=== PATIENT | female | born 1945 | race Caucasian/White ===

== ENCOUNTER 2017-07-12 12:53 | Inpatient (IN) | payer MEDICARE, BC ==
[2017-07-12] VITALS (8 sets, daily range): BP systolic 133–160; BP diastolic 64–77; PULSE 65–80; RESP 16–18; TEMP 98–98.1; O2SAT 97–99
[~2017-07-12] VITALS: Ht 154.9 cm; Wt 67.8 kg
[~2017-07-12 12:53] MED LIST: ASPI81TA82 PO; CART120C2 PO; HYDR-3535 PO; LISI-360 PO; TRAM50TA PO; [UNRECOGNIZED DRUG - CODE] PO; [UNRECOGNIZED DRUG - CODE] PO; [UNRECOGNIZED DRUG - CODE] PO
[2017-07-12] MEDS ORDERED: SODIUM CHLOR 0.9% 1000 ML INJ 1,000 ML IV SCH (13:23)
--- NOTE | 2017-07-12 13:23 | PD ---
HPI Chief Complaint: Abdominal Pain Time Seen by Provider: 13:17 Travel History International Travel<30 days: No Contact w/Intl Traveler<30days: No Traveled to known affect area: No History of Present Illness HPI 72-year-old female presents emergency department with 2 month history of fairly constant left upper quadrant pain. Patient was seen by her primary care physician 1 month ago, and was thought to have pneumonia, but x-ray showed no pneumonia, and she was treated for bronchitis without improvement. Patient states she has had nausea and vomiting, associated with this pain. She denies significant changes in her bowels. She denies significant fever. She denies urinary symptoms or vaginal symptoms. Patient states symptoms seem to be worsening, and she has lost over 15 pounds in weight. She states the pain is mainly in the left upper quadrant radiating into her back. She denies cough, shortness of breath, or wheezing. She denies chest pain. She is a long-term smoker. She states she has a couple of drinks daily. She rates her pain as occasionally sharp but always dull. Worst pain estimated at 9 out of 10. She has no known drug allergies. PFSH Past Medical History Diminished Hearing: No GERD: Yes Herniated Disk: Yes Hypertension: Yes Thyroid Disease: Yes Dilation and Curettage (D&C): Yes Social History Alcohol Use: Yes (1 BEER OR 1 GLASS OF WINE EACH NIGHT, THEN OCCASIONAL SOCIAL DRINK) Tobacco Use: Yes (1 PK/DAILY X 40 YRS) Substance Use: No Allergies-Medications (Allergen,Severity, Reaction): Coded Allergies: No Known Allergies (Unverified Adverse Reaction, Unknown, 07/12/17) Reported Meds & Prescriptions Reported Meds & Active Scripts Active Reported Aspirin Low Dose (Aspirin) 81 Mg Chew 81 Mg CHEW DAILY Amlodipine (Amlodipine Besylate) 5 Mg Tab 5 Mg PO DAILY Lisinopril 20 Mg Tab 20 Mg PO BID Metoprolol Tartrate 50 Mg Tab 50 Mg PO BID Tramadol (Tramadol HCl) 50 Mg Tab 50 Mg PO Q8H PRN Phenergan (Promethazine HCl) 25 Mg Tablet 25 Mg PO Q8HR PRN Ranitidine (Ranitidine HCl) 150 Mg Tab 150 Mg PO BID Diltiazem CD 24 HR 120 Mg Caper 120 Mg PO BID Levothyroxine (Levothyroxine Sodium) 300 Mcg Tab 300 Mcg PO DAILY Review of Systems Except as stated in HPI: all other systems reviewed are Neg General / Constitutional: No: Fever, Chills Eyes: No: Visual changes HENT: No: Headaches Cardiovascular: No: Chest Pain or Discomfort Respiratory: No: Cough, Shortness of Breath, Wheezing Gastrointestinal: Positive: Nausea, Vomiting, Abdominal Pain (See history of present illness), No: Diarrhea, Changes in Bowel Habits, Indigestion, Dysphagia , Loss of Appetite Genitourinary: Positive: Flank Pain, No: Urgency, Frequency, Dysuria, Nocturia , Hematuria, Decreased Urinary Output, Pelvic Pain, Discharge, Vaginal Bleeding Musculoskeletal: No: Myalgias, Arthralgias, Limited ROM, Pain Skin: No Rash Neurologic: No: Weakness Psychiatric: No: Depression Endocrine: No: Polydipsia Hematologic/Lymphatic: No: Easy Bruising Physical Exam Narrative GENERAL: Patient appears in mild distress per SKIN: Warm and dry. Normal color. Normal turgor. No jaundice noted HEAD: Atraumatic. Normocephalic. EYES: Pupils equal and round. No scleral icterus. No injection or drainage. ENT: No nasal bleeding or discharge. Mucous membranes pink and moist. Pharynx is clear. Airways patent NECK: Trachea midline. Supple and nontender CARDIOVASCULAR: Regular rate and rhythm. RESPIRATORY: No accessory muscle use. Clear to auscultation. Breath sounds equal bilaterally. GASTROINTESTINAL: Abdomen soft, moderate nonspecific tenderness in the left upper quadrant, nondistended. Hepatic and splenic margins not palpable. MUSCULOSKELETAL: Extremities without clubbing, cyanosis, or edema. No obvious deformities. NEUROLOGICAL: Awake and alert. No obvious cranial nerve deficits. Motor grossly within normal limits. Five out of 5 muscle strength in the arms and legs. Normal speech. PSYCHIATRIC: Appropriate mood and affect; insight and judgment normal. Data Data Last Documented VS Vital Signs Date Time Temp Pulse Resp B/P (MAP) Pulse Ox O2 Delivery O2 Flow Rate FiO2 07/12/17 15:40 72 18 140/76 (97) 98 Room Air 07/12/17 13:00 98.0 Orders Orders Complete Blood Count With Diff (07/12/17 13:23) Comprehensive Metabolic Panel (07/12/17 13:23) Lipase (07/12/17 13:23) Prothrombin Time / Inr (Pt) (07/12/17 13:23) Act Partial Throm Time (Ptt) (07/12/17 13:23) Urinalysis - C+S If Indicated (07/12/17 13:23) Ct Abd/Pel W Iv Contrast(Rout) (07/12/17 13:23) Iv Access Insert/Monitor (07/12/17 13:23) Ecg Monitoring (07/12/17 13:23) Oximetry (07/12/17 13:23) Morphine Inj (Morphine Inj) (07/12/17 13:30) Ondansetron Inj (Zofran Inj) (07/12/17 13:30) Sodium Chlor 0.9% 1000 Ml Inj (Ns 1000 M (07/12/17 13:23) Sodium Chloride 0.9% Flush (Ns Flush) (07/12/17 13:30) Electrocardiogram (07/12/17 13:23) Famotidine Inj (Pepcid Inj) (07/12/17 13:30) Iohexol 350 Inj (Omnipaque 350 Inj) (07/12/17 15:13) Urine Culture (07/12/17 15:35) Labs Laboratory Tests Test 07/12/17 13:44 07/12/17 15:35 White Blood Count 14.1 TH/MM3 Red Blood Count 5.56 MIL/MM3 Hemoglobin 15.2 GM/DL Hematocrit 45.7 % Mean Corpuscular Volume 82.2 FL Mean Corpuscular Hemoglobin 27.3 PG Mean Corpuscular Hemoglobin Concent 33.2 % Red Cell Distribution Width 14.9 % Platelet Count 349 TH/MM3 Mean Platelet Volume 8.0 FL Neutrophils (%) (Auto) 76.6 % Lymphocytes (%) (Auto) 12.1 % Monocytes (%) (Auto) 7.6 % Eosinophils (%) (Auto) 2.8 % Basophils (%) (Auto) 0.9 % Neutrophils # (Auto) 10.8 TH/MM3 Lymphocytes # (Auto) 1.7 TH/MM3 Monocytes # (Auto) 1.1 TH/MM3 Eosinophils # (Auto) 0.4 TH/MM3 Basophils # (Auto) 0.1 TH/MM3 CBC Comment DIFF FINAL Differential Comment Prothrombin Time 10.4 SEC Prothromb Time International Ratio 1.0 RATIO Activated Partial Thromboplast Time 22.8 SEC Blood Urea Nitrogen 21 MG/DL Creatinine 1.05 MG/DL Random Glucose 103 MG/DL Total Protein 7.9 GM/DL Albumin 3.4 GM/DL Calcium Level 9.4 MG/DL Alkaline Phosphatase 142 U/L Aspartate Amino Transf (AST/SGOT) 21 U/L Alanine Aminotransferase (ALT/SGPT) 40 U/L Total Bilirubin 0.4 MG/DL Sodium Level 141 MEQ/L Potassium Level 5.1 MEQ/L Chloride Level 110 MEQ/L Carbon Dioxide Level 25.6 MEQ/L Anion Gap 5 MEQ/L Estimat Glomerular Filtration Rate 51 ML/MIN Lipase 130 U/L Urine Color LIGHT-YELLOW Urine Turbidity HAZY Urine pH 6.0 Urine Specific [place] 1.025 Urine Protein NEG mg/dL Urine Glucose (UA) NEG mg/dL Urine Ketones NEG mg/dL Urine Occult Blood NEG Urine Nitrite POS Urine Bilirubin NEG Urine Urobilinogen LESS THAN 2.0 MG/DL Urine Leukocyte Esterase MOD Urine WBC 5 /hpf Urine Squamous Epithelial Cells 10 /hpf Urine Bacteria OCC /hpf Urine Mucus FEW /lpf Microscopic Urinalysis Comment CULTURE INDICATED MDM Medical Decision Making Medical Screen Exam Complete: Yes Emergency Medical Condition: Yes Differential Diagnosis Left upper quadrant pain. Flank pain. Renal colic. Diverticulitis. Colitis. Pancreatitis. Metastatic disease. Narrative Course Patient appears medically stable at time of exam. Labs ordered including CBC, CMP, lipase, coagulation studies, and urinalysis. EKG shows normal sinus rhythm without ST changes. This is reviewed with Dr. Grimm. IV access is obtained the patient is given 4 mg Zofran IV, 20 mg Pepcid IV, 2 mg morphine IV, as well as 1000 mL of normal saline bolus. Abdominal pelvis CT is ordered with IV contrast. CBC shows leukocytosis of 14.1. Coagulation studies are unremarkable. Chemistries show chloride of 110, BUN 21, creatinine 1.05, GFR is 51. Alkaline phosphatase is elevated at 142 otherwise no significant findings. CT scan shows: 1. Ill-defined mass involving the tail of the pancreas measuring 5.3 x 2.7 x 2.2 cm raising the possibility primary adenocarcinoma of the pancreas. 2. Multiple low-density lesions scattered throughout the liver ranging in size from 3 to 16 mm with probable metastatic disease. 3. Multiple bilateral renal cysts. 4. Degenerative changes and scoliosis of the thoraco-lumbar spine. Results are discussed with Dr. Grimm who recommends admitting the patient for further evaluation and workup with IR and oncology. Calls placed to the hospitalist for admission. Diagnosis Primary Impression: Lesion of pancreas Admitting Information Admitting Physician Requests: Admit Condition: Stable Daniel Flores Jul 12, 2017 13:23
[2017-07-12] MEDS ORDERED: LEVO-171 PO (13:29)
[2017-07-12] MEDS ORDERED: PROM25TA10 PO (13:29)
[2017-07-12] MEDS ORDERED: RANI150T PO (13:29)
[2017-07-12] MEDS ORDERED: DILT120C50 PO (13:29)
[2017-07-12] MEDS ORDERED: ASPI81CH6 CHEW (13:29)
[2017-07-12] MEDS ORDERED: TRAM50TA PO (13:29)
[2017-07-12] MEDS ORDERED: LISI-515 PO (13:29)
[2017-07-12] MEDS ORDERED: AMLO5TAB2 PO (13:29)
[2017-07-12] MEDS ORDERED: METO50TA PO (13:29)
[2017-07-12] MEDS ORDERED: SODIUM CHLORIDE 0.9% FLUSH 10 ML FLUSH IV FLUSH PRN ×2 (13:30→17:30)
[2017-07-12] MEDS ORDERED: FAMOTIDINE 20 MG/2 ML VIAL IV PUSH ONE (13:30)
[2017-07-12] MEDS ORDERED: ONDANSETRON HCL 4 MG/2 ML VIAL IVP ONE (13:30)
[2017-07-12] MEDS ORDERED: MORPHINE SULFATE 4 MG/ML INJ IV PUSH ONE (13:30)
[2017-07-12 14:17] LABS: AUTOMATED NEUTROPHIL # 10.8 TH/MM3 (1.8-7.7); BASOPHIL # 0.1 TH/MM3 (0-0.2); BASOPHIL % 0.9 % (0.0-2.0); EOSINOPHIL # 0.4 TH/MM3 (0-0.4); EOSINOPHIL % 2.8 % (0.0-4.0); HEMATOCRIT 45.7 % (35.0-46.0); HEMOGLOBIN 15.2 GM/DL (11.6-15.3); LYMPH % 12.1 % (9.0-44.0); LYMPHOCYTE # 1.7 TH/MM3 (1.0-4.8); MEAN CELL VOLUME 82.2 FL (80.0-100.0); MEAN CORPUSCULAR HEMOGLOBIN 27.3 PG (27.0-34.0); MEAN CORPUSCULAR HGB CONC 33.2 % (32.0-36.0); MONO % 7.6 % (0.0-8.0); MONOCYTE # 1.1 TH/MM3 (0-0.9); NEUT % 76.6 % (16.0-70.0); PLATELET COUNT 349 TH/MM3 (150-450); RED BLOOD COUNT 5.56 MIL/MM3 (4.00-5.30); RED CELL DISTRIBUTION WIDTH 14.9 % (11.6-17.2); WHITE BLOOD COUNT 14.1 TH/MM3 (4.0-11.0)
[2017-07-12 14:25] LABS: PROTHROMBIN TIME - PATIENT 10.4 SEC (9.8-11.6)
[2017-07-12 14:35] LABS: ALBUMIN 3.4 GM/DL (3.4-5.0); ALT (GPT) 40 U/L (10-53); AST (GOT) 21 U/L (15-37); BICARBONATE 25.6 MEQ/L (21.0-32.0); BLOOD UREA NITROGEN 21 MG/DL (7-18); CALCIUM 9.4 MG/DL (8.5-10.1); CHLORIDE 110 MEQ/L (98-107); CREATININE 1.05 MG/DL (0.50-1.00); GLOMERULAR FILTRATION RATE 51 ML/MIN (>89); GLUCOSE,RANDOM 103 MG/DL (74-106); SODIUM (NA) 141 MEQ/L (136-145)
[2017-07-12 14:37] LABS: ALKALINE PHOSPHATASE 142 U/L (45-117); TOTAL BILIRUBIN ADULT 0.4 MG/DL (0.2-1.0); TOTAL PROTEIN 7.9 GM/DL (6.4-8.2)
[2017-07-12] MEDS ORDERED: IOHEXOL 350 MG/ML 10 ML VIAL (for RAD DIAG) IVCONTRAST ONE (15:13)
--- NOTE | 2017-07-12 15:28 | RADRPT ---
EXAM DATE/TIME: 07/12/2017 15:05 [facility] COMPARISON: No previous studies available for comparison. INDICATIONS : Left sided abdomen pain. IV CONTRAST: 94 cc Omnipaque 350 (iohexol) IV ORAL CONTRAST: No oral contrast ingested. RADIATION DOSE: 9.63 CTDIvol (mGy) MEDICAL HISTORY : Hypertension. Chronic obstructive pulmonary disease. Gastroesophageal reflux disease. SURGICAL HISTORY : None. ENCOUNTER: Initial ACUITY: 1 day PAIN SCALE: 9/10 LOCATION: Left flank TECHNIQUE: Volumetric scanning of the abdomen and pelvis was performed. Using automated exposure control and ad justment of the mA and/or kV according to patient size, radiation dose was kept as low as reasonably achievable to obtain optimal diagnostic quality images. DICOM format image data is available electro nically for review and comparison. FINDINGS: LOWER LUNGS: The visualized lower lungs are clear. LIVER: There are multiple low-density lesions scattered throughout the liver parenchyma which are suggestive of possible metastatic disease. These range in size from 3-16 mm. SPLEEN: Normal size without lesion. PANCREAS: There is a mass-like lesion involving the tail of the pancreas measuring 5.3 x 2.7 x 2.2 cm. This medellin ses the possibility of primary adenocarcinoma of the pancreas. KIDNEYS: Normal in size and shape. Multiple bilateral renal cysts are noted. The largest cyst is noted on the left and measures 3.6 cm. There is no solid mass, stone or hydronephrosis. ADRENAL GLANDS: Within normal limits. VASCULAR: There is no aortic aneurysm. BOWEL/MESENTERY: The stomach, small bowel, and colon demonstrate no acute abnormality. There is no free intraperitone al air or fluid. ABDOMINAL WALL: Within normal limits. RETROPERITONEUM: There is no lymphadenopathy. BLADDER: No wall thickening or mass. REPRODUCTIVE: Within normal limits. INGUINAL: There is no lymphadenopathy or hernia. MUSCULOSKELETAL: Degenerative changes and scoliosis of the thoracolumbar spine. CONCLUSION: 1. Ill-defined mass involving the tail of the pancreas measuring 5.3 x 2.7 x 2.2 cm raising the possi bility primary adenocarcinoma of the pancreas. 2. Multiple low-density lesions scattered throughout the liver ranging in size from 3 to 16 mm with p robable metastatic disease. 3. Multiple bilateral renal cysts. 4. Degenerative changes and scoliosis of the thoraco-lumbar spine. Jah Delcid MD on July 12, 2017 at 15:21 Board Certified Radiologist. This report was verified electronically.
[2017-07-12 16:14] LABS: BACTERIA, URINE OCC /hpf; BILIRUBIN, URINE NEG (NEG); BLOOD, URINE NEG (NEG); GLUCOSE,URINE NEG (NEG); KETONE, URINE NEG (NEG); MUCUS URINE FEW /lpf (OCC); NITRITE,URINE POS (NEG); SQUAMOUS EPITHELIAL CELL URINE 10 /hpf (0-5); URINE COLOR LIGHT-YELLOW (YELLW/STRAW); URINE LEUKOCYTE ESTERASE MOD (NEG)
[2017-07-12] MEDS ORDERED: SENNOSIDES 8.6 MG TAB PO PRN (17:30)
[2017-07-12] MEDS ORDERED: NICOTINE 14 MG/24 HR PATCH T-DERMAL ONE (17:30)
[2017-07-12] MEDS ORDERED: oxyCODONE/ACETAMINOPHEN 5 MG/325 MG TAB PO PRN (17:30)
[2017-07-12] MEDS ORDERED: MORPHINE SULFATE 2 MG/ML INJ IV PUSH PRN (17:30)
[2017-07-12] MEDS ORDERED: ACETAMINOPHEN 325 MG TAB PO PRN ×2 (17:30)
[2017-07-12] MEDS ORDERED: ONDANSETRON HCL 4 MG/2 ML VIAL IVP PRN (17:30)
[2017-07-12] MEDS ORDERED: MAGNESIUM HYDROXIDE SUSP 30 ML CUP PO PRN (17:30)
[2017-07-12] MEDS ORDERED: TEMAZEPAM 15 MG CAP PO PRN (17:30)
[2017-07-12] MEDS ORDERED: NALOXONE HCL 0.4 MG/ML AMP IV PUSH PRN (17:30)
[2017-07-12] MEDS ORDERED: LACTULOSE SYRUP 20 GM/30 ML CUP PO PRN (17:30)
[2017-07-12] MEDS ORDERED: BISACODYL 10 MG SUPP RECTAL PRN (17:30)
--- NOTE | 2017-07-12 17:39 | HHI.HP ---
[facility] Service [facility] Primary Care Physician Unknown Admission Diagnosis Pancreatic Lesion on CT Diagnoses: (1) Tobacco abuse Diagnosis: Secondary (2) Abdominal pain Diagnosis: Principal (3) Urinary tract infection Diagnosis: Secondary (4) GERD (gastroesophageal reflux disease) Diagnosis: Secondary (5) Hypertension Diagnosis: Secondary (6) Hypothyroidism Diagnosis: Secondary (7) Lesion of pancreas Diagnosis: Principal Chief Complaint: Abdominal pain Travel History International Travel<30 Days: No Contact w/Intl Traveler <30 Da: No Traveled to Known Affected Are: No History of Present Illness Patient is a 72-year-old female who presented to emergency department with a 2 month history of constant left upper quadrant pain. Patient was seen by her primary care physician about a month ago. They thought it was pneumonia. But x-ray showed no pneumonia. She was treated for bronchitis without much improvement. She has had some nausea and some vomiting with some abdominal pain. She denies any significant change in her bowel habits. She denies any fevers denies any urinary or vaginal symptoms. Patient states symptoms seem to be worsening and has had a 15 pound weight loss. Has pain in the left upper quadrant radiating into her back denies any shortness of breath or wheezing does have a cough on occasion denies any chest pain is a smoker still smoking about a pack a day drinks a couple drinks daily. Pain is sharp to dull worst pain was 9 out of 10 denies any drug allergies Had a CAT scan which shows a probable pancreatic mass and will consult interventional radiology for biopsy as well as oncology to determine the pathology Patient will be admitted Review of Systems Constitutional: COMPLAINS OF: Weight loss, Change in appetite, DENIES: Diaphoretic episodes, Fatigue, Fever, Weight gain, Chills, Dizziness, Night Sweats Endocrine: DENIES: Abnorml menstrual pattern, Heat/cold intolerance, Polydipsia , Polyuria, Polyphagia Eyes: DENIES: Blurred vision, Diplopia, Eye inflammation, Eye pain, Vision loss , Photosensitivity Ears, nose, mouth, throat: DENIES: Tinnitus, Hearing loss, Vertigo, Nasal discharge, Oral lesions, Throat pain, Hoarseness, Running Nose, Epistaxis, Sinus Pain, Toothache, Odynophagia Respiratory: COMPLAINS OF: Cough, DENIES: Apneas, Snoring, Wheezing, Hemoptysis , Sputum production, Shortness of breath Cardiovascular: DENIES: Chest pain, Palpitations, Syncope, Dyspnea on Exertion , PND, Lower Extremity Edema, Orthopnea, Claudication Gastrointestinal: COMPLAINS OF: Abdominal pain, Nausea, Vomiting, Anorexia, DENIES: Black stools, Bloody stools, Constipation, Diarrhea, Difficulty Swallowing Genitourinary: DENIES: Abnormal vaginal bleeding, Dysmenorrhea, Dyspareunia, Sexual dysfunction, Urinary frequency, Urinary incontinence, Urgency, Hematuria , Dysuria Musculoskeletal: DENIES: Joint pain, Muscle aches, Stiffness Integumentary: DENIES: Abnormal pigmentation, Pruritus, Rash, Nail changes, Breast masses, Breast skin changes Hematologic/lymphatic: DENIES: Bruising, Lymphadenopathy Immunologic/allergic: DENIES: Eczema, Urticaria Neurologic: DENIES: Abnormal gait, Headache, Localized weakness, Paresthesias, Seizures, Speech Problems, Tremor, Poor Balance Psychiatric: DENIES: Anxiety, Confusion, Mood changes, Depression, Hallucinations, Agitation, Suicidal Ideation, Homicidal Ideation, Delusions Except as stated in HPI: all other systems reviewed are Neg Past Family Social History Past Medical History GERD Herniated disc Hypertension Hypothyroidism history of D&C Bronchitis Tobacco Past Surgical History D&C Reported Medications Reported Meds & Active Scripts Active Reported Aspirin Low Dose (Aspirin) 81 Mg Chew 81 Mg CHEW DAILY Amlodipine (Amlodipine Besylate) 5 Mg Tab 5 Mg PO DAILY Lisinopril 20 Mg Tab 20 Mg PO BID Metoprolol Tartrate 50 Mg Tab 50 Mg PO BID Tramadol (Tramadol HCl) 50 Mg Tab 50 Mg PO Q8H PRN Phenergan (Promethazine HCl) 25 Mg Tablet 25 Mg PO Q8HR PRN Ranitidine (Ranitidine HCl) 150 Mg Tab 150 Mg PO BID Diltiazem CD 24 HR 120 Mg Caper 120 Mg PO BID Levothyroxine (Levothyroxine Sodium) 300 Mcg Tab 300 Mcg PO DAILY Allergies: Coded Allergies: No Known Allergies (Unverified Adverse Reaction, Unknown, 07/12/17) Active Ordered Medications Current Medications Morphine Sulfate (Morphine Inj) 2 mg ONCE ONCE IV PUSH Last administered on at 13:54; Start 07/12/17 at 13:30; Stop 07/12/17 at 13:31; Status DC Ondansetron HCl (Zofran Inj) 4 mg ONCE ONCE IVP Last administered on at 13:54; Start 07/12/17 at 13:30; Stop 07/12/17 at 13:31; Status DC Sodium Chloride 1,000 ml @ 1,000 mls/hr Q1H IV Last administered on 07/12/17at 13:52; Start 07/12/17 at 13:23; Stop 07/12/17 at 14:22; Status DC Sodium Chloride (NS Flush) 2 ml UNSCH PRN IV FLUSH FLUSH AFTER USING IV ACCESS ; Start 07/12/17 at 13:30 Famotidine (Pepcid Inj) 20 mg ONCE ONCE IV PUSH Last administered on at 13:53; Start 07/12/17 at 13:30; Stop 07/12/17 at 13:31; Status DC Iohexol (Omnipaque 350 Inj) 94 ml STK-MED ONCE IVCONTRAST Last administered on 07/12/17at 15:13; Start 07/12/17 at 15:13; Stop 07/12/17 at 15:14; Status DC Family History Cancer in her mother with esophageal cancer Other family members with cervical cancer and other types of cancer Social History Smokes a pack a day has been doing that for 40 years Drinks a couple beers or wine each night occasional social drink Denies any illicit Physical Exam Vital Signs Vital Signs Date Time Temp Pulse Resp B/P (MAP) Pulse Ox O2 Delivery O2 Flow Rate FiO2 07/12/17 15:40 72 18 140/76 (97) 98 Room Air 07/12/17 13:51 65 17 160/72 (101) 98 Room Air 07/12/17 13:51 65 17 160/72 (101) 98 Room Air 07/12/17 13:22 17 07/12/17 13:00 98.0 80 16 133/72 (92) 97 Physical Exam GENERAL: This is a well-nourished, well-developed patient, in no apparent distress. SKIN: No rashes, ecchymoses or lesions. Cool and dry. HEAD: Atraumatic. Normocephalic. No temporal or scalp tenderness. EYES: Pupils equal round and reactive. Extraocular motions intact. No scleral icterus. No injection or drainage. ENT: Nose without bleeding, purulent drainage or septal hematoma. Throat without erythema, tonsillar hypertrophy or exudate. Uvula midline. Airway patent. NECK: Trachea midline. No JVD or lymphadenopathy. Supple, nontender, no meningeal signs. CARDIOVASCULAR: Regular rate and rhythm without murmurs, gallops, or rubs. S1- S2 no S3 or S4 RESPIRATORY: Clear to auscultation. Breath sounds equal bilaterally. No wheezes , rales, or rhonchi. GASTROINTESTINAL: Abdomen soft, non-tender, nondistended. No hepato-splenomegaly , or palpable masses. No guarding. Mild abdominal tenderness MUSCULOSKELETAL: Extremities without clubbing, cyanosis, or edema. No joint tenderness, effusion, or edema noted. No calf tenderness. Negative Homans sign bilaterally. NEUROLOGICAL: Awake and alert. Cranial nerves II through XII intact. Motor and sensory grossly within normal limits. Five out of 5 muscle strength in all muscle groups. Normal speech. Insight and judgment is good Mood and behavior is appropriate Laboratory Laboratory Tests Test 07/12/17 13:44 07/12/17 15:35 White Blood Count 14.1 Red Blood Count 5.56 Hemoglobin 15.2 Hematocrit 45.7 Mean Corpuscular Volume 82.2 Mean Corpuscular Hemoglobin 27.3 Mean Corpuscular Hemoglobin Concent 33.2 Red Cell Distribution Width 14.9 Platelet Count 349 Mean Platelet Volume 8.0 Neutrophils (%) (Auto) 76.6 Lymphocytes (%) (Auto) 12.1 Monocytes (%) (Auto) 7.6 Eosinophils (%) (Auto) 2.8 Basophils (%) (Auto) 0.9 Neutrophils # (Auto) 10.8 Lymphocytes # (Auto) 1.7 Monocytes # (Auto) 1.1 Eosinophils # (Auto) 0.4 Basophils # (Auto) 0.1 CBC Comment DIFF FINAL Differential Comment Prothrombin Time 10.4 Prothromb Time International Ratio 1.0 Activated Partial Thromboplast Time 22.8 Blood Urea Nitrogen 21 Creatinine 1.05 Random Glucose 103 Total Protein 7.9 Albumin 3.4 Calcium Level 9.4 Alkaline Phosphatase 142 Aspartate Amino Transf (AST/SGOT) 21 Alanine Aminotransferase (ALT/SGPT) 40 Total Bilirubin 0.4 Sodium Level 141 Potassium Level 5.1 Chloride Level 110 Carbon Dioxide Level 25.6 Anion Gap 5 Estimat Glomerular Filtration Rate 51 Lipase 130 Urine Color LIGHT-YELLOW Urine Turbidity HAZY Urine pH 6.0 Urine Specific [place] 1.025 Urine Protein NEG Urine Glucose (UA) NEG Urine Ketones NEG Urine Occult Blood NEG Urine Nitrite POS Urine Bilirubin NEG Urine Urobilinogen LESS THAN 2.0 Urine Leukocyte Esterase MOD Urine WBC 5 Urine Squamous Epithelial Cells 10 Urine Bacteria OCC Urine Mucus FEW Microscopic Urinalysis Comment CULTURE INDICATED Date/Time Source Procedure Growth Status 07/12/17 15:35 Urine Clean Catch Urine Culture Pending Received Result Diagram: 07/12/17 1344 07/12/17 1344 Imaging Last Impressions Abdomen/Pelvis CT 07/12/17 1323 Signed Impressions: Service Date/Time: June 15:05 - CONCLUSION: 1. Ill- defined mass involving the tail of the pancreas measuring 5.3 x 2.7 x 2.2 cm raising the possibility primary adenocarcinoma of the pancreas. 2. Multiple low-density lesions scattered throughout the liver ranging in size from 3 to 16 mm with probable metastatic disease. 3. Multiple bilateral renal cysts. 4. Degenerative changes and scoliosis of the thoraco-lumbar spine. Jah Delcid MD Caprini VTE Risk Assessment Caprini VTE Risk Assessment: Mod/High Risk (score >= 2) Caprini Risk Assessment Model Point Value = 1 Point Value = 2 Point Value = 3 Point Value = 5 Age 41-60 Minor surgery BMI > 25 kg/m2 Swollen legs Varicose veins or History of unexplained or recurrent spontaneous Oral contraceptives or hormone replacement Sepsis (< 1 month) Serious lung disease, including pneumonia (< 1 month) Abnormal pulmonary function Acute myocardial infarction Congestive heart failure (< 1 month) History of inflammatory bowel disease Medical patient at bed rest Age 61-74 Arthroscopic surgery Major open surgery (> 45 min) Laparoscopic surgery (> 45 min) Malignancy Confined to bed (> 72 hours) Immobilizing plaster cast Central venous access Age >= 75 History of VTE Family history of VTE Factor V Leiden Prothrombin [id number] Lupus anticoagulant Anticardiolipin antibodies Elevated serum homocysteine Heparin-induced thrombocytopenia Other congenital or acquired thrombophilia Stroke (< 1 month) Elective arthroplasty Hip, pelvis, or leg fracture Acute spinal cord injury (< 1 month) Prophylaxis Regimen Total Risk Factor Score Risk Level Prophylaxis Regimen 0-1 Low Early ambulation 2 Moderate Order ONE of the following: *Sequential Compression Device (SCD) *Heparin 5000 units SQ BID 3-4 Higher Order ONE of the following medications: *Heparin 5000 units SQ TID *Enoxaparin/Lovenox 40 mg SQ daily (WT < 150 kg, CrCl > 30 mL/min) *Enoxaparin/Lovenox 30 mg SQ daily (WT < 150 kg, CrCl > 10-29 mL/min) *Enoxaparin/Lovenox 30 mg SQ BID (WT < 150 kg, CrCl > 30 mL/min) AND/OR *Sequential Compression Device (SCD) 5 or more Highest Order ONE of the following medications: *Heparin 5000 units SQ TID (Preferred with Epidurals) *Enoxaparin/Lovenox 40 mg SQ daily (WT < 150 kg, CrCl > 30 mL/min) *Enoxaparin/Lovenox 30 mg SQ daily (WT < 150 kg, CrCl > 10-29 mL/min) *Enoxaparin/Lovenox 30 mg SQ BID (WT < 150 kg, CrCl > 30 mL/min) AND *Sequential Compression Device (SCD) Assessment and Plan Problem List: (1) Hypertension ICD Code: I10 - Essential (primary) hypertension (2) Abdominal pain ICD Code: R10.9 - Unspecified abdominal pain (3) GERD (gastroesophageal reflux disease) ICD Code: K21.9 - Gastro-esophageal reflux disease without esophagitis (4) Tobacco abuse ICD Code: Z72.0 - Tobacco use (5) Hypothyroidism ICD Code: E03.9 - Hypothyroidism, unspecified (6) Urinary tract infection ICD Code: N39.0 - Urinary tract infection, site not specified (7) Lesion of pancreas ICD Code: K86.9 - Disease of pancreas, unspecified Status: Acute Assessment and Plan Pancreatic mass/lesion will consult interventional radiology for biopsy We will consult oncology for help with biopsy Pain control Antiemetics Urinary tract infection continue on Rocephin 1 g IV daily Hypertension resume home medications Hypothyroidism resume home medications GERD continue on home medications Pain control Tobacco abuse continue on NicoDerm Alcohol abuse and tobacco abuse recommend smoking cessation and alcohol cessation Code Status Full code Discussed Condition With RN and patient and emergency room physician administrative assistant data entry Physician Certification 2 Midnight Certification Type: Admission for Inpatient Services Order for Inpatient Services The services are ordered in accordance with Medicare regulations or non- Medicare payer requirements, as applicable. In the case of services not specified as inpatient-only, they are appropriately provided as inpatient services in accordance with the 2-midnight benchmark. Estimated LOS (days): 4 days is the estimated time the patient will need to remain in the hospital, assuming treatment plan goals are met and no additional complications. Post-Hospital Plan: Not yet determined Robinson Lux DO Jul 12, 2017 17:39
[2017-07-12] MEDS: SODIUM CHLOR 0.9% 1000 ML INJ 1,000 ML IV SCH (17:58)
[2017-07-12] MEDS: cefTRIAXone INJ 1,000 MG in SODIUM CHLORIDE 0.9% INJ 100 ML IV SCH (18:07)
[2017-07-12] MEDS: oxyCODONE/ACETAMINOPHEN 10 MG/325 MG TAB PO PRN (18:07)
[2017-07-12] MEDS ORDERED: MORPHINE SULFATE 4 MG/ML INJ IV PRN (18:15)
--- NOTE | 2017-07-12 18:35 | RADRPT ---
EXAM DATE/TIME: 07/12/2017 18:18 [facility] COMPARISON: No previous studies available for comparison. INDICATIONS : Pancreatic lesion, evaluate for mass in chest. RADIATION DOSE: 9.12 CTDIvol (mGy) MEDICAL HISTORY : Hypertension. Chronic obstructive pulmonary disease. Gastroesophageal reflux disease. SURGICAL HISTORY : None. ENCOUNTER: Initial ACUITY: 2 months PAIN SCALE: 5/10 LOCATION: Left chest TECHNIQUE: Volumetric scanning of the chest was performed. Using automated exposure control and adjustment of t he mA and/or kV according to patient size, radiation dose was kept as low as reasonably achievable to obtain optimal diagnostic quality images. DICOM format image data is available electronically for r eview and comparison. Follow-up recommendations for detected pulmonary nodules are based at a minimum on nodule size and pa tient risk factors according to Fleischner Society Guidelines. FINDINGS: No suspicious lung masses or nodules are seen to suggest metastatic disease. The scattered parenchyma l scarring in the lungs. No pleural or pericardial effusion. Moderate coronary calcifications. No hil ar, mediastinal axillary adenopathy. There are numerous hepatic metastases throughout the liver. There is a mass in the tail of the pancre as recently evaluated on abdomen CT. Bilateral renal lesions, probably small cysts. CONCLUSION: 1. No definite evidence for metastatic disease to the thorax. 2. Innumerable hepatic metastases with pancreatic mass present. Ethan Rouse MD on July 12, 2017 at 18:30 Board Certified Radiologist. This report was verified electronically.
[2017-07-12] MEDS ORDERED: NON-FORMULARY DRUG (Ranitidine 150 MG) PO SCH (21:00)
[2017-07-12] MEDS: METOPROLOL TARTRATE 50 MG TAB PO SCH (21:34)
[2017-07-12] MEDS: SODIUM CHLORIDE 0.9% FLUSH 10 ML FLUSH IV FLUSH SCH (21:34)
[2017-07-12] MEDS: DOCUSATE SODIUM 50 MG/SENNA 8.6 MG TAB PO SCH (21:34)
[2017-07-12] MEDS: DILTIAZEM-CD 120 MG CAP ER PO SCH (21:34)
[2017-07-12] MEDS: LISINOPRIL 20 MG TAB PO SCH (21:34)
[2017-07-13] VITALS (13 sets, daily range): BP systolic 110–140; BP diastolic 55–93; PULSE 57–95; RESP 16–20; TEMP 96.9–98.2; O2SAT 92–98
[2017-07-13] MEDS: oxyCODONE/ACETAMINOPHEN 10 MG/325 MG TAB PO PRN ×2 (00:38→23:27)
[2017-07-13] MEDS: SODIUM CHLOR 0.9% 1000 ML INJ 1,000 ML IV SCH ×2 (04:02→19:27)
[2017-07-13 04:59] LABS: BASOPHIL # 0.1 TH/MM3 (0-0.2); BASOPHIL % 0.8 % (0.0-2.0); EOSINOPHIL # 1.1 TH/MM3 (0-0.4); EOSINOPHIL % 7.1 % (0.0-4.0); HEMATOCRIT 41.6 % (35.0-46.0); HEMOGLOBIN 13.6 GM/DL (11.6-15.3); LYMPH % 15.1 % (9.0-44.0); LYMPHOCYTE # 2.2 TH/MM3 (1.0-4.8); MEAN CELL VOLUME 82.4 FL (80.0-100.0); MEAN CORPUSCULAR HEMOGLOBIN 26.9 PG (27.0-34.0); MEAN CORPUSCULAR HGB CONC 32.6 % (32.0-36.0); MEAN PLATELET VOLUME 7.9 FL (7.0-11.0); MONO % 8.8 % (0.0-8.0); MONOCYTE # 1.3 TH/MM3 (0-0.9); NEUT % 68.2 % (16.0-70.0); PLATELET COUNT 310 TH/MM3 (150-450); RED BLOOD COUNT 5.05 MIL/MM3 (4.00-5.30); RED CELL DISTRIBUTION WIDTH 14.8 % (11.6-17.2); WHITE BLOOD COUNT 14.7 TH/MM3 (4.0-11.0)
[2017-07-13] MEDS: METOCLOPRAMIDE HCL 10 MG/2 ML VIAL IV PUSH PRN ×2 (05:07→11:52)
[2017-07-13 05:30] LABS: ALKALINE PHOSPHATASE 127 U/L (45-117); ALT (GPT) 32 U/L (10-53); AST (GOT) 21 U/L (15-37); BICARBONATE 23.1 MEQ/L (21.0-32.0); BLOOD UREA NITROGEN 13 MG/DL (7-18); CALCIUM 8.6 MG/DL (8.5-10.1); CHLORIDE 110 MEQ/L (98-107); CREATININE 0.86 MG/DL (0.50-1.00); FREE T4 2.93 NG/DL (0.76-1.46); GLOMERULAR FILTRATION RATE 65 ML/MIN (>89); GLUCOSE,RANDOM 89 MG/DL (74-106); MAGNESIUM 1.6 MG/DL (1.5-2.5); PHOSPHORUS 3.3 MG/DL (2.5-4.9); SODIUM (NA) 142 MEQ/L (136-145); TOTAL BILIRUBIN ADULT 0.4 MG/DL (0.2-1.0)
[2017-07-13] MEDS ORDERED: LEVOTHYROXINE SODIUM 150 MCG TAB PO SCH (06:00)
[2017-07-13] MEDS: DILTIAZEM-CD 120 MG CAP ER PO SCH ×2 (09:00→19:24)
[2017-07-13] MEDS: REMOVE OLD PATCH T-DERMAL SCH (09:00)
[2017-07-13] MEDS: FAMOTIDINE 20 MG TAB PO SCH (11:31)
[2017-07-13] MEDS: NICOTINE 14 MG/24 HR PATCH T-DERMAL SCH (11:31)
[2017-07-13] MEDS: DOCUSATE SODIUM 50 MG/SENNA 8.6 MG TAB PO SCH ×2 (11:31→19:23)
[2017-07-13] MEDS: LISINOPRIL 20 MG TAB PO SCH ×2 (11:32→19:24)
[2017-07-13] MEDS: METOPROLOL TARTRATE 50 MG TAB PO SCH ×2 (11:32→19:24)
[2017-07-13] MEDS: amLODIPine BESYLATE 5 MG TAB PO SCH (11:32)
[2017-07-13] MEDS: MORPHINE SULFATE 4 MG/ML INJ IV PRN (11:52)
[2017-07-13] MEDS ORDERED: LIDOCAINE 1%/EPINEPHrine 1:100,000 SOLN 50 ML VIAL ONE (14:51)
[2017-07-13] MEDS ORDERED: MIDAZOLAM HCL 2 MG/2 ML VIAL ONE (15:02)
[2017-07-13] MEDS ORDERED: fentaNYL CITRATE 250 MCG/5 ML AMP ONE (15:02)
--- NOTE | 2017-07-13 16:33 | RADRPT ---
EXAM DATE/TIME: 07/13/2017 15:23 [facility] COMPARISON: No previous studies available for comparison. INDICATIONS : Pancreatic mass. SEDATION TIME: 30 minutes BIOPSY SITE: pancreas MEDICATION(S): 1.) 4 mg midazolam (Versed) IV 2.) 200 mcg fentanyl (Sublimaze) IV DEVICE(S): 1.) 17 gauge 15cm coaxial 2.) 18 gauge 20cm Bard MEDICAL HISTORY : Hypertension. SURGICAL HISTORY : None. ENCOUNTER: Initial ACUITY: 1 day PAIN SCORE: 0/10 LOCATION: upper quadrant A total of one core specimen(s) were obtained and sent to the laboratory for pathologic evaluation. PROCEDURE: 1. CT guided pancreas biopsy. 2. Conscious sedation with continuous EKG and oximetry monitoring. Prior to the procedure informed consent was obtained. Any appropriate prior imaging studies were rev iewed. Using automated exposure control and adjustment of the mA and/or kV according to patient size, radiat ion dose was kept as low as reasonably achievable to obtain optimal diagnostic quality images. DICOM format image data is available electronically for review and comparison. The site was prepped in a sterile fashion. Full sterile technique was used, including cap, mask, jimena rile gloves and gown and a large sterile sheet. Hand hygiene and 2% chlorhexidine and/or betadine/al cohol prep was utilized per protocol for cutaneous antisepsis. The skin and subcutaneous tissues wer e infiltrated with local anesthetic solution. With CT guidance the previously identified target was localized. Biopsy was performed using the presc ribed needle as above. Adequate hemostasis was obtained with compression at the puncture site. Follow-up CT scan reveals no hemorrhage. The patient tolerated the procedure well and there were no complications. The patient was returned to the Radiology Outpatient Unit in stable condition. CONCLUSION: Uncomplicated CT guided biopsy of the mass in the pancreatic tail. Andres Raman MD on July 13, 2017 at 16:28 Board Certified Radiologist. This report was verified electronically.
--- NOTE | 2017-07-13 16:45 | PD.RAD ---
Post CT Procedure Prog Note Pre Procedure Diagnosis: (1) Pancreatic mass Post Procedure Diagnosis: (1) Pancreatic mass Procedure Date: Jul 13, 2017 Supervising Radiologist: Andres Raman Proceduralist/Assist: stephanie murphy Estimated blood loss: none Anesthesia: Conscious Sedation Plan of Activity Patient to Unit: [facility] Patient Condition: Good See PACS Report for procedural detail/treatment Andres Raman MD Jul 13, 2017 16:45
--- NOTE | 2017-07-13 18:18 | HHI.PR ---
Subjective Remarks Deferred entry, the patient was seen earlier at 12:20 AM. The patient states that her abdominal pain is much improved. Denies nausea, vomiting. States she had some vomiting last night but these have subsided. Objective Vitals Vital Signs Date Time Temp Pulse Resp B/P (MAP) Pulse Ox O2 Delivery O2 Flow Rate FiO2 07/13/17 17:57 68 20 127/60 (82) 94 07/13/17 17:35 68 20 113/64 (80) 94 07/13/17 17:05 65 20 112/58 (76) 94 07/13/17 16:35 66 20 121/71 (88) 92 07/13/17 16:20 98.1 62 20 110/55 (73) 92 07/13/17 12:00 98.2 74 18 136/67 (90) 97 07/13/17 10:20 3.00 07/13/17 08:00 97.2 71 18 135/64 (87) 94 07/13/17 04:45 96.9 57 18 121/69 (86) 94 07/13/17 04:04 95 07/13/17 00:20 97.1 69 16 140/80 (100) 98 07/13/17 00:00 71 07/12/17 22:37 99 Nasal Cannula 3.00 07/12/17 21:14 69 07/12/17 20:07 98.1 66 17 138/77 (97) 99 07/12/17 18:57 144/64 (90) I/O 07/12/17 07/12/17 07/12/17 07/13/17 07/13/17 07/13/17 07:00 15:00 23:00 07:00 15:00 23:00 Intake Total 1000 ml 0 ml 0 ml Balance 1000 ml 0 ml 0 ml Intake Oral 0 ml 0 ml IV Total 1000 ml # Voids 4 3 # Bowel Movements 0 Result Diagram: 07/13/17 0436 07/13/17 0436 Imaging Last Impressions Pancreas Biopsy CT 07/13/17 0806 Signed Impressions: Service Date/Time: Thursday, July 13, 2017 15:23 - CONCLUSION: Uncomplicated CT guided biopsy of the mass in the pancreatic tail. Andres Raman MD Abdomen/Pelvis CT 07/12/17 1323 Signed Impressions: Service Date/Time: June 15:05 - CONCLUSION: 1. Ill- defined mass involving the tail of the pancreas measuring 5.3 x 2.7 x 2.2 cm raising the possibility primary adenocarcinoma of the pancreas. 2. Multiple low-density lesions scattered throughout the liver ranging in size from 3 to 16 mm with probable metastatic disease. 3. Multiple bilateral renal cysts. 4. Degenerative changes and scoliosis of the thoraco-lumbar spine. Jah Delcid MD Chest CT 07/12/17 0000 Signed Impressions: Service Date/Time: June 18:18 - CONCLUSION: 1. No definite evidence for metastatic disease to the thorax. 2. Innumerable hepatic metastases with pancreatic mass present. Ethan Rouse MD Objective Remarks AAO 3. NAD Clear lungs bilaterally S1-S2 present with regular rate and rhythm, no murmurs rubs or gallops. Abdomen is soft, tender to palpation of epigastric region, nondistended, no rebound tenderness or guarding elicited. There is no edema in lower extremities. Medications and IVs Current Medications Medications (Trade) Dose Ordered Sig/Yaan Route Start Time Stop Time Status Last Admin Sodium Chloride 1,000 ml @ 100 mls/hr Q10H IV 07/12/17 18:00 07/13/17 04:02 (NS Flush) 2 ml UNSCH PRN IV FLUSH 07/12/17 17:30 (NS Flush) 2 ml BID IV FLUSH 07/12/17 21:00 (Tylenol) 650 mg Q4H PRN PO 07/12/17 17:30 (Zofran Inj) 4 mg Q6H PRN IVP 07/12/17 17:30 07/13/17 04:02 (Reglan Inj) 5 mg Q6H PRN IV PUSH 07/12/17 17:30 07/13/17 11:52 (Restoril) 15 mg HS PRN PO 07/12/17 17:30 (Tylenol) 650 mg Q6H PRN PO 07/12/17 17:30 (Percocet 5-325 Mg) 1 tab Q6H PRN PO 07/12/17 17:30 (Percocet 10-325 Mg) 1 tab Q6H PRN PO 07/12/17 17:30 07/13/17 00:38 (Morphine Inj) 2 mg Q3H PRN IV PUSH 07/12/17 17:30 (Morphine Inj) 4 mg Q3H PRN IV 07/12/17 18:15 07/13/17 11:52 (Morphine Inj) 4 mg Q3H PRN IV 07/12/17 18:15 (Narcan Inj) 0.4 mg UNSCH PRN IV PUSH 07/12/17 17:30 (Wilda-Colace) 1 tab BID PO 07/12/17 21:00 07/13/17 11:31 (Milk Of Magnesia Liq) 30 ml Q12H PRN PO 07/12/17 17:30 (Senokot) 17.2 mg Q12H PRN PO 07/12/17 17:30 (Dulcolax Supp) 10 mg DAILY PRN RECTAL 07/12/17 17:30 (Lactulose Liq) 30 ml DAILY PRN PO 07/12/17 17:30 Ceftriaxone Sodium 1000 mg/ Sodium Chloride 100 ml @ 200 mls/hr Q24H IV 07/12/17 18:00 07/12/17 18:07 (Habitrol 14 Mg Patch.24 Hr) 1 patch DAILY T-DERMAL 07/13/17 09:00 07/13/17 11:31 Miscellaneous Information 1 DAILY T-DERMAL 07/13/17 09:00 07/13/17 09:00 (Norvasc) 5 mg DAILY PO 07/13/17 09:00 07/13/17 11:32 (Cardizem Cd) 120 mg BID PO 07/12/17 21:00 07/13/17 09:00 (Synthroid) 300 mcg DAILY@0600 PO 07/13/17 06:00 (Prinivil) 20 mg BID PO 07/12/17 21:00 07/13/17 11:32 (Lopressor) 50 mg BID PO 07/12/17 21:00 07/13/17 11:32 (Pepcid) 20 mg DAILY PO 07/13/17 09:00 07/13/17 11:31 Urinary Catheter: No Vascular Central Line Catheter: No A/P Problem List: (1) Hypertension ICD Code: I10 - Essential (primary) hypertension (2) Abdominal pain ICD Code: R10.9 - Unspecified abdominal pain (3) GERD (gastroesophageal reflux disease) ICD Code: K21.9 - Gastro-esophageal reflux disease without esophagitis (4) Tobacco abuse ICD Code: Z72.0 - Tobacco use (5) Hypothyroidism ICD Code: E03.9 - Hypothyroidism, unspecified (6) Urinary tract infection ICD Code: N39.0 - Urinary tract infection, site not specified (7) Lesion of pancreas ICD Code: K86.9 - Disease of pancreas, unspecified Status: Acute Assessment and Plan Oncology consulted. Recommendations pending. Continue pain control Antiemetics Rocephin for urinary tract infection. BP stable on home antihypertensive medications Continue levothyroxine for hypothyroidism -will decrease dose since free T4 is 293 and TSH is 0.005. Continue nicotine patch for tobacco abuse. Biopsy of pancreatic mass pending. Mart Diaz MD Jul 13, 2017 18:18
--- NOTE | 2017-07-13 19:18 | EKG ---
Date Performed: 07/12/2017 Time Performed: 13:39:40 PTAGE: 72 years EKG: Sinus rhythm NORMAL ECG NO PREVIOUS TRACING DOCTOR: Leonel Patel Interpretating Date/Time 07/13/2017 19:15:23
[2017-07-13] MEDS: cefTRIAXone INJ 1,000 MG in SODIUM CHLORIDE 0.9% INJ 100 ML IV SCH (19:24)
[2017-07-13] MEDS: SODIUM CHLORIDE 0.9% FLUSH 10 ML FLUSH IV FLUSH SCH (19:26)
[2017-07-13 19:45] LABS: HEMOGLOBIN A1C 5.9 % (4.3-6.0)
--- NOTE | 2017-07-13 22:29 | MB ---
cc: Hugo Olson MD, Zafar MD DATE: 07/13/2017 TIME OF CONSULTATION: 6:15 p.m. REASON FOR CONSULTATION: A patient with a mass involving the tail of the pancreas associated with numerous masses involving the liver. A constellation of findings concerning for pancreatic carcinoma with liver metastases. HISTORY OF PRESENT ILLNESS: Ms. Louie reports symptoms of persistent left upper quadrant pain associated with nausea and vomiting and a 15-pound weight loss over the past 1 month. HISTORY OF PRESENT ILLNESS: Ms. Louie is a very pleasant 72-year-old female who is originally from [facility]. She moved to [facility] about 16 years ago. 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 The patient reports being a 1 pack a day smoker since she was a teenager. She also reports drinking 2-4 beers daily. The patient reports in the past having had issues with epigastric abdominal pain and was assessed to have pancreatitis. She was counseled on alcohol cessation. Her symptoms did improve transiently, but recurred about 2-1/2 months ago and have since then persisted. Over the past 1 week, her pain progressively worsened and she was unable to function. The worsening pain triggered this hospitalization. Upon presentation to the emergency department, she underwent imaging studies of the chest, abdomen and pelvis. CT scan of the abdomen revealed a mass involving the pancreatic tail. This mass measured 5.3 x 2.7 x 2.2 cm and was associated with innumerable low density lesions ranging from 3 mm to 16 mm involving all segments of the liver essentially. CT scan of the thorax was also performed. This was without contrast. There was no evidence of metastatic disease in the thorax. Earlier today, the patient underwent image-guided biopsy of the pancreatic tail mass. PAST MEDICAL HISTORY: Hypertension, hypothyroidism, COPD, tobaccoism, daily alcohol consumption, previous history of pancreatitis. PAST SURGICAL HISTORY: She denies any surgeries. She reports the first procedure she ever had in her life was the CT-guided biopsy earlier today. GYNECOLOGIC HISTORY: 5, para 5. She is postmenopausal. FAMILY HISTORY: Mother of cancer of a primary site the patient does not know. Her maternal grandmother had cervical cancer and a maternal aunt had cancer of the esophagus. Father in World War II fighting. ALLERGIES: NO KNOWN DRUG ALLERGIES. HEALTH MAINTENANCE: Her most recent mammogram was more than 5 years ago. She has never had a colonoscopy. CURRENT INPATIENT MEDICATIONS: 1. Normal saline 100 mL per hour. 2. Tylenol 650 mg p.o. q. 6 hours as needed for pain. 3. Amlodipine 5 mg p.o. daily. 4. Diltiazem 120 mg p.o. b.i.d. 5. Famotidine 20 mg p.o. daily. 6. Levothyroxine 300 mcg p.o. daily. 7. Lisinopril 20 mg p.o. b.i.d. 8. Metoclopramide 5 mg IV q. 6 hours as needed for nausea and vomiting. 9. Metoprolol 50 mg p.o. b.i.d. 10. Morphine sulfate 4 mg IV q. 3 hours as needed for pain. 11. Nicotine patches. 12. Ondansetron 4 mg IV q. 6 hours. 13. Oxycodone/acetaminophen 5/325 mg p.o. q. 6 hours as needed for pain. 14. Temazepam 15 mg p.o. at bedtime as needed for insomnia. REVIEW OF SYSTEMS: A 13-point patient completed review of systems are obtained. The following are the pertinent positives and negatives: CONSTITUTIONAL: The patient reports decreased appetite. She reports fatigue, weakness. She denies fevers or chills. She does report a 15-pound weight loss over the past 1 month. HEENT: No complaints. RESPIRATORY: She denies complaints of dyspnea, cough, hemoptysis or pleuritic chest pain. CARDIOVASCULAR: Denies anginal-like chest pain, PND or orthopnea. GASTROINTESTINAL: Reports nausea, vomiting, epigastric abdominal pain with radiation to the left upper quadrant. She denies hematochezia or melena. UG: Denies dysuria, hematuria or urinary incontinence. 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 No other complaints reported. PHYSICAL EXAMINATION: VITAL SIGNS: Temperature 98.1 degrees Fahrenheit, heart rate ranging between 74 and 62 beats per minute, respiratory rate 20, blood pressure 127/60, O2 saturations 94% on room air. GENERAL APPEARANCE: Ms. Louie is an elderly lady: She is of medium height and moderate build. She appears to be in no acute distress and has a pleasant disposition. HEENT: Head atraumatic, normocephalic. Conjunctivae are not pale. Sclerae are nonicteric. EOMI, PERRLA. Oral exam - No pharyngeal erythema. NECK: No palpable cervical or supraclavicular lymphadenopathy. RESPIRATORY: Prolonged expiratory phase, scattered rhonchi and otherwise normal breath sounds. CARDIOVASCULAR: Regular rate and rhythm, S1, S2. No obvious murmurs, rubs or gallops. ABDOMEN: Protuberant belly, soft, tender over the left periumbilical area and left upper quadrant. No organ enlargement noted. Positive bowel sounds. EXTREMITIES: No pretibial edema. No calf tenderness. CENTRAL NERVOUS SYSTEM: No focal sensory or motor deficits. SKIN: Nonfocal. LABORATORY DATA: Blood work dated 07/13/2017: WBC count 14.7, hemoglobin 13.6 g/dL, hematocrit 41.6%, platelet count of 310, absolute neutrophil count is 10. Chemistries: Sodium 142, potassium 4, chloride 110, bicarbonate 23, BUN 13, creatinine 0.86, EGFR 65 mL per minute, random glucose is 89, calcium 8.6, phosphorus is 3.3. Total bilirubin 0.4, AST 21, ALT 32, alkaline phosphatase 127, albumin is 3. CA 19-9 is 17,444. TSH is undetectable at less than 0.005. T4 level is elevated 2.93. RADIOGRAPH STUDIES: CT scan of the abdomen and pelvis dated 07/12/2017 indicates: 1. Ill-defined mass involving the tail of the pancreas measuring 5.3 x 2.7 x 2.2 cm, raising the possibility of a primary adenocarcinoma of the pancreas. 2. Multiple low density lesions scattered throughout the liver ranging in size from 3 mm to 16 mm, likely representing metastatic disease. 3. Multiple bilateral kidney cysts. 4. Degenerative changes of the spine. ASSESSMENT AND PLAN: Ms. Louie is a 72-year-old female who presented to the hospital with a 2-1/2 month history of left upper quadrant abdominal pain, nausea, vomiting, weight loss and progressive fatigue. Imaging studies indicate a pancreatic tail mass associated with numerous hypodense lesions involving the liver. Her CA 19-9 level is greater than 17,000. Constellation of findings most consistent with pancreatic adenocarcinoma with extensive liver metastases. She has no definite evidence of metastatic disease involving the lung parenchyma. She did undergo a CT-guided biopsy of the pancreatic tail mass earlier today. Pathologic findings are pending. At today's visit, I talked to the patient about the radiographic imaging studies. We talked about the findings that are very concerning for pancreatic malignancy. I explained a formal diagnosis is contingent upon pathologic review of a sales donor recruitment representative sample of the tumor. We talked about staging studies as well, which include CT imaging. We talked about the possibility of her needing a staging biopsy of a metastatic deposit as well. I talked about treatment options as well in a hypothetical sense. I did explain to her that formal treatment options and prognostic discussions will be held upon confirmation of diagnosis. She understands and is willing to meet with me in my clinic to plan future treatment and appropriate approaches. RECOMMENDATIONS: 1. Follow up with me in my outpatient clinic in the upcoming week. 2. From an oncologic standpoint, when this patient has appropriate pain control and when she is able to eat and drink and sustain herself enterally, she may be discharged home. I would recommend discharging her on some form of pain medication such as short-acting morphine and also Zofran plus metoclopramide. MD MIKE Eastman//[email or web address] , 07:09 PM , 08:27 PM
[2017-07-14] VITALS (8 sets, daily range): BP systolic 126–147; BP diastolic 59–69; PULSE 59–71; RESP 16–18; TEMP 97.5–98.4; O2SAT 94–97
[2017-07-14] MEDS: SODIUM CHLOR 0.9% 1000 ML INJ 1,000 ML IV SCH ×3 (00:09→20:00)
[2017-07-14] MEDS: LEVOTHYROXINE SODIUM 88 MCG TAB PO SCH (05:20)
[2017-07-14] MEDS: oxyCODONE/ACETAMINOPHEN 10 MG/325 MG TAB PO PRN ×2 (05:20→16:29)
[2017-07-14] MEDS: DILTIAZEM-CD 120 MG CAP ER PO SCH ×2 (09:00→20:52)
[2017-07-14] MEDS: REMOVE OLD PATCH T-DERMAL SCH (09:00)
[2017-07-14] MEDS: METOCLOPRAMIDE HCL 10 MG/2 ML VIAL IV PUSH PRN (09:22)
[2017-07-14] MEDS: NICOTINE 14 MG/24 HR PATCH T-DERMAL SCH (09:25)
[2017-07-14] MEDS: amLODIPine BESYLATE 5 MG TAB PO SCH (09:26)
[2017-07-14] MEDS: METOPROLOL TARTRATE 50 MG TAB PO SCH ×2 (09:26→20:52)
[2017-07-14] MEDS: FAMOTIDINE 20 MG TAB PO SCH (09:26)
[2017-07-14] MEDS: DOCUSATE SODIUM 50 MG/SENNA 8.6 MG TAB PO SCH ×2 (09:26→20:52)
[2017-07-14] MEDS: LISINOPRIL 20 MG TAB PO SCH ×2 (09:26→20:52)
[2017-07-14] MEDS: SODIUM CHLORIDE 0.9% FLUSH 10 ML FLUSH IV FLUSH SCH ×2 (09:27→20:54)
[2017-07-14] MEDS: MORPHINE SULFATE 4 MG/ML INJ IV PRN (09:33)
--- NOTE | 2017-07-14 16:20 | HHI.PR ---
Subjective Remarks Ptient c/o epigastric abdominal pain and nausea. States was able to tolerate breakfast but has been belching. Afebrile Objective Vitals Vital Signs Date Time Temp Pulse Resp B/P (MAP) Pulse Ox O2 Delivery O2 Flow Rate FiO2 07/14/17 12:00 98.0 62 16 138/59 (85) 96 07/14/17 10:52 59 07/14/17 08:00 97.5 67 17 126/62 (83) 94 07/14/17 04:50 98.3 64 18 138/68 (91) 97 07/14/17 00:50 98.4 68 18 133/69 (90) 96 07/13/17 22:19 97 07/13/17 19:35 98.1 76 19 136/93 (107) 98 07/13/17 17:57 68 20 127/60 (82) 94 07/13/17 17:35 68 20 113/64 (80) 94 07/13/17 17:05 65 20 112/58 (76) 94 07/13/17 16:35 66 20 121/71 (88) 92 07/13/17 16:20 98.1 62 20 110/55 (73) 92 I/O 07/13/17 07/13/17 07/13/17 07/14/17 07/14/17 07/14/17 07:00 15:00 23:00 07:00 15:00 23:00 Intake Total 0 ml 0 ml 360 ml Balance 0 ml 0 ml 360 ml Intake Oral 0 ml 0 ml 360 ml # Voids 4 3 5 # Bowel Movements 0 0 Result Diagram: 07/13/17 0436 07/13/17 0436 Imaging Last Impressions Pancreas Biopsy CT 07/13/17 0806 Signed Impressions: Service Date/Time: Thursday, July 13, 2017 15:23 - CONCLUSION: Uncomplicated CT guided biopsy of the mass in the pancreatic tail. Andres Raman MD Abdomen/Pelvis CT 07/12/17 1323 Signed Impressions: Service Date/Time: June 15:05 - CONCLUSION: 1. Ill- defined mass involving the tail of the pancreas measuring 5.3 x 2.7 x 2.2 cm raising the possibility primary adenocarcinoma of the pancreas. 2. Multiple low-density lesions scattered throughout the liver ranging in size from 3 to 16 mm with probable metastatic disease. 3. Multiple bilateral renal cysts. 4. Degenerative changes and scoliosis of the thoraco-lumbar spine. Jah Delcid MD Chest CT 07/12/17 0000 Signed Impressions: Service Date/Time: June 18:18 - CONCLUSION: 1. No definite evidence for metastatic disease to the thorax. 2. Innumerable hepatic metastases with pancreatic mass present. Ethan Rouse MD Objective Remarks AAO 3. NAD Clear lungs bilaterally S1-S2 present with regular rate and rhythm, no murmurs rubs or gallops. Abdomen is soft, tender to palpation of epigastric region, nondistended, no rebound tenderness or guarding elicited. There is no edema in lower extremities. Procedures none Medications and IVs Current Medications Medications (Trade) Dose Ordered Sig/Yana Route Start Time Stop Time Status Last Admin Sodium Chloride 1,000 ml @ 100 mls/hr Q10H IV 07/12/17 18:00 07/13/17 04:02 (NS Flush) 2 ml UNSCH PRN IV FLUSH 07/12/17 17:30 (NS Flush) 2 ml BID IV FLUSH 07/12/17 21:00 07/14/17 09:27 (Tylenol) 650 mg Q4H PRN PO 07/12/17 17:30 (Zofran Inj) 4 mg Q6H PRN IVP 07/12/17 17:30 07/13/17 04:02 (Reglan Inj) 5 mg Q6H PRN IV PUSH 07/12/17 17:30 07/14/17 09:22 (Restoril) 15 mg HS PRN PO 07/12/17 17:30 (Tylenol) 650 mg Q6H PRN PO 07/12/17 17:30 (Percocet 5-325 Mg) 1 tab Q6H PRN PO 07/12/17 17:30 (Percocet 10-325 Mg) 1 tab Q6H PRN PO 07/12/17 17:30 07/14/17 05:20 (Morphine Inj) 2 mg Q3H PRN IV PUSH 07/12/17 17:30 (Morphine Inj) 4 mg Q3H PRN IV 07/12/17 18:15 07/14/17 09:33 (Morphine Inj) 4 mg Q3H PRN IV 07/12/17 18:15 (Narcan Inj) 0.4 mg UNSCH PRN IV PUSH 07/12/17 17:30 (Wilda-Colace) 1 tab BID PO 07/12/17 21:00 07/14/17 09:26 (Milk Of Magnesia Liq) 30 ml Q12H PRN PO 07/12/17 17:30 (Senokot) 17.2 mg Q12H PRN PO 07/12/17 17:30 (Dulcolax Supp) 10 mg DAILY PRN RECTAL 07/12/17 17:30 (Lactulose Liq) 30 ml DAILY PRN PO 07/12/17 17:30 Ceftriaxone Sodium 1000 mg/ Sodium Chloride 100 ml @ 200 mls/hr Q24H IV 07/12/17 18:00 07/12/17 18:07 (Habitrol 14 Mg Patch.24 Hr) 1 patch DAILY T-DERMAL 07/13/17 09:00 07/14/17 09:25 Miscellaneous Information 1 DAILY T-DERMAL 07/13/17 09:00 07/14/17 09:00 (Norvasc) 5 mg DAILY PO 07/13/17 09:00 07/14/17 09:26 (Cardizem Cd) 120 mg BID PO 07/12/17 21:00 07/14/17 09:00 (Prinivil) 20 mg BID PO 07/12/17 21:00 07/14/17 09:26 (Lopressor) 50 mg BID PO 07/12/17 21:00 07/14/17 09:26 (Pepcid) 20 mg DAILY PO 07/13/17 09:00 07/14/17 09:26 (Synthroid) 88 mcg DAILY@0600 PO 07/14/17 06:00 07/14/17 05:20 A/P Problem List: (1) Hypertension ICD Code: I10 - Essential (primary) hypertension (2) Abdominal pain ICD Code: R10.9 - Unspecified abdominal pain (3) GERD (gastroesophageal reflux disease) ICD Code: K21.9 - Gastro-esophageal reflux disease without esophagitis (4) Tobacco abuse ICD Code: Z72.0 - Tobacco use (5) Hypothyroidism ICD Code: E03.9 - Hypothyroidism, unspecified (6) Urinary tract infection ICD Code: N39.0 - Urinary tract infection, site not specified (7) Lesion of pancreas ICD Code: K86.9 - Disease of pancreas, unspecified Status: Acute Assessment and Plan Oncology consulted. Appreciate recommendations. Oncology recommends outpatient follow-up once the patient is able to eat and pain is controlled. Pain is uncontrolled 9 process over 10. Pain is currently on IV morphine. I will give 1 dose of Dilaudid 1 mg IV once. I will start the patient on Oramorph SR and oxycodone and Dilaudid for breakthrough pain. Patient feels very nauseous currently on Zofran and Reglan. Continue IV Zofran , DC Reglan and start the patient on Compazine. Patient with E. coli UTI, continue Rocephin. BP stable on home antihypertensive medications Continue levothyroxine for hypothyroidism -will decrease dose since free T4 is 293 and TSH is 0.005. Continue nicotine patch for tobacco abuse. Biopsy of pancreatic mass pending. Discharge Planning Continue to monitor the medical floor. Discharge pending improvement of nausea , pain control. Mart Diaz MD Jul 14, 2017 16:20
[2017-07-14] MEDS: cefTRIAXone INJ 1,000 MG in SODIUM CHLORIDE 0.9% INJ 100 ML IV SCH (16:30)
[2017-07-14] MEDS ORDERED: PROCHLORPERAZINE INJ 10 MG/2 ML VIAL IV PUSH ONE (16:30)
[2017-07-14] MEDS ORDERED: PROCHLORPERAZINE INJ 10 MG/2 ML VIAL IV PUSH PRN (16:30)
[2017-07-14] MEDS: MORPHINE SULFATE 15 MG CONTROLLED RELEASE TAB PO SCH (20:52)
[2017-07-15] VITALS (7 sets, daily range): BP systolic 130–150; BP diastolic 57–71; PULSE 60–83; RESP 16–18; TEMP 97.4–98.6; O2SAT 94–99
[2017-07-15] MEDS: SODIUM CHLOR 0.9% 1000 ML INJ 1,000 ML IV SCH ×2 (06:00→16:00)
[2017-07-15] MEDS: LEVOTHYROXINE SODIUM 88 MCG TAB PO SCH (06:09)
[2017-07-15] MEDS: DILTIAZEM-CD 120 MG CAP ER PO SCH ×2 (09:00→20:59)
[2017-07-15] MEDS: REMOVE OLD PATCH T-DERMAL SCH (09:00)
[2017-07-15] MEDS: FAMOTIDINE 20 MG TAB PO SCH (09:05)
[2017-07-15] MEDS: amLODIPine BESYLATE 5 MG TAB PO SCH (09:05)
[2017-07-15] MEDS: METOPROLOL TARTRATE 50 MG TAB PO SCH ×2 (09:05→20:59)
[2017-07-15] MEDS: NICOTINE 14 MG/24 HR PATCH T-DERMAL SCH (09:05)
[2017-07-15] MEDS: LISINOPRIL 20 MG TAB PO SCH ×2 (09:06→20:59)
[2017-07-15] MEDS: DOCUSATE SODIUM 50 MG/SENNA 8.6 MG TAB PO SCH ×2 (09:06→20:59)
[2017-07-15] MEDS: MORPHINE SULFATE 15 MG CONTROLLED RELEASE TAB PO SCH ×2 (09:07→20:59)
[2017-07-15] MEDS: SODIUM CHLORIDE 0.9% FLUSH 10 ML FLUSH IV FLUSH SCH ×2 (09:11→21:00)
[2017-07-15] MEDS: cefTRIAXone INJ 1,000 MG in SODIUM CHLORIDE 0.9% INJ 100 ML IV SCH (18:23)
[2017-07-16] VITALS (7 sets, daily range): BP systolic 110–162; BP diastolic 60–79; PULSE 55–78; RESP 18–20; TEMP 98.1–98.8; O2SAT 94–96
[2017-07-16] MEDS ORDERED: LEVOTHYROXINE SODIUM 75 MCG TAB PO ONE (00:30)
--- NOTE | 2017-07-16 00:32 | HHI.PR ---
Subjective Remarks Late entry - patient seen on 07/15 PAtient states still with some nausea but denies vomiting abdominal pain improving Afebrile Objective Vitals Vital Signs Date Time Temp Pulse Resp B/P (MAP) Pulse Ox O2 Delivery O2 Flow Rate FiO2 07/15/17 20:00 97.4 72 16 145/71 (95) 99 07/15/17 15:58 98.0 60 17 130/60 (83) 96 07/15/17 11:37 98.3 69 18 138/70 (92) 94 07/15/17 10:07 18 07/15/17 07:45 97.7 68 17 133/70 (91) 97 07/15/17 04:00 60 I/O 07/15/17 07/15/17 07/15/17 07/16/17 07/16/17 07/16/17 07:00 15:00 23:00 07:00 15:00 23:00 Intake Total 240 ml 800 ml Balance 240 ml 800 ml Intake Oral 240 ml 800 ml # Voids 3 2 # Bowel Movements 1 0 Result Diagram: 07/13/17 0436 07/13/17 0436 Imaging Last Impressions Pancreas Biopsy CT 07/13/17 0806 Signed Impressions: Service Date/Time: Thursday, July 13, 2017 15:23 - CONCLUSION: Uncomplicated CT guided biopsy of the mass in the pancreatic tail. Andres Raman MD Abdomen/Pelvis CT 07/12/17 1323 Signed Impressions: Service Date/Time: June 15:05 - CONCLUSION: 1. Ill- defined mass involving the tail of the pancreas measuring 5.3 x 2.7 x 2.2 cm raising the possibility primary adenocarcinoma of the pancreas. 2. Multiple low-density lesions scattered throughout the liver ranging in size from 3 to 16 mm with probable metastatic disease. 3. Multiple bilateral renal cysts. 4. Degenerative changes and scoliosis of the thoraco-lumbar spine. Jah Delcid MD Chest CT 07/12/17 0000 Signed Impressions: Service Date/Time: June 18:18 - CONCLUSION: 1. No definite evidence for metastatic disease to the thorax. 2. Innumerable hepatic metastases with pancreatic mass present. Ethan Rouse MD Objective Remarks AAO 3. NAD Clear lungs bilaterally S1-S2 present with regular rate and rhythm, no murmurs rubs or gallops. Abdomen is soft, tender to palpation of epigastric region, nondistended, no rebound tenderness or guarding elicited. There is no edema in lower extremities. Procedures none A/P Problem List: (1) Hypertension ICD Code: I10 - Essential (primary) hypertension (2) Abdominal pain ICD Code: R10.9 - Unspecified abdominal pain (3) GERD (gastroesophageal reflux disease) ICD Code: K21.9 - Gastro-esophageal reflux disease without esophagitis (4) Tobacco abuse ICD Code: Z72.0 - Tobacco use (5) Hypothyroidism ICD Code: E03.9 - Hypothyroidism, unspecified (6) Urinary tract infection ICD Code: N39.0 - Urinary tract infection, site not specified (7) Lesion of pancreas ICD Code: K86.9 - Disease of pancreas, unspecified Status: Acute Assessment and Plan Oncology consulted. Appreciate recommendations. Oncology recommends outpatient follow-up once the patient is able to eat and pain is controlled. Pain is improving however still present. Will increase oramorph dose to 30 mg SQ Q12hr. Continue Oxycodone as needed and Morphine IV for Breaktthrough pain. Nausea is improved but still present. Continue IV Zofran and Compazine. Patient with E. coli UTI, continue Rocephin. BP stable on home antihypertensive medications Continue levothyroxine for hypothyroidism -will decrease dose since free T4 is 293 and TSH is 0.005. Repeat TSH in 6 weeks. Continue nicotine patch for tobacco abuse. Biopsy of pancreatic mass pending. Discharge Planning Constantine Paul in am. Mart Diaz MD Jul 16, 2017 00:32
[2017-07-16] MEDS: DOCUSATE SODIUM 50 MG/SENNA 8.6 MG TAB PO SCH (08:09)
[2017-07-16] MEDS: FAMOTIDINE 20 MG TAB PO SCH (08:10)
[2017-07-16] MEDS: METOPROLOL TARTRATE 50 MG TAB PO SCH (08:10)
[2017-07-16] MEDS: amLODIPine BESYLATE 5 MG TAB PO SCH (08:10)
[2017-07-16] MEDS: LISINOPRIL 20 MG TAB PO SCH (08:10)
[2017-07-16] MEDS: DILTIAZEM-CD 120 MG CAP ER PO SCH (08:10)
[2017-07-16] MEDS: SODIUM CHLORIDE 0.9% FLUSH 10 ML FLUSH IV FLUSH SCH (08:14)
[2017-07-16] MEDS: NICOTINE 14 MG/24 HR PATCH T-DERMAL SCH (08:14)
[2017-07-16] MEDS: REMOVE OLD PATCH T-DERMAL SCH (08:14)
[2017-07-16] MEDS ORDERED: MORPHINE SULFATE 15 MG CONTROLLED RELEASE TAB PO SCH (09:00)
[2017-07-16] MEDS ORDERED: NICO14DI23 T-DERMAL (09:36)
[2017-07-16] MEDS ORDERED: OXYC1CAP PO (09:36)
[2017-07-16] MEDS ORDERED: MORP1TAB24 PO (09:36)
[2017-07-16] MEDS ORDERED: PROM25TA10 PO (09:36)
--- NOTE | 2017-07-16 09:36 | HHI.DCPOC ---
Discharge Care Plan Diagnosis: (1) Urinary tract infection (2) Hypothyroidism (3) Tobacco abuse (4) GERD (gastroesophageal reflux disease) (5) Abdominal pain (6) Hypertension (7) Pancreatic mass Goals to Promote Your Health * To prevent worsening of your condition and complications * To maintain your health at the optimal level Directions to Meet Your Goals Take your medications as prescribed Follow your dietary instruction Follow activity as directed Keep your appointments as scheduled Take your immunizations and boosters as scheduled If your symptoms worsen call your PCP, if no PCP go to Urgent Care Center or Emergency Room Smoking is Dangerous to Your Health. Avoid second hand smoke Call the 24-hour hour crisis hotline for domestic abuse at Mart Diaz MD Jul 16, 2017 09:36
--- NOTE | 2017-07-16 09:50 | HHI.DS ---
Discharge Summary Admission Date Jul 12, 2017 at 17:05 Discharge Date: Jul 16, 2017 Admitting Diagnosis Pancreatic Lesion on CT (1) Pancreatic mass ICD Code: K86.9 - Disease of pancreas, unspecified Diagnosis: Principal Status: Acute (2) Abdominal pain ICD Code: R10.9 - Unspecified abdominal pain Diagnosis: Principal Status: Acute (3) Hypertension ICD Code: I10 - Essential (primary) hypertension Diagnosis: Principal Status: Acute (4) Urinary tract infection ICD Code: N39.0 - Urinary tract infection, site not specified Diagnosis: Principal Status: Acute (5) Hypothyroidism ICD Code: E03.9 - Hypothyroidism, unspecified Diagnosis: Principal Status: Acute (6) GERD (gastroesophageal reflux disease) ICD Code: K21.9 - Gastro-esophageal reflux disease without esophagitis Diagnosis: Secondary Status: Chronic (7) Tobacco abuse ICD Code: Z72.0 - Tobacco use Diagnosis: Secondary Status: Chronic Procedures CT guided biopsy of pancreatic lesion. Brief History - From Admission Patient is a 72-year-old female who presented to emergency department with a 2 month history of constant left upper quadrant pain. Patient was seen by her primary care physician about a month ago. They thought it was pneumonia. But x-ray showed no pneumonia. She was treated for bronchitis without much improvement. She has had some nausea and some vomiting with some abdominal pain. She denies any significant change in her bowel habits. She denies any fevers denies any urinary or vaginal symptoms. Patient states symptoms seem to be worsening and has had a 15 pound weight loss. Has pain in the left upper quadrant radiating into her back denies any shortness of breath or wheezing does have a cough on occasion denies any chest pain is a smoker still smoking about a pack a day drinks a couple drinks daily. Pain is sharp to dull worst pain was 9 out of 10 denies any drug allergies Had a CAT scan which shows a probable pancreatic mass and will consult interventional radiology for biopsy as well as oncology to determine the pathology Patient will be admitted CBC/BMP: 07/13/17 0436 07/13/17 0436 Imaging Last Impressions Pancreas Biopsy CT 07/13/17 0806 Signed Impressions: Service Date/Time: Thursday, July 13, 2017 15:23 - CONCLUSION: Uncomplicated CT guided biopsy of the mass in the pancreatic tail. Andres Raman MD Abdomen/Pelvis CT 07/12/17 1323 Signed Impressions: Service Date/Time: June 15:05 - CONCLUSION: 1. Ill- defined mass involving the tail of the pancreas measuring 5.3 x 2.7 x 2.2 cm raising the possibility primary adenocarcinoma of the pancreas. 2. Multiple low-density lesions scattered throughout the liver ranging in size from 3 to 16 mm with probable metastatic disease. 3. Multiple bilateral renal cysts. 4. Degenerative changes and scoliosis of the thoraco-lumbar spine. Jah Delcid MD Chest CT 07/12/17 0000 Signed Impressions: Service Date/Time: June 18:18 - CONCLUSION: 1. No definite evidence for metastatic disease to the thorax. 2. Innumerable hepatic metastases with pancreatic mass present. Ethan Rouse MD PE at Discharge AAO 3. NAD Clear lungs bilaterally S1-S2 present with regular rate and rhythm, no murmurs rubs or gallops. Abdomen is soft, tender to palpation of epigastric region, nondistended, no rebound tenderness or guarding elicited. There is no edema in lower extremities. Pt update on day of discharge The patient states that she is tolerating diet. Nausea has improved greatly. Abdominal pain is much improved. Advance diet to regular. If patient tolerates it then will discharge home. Hospital Course The patient was admitted to the medical floor, placed on IV fluids, initially pain control with IV morphine which was later switched to Oramorph sustained release. Patient's was placed on oxycodone as needed. Patient was feeling very nauseous initially on IV Zofran, since IV Zofran was not working well, IV Compazine was added with good results. Patient also was found to have an uncomplicated E. coli UTI which was treated with Rocephin IV. Patient completed a total of 3 days while hospitalized. No need for further outpatient antibiotics. Dose of levothyroxine decreased due to elevated free T4 with low TSH at 0.05. TSH to be followed up in 6 weeks. Patient has history of tobacco abuse, she was placed on nicotine patch while hospitalized. Patient had a CT abdomen and pelvis as above which showed pancreatic mass very suspicious for malignancy. Oncology consulted, Dr. Olson recommended outpatient follow-up. The patient also underwent a CT-guided biopsy of the pancreatic mass, biopsies results still pending on discharge. Patient instructed to follow-up with oncology as an outpatient. Pt Condition on Discharge: Stable Discharge Time: <= 30 minutes Discharge Instructions Follow up Referrals: Oncology - 1 Week with Hugo Olson MD New Medications: Oxycodone (Oxycodone) 5 Mg Cap 5 MG PO Q4H PRN for PAIN, #30 CAP 0 Refills Morphine ER (Morphine ER) 15 Mg Tab 30 MG PO Q12HR for Pain Management, #60 TAB Nicotine (Eq Nicotine) 14 Mg/24 Hour Dis 1 PATCH T-DERMAL DAILY for smoking cessation, #14 PATCH Continued Medications: Amlodipine (Amlodipine) 5 Mg Tab 5 MG PO DAILY for Blood Pressure Management, #30 TAB 0 Refills Aspirin (Aspirin Low Dose) 81 Mg Chew 81 MG CHEW DAILY, TAB 0 Refills Diltiazem CD 24 HR (Diltiazem CD 24 HR) 120 Mg Caper 120 MG PO BID, #30 CAP 0 Refills Levothyroxine (Levothyroxine) 300 Mcg Tab 300 MCG PO DAILY for Thyroid, #30 TAB 0 Refills Lisinopril (Lisinopril) 20 Mg Tab 20 MG PO BID, #30 TAB 0 Refills Metoprolol Tartrate (Metoprolol Tartrate) 50 Mg Tab 50 MG PO BID, #60 TAB 0 Refills Promethazine (Phenergan) 25 Mg Tablet 25 MG PO Q8HR PRN for NAUSEA OR VOMITING, #60 TAB 0 Refills (This prescription has been renewed) Ranitidine (Ranitidine) 150 Mg Tab 150 MG PO BID for Heartburn Management, #60 TAB 0 Refills Tramadol (Tramadol) 50 Mg Tab 50 MG PO Q8H PRN for PAIN, TAB 0 Refills Mart Diaz MD Jul 16, 2017 09:50
[2017-07-16] MEDS ORDERED: LEVO.1 PO (16:01)
[2017-07-17] MEDS ORDERED: LEVOTHYROXINE SODIUM 100 MCG TAB PO SCH (06:00)
== END 2017-07-16 16:47 | disposition home or self-care (01) | DRG 436 ==
LOC: NEPD 12:53 → NEDA 17:05 → N06A 19:13
PROVIDERS: ADMIT Hospitalist; ATTEND Hospitalist
PROC: 0FBG3ZX Excision of Pancreas, Percutaneous Approach, Diagnostic (ICD-10-PCS; principal; 2017-07-13)
DX: C25.2 Malignant neoplasm of tail of pancreas (principal); C78.7 Secondary malignant neoplasm of liver and intrahepatic bile duct; N39.0 Urinary tract infection, site not specified; N28.1 Cyst of kidney, acquired; J44.9 Chronic obstructive pulmonary disease, unspecified; M41.9 Scoliosis, unspecified; K21.9 Gastro-esophageal reflux disease without esophagitis; I10 Essential (primary) hypertension; E03.9 Hypothyroidism, unspecified; M47.815 Spondylosis without myelopathy or radiculopathy, thoracolumbar region; B96.20 Unspecified Escherichia coli [E. coli] as the cause of diseases classified elsewhere; F10.10 Alcohol abuse, uncomplicated; F17.210 Nicotine dependence, cigarettes, uncomplicated; Z80.0 Family history of malignant neoplasm of digestive organs; Z80.49 Family history of malignant neoplasm of other genital organs
CPT/HCPCS: 48102; 71250; 74177; 77012; 80053; 81001; 83036; 83690; 83735; 84100; 84439; 84443; 85025; 85610; 85730; 86301; 87077; 87086; 87186; 88305; 93005; 96361; 96374; 96375; 99152; 99153; J0696; J0780; J2250; J2270; J2405; J2765; J3010; J7030; Q9967

== ENCOUNTER 2017-07-26 05:58 | Day surgery (SDC) | payer MEDICARE, BC ==
[~2017-07-26] VITALS: Ht 152.4 cm; Wt 65.6 kg
[~2017-07-26 05:58] MED LIST changes: +AMLO5TAB2 PO; +ASPI81CH6 CHEW; -ASPI81TA82 PO; -CART120C2 PO; +DILT120C50 PO; -HYDR-3535 PO; +LEVO.1 PO; -LISI-360 PO; +LISI-515 PO; +METO50TA PO; +MORP1TAB24 PO; +NICO14DI23 T-DERMAL; +OXYC1CAP PO; +PROM25TA10 PO; +RANI150T PO; -[UNRECOGNIZED DRUG - CODE] PO; -[UNRECOGNIZED DRUG - CODE] PO; -[UNRECOGNIZED DRUG - CODE] PO
[2017-07-26] MEDS ORDERED: ZOFR4TAB PO (06:56)
[2017-07-26] MEDS ORDERED: LEVO-171 PO (06:56)
[2017-07-26 07:01] VITALS: BP 123/73; PULSE 89; RESP 20; TEMP 98.4; O2SAT 98
[2017-07-26] MEDS ORDERED: POVIDONE IODINE 5% (ANTISEPSIS KIT) 4 APPLICATIONS EACH NARE SCH (07:15)
[2017-07-26] MEDS ORDERED: VANCOMYCIN 1000 MG/NS 250 ML - implanted port/tunneled catheter IV SCH ×2 (07:15)
[2017-07-26] MEDS ORDERED: CHLORHEXIDINE GLUCONATE 2 % 1 PACK (2 CLOTHS) TOPICAL SCH (07:15)
[2017-07-26] MEDS ORDERED: ceFAZolin 2 GM PREMIX 50 ML - implanted port/tunneled catheter insertion IV SCH (07:15)
[2017-07-26] MEDS ORDERED: fentaNYL CITRATE 250 MCG/5 ML AMP ONE (07:32)
[2017-07-26] MEDS ORDERED: MIDAZOLAM HCL 5 MG/5 ML VIAL ONE (07:32)
[2017-07-26] MEDS ORDERED: ONDANSETRON HCL 4 MG/2 ML VIAL ONE (07:33)
[2017-07-26] MEDS ORDERED: LIDOCAINE 1%/EPINEPHrine 1:100,000 SOLN 30 ML VIAL ONE (07:53)
[2017-07-26] MEDS ORDERED: SODIUM CHLORIDE 0.9% FLUSH 10 ML FLUSH IVF PRN (08:30)
--- NOTE | 2017-07-26 08:30 | PD.RAD ---
Post Procedure Progress Note Pre Procedure Diagnosis: (1) Pancreatic mass Post Procedure Diagnosis: (1) Pancreatic mass Procedure Date: Jul 26, 2017 Supervising Radiologist: Ino Medrano Proceduralist/Assist: RT Fiordaliza(R), RT Judy(R) Anesthesia: Conscious Sedation Plan of Activity Patient to Unit: [facility]OP[facility] Patient Condition: Good See PACS Report for procedural detail/treatment Central Venous Access Device Procedure 1 Right Internal Jugular Infusaport Placement single lumen Ino Medrano MD Jul 26, 2017 08:30
[2017-07-26 08:40] VITALS: BP 115/57; PULSE 64; RESP 16; TEMP 97.9; O2SAT 92
[2017-07-26 08:55] VITALS: BP 101/58; PULSE 64; RESP 16; O2SAT 95
[2017-07-26 09:25] VITALS: BP 111/58; PULSE 61; RESP 16; O2SAT 98
[2017-07-26 09:55] VITALS: BP 122/65; PULSE 61; RESP 16; O2SAT 92
--- NOTE | 2017-07-26 10:24 | RADRPT ---
EXAM DATE/TIME: 07/26/2017 07:54 [facility] COMPARISON: No previous studies available for comparison. INDICATIONS : Patient with adenocarcinoma of the pancreatic tail in need of [id number] placement. 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 Vancomycin within 2 hours of procedure, Ancef (or alternative) within 1 hour of procedure. DEVICE: 1. 8 Pashto single lumen Angiodynamics Bioflo port PROCEDURE : 1. Continuous pulse oximetry and EKG monitoring. 2. Intravenous conscious sedation. 3. Ultrasound guidance for venous access. 4. Fluoroscopic guided implantable central venous port placement. The patient was placed supine. The neck was prepped in sterile fashion. Full sterile technique was u sed, including cap, mask, sterile gloves and gown, and a large sterile sheet. Hand hygiene and 2% ch lorhexidine Betadine was utilized per protocol for cutaneous antisepsis with appropriate dry time for site. Sterile gel and sterile probe cover were utilized for ultrasound guidance. The skin and sub cutaneous tissues were infiltrated with local anesthetic solution. Under direct ultrasound guidance, central venous access was accomplished in the targeted vessel. The ultrasound images depicting access guidance were stored and saved to PACS for permanent record. A s ubcutaneous pocket was created using blunt dissection. The port was introduced to the pocket. The c atheter tubing was fed through a subcutaneous tunnel to the venotomy site. The catheter tubing was c ut to a suitable length and then was introduced through a valved Peel-Away sheath and positioned with catheter tubing tip at the cavo-atrial junction level. The pocket incision was closed with subcutic ular Vicryl suture. Steri-Strips were applied. The port was flushed and locked with heparin solutio n per protocol. Sterile dressing was applied to the site. The patient tolerated the procedure well. Conscious sedation was performed with the prescribed dosages and duration as above in the presence of an independent trained radiology nurse to assist in the monitoring of the patient. EKG and oximetry remained stable throughout the procedure. The patient tolerated the procedure well and there were no complications. The patient was sent to post anesthesia recovery in stable condition. CONCLUSION: Uncomplicated ultrasound and fluoroscopic guided implanted central venous port catheter placement as described in detail above. An 8 Pashto Power port was placed. Ino Medrano MD on July 26, 2017 at 10:22 Board Certified Radiologist. This report was verified electronically.
[2017-07-26 10:55] VITALS: BP 101/58; PULSE 63; RESP 16; O2SAT 94
== END 2017-07-26 11:07 | disposition home or self-care (01) ==
LOC: HRIP 05:58 → HROP 05:58
PROVIDERS: ATTEND Internal Medicine Hematology & Oncology
DX: Z45.2 Encounter for adjustment and management of vascular access device (principal); C25.2 Malignant neoplasm of tail of pancreas; K85.90 Acute pancreatitis without necrosis or infection, unspecified; I10 Essential (primary) hypertension; J44.9 Chronic obstructive pulmonary disease, unspecified; K21.9 Gastro-esophageal reflux disease without esophagitis; E07.9 Disorder of thyroid, unspecified; Z85.07 Personal history of malignant neoplasm of pancreas
CPT/HCPCS: 36561; 76937; 77001; 99152; 99153; C1788; J0690; J1642; J2250; J2405; J3010; J3370; J7050

== ENCOUNTER 2017-10-26 20:46 | Inpatient (IN) ==
[2017-10-26] MEDS ORDERED: Morphine Inj 4 MG, Morphine Inj 2 MG IV.PUSH ONE ×2 (23:23)
--- NOTE | 2017-10-26 23:27 | ED ---
HPI General Chief complaint: Abdominal Pain Stated complaint: feeling sick from cancer/Dr sent her in Time Seen by Provider: 10/26/17 23:09 History of Present Illness HPI narrative: 72yo F with PMH of metastatic pancreatic cancer, COPD, alcohol abuse, GERD presents to the ED with c/o upper abdominal pain for a few days. Pt said she has been coughing more and feeling a little sob. Feels burning in her esophagus but no chest pain. Denies any fever, nausea, vomiting, focal weakness or numbness. Pt last had chemotherapy last Sunday. Pt follows with Dr. Olson and he last saw her 10/05/17. Pt had restaging CT chest/abd/pelivs that showed disease progression and incidental finding of PE and is place on eliquis. She is on second line palliative systemic therapy with gemicitabine and abraxeve. Related Data Home Medications Medication Instructions Recorded Confirmed amlodipine 10/27/17 10/27/17 amlodipine 5 mg PO DAILY 10/27/17 10/27/17 apixaban [Eliquis] 5 mg PO BID 10/27/17 10/27/17 aspirin [Aspirin Low Dose] 81 mg PO DAILY 10/27/17 10/27/17 diltiazem HCl 120 mg PO BID 10/27/17 10/27/17 lactulose 10 g PO TID 10/27/17 10/27/17 levothyroxine 100 mcg PO DAILY 10/27/17 10/27/17 lisinopril 20 mg PO BID 10/27/17 10/27/17 metoprolol tartrate 50 mg PO BID 10/27/17 10/27/17 morphine 15 mg PO Q12H 10/27/17 10/27/17 nicotine 1 patch TRANSDERMAL Q24H 10/27/17 10/27/17 ondansetron 4 mg PO QID PRN 10/27/17 10/27/17 oxycodone 5 mg PO Q4H 10/27/17 10/27/17 promethazine 25 mg PO Q6H PRN 10/27/17 10/27/17 ranitidine HCl 150 mg PO BID 10/27/17 10/27/17 Allergies Allergy/AdvReac Type Severity Reaction Status Date / Time No Known Allergies Allergy Unverified 10/26/17 22:29 Review of Systems ROS Unobtainable All other systems reviewed negative except as stated in HPI [facility] Medical History Medical History Chemotherapy management, encounter for (Acute) Hypertension (Acute) Liver cancer (Acute) Pancreatic cancer (Acute) Pulmonary air embolism (Acute) Family History Family History Mother Esophageal adenocarcinoma Grandparent Cervical cancer Social History Social History Substance History: No History of Abuse Second Hand Smoke Exposure: Yes Smoking Status: Former smoker (quit 30 years) Tobacco Type: Cigarettes How Often Do You Have a Drink Containing Alcohol: 2 to 3 times a week (none since June) Recent Travel in [facility] within the Last 8 Weeks: No Recent Out of Country Travel within the Last 8 Weeks: No Exam Narrative Exam Narrative: GENERAL: 72yo F in mild distress. SKIN: Focused skin assessment warm/dry. HEAD: Atraumatic. Normocephalic. EYES: Pupils equal and round. No scleral icterus. No injection or drainage. ENT: No nasal bleeding or discharge. Mucous membranes pink and moist. NECK: Trachea midline. No JVD. CARDIOVASCULAR: Regular rate and rhythm. No murmur appreciated. RESPIRATORY: No accessory muscle use. Clear to auscultation. Breath sounds equal bilaterally. GASTROINTESTINAL: Abdomen soft, epigastric abdomen ttp. No rebound tenderness or guarding. MUSCULOSKELETAL: No obvious deformities. No clubbing. No cyanosis. No edema. NEUROLOGICAL: Awake and alert. No obvious cranial nerve deficits. Motor grossly within normal limits. Normal speech. PSYCHIATRIC: Appropriate mood and affect; insight and judgment normal. Course Initial Documented Vital Signs Temperature 98.8 F 10/26/17 22:29 Pulse Rate 112 H 10/26/17 22:29 Respiratory Rate 18 10/26/17 22:29 Blood Pressure 120/64 10/26/17 22:29 Pulse Oximetry 97 10/26/17 22:29 Last Documented Vital Signs Temperature 97.8 F 10/28/17 04:00 Pulse Rate 84 10/28/17 04:00 Respiratory Rate 16 10/28/17 04:00 Blood Pressure 108/59 L 10/28/17 04:00 Pulse Oximetry 99 10/28/17 04:00 Medical Decision Making [facility] Narrative Medical decision making narrative: 72yo F with upper abdominal pain and symptoms of GERD. Labs reviewed, no leukocytosis. 1+ toxic granulation. 31% bandemia. Blood culture and lactic acid added. Pt covered empirically with vancomycin and zosyn. Troponin negative. CXR showed focal right midlung opacity with possible cavitation seen just lateral to the port. Discussed with Dr. Vang and accepted to her service. Differential Diagnosis Differential Diagnosis: Metastatic cancer pain vs. colitis vs. obstruction Lab Data Result diagrams: 10/27/17 00:40 10/27/17 00:40 Lab Results 10/27/17 10/27/17 10/27/17 Range/Units 00:40 00:40 00:40 WBC 5.8 (4.0-11.0) th/mm3 RBC 3.39 L (4.00-5.30) mil/mm3 Hgb 8.9 L (11.6-15.3) gm/dL Hct 28.4 L (35.0-46.0) % MCV 83.8 (80.0-100.0) fL MCH 26.1 L (27.0-34.0) pg MCHC 31.1 L (32.0-36.0) % RDW 19.0 H (11.6-17.2) % Plt Count 167 (150-450) th/mm3 MPV 8.8 (7.0-11.0) fL Prelim Diff (Auto) Manual diff required WBC Differential Manual diff final Seg Neuts % (Manual) 13 L (16-70) % Band Neuts % (Manual) 31 H (0-6) % Lymphocytes % (Manual) 22 (9-44) % Monocytes % (Manual) 14 H (0-8) % Eosinophils % (Manual) 1 (0-4) % Metamyelocytes % (Man) 9 H (0-1) % Myelocytes % (Man) 7 H (0-0) % Promyelocytes % (Man) 3 H (0-0) % Abs Neuts (Manual) 3.7 (1.8-7.7) th/mm3 Nucleated RBCs/100 WBC 42 H (0-0) /100 WBC Differential Comment . Toxic Granulation 1+ H (None) Platelet Estimate Normal (Normal) Platelet Morphology Normal (Normal) Polychromasia 2.5 H (0.0-1.9) % PT 11.5 (9.8-11.6) sec INR 1.1 Ratio APTT 26.5 (24.3-30.1) sec Sodium 141 (136-145) meq/L Potassium 4.5 (3.5-5.1) meq/L Chloride 108 H (98-107) meq/L Carbon Dioxide 23.8 (21.0-32.0) meq/L Anion Gap 9 (5-15) meq/L BUN 32 H (7-18) mg/dL Creatinine 1.08 H (0.50-1.00) mg/dL Estimated GFR 50 L (>89) mL/min Random Glucose 106 (74-106) mg/dL Lactic Acid (0.4-2.0) mmol/L Calcium 7.5 L (8.5-10.1) mg/dL Total Bilirubin 0.5 (0.2-1.0) mg/dL AST 43 H (15-37) U/L ALT 61 H (10-53) U/L Alkaline Phosphatase 269 H (45-117) U/L Troponin I Less than 0.02 L (0.02-0.05) ng/mL Total Protein 5.1 L (6.4-8.2) g/dL Albumin 2.0 L (3.4-5.0) g/dL Amylase (25-115) U/L Lipase (73-393) U/L 10/27/17 10/27/17 Range/Units 00:40 06:00 WBC (4.0-11.0) th/mm3 RBC (4.00-5.30) mil/mm3 Hgb (11.6-15.3) gm/dL Hct (35.0-46.0) % MCV (80.0-100.0) fL MCH (27.0-34.0) pg MCHC (32.0-36.0) % RDW (11.6-17.2) % Plt Count (150-450) th/mm3 MPV (7.0-11.0) fL Prelim Diff (Auto) WBC Differential Seg Neuts % (Manual) (16-70) % Band Neuts % (Manual) (0-6) % Lymphocytes % (Manual) (9-44) % Monocytes % (Manual) (0-8) % Eosinophils % (Manual) (0-4) % Metamyelocytes % (Man) (0-1) % Myelocytes % (Man) (0-0) % Promyelocytes % (Man) (0-0) % Abs Neuts (Manual) (1.8-7.7) th/mm3 Nucleated RBCs/100 WBC (0-0) /100 WBC Differential Comment Toxic Granulation (None) Platelet Estimate (Normal) Platelet Morphology (Normal) Polychromasia (0.0-1.9) % PT (9.8-11.6) sec INR Ratio APTT (24.3-30.1) sec Sodium (136-145) meq/L Potassium (3.5-5.1) meq/L Chloride (98-107) meq/L Carbon Dioxide (21.0-32.0) meq/L Anion Gap (5-15) meq/L BUN (7-18) mg/dL Creatinine (0.50-1.00) mg/dL Estimated GFR (>89) mL/min Random Glucose (74-106) mg/dL Lactic Acid 1.2 (0.4-2.0) mmol/L Calcium (8.5-10.1) mg/dL Total Bilirubin (0.2-1.0) mg/dL AST (15-37) U/L ALT (10-53) U/L Alkaline Phosphatase (45-117) U/L Troponin I (0.02-0.05) ng/mL Total Protein (6.4-8.2) g/dL Albumin (3.4-5.0) g/dL Amylase 31 (25-115) U/L Lipase 30 L (73-393) U/L Imaging Data Radiologist's impression: ITS Impressions Chest X-Ray 10/26/17 23:21 CONCLUSION: Focal right midlung opacity with possible cavitation seen just lateral to the port. Chest CT 10/27/17 00:00 CONCLUSION: 1. Minimal patchy densities right upper lobe and left lower lobe, slightly less prominent compared to previous study. 2. Numerous metastatic lesions throughout the liver and minimal ascites. 3. Pancreatic tail mass. Abdomen/Pelvis CT 10/27/17 03:50 CONCLUSION: Small amount of free fluid is now seen in the upper abdomen adjacent to the liver and spleen. No other significant interval change. Extensive metastatic disease of the liver again noted. Pancreatic tail mass also again noted. ECG Data EKG Prior to Arrival: No Attestation: I personally reviewed and interpreted this ECG as follows: Interpretation: NSR 93bpm. Normal axis. No ST segment elevation or depression. Discharge Plan Discharge Disposition Patient Disposition: 30 Still Patient Physicians Team ED Provider: Katja Terrazas Primary Care Provider: Chin Randle Attending Provider: Dick Montelongo Other Providers: Arslan Oreilly ED Status: Left Department Discharge Information Discharge Date/Time: 10/27/17 14:41
[2017-10-27] MEDS ORDERED: Morphine Sulfate Inj 8 MG/ML Vial ONE (00:08)
--- NOTE | 2017-10-27 00:51 | XR ---
EXAM DATE: 10/26/2017 11:54 PM EDT AGE/SEX: 72 years / Female INDICATIONS: Cough. CLINICAL DATA: This is the patient's initial encounter. Patient reports that signs and symptoms have been present for 1 day and indicates a pain score of 3/10. MEDICAL/SURGICAL HISTORY: . COPD, GERD, Pancreatitis, HTN, Metastatic pancreas carcinoma, Thyro id disease, Secondary metastatic disease to liver . Pancreatic mass biopsy, Infusaport COMPARISON: [facility], XR CHEST PA AND LAT, 06/08/2017. . FINDINGS: Single AP view of the chest. Right-sided [id number]-Bqrk noted. Patchy focal right mid lung pulmonary o pacity with possible cavitation is seen just lateral to the port. Lungs otherwise clear. Cardiomedias tinal silhouette within normal limits. No evidence of pleural effusion or pneumothorax. CONCLUSION: Focal right midlung opacity with possible cavitation seen just lateral to the port. Electronically signed by: Hao Hopkins MD 10/27/2017 12:50 AM EDT
[2017-10-27 01:32] LABS: Activated Partial Thrombo Time 26.5 sec (24.3-30.1); INR 1.1 Ratio; Prothrombin Time 11.5 sec (9.8-11.6)
[2017-10-27 01:35] LABS: Hematocrit 28.4 % (35.0-46.0); Hemoglobin 8.9 gm/dL (11.6-15.3); Mean Corpuscular HGB Conc 31.1 % (32.0-36.0); Mean Corpuscular Hemoglobin 26.1 pg (27.0-34.0); Mean Corpuscular Volume 83.8 fL (80.0-100.0); Mean Platelet Volume 8.8 fL (7.0-11.0); Platelet Count 167 th/mm3 (150-450); Red Blood Count 3.39 mil/mm3 (4.00-5.30); White Blood Count 5.8 th/mm3 (4.0-11.0)
[2017-10-27 01:36] LABS: Alanine Aminotransferase 61 U/L (10-53); Anion Gap 9 meq/L (5-15); Aspartate Aminotransferase 43 U/L (15-37); Blood Urea Nitrogen 32 mg/dL (7-18); Calcium 7.5 mg/dL (8.5-10.1); Carbon Dioxide 23.8 meq/L (21.0-32.0); Chloride 108 meq/L (98-107); Glomerular Filtration Rate 50 mL/min (>89); Glucose,Random 106 mg/dL (74-106); Potassium 4.5 meq/L (3.5-5.1); Sodium 141 meq/L (136-145)
[2017-10-27 01:39] LABS: Alkaline Phosphatase 269 U/L (45-117); Total Protein 5.1 g/dL (6.4-8.2)
[2017-10-27 02:04] LABS: Eosinophils 1 % (0-4); Lymphocytes 22 % (9-44); Metamyelocytes 9 % (0-1); Monocytes 14 % (0-8); Myelocytes 7 % (0-0); Promyelocyte 3 % (0-0); Tallied Nucleated RBC 42 (0-0)
[2017-10-27 02:07] LABS: Platelet Estimate Normal (Normal); Platelet Morphology Normal (Normal); Polychromasia 2.5 % (0.0-1.9)
[2017-10-27 02:08] LABS: Toxic Granulation 1+
[2017-10-27] MEDS ORDERED: Sod Chloride 0.9% Inj 1,000 ML IV.SIG ONE (03:46)
[2017-10-27] MEDS ORDERED: Piperacil/Tazo 2.25 GM Premix 50 ML IV.SIG ONE (03:46)
[2017-10-27] MEDS ORDERED: Vancomycin Inj 1 GM/200 ML PIGGYBACK IV.SIG ONE (03:46)
[2017-10-27] MEDS ORDERED: HYDROmorphone PF Inj 1 MG/ML Ampul IV.PUSH PRN (04:05)
[2017-10-27] MEDS ORDERED: Temazepam 15 MG Capsule PO PRN (04:07)
[2017-10-27] MEDS ORDERED: Vancomycin Consult Pharmacy 1 EACH OTHER SCH (04:07)
[2017-10-27] MEDS ORDERED: Bisacodyl 10 MG Supp RECTAL PRN (04:07)
[2017-10-27] MEDS ORDERED: Acetaminophen 325 MG Tablet PO PRN (04:07)
[2017-10-27] MEDS ORDERED: HYDROmorphone PF Inj 2 MG/ML Vial ONE (04:14)
--- NOTE | 2017-10-27 05:25 | CT ---
EXAM DATE: 10/27/2017 5:14 AM EDT AGE/SEX: 72 years / Female INDICATIONS: Abdomen pain. CLINICAL DATA: This is the patient's initial encounter. Patient reports that signs and symptoms have been present for 1 day and indicates a pain score of 5/10. MEDICAL/SURGICAL HISTORY: Carcinoma, pancreas. Carcinoma; liver. None. RADIATION DOSE: 9.96 CTDI (mGy) COMPARISON: POI, CT ABDOMEN AND PELVIS W/ CONTRAST, 10/01/2017. . TECHNIQUE: Multiple contiguous axial images were obtained through the abdomen. Images were obtained using multiple row detector helical technique. Using automated exposure control and adjustment of the mA and/or kV according to patient size, radiation dose was kept as low as reasonably achievable to o btain optimal diagnostic quality images. DICOM format image data is available electronically for rev iew and comparison. FINDINGS: Lower Lungs: Patchy atelectasis at the left lung base. Liver: Humerus rounded hypodensities again seen in the liver. Index lesion in the anterior right lobe on image #24 measures 2.5 cm unchanged from the prior study of 10/01/2017. Spleen: Small amount of perisplenic fluid now seen. Spleen otherwise unremarkable. Pancreas: 3.7 cm pancreatic tail mass unchanged. Kidneys: Bilateral renal cysts unchanged. No evidence of hydronephrosis. Adrenal Glands: Unremarkable. Aorta: Diffuse aortic calcification. Diameter within normal limits. Bowel/Mesentery: No evidence of bowel dilatation. Small amount of free fluid in the upper abdomen no w seen. No evidence of free air. Appendix not identified. Abdominal Wall: Intact. Retroperitoneum: No evidence of adenopathy in the retrocrural, para-aortic, or deep pelvic regions. Bladder: Contours are smooth. Reproductive Organs: No abnormal masses or calcifications seen. Inguinal: The inguinal region is unremarkable without evidence of adenopathy. Bony Structures: Unremarkable. CONCLUSION: Small amount of free fluid is now seen in the upper abdomen adjacent to the liver and spleen. No othe r significant interval change. Extensive metastatic disease of the liver again noted. Pancreatic tail mass also again noted. Electronically signed by: Hao Hopkins MD 10/27/2017 5:24 AM EDT
[2017-10-27] MEDS: Sod Chloride 0.9% Inj 1,000 ML IV.CONT SCH ×2 (05:37→20:23)
[2017-10-27] MEDS ORDERED: Piperacil/Tazo 4.5 GM Premix 4.5 GM/100 ML BAG IV.SIG SCH (10:15)
[2017-10-27] MEDS: Senna/Docusate Sodium 8.6/50 MG Tablet PO SCH ×2 (10:18→20:21)
--- NOTE | 2017-10-27 10:19 | ECG ---
Date Performed: 10/27/2017 Time Performed: 04:18:19 PTAGE: 72 years EKG: Sinus rhythm NORMAL ECG PREVIOUS TRACING : 07/12/2017 13.39 No significant change from previous tracing noted. DOCTOR: Victor Manuel Dee Interpretating Date/Time 10/27/2017 10:18:02
[2017-10-27] MEDS: HYDROmorphone PF Inj 2 MG/ML Vial IV.PUSH PRN ×3 (10:48→20:22)
--- NOTE | 2017-10-27 10:49 | MB ---
cc: Arslan Oreilly MD DATE: 10/27/2017 REQUESTING PHYSICIAN: Dr. Lloyd. REASON FOR ONCOLOGY CONSULTATION: Render an opinion regarding patient with metastatic pancreatic cancer, admitted with abdominal pain. HISTORY OF PRESENT ILLNESS: The patient is a very pleasant 72-year-old female with a history of metastatic pancreatic cancer, currently under the care of Dr. Olson, who presented to the hospital complaining of increased upper abdominal pain. The patient was found to have progression of her liver metastasis in early September. She was switched to gemcitabine and Abraxane which she just completed her first cycle on 10/19/2017. She stated over the last 4-5 days, she has been having increased upper abdominal pain that she thought it was a heartburn and has been taking Kaleigh-Wise with mild relief. Her pain worsened last night and she came to the emergency room. She stated the pain is constant. She has mild associated back pain. She also described a burning sensation in the esophagus. She denies any fever or chills. She stated her weight is stable. She denies any chest pain or palpitation. She has had cough, bringing up white sputum occasionally. She had dry heaves and vomited once. She denies any dysuria or hematuria. Denies any rash or pruritus. PAST MEDICAL HISTORY: 1. Pancreatic cancer with a mass in tail of pancreas and metastasis in the liver. 2. Chronic obstructive pulmonary disease. 3. Alcohol abuse. 4. Gastroesophageal reflux disease. 5. Pulmonary embolism. 6. Pancreatitis. 7. Hypertension. 8. Hypothyroidism. PAST SURGICAL HISTORY: 1. Port placement. 2. Biopsy of pancreatic tail mass. 3. Teeth extraction. FAMILY HISTORY: Mother had esophageal cancer. SOCIAL HISTORY: History of alcohol abuse, quit in June. She smoked for about 30 years and still smoked on and off, but decided to quit a few days ago. ALLERGIES: NO KNOWN DRUG ALLERGIES. CURRENT MEDICATIONS: 1. Zosyn. 2. Wilda-Colace. 3. Vancomycin. REVIEW OF SYSTEMS: CONSTITUTIONAL: As above. EYES: Negative. ENT: Negative. CARDIOVASCULAR: No chest pressure or palpitation. RESPIRATORY: As above. GASTROINTESTINAL: As above. GENITOURINARY: Denies any dysuria or hematuria. MUSCULOSKELETAL: Negative. ENDOCRINE: Negative. HEMATOLOGIC: Negative. PSYCHIATRIC: Negative. NEUROLOGIC: Negative. DERMATOLOGIC: Negative. PHYSICAL EXAMINATION: VITAL SIGNS: Temperature afebrile. Blood pressure 92/53. GENERAL: She is alert and oriented x 3, in no acute distress. HEENT: Atraumatic, normocephalic. Pupils are equal, round, reactive to light. Oropharynx has dry mucosa. NECK: No thyromegaly. No palpable mass. LYMPHATIC: No palpable cervical, clavicular, axillary or inguinal lymph nodes. CARDIOVASCULAR: Regular S1, S2. No murmur. LUNGS: Clear to auscultation without any wheezing or rhonchi. ABDOMEN: Soft, tender in upper abdomen. I could not palpate any mass. No rebound. No rigidity. Positive bowel sounds. EXTREMITIES: No cyanosis. No clubbing. No significant edema. No calf tenderness. BACK: No paravertebral tenderness. SKIN: No rash or petechiae. NEUROLOGIC: Nonfocal. LABORATORY DATA: WBC 5.8, hemoglobin 8.9, platelet count 167. Creatinine 1.08, AST 43, ALT 61, alkaline phosphatase 269. ASSESSMENT AND PLAN: 1. Abdominal pain, which has progressively worsened over the last 4-5 days. I think this may be due to underlying metastatic pancreatic cancer. She could also have esophagitis and gastritis. CT of the abdomen and pelvis showed stable liver metastasis and pancreatic tail mass compared to 10/01/2017 CT. She has small fluid adjacent to the liver and spleen. CT otherwise did not show any acute changes. We will check her pancreatic enzyme. I recommend starting her on a proton pump inhibitor. Continue opiate for pain control. 2. Metastatic pancreatic cancer. She has diffuse liver metastasis. She had 3 cycles of FOLFIRINOX chemotherapy. CT scan 10/01/2017 showed progression of liver metastasis and pancreatic tail mass. She was then switched to gemcitabine and Abraxane. She just completed her first cycle 10/19/2017. It is too early to assess response. CT, however, showed stable liver metastasis and pancreatic tail mass when compared to 10/01/2017. 3. Chronic obstructive pulmonary disease. She has no new symptoms. 4. Pulmonary embolism noted incidentally on recent CT scan. She has been on Eliquis. Recommend restarting her Eliquis. 5. History of alcohol abuse, which she had quit. 6. Hypertension. 7. Hypothyroidism. RECOMMENDATIONS: 1. Discussion with the patient and review her CT scan. 2. Get a CT of the chest to further evaluate the possible cavitation noted on chest x-ray. 3. Check pancreatic enzymes. 4. Start proton pump inhibitor. 5. Continue Eliquis. 6. Continue pain medication. Thank you, Dr. Lloyd, for asking me to see the patient. MD ANNIA Ryan/ROSALIE , 09:57 AM , 10:49 AM JASON
--- NOTE | 2017-10-27 12:07 | CT ---
EXAM DATE: 10/27/2017 12:02 PM EDT AGE/SEX: 72 years / Female INDICATIONS: Liver and pancreatic cancer; evaluate for metastases. CLINICAL DATA: This is the patient's initial encounter. Patient reports that signs and symptoms have been present for 1 day and indicates a pain score of 0/10. MEDICAL/SURGICAL HISTORY: Carcinoma, pancreas. Liver cancer. . Chemotherapy. RADIATION DOSE: 7.99 CTDI (mGy) COMPARISON: POI, CT CHEST W/ CONTRAST, 10/01/2017. . TECHNIQUE: Multiple contiguous axial images were obtained through the chest without contrast. Image s were obtained in suspended respiration using multiple row detector helical technique. Using automa nataly exposure control and adjustment of the mA and/or kV according to patient size, radiation dose was kept as low as reasonably achievable to obtain optimal diagnostic quality images. DICOM format imag e data is available electronically for review and comparison. FINDINGS: Lungs: Minimal patchy densities within the posterior lateral right upper lobe and left lower lobe an teriorly. Mild emphysema. No mass. Mediastinum: There is good visualization of the great vessels of the middle mediastinum. No evidenc e of mediastinal or hilar adenopathy/mass. Coronary artery calcifications. Pleurae: No evidence of focal thickening or pleural effusion. Axillae: Unremarkable. Bony Structures: Unremarkable. Miscellaneous: The examination was extended to include the upper abdomen, and multiple metastatic le sions throughout the liver. Minimal ascites. Mass in pancreatic tail. CONCLUSION: 1. Minimal patchy densities right upper lobe and left lower lobe, slightly less prominent compared t o previous study. 2. Numerous metastatic lesions throughout the liver and minimal ascites. 3. Pancreatic tail mass. Electronically signed by: Andres Raman MD 10/27/2017 12:06 PM EDT
[2017-10-27 12:31] LABS: Amylase 31 U/L (25-115); Lipase 30 U/L (73-393)
[2017-10-27] MEDS: Piperacil/Tazo 4.5 GM Premix 4.5 GM/100 ML BAG IV.SIG SCH ×2 (15:12→21:04)
--- NOTE | 2017-10-27 17:57 | P.HP ---
History of Present Illness Service: [facility] service Primary Care Physician: Chin Randle MD Chief Complaint: abdominal pain History of Present Illness: Patient is a 72-year-old female recently diagnosed last June with pancreatic cancer stage IV with liver metastases ongoing chemotherapy followed by Dr. Olson as outpatient who came here from home because of 3-5 days of abdominal pain mainly, describing such severe acid reflux symptoms, associated with dry heaves and one episode of vomiting. Last night with increasing pain with no relief with home pain meds of morphine sulfate twice a day and oxycodone as needed. Which prompted patient to come to the emergency room and admitted for further evaluation. Recently with incidental diagnosis of pulmonary embolism. Patient denies any chest pain shortness of breath patient placed on Eliquis 5 mg twice a day. Patient this morning tolerated p.o. well. Main complaint is severe acid reflux. Complains of poor p.o. appetite. Positive weight loss Also with constipation in spite of being on lactulos 3 times a day. Patient states last bowel movement was about 4 days ago. Inpatient Certification: I certify that the inpatient services were ordered in accordance with Medicare regulations governing the order. This includes certification that hospital inpatient services are reasonable and necessary and in the case of services not specified as inpatient-only under 42 CFR 419.22(n), that they are appropriately provided as inpatient services in accordance to with the 2-midnight benchmark under 43 CFR 412.3(e) Estimated Total Length of Stay (Days): 3 Plans for Post Hospital Care: Not yet determined Review of Systems Constitutional: Reports anorexia Gastrointestinal: Reports heartburn PMFSH - History History Provided By: Patient - Medical / Surgical Hx Neg / Unobtainable Medical Problems Denied: Yes - Medical History Medical History: Medical History (Last Updated 10/27/17 @ 17:54 by Dick Montelongo MD) Chemotherapy management, encounter for Hypertension Liver cancer Pancreatic cancer Pulmonary air embolism - Family History Family History: Family History (Last Updated 10/27/17 @ 17:56 by Dick Montelongo MD) Mother Esophageal adenocarcinoma Grandparent Cervical cancer - Tobacco History Second Hand Smoke Exposure: Yes Tobacco Use In Past 30 Days: Yes Smoking Status: Former smoker (quit 30 years) Tobacco Type: Cigarettes - Alcohol History How Often Do You Have a Drink Containing Alcohol: 2 to 3 times a week (none since June) - Substance Use History Substance History: No History of Abuse - Travel History Recent Travel in the [place] Within the Last 8 Weeks: No Recent Travel Out of the Country Within the Last 8 Weeks: No - Immunization History Tetanus Immunization: Unsure Hx Influenza Vaccine This Season: Yes Medications and Allergies Active Medications: Active Medications Acetaminophen (Tylenol) 650 mg PO Q4H PRN PRN Reason: Temp > 100.4 Al Hydroxide/Mg Hydroxide (Milk Of Magnesia Liq) 30 ml PO Q12H PRN PRN Reason: Mild Constipation Apixaban (Eliquis) 5 mg PO BID [facility] Bisacodyl (Dulcolax Supp) 10 mg RECTAL DAILY PRN PRN Reason: SEVERE CONSITIPATION Hydromorphone HCl (Dilaudid Pf Inj) 1 mg IV.PUSH Q4H PRN PRN Reason: pain 6-10 Last Admin: 10/27/17 15:12 Dose: 1 mg Sodium Chloride (Ns Inj) 1,000 mls @ 70 mls/hr IV.CONT .[id number] [facility] Last Admin: 10/27/17 05:37 Dose: 70 mls/hr Pharmacy Profile Note (Vancomycin Consult Pharmacy) 0 mls @ 0 mls/hr OTHER UNSCH [facility] Vancomycin HCl 1,000 mg/ (Sodium Chloride) 250 mls @ 250 mls/hr IV.SIG Q18H [facility] Piperacillin/Tazobactam/Dextrose (Zosyn 4.5 Gm Premix) 4.5 gm in 100 mls @ 200 mls/hr IV.SIG Q6H [facility] Last Admin: 10/27/17 15:12 Dose: 200 mls/hr Lactulose (Lactulose Liq) 30 ml PO DAILY PRN PRN Reason: SEVERE CONSITIPATION Miscellaneous Information ([facility] Ordered Lab Info) 0 each OTHER ONCE ONE Stop: 10/29/17 11:46 Ondansetron HCl (Zofran Odt) 4 mg PO Q6H PRN PRN Reason: NAUSEA OR VOMITING Last Admin: 10/27/17 07:32 Dose: 4 mg Pantoprazole Sodium (Protonix) 40 mg PO DAILY [facility] Senna/Docusate Sodium (Wilda-Colace) 1 tab PO BID [facility] Last Admin: 10/27/17 10:18 Dose: 1 tab Sennosides (Senokot) 17.2 mg PO Q12H PRN PRN Reason: Moderate Constipation Temazepam (Restoril) 15 mg PO HS PRN PRN Reason: INSOMNIA Allergies Allergy/AdvReac Type Severity Reaction Status Date / Time No Known Allergies Allergy Unverified 10/26/17 22:29 Home Medications Medication Instructions Recorded Confirmed Type amlodipine 10/27/17 10/27/17 History amlodipine 5 mg PO DAILY 10/27/17 10/27/17 History apixaban [Eliquis] 5 mg PO BID 10/27/17 10/27/17 History aspirin [Aspirin Low Dose] 81 mg PO DAILY 10/27/17 10/27/17 History diltiazem HCl 120 mg PO BID 10/27/17 10/27/17 History lactulose 10 g PO TID 10/27/17 10/27/17 History levothyroxine 100 mcg PO DAILY 10/27/17 10/27/17 History lisinopril 20 mg PO BID 10/27/17 10/27/17 History metoprolol tartrate 50 mg PO BID 10/27/17 10/27/17 History morphine 15 mg PO Q12H 10/27/17 10/27/17 History nicotine 1 patch TRANSDERMAL Q24H 10/27/17 10/27/17 History ondansetron 4 mg PO QID PRN 10/27/17 10/27/17 History oxycodone 5 mg PO Q4H 10/27/17 10/27/17 History promethazine 25 mg PO Q6H PRN 10/27/17 10/27/17 History ranitidine HCl 150 mg PO BID 10/27/17 10/27/17 History Exam Vital signs: Vital Signs 10/26/17 22:29 10/27/17 02:00 10/27/17 05:00 Temperature 98.8 F Pulse Rate 112 H 92 H 88 Respiratory Rate 18 16 15 Blood Pressure 120/64 108/63 114/70 Pulse Oximetry 97 96 96 10/27/17 06:00 10/27/17 06:30 10/27/17 07:18 Temperature Pulse Rate 86 80 80 Respiratory Rate 18 17 19 Blood Pressure 100/56 L 122/59 L 92/53 L Pulse Oximetry 96 95 97 10/27/17 07:19 10/27/17 10:52 Temperature 97.5 F L Pulse Rate 83 Respiratory Rate 19 19 Blood Pressure 108/73 Pulse Oximetry 98 Intake & Output 10/26/17 10/27/17 10/27/17 18:59 06:59 18:59 Intake Total 1350 / 1350 Balance 1350 / 1350 Weight 63.049 kg Intake: IV 1350 / 1350 Zosyn 2.25 GM Premix 50 ML @ 50 / 50 100 mls/hr IV.SIG ONCE ONE Rx#: [id number] Zosyn 4.5 GM Premix 4.5 gm In 100 / 100 100 ml @ 200 mls/hr IV.SIG Q6H NEVIN Rx#:[id number] NS Inj 1,000 ML @ Wide Open IV. 1000 / 1000 SIG BOLUS ONE Rx#:[id number] Vancomycin Inj 1 gm In 200 ml @ 200 / 200 200 mls/hr IV.SIG ONCE ONE Rx# :[id number] - Constitutional no acute distress - Routine HEENT Exam Head: Present: normocephalic, atraumatic Eye: Present: PERRL ENT: Present: mucous membranes moist - Routine Neck Exam Present: supple - Routine Respiratory Exam Present: CTA bilaterally - Routine Cardiovascular Exam Present: RRR - Routine Abdominal Exam Present: soft, normoactive bowel sounds, tenderness (mild tenderness on deep palpation of right upper quadrant) - Routine Extremities Exam Comments: no edema, no cyanosis - Routine Skin Exam Present: intact - Routine Neurological Exam Present: alert, oriented X3 Results - Labs CBC & Chem 7: 10/28/17 06:46 10/28/17 06:46 Labs: Laboratory Results - last 24 hr 10/27/17 10/27/17 10/27/17 00:40 00:40 00:40 WBC 5.8 RBC 3.39 L Hgb 8.9 L Hct 28.4 L MCV 83.8 MCH 26.1 L MCHC 31.1 L RDW 19.0 H Plt Count 167 MPV 8.8 Prelim Diff (Auto) Manual diff required WBC Differential Manual diff final Seg Neuts % (Manual) 13 L Band Neuts % (Manual) 31 H Lymphocytes % (Manual) 22 Monocytes % (Manual) 14 H Eosinophils % (Manual) 1 Metamyelocytes % (Man) 9 H Myelocytes % (Man) 7 H Promyelocytes % (Man) 3 H Abs Neuts (Manual) 3.7 Nucleated RBCs/100 WBC 42 H Differential Comment . Toxic Granulation 1+ H Platelet Estimate Normal Platelet Morphology Normal Polychromasia 2.5 H PT 11.5 INR 1.1 APTT 26.5 Sodium 141 Potassium 4.5 Chloride 108 H Carbon Dioxide 23.8 Anion Gap 9 BUN 32 H Creatinine 1.08 H Estimated GFR 50 L Random Glucose 106 Lactic Acid Calcium 7.5 L Total Bilirubin 0.5 AST 43 H ALT 61 H Alkaline Phosphatase 269 H Troponin I Less than 0.02 L Total Protein 5.1 L Albumin 2.0 L Amylase Lipase 10/27/17 10/27/17 00:40 06:00 WBC RBC Hgb Hct MCV MCH MCHC RDW Plt Count MPV Prelim Diff (Auto) WBC Differential Seg Neuts % (Manual) Band Neuts % (Manual) Lymphocytes % (Manual) Monocytes % (Manual) Eosinophils % (Manual) Metamyelocytes % (Man) Myelocytes % (Man) Promyelocytes % (Man) Abs Neuts (Manual) Nucleated RBCs/100 WBC Differential Comment Toxic Granulation Platelet Estimate Platelet Morphology Polychromasia PT INR APTT Sodium Potassium Chloride Carbon Dioxide Anion Gap BUN Creatinine Estimated GFR Random Glucose Lactic Acid 1.2 Calcium Total Bilirubin AST ALT Alkaline Phosphatase Troponin I Total Protein Albumin Amylase 31 Lipase 30 L - Imaging Impressions Chest X-Ray 10/26/17 23:21 CONCLUSION: Focal right midlung opacity with possible cavitation seen just lateral to the port. Chest CT 10/27/17 00:00 CONCLUSION: 1. Minimal patchy densities right upper lobe and left lower lobe, slightly less prominent compared to previous study. 2. Numerous metastatic lesions throughout the liver and minimal ascites. 3. Pancreatic tail mass. Abdomen/Pelvis CT 10/27/17 03:50 CONCLUSION: Small amount of free fluid is now seen in the upper abdomen adjacent to the liver and spleen. No other significant interval change. Extensive metastatic disease of the liver again noted. Pancreatic tail mass also again noted. Caprini VTE Risk Assessment Caprini VTE Risk Assessment: Moderate/High Risk (score >= 2) Caprini Risk Assessment Model: Point Value = 1 Point Value = 2 Point Value = 3 Point Value = 5 Age 41-60 Minor surgery BMI > 25 kg/m2 Swollen legs Varicose veins or History of unexplained or recurrent spontaneous Oral contraceptives or hormone replacement Sepsis (< 1 month) Serious lung disease, including pneumonia (< 1 month) Abnormal pulmonary function Acute myocardial infarction Congestive heart failure (< 1 month) History of inflammatory bowel disease Medical patient at bed rest Age 61-74 Arthroscopic surgery Major open surgery (> 45 min) Laparoscopic surgery (> 45 min) Malignancy Confined to bed (> 72 hours) Immobilizing plaster cast Central venous access Age >= 75 History of VTE Family history of VTE Factor V Leiden Prothrombin [id number] Lupus anticoagulant Anticardiolipin antibodies Elevated serum homocysteine Heparin-induced thrombocytopenia Other congenital or acquired thrombophilia Stroke (< 1 month) Elective arthroplasty Hip, pelvis, or leg fracture Acute spinal cord injury (< 1 month) Prophylaxis Regimen: Total Risk Factor Score Risk Level Prophylaxis Regimen 0-1 Low Early ambulation 2 Moderate Order ONE of the following: *Sequential Compression Device (SCD) *Heparin 5000 units SQ BID 3-4 Higher Order ONE of the following medications: *Heparin 5000 units SQ TID *Enoxaparin/Lovenox 40 mg SQ daily (WT < 150 kg, CrCl > 30 mL/min) *Enoxaparin/Lovenox 30 mg SQ daily (WT < 150 kg, CrCl > 10-29 mL/min) *Enoxaparin/Lovenox 30 mg SQ BID (WT < 150 kg, CrCl > 30 mL/min) AND/OR *Sequential Compression Device (SCD) 5 or more Highest Order ONE of the following medications: *Heparin 5000 units SQ TID (Preferred with Epidurals) *Enoxaparin/Lovenox 40 mg SQ daily (WT < 150 kg, CrCl > 30 mL/min) *Enoxaparin/Lovenox 30 mg SQ daily (WT < 150 kg, CrCl > 10-29 mL/min) *Enoxaparin/Lovenox 30 mg SQ BID (WT < 150 kg, CrCl > 30 mL/min) AND *Sequential Compression Device (SCD) Assessment and Plan - Plan 72 years old female with known history of stage IV pancreatic adenocarcinoma with liver metastases presenting with Abdominal pain most likely related to underlying malignancy- -CT of the abdomen shows no acute findings. Discussed with patient that we will treat pain with IV Dilaudid -No relief with p.o. pain meds. -We will hold off on patient's morphine 15 mg twice daily and oxycodone 5 mg every 4 for now while on IV dilaudid - patient wants to pursue active treatment for this - Oncology consulted GERD patient describes severe acid reflux -We will DC Zantac. -Change to Protonix 40 mg Advise on reflux measures- patient states she is awares of these and ff them -continue on zofran -Consider GI consult if no relief. Infiltrates/Densities on CXR - started on IV antibotics - ff cultures Constipation. Will start patient on MiraLAX 17 g daily. Continue on lactulose 10 cc 3 times daily. Give one-time Dulcolax 10 mg suppository. Anorexia due to malignancy We will consult dietitian for recommendation and supplements Pulmonary embolism. Not in any form of distress Continue on Eliquis 5 mg twice a day History of hypertension- BP borderline - Hold off on Amlodipine 5 , Lisinopril 20 mg po bid and Lopressor 50 mg po bid for now Acute kidney injury - pre renal likely due to poor po - start NS at 84 cc/hr - BMP in am Discussed plan with patient and spouse at bedside Discussed Condition With: Patient and spouse
[2017-10-27] MEDS ORDERED: Sod Chloride 0.9% Inj 1,000 ML IV.CONT SCH (18:45)
[2017-10-27] MEDS: Metoclopramide 10 MG Tablet PO SCH (20:20)
[2017-10-28] MEDS: Piperacil/Tazo 4.5 GM Premix 4.5 GM/100 ML BAG IV.SIG SCH ×4 (03:00→21:45)
[2017-10-28] MEDS: Vancomycin Inj 1,000 MG in Sodium Chlor 0.9% Inj 250 ML IV.SIG SCH ×2 (03:00→19:35)
[2017-10-28] MEDS: HYDROmorphone PF Inj 2 MG/ML Vial IV.PUSH PRN ×3 (03:49→19:36)
[2017-10-28 07:05] LABS: Hematocrit 25.2 % (35.0-46.0); Mean Corpuscular HGB Conc 31.8 % (32.0-36.0); Mean Corpuscular Hemoglobin 27.3 pg (27.0-34.0); Mean Platelet Volume 8.6 fL (7.0-11.0); Platelet Count 189 th/mm3 (150-450); Red Blood Count 2.93 mil/mm3 (4.00-5.30); Red Cell Distribution Width 19.9 % (11.6-17.2); White Blood Count 7.3 th/mm3 (4.0-11.0)
[2017-10-28 07:36] LABS: Albumin 1.6 g/dL (3.4-5.0); Calcium 7.3 mg/dL (8.5-10.1); Carbon Dioxide 19.7 meq/L (21.0-32.0); Potassium 4.6 meq/L (3.5-5.1); Total Protein 4.2 g/dL (6.4-8.2)
[2017-10-28] MEDS: Senna/Docusate Sodium 8.6/50 MG Tablet PO SCH ×2 (09:01→21:41)
[2017-10-28] MEDS: Metoclopramide 10 MG Tablet PO SCH ×4 (09:02→21:40)
--- NOTE | 2017-10-28 09:34 | P.PN ---
Subjective Interval history: feeling much stronger, belinda ate 100% of her breakfast feels constipated pain better Physical Exam Vital signs: Vital Signs 10/27/17 10:52 10/27/17 12:00 10/27/17 16:00 Temperature 97.5 F L 97.8 F 97.3 F L Pulse Rate 83 84 84 Respiratory Rate 19 16 16 Blood Pressure 108/73 119/57 L 96/53 L Pulse Oximetry 98 99 98 10/27/17 16:15 10/27/17 20:00 10/28/17 00:00 Temperature 98.0 F 97.4 F L Pulse Rate 84 81 75 Respiratory Rate 20 17 Blood Pressure 113/64 93/54 L Pulse Oximetry 98 96 10/28/17 04:00 10/28/17 09:03 Temperature 97.8 F Pulse Rate 83 80 Respiratory Rate 16 Blood Pressure 108/59 L Pulse Oximetry 99 Intake & Output 10/27/17 10/28/17 10/28/17 18:59 06:59 18:59 Intake Total 1450 / 1450 1740 / 1740 Output Total 350 / 350 Balance 1450 / 1450 1390 / 1390 Weight 70.5 kg Intake: IV 1450 / 1450 1200 / 1200 NS Inj 1,000 ML @ 70 mls/hr IV. 1000 / 1000 CONT .[id number] [facility] Rx#:[id number] Zosyn 2.25 GM Premix 50 ML @ 50 / 50 100 mls/hr IV.SIG ONCE ONE Rx#: [id number] Zosyn 4.5 GM Premix 4.5 gm In 200 / 200 200 / 200 100 ml @ 200 mls/hr IV.SIG Q6H [facility] Rx#:[id number] NS Inj 1,000 ML @ Wide Open IV. 1000 / 1000 SIG BOLUS ONE Rx#:[id number] Vancomycin Inj 1 gm In 200 ml @ 200 / 200 200 mls/hr IV.SIG ONCE ONE Rx# :[id number] Oral 540 / 540 Output: Urine 350 / 350 Other: Date of Last Bowel Movement 10/27/17 Narrative: patient already up sitting at side of the bed no acute distress anicteric throat no exudates lungs + few rhonchis on exam abdomens soft, nontender extremities no edema Results - Labs CBC & Chem 7: 10/28/17 06:46 10/28/17 06:46 Laboratory Results - last 24 hr 10/27/17 10/28/17 10/28/17 00:40 06:46 06:46 WBC 7.3 RBC 2.93 L Hgb 8.0 L Hct 25.2 L MCV 86.0 MCH 27.3 MCHC 31.8 L RDW 19.9 H Plt Count 189 MPV 8.6 Prelim Diff (Auto) Manual diff required Differential Comment . Sodium 141 Potassium 4.6 Chloride 112 H Carbon Dioxide 19.7 L Anion Gap 9 BUN 21 H Creatinine 0.94 Estimated GFR 58 L Random Glucose 99 Calcium 7.3 L* Prot Corrected Calcium 9.0 Total Bilirubin 0.5 AST 27 ALT 40 Alkaline Phosphatase 217 H Total Protein 4.2 L D Albumin 1.6 L Amylase 31 Lipase 30 L - Imaging Impressions Chest CT 10/27/17 00:00 CONCLUSION: 1. Minimal patchy densities right upper lobe and left lower lobe, slightly less prominent compared to previous study. 2. Numerous metastatic lesions throughout the liver and minimal ascites. 3. Pancreatic tail mass. Assessment and Plan - Plan 72 years old female with known history of stage IV pancreatic adenocarcinoma with liver metastases presenting with Abdominal pain most likely related to underlying malignancy- improved with current regimen - lipase normal -CT of the abdomen shows no acute findings. Discussed with patient that we will treat pain with IV Dilaudid -We will hold off on patient's morphine 15 mg twice daily and oxycodone 5 mg every 4 for now while on IV dilaudid - patient wants to pursue active treatment - Oncology- Dr. Oreilly ff GERD patient describes severe acid reflux- improved -We will DC Zantac. -Change to Protonix 40 mg Advise on reflux measures- patient states she is awares of these and ff them -continue on zofran -Consider GI consult if no relief. Infiltrates/Densities on CXR - started on IV antibotics - ff cultures Constipation. - patient feels like she is going to have on today Will start patient on MiraLAX 17 g daily. Continue on lactulose 10 cc 3 times daily. Give one-time Dulcolax 10 mg suppository. Anorexia due to malignancy - 100% po breakfast this am - consult dietitian for recommendation and supplements Pulmonary embolism. Not in any form of distress Continue on Eliquis 5 mg twice a day History of hypertension- BP borderline - Hold off on Amlodipine 5 , Lisinopril 20 mg po bid and Lopressor 50 mg po bid for now Acute kidney injury - pre renal likely due to poor po- creatinine improved, po improved - start NS at 84 cc/hr- decrease IVF rate - BMP in am Discussed plan with patient encourage patient to up and ambulate
--- NOTE | 2017-10-28 09:37 | P.PNONC ---
Subjective Interval history: Afebrile Patient reports her abdominal pain is somewhat improved since hospitalization. Her pain is overall controlled with current regimen Reports she has not had a bowel movement in 4 days Denies nausea Objective Vital Signs/Intake & Output: Vital Signs 10/27/17 10:52 10/27/17 12:00 10/27/17 16:00 Temperature 97.5 F L 97.8 F 97.3 F L Pulse Rate 83 84 84 Respiratory Rate 19 16 16 Blood Pressure 108/73 119/57 L 96/53 L Pulse Oximetry 98 99 98 10/27/17 16:15 10/27/17 20:00 10/28/17 00:00 Temperature 98.0 F 97.4 F L Pulse Rate 84 81 75 Respiratory Rate 20 17 Blood Pressure 113/64 93/54 L Pulse Oximetry 98 96 10/28/17 04:00 10/28/17 09:03 Temperature 97.8 F Pulse Rate 83 80 Respiratory Rate 16 Blood Pressure 108/59 L Pulse Oximetry 99 Intake & Output 10/27/17 10/28/17 10/28/17 18:59 06:59 18:59 Intake Total 1450 / 1450 1740 / 1740 Output Total 350 / 350 Balance 1450 / 1450 1390 / 1390 Weight 155 lb 6.814 oz Intake: IV 1450 / 1450 1200 / 1200 NS Inj 1,000 ML @ 70 mls/hr IV. 1000 / 1000 CONT .[id number] [facility] Rx#:[id number] Zosyn 2.25 GM Premix 50 ML @ 50 / 50 100 mls/hr IV.SIG ONCE ONE Rx#: [id number] Zosyn 4.5 GM Premix 4.5 gm In 200 / 200 200 / 200 100 ml @ 200 mls/hr IV.SIG Q6H [facility] Rx#:[id number] NS Inj 1,000 ML @ Wide Open IV. 1000 / 1000 SIG BOLUS ONE Rx#:[id number] Vancomycin Inj 1 gm In 200 ml @ 200 / 200 200 mls/hr IV.SIG ONCE ONE Rx# :[id number] Oral 540 / 540 Output: Urine 350 / 350 Other: Date of Last Bowel Movement 10/27/17 Result Diagrams: 10/28/17 06:46 10/28/17 06:46 Laboratory Results: Laboratory Results - last 24 hr 10/27/17 10/28/17 10/28/17 00:40 06:46 06:46 WBC 7.3 RBC 2.93 L Hgb 8.0 L Hct 25.2 L MCV 86.0 MCH 27.3 MCHC 31.8 L RDW 19.9 H Plt Count 189 MPV 8.6 Prelim Diff (Auto) Manual diff required Differential Comment . Sodium 141 Potassium 4.6 Chloride 112 H Carbon Dioxide 19.7 L Anion Gap 9 BUN 21 H Creatinine 0.94 Estimated GFR 58 L Random Glucose 99 Calcium 7.3 L* Prot Corrected Calcium 9.0 Total Bilirubin 0.5 AST 27 ALT 40 Alkaline Phosphatase 217 H Total Protein 4.2 L D Albumin 1.6 L Amylase 31 Lipase 30 L Imaging Studies: Impressions Chest CT 10/27/17 00:00 CONCLUSION: 1. Minimal patchy densities right upper lobe and left lower lobe, slightly less prominent compared to previous study. 2. Numerous metastatic lesions throughout the liver and minimal ascites. 3. Pancreatic tail mass. Medications: Active Medications Generic Name Dose Route Start Last Admin Trade Name Freq PRN Reason Stop Dose Admin Apixaban 5 mg 10/27/17 21:00 10/28/17 09:02 Eliquis PO 5 mg BID [facility] Administration Hydromorphone HCl 1 mg 10/27/17 10:45 10/28/17 09:03 Dilaudid Pf Inj IV.PUSH 1 mg Q4H PRN Administration pain 6-10 Sodium Chloride 1,000 mls @ 70 mls/hr 10/27/17 04:15 10/27/17 20:23 Ns Inj IV.CONT 70 mls/hr .[id number] [facility] Administration Vancomycin HCl 1,000 mg/ 250 mls @ 250 mls/hr 10/28/17 00:00 10/28/17 03:00 Sodium Chloride IV.SIG 250 mls/hr Q18H [facility] Administration Piperacillin/Tazobactam/Dextrose 4.5 gm in 100 mls @ 200 mls/hr 10/27/17 16: 00 10/28/17 09:02 Zosyn 4.5 Gm Premix IV.SIG 200 mls/hr Q6H [facility] Administration Metoclopramide HCl 5 mg 10/27/17 21:00 10/28/17 09:02 Reglan PO 5 mg ACHS [facility] Administration Pantoprazole Sodium 40 mg 10/27/17 14:15 10/28/17 09:01 Protonix PO 40 mg DAILY [facility] Administration Senna/Docusate Sodium 1 tab 10/27/17 09:00 10/28/17 09:01 Wilda-Colace PO 1 tab BID [facility] Administration Objective Remarks: GENERAL: Older female resting in bed in no obvious distress. SKIN: Warm and dry. HEAD: Normocephalic. EYES: No injection or drainage. NECK: Supple, trachea midline. No JVD or lymphadenopathy. CARDIOVASCULAR: Regular rate and rhythm without murmurs. RESPIRATORY: Breath sounds equal bilaterally. No accessory muscle use. GASTROINTESTINAL: Abdomen protuberant. Tender to palpation. EXTREMITIES: No cyanosis, or edema. MUSCULOSKELETAL: Adequate muscle tone. NEUROLOGICAL: No obvious focal deficit. Awake, alert, and oriented x3. Assessment/Plan - Plan 72-year-old female with history of metastatic pancreatic cancer. She was recently found to have progression in her liver in early September and was switched to gemcitabine and Abraxane. She just completed the first cycle on 10/19/17 and began to have increased abdominal pain and was brought into the emergency room. CT abdomen pelvis shows stable lesions in the liver. CT chest shows opacities patchy densities in the right upper lobe and left lower lobe that are slightly less prominent compared to previous study. 1. Offer patient lactulose for constipation. 2. Continue current pain regimen 3. No evidence of pancreatitis 4. Continue apixaban for history of pulmonary embolism 5. Continue supportive care - Attending Statement The exam, history, and the medical decision-making described in the above note were completed with the assistance of the mid-level provider. I reviewed and agree with the findings presented. I attest that I had a [id number] encounter with the patient on the same day, and personally performed and documented my assessment and findings in the medical record. Patient stated that her abdominal pain has improved. Lipase and amylase are not elevated. She may have gastritis or esophagitis. Continue proton pump inhibitor. Can be discharged if she continued to improve. Dr. Olson will follow patient tomorrow.
[2017-10-28 09:54] LABS: Blast Cells 1 % (0-0); Eosinophils 2 % (0-4); Lymphocytes 19 % (9-44); Metamyelocytes 1 % (0-1); Monocytes 18 % (0-8); Myelocytes 7 % (0-0); Tallied Nucleated RBC 11 (0-0)
[2017-10-28 09:55] LABS: Platelet Estimate Normal (Normal); Platelet Morphology Normal (Normal)
[2017-10-28 09:56] LABS: Polychromasia 3.4 % (0.0-1.9)
[2017-10-28] MEDS: Sod Chloride 0.9% Inj 1,000 ML IV.CONT SCH (13:00)
--- NOTE | 2017-10-28 15:31 | P.DIET ---
Nutritional Evaluation Type of nutrition evaluation: initial Screening comments: MDC Malnutrition, poor po, malignancy Subjective Oral Diet Tolerance Assessment Indicates: Poor intake due to pain Subjective Comments: Pt reports acid reflux, poor appetite, wt loss. Pt also c/o constipation, no BM since admission Objective - Diagnosis Abdominal Pain - Objective % IBW: 121 Body Weight Used for Calculations: Actual Energy Needs - Lower Range (kCal/kg): 30 Energy Needs - Upper Range (kCal/kg): 35 Lower Limit kCal/kg (kCals): 1,890 Upper Limit kCal/kg (kCals): 2,205 Lower Limit Protein Factor (Grams per Kg): 1.2 Upper Limit Protein Factor (Grams per Kg): 1.5 Lower Protein Needs (Protein): 76 Upper Protein Needs (Protein): 95 Fluid Factor (ml/kg): 30 Estimated Fluid Needs (ml): 1,890 Dietitian Reviewed in Medical Record: Current diet, Curent medications, Intake & Output, Labs, Medical history Objective Comments: Nutritional needs used wt of 63kg PMH: HTN, Liver CA, Pancreatic CA, Pulmonary Embolism Meds include: Miralax, Lactulose, Reglan Labs include: Hgb 8.0, Hct 25.2, Ca 7.3, Alk Phos 217, Lipase 30 Assessment Assessment: Pt at nutritional risk r/t current clinical status. Pt with stage IV pancreatic adenocarcinoma with liver metastases, admitted for abdominal pain. Per MD, today pt felt much better, ate 100% of her breakfast. Pt wants to be aggressive with treatment. Nutritional needs as assessed above. Adequate po intake has not yet been established. Will provide pt with Ensure tid, each bottle contains 250 kcals and 9 gms protein. Will monitor po intake, clinical course. Recommendations: Pt on regular diet Will provide Ensure tid Dietitian following Dietitian to Monitor: Lab values, Supplement acceptance, Diet tolerance, Weight change, PO Intake, Medical course
[2017-10-29] MEDS: HYDROmorphone PF Inj 2 MG/ML Vial IV.PUSH PRN ×4 (00:34→13:24)
[2017-10-29] MEDS: Sod Chloride 0.9% Inj 1,000 ML IV.CONT SCH (00:38)
[2017-10-29] MEDS: Piperacil/Tazo 4.5 GM Premix 4.5 GM/100 ML BAG IV.SIG SCH (04:53)
--- NOTE | 2017-10-29 08:41 | P.PNONC ---
Subjective Interval history: Patient seen and examined, vital signs, labs, medications, imaging studies, microbiology as well as progress notes reviewed. Subjectively; patient reports her abdominal pain is much improved, she tells me her abdomen especially the left upper abdomen and epigastric area remained tender. Last night she tells me she fell while trying to get off the bedside commode, she did not herself, she does not recall blacking out, she tells me the medical assistants and nurses were at her bedside to assist her almost immediately after she fell. She tells me she does not have any aches or pains and specifically does not recall hitting her head. Overall, the patient reports feeling much improved when compared to her arrival to the hospital. She specifically tells me her pain is better. Objective Vital Signs/Intake & Output: Vital Signs 10/28/17 09:03 10/28/17 12:00 10/28/17 15:41 Temperature 98.0 F Pulse Rate 80 85 84 Respiratory Rate 16 Blood Pressure 108/57 L Pulse Oximetry 97 10/28/17 16:00 10/28/17 18:10 10/28/17 20:00 Temperature 98.3 F 98.0 F 99.2 F Pulse Rate 95 H 105 H 98 H Respiratory Rate 16 16 18 Blood Pressure 123/69 110/58 L 111/65 Pulse Oximetry 99 98 99 10/28/17 21:39 10/29/17 00:00 10/29/17 04:00 Temperature 99.2 F 97.8 F Pulse Rate 98 H 86 Respiratory Rate 14 18 18 Blood Pressure 109/55 L 110/56 L Pulse Oximetry 99 97 Intake & Output 10/28/17 10/29/17 10/29/17 18:59 06:59 18:59 Intake Total 1480 / 1480 360 / 360 Output Total 600 / 600 Balance 880 / 880 360 / 360 Weight 72 kg Intake: IV 1200 / 1200 360 / 360 NS Inj 1,000 ML @ 50 mls/hr IV. 1000 / 1000 CONT .Q20H [facility] Rx#:[id number] Zosyn 4.5 GM Premix 4.5 gm In 200 / 200 100 / 100 100 ml @ 200 mls/hr IV.SIG Q6H [facility] Rx#:[id number] Vancomycin Inj 1,000 MG In NS 260 / 260 Inj 250 ML @ 250 mls/hr IV.SIG Q18H [facility] Rx#:[id number] Oral 280 / 280 Output: Urine 600 / 600 Other: # Voids 1 # Urine Diapers 1 Date of Last Bowel Movement 10/27/17 10/28/17 # Bowel Movements 1 Result Diagrams: 10/28/17 06:46 10/28/17 06:46 Laboratory Results: Laboratory Results - last 24 hr 10/28/17 06:46 WBC Differential Manual diff final Seg Neuts % (Manual) 34 Band Neuts % (Manual) 18 H Lymphocytes % (Manual) 19 Monocytes % (Manual) 18 H Eosinophils % (Manual) 2 Metamyelocytes % (Man) 1 Myelocytes % (Man) 7 H Blast Cells % (Manual) 1 H Abs Neuts (Manual) 4.4 Nucleated RBCs/100 WBC 11 H Platelet Estimate Normal Platelet Morphology Normal Polychromasia 3.4 H Culture Results: Microbiology 10/27/17 06:05 Aerobic Blood Culture - Preliminary Blood - Peripheral No growth in 1 day Anaerobic Blood Culture - Preliminary No growth in 1 day 10/27/17 05:55 Aerobic Blood Culture - Preliminary Blood - Peripheral No growth in 1 day Anaerobic Blood Culture - Preliminary No growth in 1 day Medications: Active Medications Generic Name Dose Route Start Last Admin Trade Name Freq PRN Reason Stop Dose Admin Apixaban 5 mg 10/27/17 21:00 10/28/17 21:41 Eliquis PO 5 mg BID [facility] Administration Hydromorphone HCl 1 mg 10/27/17 10:45 10/29/17 04:55 Dilaudid Pf Inj IV.PUSH 1 mg Q4H PRN Administration pain 6-10 Sodium Chloride 1,000 mls @ 50 mls/hr 10/27/17 04:15 10/29/17 00:38 Ns Inj IV.CONT Not Given .Q20H [facility] Vancomycin HCl 1,000 mg/ 250 mls @ 250 mls/hr 10/28/17 00:00 10/29/17 00:38 Sodium Chloride IV.SIG Infused Q18H [facility] Infusion Piperacillin/Tazobactam/Dextrose 4.5 gm in 100 mls @ 200 mls/hr 10/27/17 16: 00 10/29/17 04:53 Zosyn 4.5 Gm Premix IV.SIG 200 mls/hr Q6H [facility] Administration Lactulose 30 ml 10/27/17 04:07 10/28/17 10:53 Lactulose Liq PO 30 ml DAILY PRN Administration SEVERE CONSITIPATION Metoclopramide HCl 5 mg 10/27/17 21:00 10/28/17 21:40 Reglan PO 5 mg ACHS [facility] Administration Pantoprazole Sodium 40 mg 10/27/17 14:15 10/28/17 09:01 Protonix PO 40 mg DAILY [facility] Administration Senna/Docusate Sodium 1 tab 10/27/17 09:00 10/28/17 21:41 Wilda-Colace PO 1 tab BID [facility] Administration Objective Remarks: GENERAL: Middle-aged/elderly lady, laying in bed no acute distress.. SKIN: Warm and dry. HEAD: Normocephalic. EYES: No scleral icterus. No injection or drainage. NECK: Supple, trachea midline. No JVD or lymphadenopathy. LYMPHATIC: No adenopathy. CARDIOVASCULAR: Regular rate and rhythm without murmurs. RESPIRATORY: Breath sounds equal bilaterally. No accessory muscle use. GASTROINTESTINAL: Thin abdomen, soft, tender over the epigastric area and left upper quadrant. No obvious organ enlargement noted. Positive bowel sounds. EXTREMITIES: Adequate muscle mass and tone, no edema. MUSCULOSKELETAL: Adequate muscle tone. NEUROLOGICAL: No obvious focal deficit. Awake, alert, and oriented x3. PSYCHIATRIC: Appropriate mood and affect; insight and judgment normal. Assessment/Plan (1) Epigastric pain Code(s): R10.13 - Epigastric pain Status: Acute (2) Pancreatic adenocarcinoma Code(s): C25.9 - Malignant neoplasm of pancreas, unspecified Status: Chronic (3) Metastasis from pancreatic cancer Code(s): C79.9 - Secondary malignant neoplasm of unspecified site; C25.9 - Malignant neoplasm of pancreas, unspecified Status: Chronic - Plan 72-year-old female with a diagnosis of metastatic pancreatic adenocarcinoma, the primary tumor involves the tail the pancreas. She has extensive/ innumerable liver metastases. The patient had disease progression on first- line palliative systemic therapy with FOLFIRINOX and was initiated on second line palliative therapy with gemcitabine and Abraxane in mid September 2017. Last week she completed her first cycle of treatment which consists of 3 weekly doses of gemcitabine and 1 dose of Abraxane every 3 weeks. Patient reports tolerating chemotherapy without significant difficulties other than having had some nausea and vomiting on one occasion. The patient reports going to a graduation democrat for her friend's granddaughter last week, after she went to the graduation democrat she reports having developed significant fatigue as well as worsening epigastric pain. She tells me she ate barbecue and thinks that she had some "indigestion" provoked by the barbecue. The patient was hospitalized on 10/27/2017 for epigastric pain which was uncontrolled. She also feels she had "an anxiety attack/panic attack ". She thinks her symptoms are overall much improved. 1. Pain control: She tells me the hydromorphone injections once every 4 hours are sufficient in controlling her pain. At the time of discharge I would recommend resumption of oral opioid analgesics, she is presently on long and short acting agents. 2. Epigastric pain: Perhaps related to gastritis; continue proton pump inhibitors. 3. Pulmonary embolism: Continue therapeutic oral anticoagulation with Eliquis 5 mg p.o. twice daily. Disposition: Clear for discharge home from oncology standpoint when the patient is able to tolerate p.o. intake without exacerbating pain. I would like her to have a physical therapy evaluation given her fall last night.
--- NOTE | 2017-10-29 09:15 | P.PN ---
Subjective Interval history: feels great had 2 good BM lst evening tolerating po no abodminal pain complains last evening- per patient while trying to wipe her butt bent down/half squattling and leaning on bedside commode apparently fell- no injuries, no cuts Physical Exam Vital signs: Vital Signs 10/28/17 12:00 10/28/17 15:41 10/28/17 16:00 Temperature 98.0 F 98.3 F Pulse Rate 85 84 95 H Respiratory Rate 16 16 Blood Pressure 108/57 L 123/69 Pulse Oximetry 97 99 10/28/17 18:10 10/28/17 20:00 10/28/17 21:39 Temperature 98.0 F 99.2 F Pulse Rate 105 H 87 Respiratory Rate 16 18 14 Blood Pressure 110/58 L 111/65 Pulse Oximetry 98 99 10/29/17 00:00 10/29/17 04:00 10/29/17 08:00 Temperature 99.2 F 97.8 F 97.7 F Pulse Rate 86 81 84 Respiratory Rate 18 18 18 Blood Pressure 109/55 L 110/56 L 130/69 Pulse Oximetry 99 97 97 Intake & Output 10/28/17 10/29/17 10/29/17 18:59 06:59 18:59 Intake Total 1480 / 1480 360 / 360 Output Total 600 / 600 Balance 880 / 880 360 / 360 Weight 72 kg Intake: IV 1200 / 1200 360 / 360 NS Inj 1,000 ML @ 50 mls/hr IV. 1000 / 1000 CONT .Q20H [facility] Rx#:[id number] Zosyn 4.5 GM Premix 4.5 gm In 200 / 200 100 / 100 100 ml @ 200 mls/hr IV.SIG Q6H [facility] Rx#:[id number] Vancomycin Inj 1,000 MG In NS 260 / 260 Inj 250 ML @ 250 mls/hr IV.SIG Q18H [facility] Rx#:[id number] Oral 280 / 280 Output: Urine 600 / 600 Other: # Voids 1 # Urine Diapers 1 Date of Last Bowel Movement 10/27/17 10/28/17 # Bowel Movements 1 Narrative: awake and alert, interactive anicteric lungs- no rales, no wheezes regular rhythm abdomen soft, nontender extremities no edema, no calf swelling gait steady Results - Labs CBC & Chem 7: 10/28/17 06:46 10/28/17 06:46 Laboratory Results - last 24 hr 10/28/17 06:46 WBC Differential Manual diff final Seg Neuts % (Manual) 34 Band Neuts % (Manual) 18 H Lymphocytes % (Manual) 19 Monocytes % (Manual) 18 H Eosinophils % (Manual) 2 Metamyelocytes % (Man) 1 Myelocytes % (Man) 7 H Blast Cells % (Manual) 1 H Abs Neuts (Manual) 4.4 Nucleated RBCs/100 WBC 11 H Platelet Estimate Normal Platelet Morphology Normal Polychromasia 3.4 H Microbiology 10/27/17 06:05 Blood - Peripheral Aerobic Blood Culture - Preliminary No growth in 1 day 10/27/17 06:05 Blood - Peripheral Anaerobic Blood Culture - Preliminary No growth in 1 day 10/27/17 05:55 Blood - Peripheral Aerobic Blood Culture - Preliminary No growth in 1 day 10/27/17 05:55 Blood - Peripheral Anaerobic Blood Culture - Preliminary No growth in 1 day Assessment and Plan - Plan 72 years old female with known history of stage IV pancreatic adenocarcinoma with liver metastases presenting with Abdominal pain most likely related to underlying malignancy- improved with current regimen - lipase normal -CT of the abdomen shows no acute findings. Discussed with patient that we will treat pain with IV Dilaudid -We will hold off on patient's morphine 15 mg twice daily and oxycodone 5 mg every 4 for now while on IV dilaudid - patient wants to pursue active treatment - Oncology ff- cleared by Dr. antonio for DC- OP ff up GERD patient describes severe acid reflux- improved - DC Zantac. -Changed to Protonix 40 mg Advise on reflux measures- - patient states she is aware -continue on zofran Infiltrates/Densities on CXR- densities likely more related to malignancies - started on IV antibotics - ff cultures- negative - no leukocytosis - DC antibiotics Constipation. -resolved started on MiraLAX 17 g daily. Continue on lactulose 10 cc 3 times daily.- had them at home Anorexia due to malignancy - 100% po breakfast this am - seen by dietitian for recommendation and supplements- appreciated- on Ensure tid - per aptient she has Boost at home- Pulmonary embolism. Not in any form of distress Continue on Eliquis 5 mg twice a day History of hypertension- BP borderline and good with no meds here - Hold off on Amlodipine 5 , Lisinopril 20 mg po bid and Lopressor 50 mg po bid for now - d/w her to check BP and ff up with PCP - as poor po and malignancy- may require less regimen Acute kidney injury - pre renal likely due to poor po- creatinine improved, po improved - improved- advise adequate hydration and po History of hypothyroidism - continue on synthroid 100 mcg po daily- Discussed plan with patient encourage patient to up and ambulate DC home today regular diet activity as tolerated will ask CM to assist with any needs- home health care arrangements FF up with PCP- she will call and make appt FF up with Oncology as OP
[2017-10-29] MEDS: Metoclopramide 10 MG Tablet PO SCH ×2 (09:22→11:58)
[2017-10-29] MEDS: Senna/Docusate Sodium 8.6/50 MG Tablet PO SCH (09:23)
--- NOTE | 2017-10-29 09:33 | P.DCO ---
- Home Health Nursing Order: Signs/symptoms of disease process, Nursing assessment with vital signs - Certification I have seen patient aLura Louie on 10/29/17. My clinical findings support the need for the requested home health care services because: Need for psychosocial assistance, High risk of falls I certify that my clinical findings support that this patient is homebound because: Unsteady gait/balance, Need for psychosocial assistance
[2017-10-29] MEDS ORDERED: Pharmacy Ordered Lab Info OTHER ONE (11:45)
[2017-10-29] MEDS ORDERED: Heparin Central Flush 100 UNIT/ML 5 ML Vial IV.FLUSH ONE (15:00)
== END 2017-10-29 15:23 | disposition home health service (06) ==
LOC: NEPC 20:46 → NEDA 10-27 04:53 → N04 10-27 14:19
PROVIDERS: ADMIT Internal Medicine; ATTEND Internal Medicine

== ENCOUNTER 2017-11-11 15:58 | Inpatient (IN) ==
[2017-11-11] MEDS ORDERED: Piperacil/Tazo 4.5 GM Premix 4.5 GM/100 ML BAG IV.SIG STA (16:26)
[2017-11-11] MEDS ORDERED: Acetaminophen 325 MG Tablet PO ONE (16:26)
[2017-11-11] MEDS ORDERED: Sod Chloride 0.9% Inj 1,000 ML IV.SIG ONE (16:26)
[2017-11-11] MEDS ORDERED: Vancomycin Inj 1,000 MG in Sodium Chlor 0.9% Inj 250 ML IV.SIG STA (16:26)
--- NOTE | 2017-11-11 16:53 | XR ---
EXAM DATE: 11/11/2017 4:49 PM EDT AGE/SEX: 72 years / Female INDICATIONS: Fever. CLINICAL DATA: This is the patient's initial encounter. Patient reports that signs and symptoms have been present for 1 day and indicates a pain score of 0/10. MEDICAL/SURGICAL HISTORY: . COPD, GERD, Pancreatitis, HTN, Metastatic pancreas carcinoma, Thyro id disease, Secondary metastatic disease to liver . Pancreatic mass biopsy. [id number]. COMPARISON: [facility] – [place], CHEST 1V SINGLE AP, 10/26/2017. . FINDINGS: A single AP view of the chest demonstrates the lungs to be symmetrically aerated without evidence of mass, infiltrate or effusion. Stable presumed scarring in the right midlung and left base. Infuse-a-P ort in superior vena cava. The cardiomediastinal contours are unremarkable. Osseous structures are i ntact. CONCLUSION: No acute findings. Stable presumed scarring right midlung and left base compared with October 26. Infuse- a-Port in superior vena cava. Electronically signed by: Ethan Rouse MD 11/11/2017 4:52 PM EDT
--- NOTE | 2017-11-11 16:57 | ED ---
HPI General Chief Complaint: Fever Stated Complaint: fever/cancer pt Time Seen by Provider: 11/11/17 16:26 Source: patient and family History of Present Illness HPI Narrative: 72-year-old female with fever today. Last chemotherapy Sunday. Dr. Olson is her oncologist. complaint: fever Onset (ago): hour(s) Maximum Temperature: 101 F Context: on chemotherapy Associated symptoms: cough Relieving factors: nothing Exacerbating factors: exertion Treatments prior to arrival fever: none Related Data Home Medications Medication Instructions Recorded Confirmed apixaban [Eliquis] 5 mg PO BID 10/27/17 10/27/17 lactulose 10 g PO TID 10/27/17 10/27/17 levothyroxine 100 mcg PO DAILY 10/27/17 10/27/17 morphine 15 mg PO Q12H 10/27/17 10/27/17 nicotine 1 patch TRANSDERMAL Q24H 10/27/17 10/27/17 ondansetron 4 mg PO QID PRN 10/27/17 10/27/17 oxycodone 5 mg PO Q4H 10/27/17 10/27/17 Previous Rx's Medication Instructions Recorded pantoprazole 40 mg PO DAILY #90 tab 10/29/17 Allergies Allergy/AdvReac Type Severity Reaction Status Date / Time No Known Allergies Allergy Unverified 10/26/17 22:29 Review of Systems Except as stated in HPI: all other systems reviewed are negative (except leg edema) [facility] Medical History Medical History Chemotherapy management, encounter for (Acute) Hypertension (Acute) Liver cancer (Acute) Pancreatic cancer (Acute) Pulmonary air embolism (Acute) Family History Family History Mother Esophageal adenocarcinoma Grandparent Cervical cancer Social History Social History Substance History: No History of Abuse Second Hand Smoke Exposure: No Smoking Status: Former smoker Tobacco Type: Cigarettes How Often Do You Have a Drink Containing Alcohol: Never Recent Travel in [place] within the Last 8 Weeks: No Recent Out of Country Travel within the Last 8 Weeks: No Exam Narrative Exam Narrative: GENERAL: 72 y/o female in no apparent distress SKIN: Focused skin assessment warm/dry. HEAD: Atraumatic. Normocephalic. EYES: Pupils equal and round. No scleral icterus. No injection or drainage. ENT: No nasal bleeding or discharge. Mucous membranes pink and moist. NECK: Trachea midline. CARDIOVASCULAR: Regular rate and rhythm. RESPIRATORY: No accessory muscle use. Clear to auscultation. Breath sounds equal bilaterally. GASTROINTESTINAL: Abdomen soft, non-tender, nondistended. MUSCULOSKELETAL: No obvious deformities. No clubbing. No cyanosis. Edema noted to bilateral lower legs, left greater than right NEUROLOGICAL: Awake and alert. No obvious cranial nerve deficits. Motor grossly within normal limits. Normal speech. Course Consultations Consultation #1: dr melgar agrees to admit Initial Documented Vital Signs Temperature 101 F H 11/11/17 16:16 Pulse Rate 135 H 11/11/17 16:16 Respiratory Rate 20 11/11/17 16:16 Blood Pressure 119/58 L 11/11/17 16:16 Pulse Oximetry 99 11/11/17 16:16 Last Documented Vital Signs Temperature 101 F H 11/11/17 16:32 Pulse Rate 135 H 11/11/17 16:32 Respiratory Rate 20 11/11/17 16:32 Blood Pressure 119/73 11/11/17 16:25 Pulse Oximetry 99 11/11/17 17:03 Medical Decision Making MDM Narrative Medical decision making narrative: Will check sepsis workup and dose with broad- spectrum antibiotics while giving Tylenol and IV fluids. Also check ultrasound of legs to rule out DVT Differential Diagnosis Differential Diagnosis: DVT, UTI, pneumonia, sepsis Lab Data Result diagrams: 11/11/17 17:30 11/11/17 17:30 Lab Results 11/11/17 11/11/17 11/11/17 Range/Units 17:30 17:30 17:30 WBC 10.8 (4.0-11.0) th/mm3 RBC 2.91 L (4.00-5.30) mil/mm3 Hgb 8.4 L (11.6-15.3) gm/dL Hct 25.7 L (35.0-46.0) % MCV 88.5 (80.0-100.0) fL MCH 29.1 (27.0-34.0) pg MCHC 32.8 (32.0-36.0) % RDW 24.8 H (11.6-17.2) % Plt Count 226 D (150-450) th/mm3 MPV 7.9 (7.0-11.0) fL Neut % (Auto) 95.8 H (16.0-70.0) % Lymph % (Auto) 2.2 L (9.0-44.0) % [place] % (Auto) 1.4 (0.0-8.0) % Eos % (Auto) 0.1 (0.0-4.0) % Baso % (Auto) 0.5 (0.0-2.0) % Neut # (Auto) 10.4 H (1.8-7.7) th/mm3 Lymph # (Auto) 0.2 L (1.0-4.8) th/mm3 [place] # (Auto) 0.2 (0.0-0.9) th/mm3 Eos # (Auto) 0.0 (0.0-0.4) th/mm3 Baso # (Auto) 0.1 (0.0-0.2) th/mm3 WBC Differential . Differential Comment Auto diff final PT 11.0 (9.8-11.6) sec INR 1.1 Ratio APTT 28.6 (24.3-30.1) sec Sodium 138 (136-145) meq/L Potassium 4.9 (3.5-5.1) meq/L Chloride 104 (98-107) meq/L Carbon Dioxide 27.7 (21.0-32.0) meq/L Anion Gap 6 (5-15) meq/L BUN 22 H (7-18) mg/dL Creatinine 1.00 (0.50-1.00) mg/dL Estimated GFR 54 L (>89) mL/min Random Glucose 94 (74-106) mg/dL Lactic Acid (0.4-2.0) mmol/L Calcium 7.6 L (8.5-10.1) mg/dL Magnesium 2.3 (1.5-2.5) mg/dL Total Bilirubin 0.7 (0.2-1.0) mg/dL AST 63 H (15-37) U/L ALT 51 (10-53) U/L Alkaline Phosphatase 209 H (45-117) U/L Total Creatine Kinase 33 (26-192) U/L Total Protein 6.1 L (6.4-8.2) g/dL Albumin 2.3 L (3.4-5.0) g/dL 11/11/17 Range/Units 17:30 WBC (4.0-11.0) th/mm3 RBC (4.00-5.30) mil/mm3 Hgb (11.6-15.3) gm/dL Hct (35.0-46.0) % MCV (80.0-100.0) fL MCH (27.0-34.0) pg MCHC (32.0-36.0) % RDW (11.6-17.2) % Plt Count (150-450) th/mm3 MPV (7.0-11.0) fL Neut % (Auto) (16.0-70.0) % Lymph % (Auto) (9.0-44.0) % [place] % (Auto) (0.0-8.0) % Eos % (Auto) (0.0-4.0) % Baso % (Auto) (0.0-2.0) % Neut # (Auto) (1.8-7.7) th/mm3 Lymph # (Auto) (1.0-4.8) th/mm3 [place] # (Auto) (0.0-0.9) th/mm3 Eos # (Auto) (0.0-0.4) th/mm3 Baso # (Auto) (0.0-0.2) th/mm3 WBC Differential Differential Comment PT (9.8-11.6) sec INR Ratio APTT (24.3-30.1) sec Sodium (136-145) meq/L Potassium (3.5-5.1) meq/L Chloride (98-107) meq/L Carbon Dioxide (21.0-32.0) meq/L Anion Gap (5-15) meq/L BUN (7-18) mg/dL Creatinine (0.50-1.00) mg/dL Estimated GFR (>89) mL/min Random Glucose (74-106) mg/dL Lactic Acid 1.1 (0.4-2.0) mmol/L Calcium (8.5-10.1) mg/dL Magnesium (1.5-2.5) mg/dL Total Bilirubin (0.2-1.0) mg/dL AST (15-37) U/L ALT (10-53) U/L Alkaline Phosphatase (45-117) U/L Total Creatine Kinase (26-192) U/L Total Protein (6.4-8.2) g/dL Albumin (3.4-5.0) g/dL Imaging Data Radiologist's impression: Chest X-Ray 11/11/17 16:26 CONCLUSION: No acute findings. Stable presumed scarring right midlung and left base compared with October 26. [id number] in superior vena cava. Venous Doppler Study 11/11/17 16:50 CONCLUSION: 1. The study is negative for bilateral lower extremity deep venous thrombosis. Discharge Plan Discharge Disposition Patient Disposition: 30 Still Patient Discharge Details Diagnosis: Fever, Metastasis from pancreatic cancer, Pancreatic adenocarcinoma Physicians Team ED Provider: Magalie Ramirez Primary Care Provider: UNKNOWN, Attending Provider: Patricia Melgar Discharge Interventions Interventions: Vital Signs Last Done: 11/11/17 16:32 Status ED Status: Admitted Patient
[2017-11-11 17:42] LABS: Baso # (Auto) 0.1 th/mm3 (0.0-0.2); Baso % (Auto) 0.5 % (0.0-2.0); Eos % (Auto) 0.1 % (0.0-4.0); Hematocrit 25.7 % (35.0-46.0); Hemoglobin 8.4 gm/dL (11.6-15.3); Lymph # (Auto) 0.2 th/mm3 (1.0-4.8); Lymph % (Auto) 2.2 % (9.0-44.0); Mean Corpuscular HGB Conc 32.8 % (32.0-36.0); Mean Corpuscular Hemoglobin 29.1 pg (27.0-34.0); Mean Corpuscular Volume 88.5 fL (80.0-100.0); Mean Platelet Volume 7.9 fL (7.0-11.0); Mono # (Auto) 0.2 th/mm3 (0.0-0.9); Mono % (Auto) 1.4 % (0.0-8.0); Neut # (Auto) 10.4 th/mm3 (1.8-7.7); Neut % (Auto) 95.8 % (16.0-70.0); Platelet Count 226 th/mm3 (150-450); Red Blood Count 2.91 mil/mm3 (4.00-5.30); Red Cell Distribution Width 24.8 % (11.6-17.2); White Blood Count 10.8 th/mm3 (4.0-11.0)
--- NOTE | 2017-11-11 17:46 | US ---
EXAM DATE: 11/11/2017 5:43 PM EDT AGE/SEX: 72 years / Female INDICATIONS: Bilateral leg swelling. CLINICAL DATA: This is the patient's initial encounter. Patient reports that signs and symptoms have been present for 1 week and indicates a pain score of 3/10. MEDICAL/SURGICAL HISTORY: Hypertension. Liver cancer. Pancreatic cancer. Pulmonary embolism. . Chemotherapy. COMPARISON: No prior exams available for comparison. TECHNIQUE: Venous ultrasound of both lower extremities was performed from the inguinal ligament to t he proximal calf. Real-time, color Doppler and spectral tracing, compression and augmentation techni ques were used. FINDINGS: Right Leg: Normal compression of the deep venous system from the inguinal region to the proximal susan f. No echogenic clot is seen. Normal response of the venous system to augmentation and respiration. Left Leg: Normal compression of the deep venous system from the inguinal region to the proximal calf . No echogenic clot is seen. Normal response of the venous system to augmentation and respiration. Other: None. CONCLUSION: 1. The study is negative for bilateral lower extremity deep venous thrombosis. Electronically signed by: Ga Monroy MD 11/11/2017 5:45 PM EDT
[2017-11-11 17:49] LABS: Activated Partial Thrombo Time 28.6 sec (24.3-30.1); INR 1.1 Ratio
[2017-11-11 17:59] LABS: Alanine Aminotransferase 51 U/L (10-53); Albumin 2.3 g/dL (3.4-5.0); Anion Gap 6 meq/L (5-15); Aspartate Aminotransferase 63 U/L (15-37); Blood Urea Nitrogen 22 mg/dL (7-18); Calcium 7.6 mg/dL (8.5-10.1); Carbon Dioxide 27.7 meq/L (21.0-32.0); Chloride 104 meq/L (98-107); Glomerular Filtration Rate 54 mL/min (>89); Glucose,Random 94 mg/dL (74-106); Magnesium 2.3 mg/dL (1.5-2.5); Potassium 4.9 meq/L (3.5-5.1); Sodium 138 meq/L (136-145)
[2017-11-11 18:01] LABS: Alkaline Phosphatase 209 U/L (45-117); Total Protein 6.1 g/dL (6.4-8.2)
[2017-11-11 18:11] LABS: Creatine Kinase 33 U/L (26-192)
[2017-11-11] MEDS ORDERED: Temazepam 15 MG Capsule PO PRN (18:14)
[2017-11-11] MEDS ORDERED: Acetaminophen 325 MG Tablet PO PRN (20:19)
[2017-11-11] MEDS ORDERED: Vancomycin Consult Pharmacy 1 EACH OTHER SCH (21:00)
[2017-11-11] MEDS ORDERED: Morphine Sulfate 15 MG IR Tablet PO SCH (21:00)
[2017-11-11 21:18] LABS: Bilirubin,Urine Negative (Negative); Clarity,Urine Clear (Clear); Color,Urine Yellow (Yellw/Straw); Glucose,Urine (UA) Negative (Negative); Leukocyte Esterase,Urine Negative (Negative); Mucus,Urine Few /lpf (Occasional); Nitrite,Urine Negative (Negative); Squamous Epithelial Cell,Urine 1 /hpf (0-5)
--- NOTE | 2017-11-11 21:40 | P.HP ---
History of Present Illness Service: [facility] Primary Care Physician: UNKNOWN Chief Complaint: Fever History of Present Illness: 72-year-old female with a past medical history significant for stage IV pancreatic cancer presents to the emergency department for the evaluation of a fever and bilateral lower extremity edema. The patient reports for the past 1-1 /2 weeks she has had bilateral lower extremity edema with redness and heat. Her feet have changed to a red/purple color and have been painful. She reports slight improvement in them today. The patient states that she had a fever of 101.1 today while at home. Her oncologist is Dr. Olson and her last chemotherapy was Sunday. Dr. Olson advised the patient that if she had a fever to come to the hospital. Additionally, the patient was in the hospital 2 weeks ago for pneumonia where she was treated and released to home. She denies any chest pain or shortness of breath. No abdominal pain. No nausea/vomiting/ diarrhea. No dysuria. No lateralizing signs/symptoms. Inpatient Certification: I certify that the inpatient services were ordered in accordance with Medicare regulations governing the order. This includes certification that hospital inpatient services are reasonable and necessary and in the case of services not specified as inpatient-only under 42 CFR 419.22(n), that they are appropriately provided as inpatient services in accordance to with the 2-midnight benchmark under 43 CFR 412.3(e) Estimated Total Length of Stay (Days): 3 Plans for Post Hospital Care: Not yet determined Review of Systems All other systems reviewed negative except as stated in HPI PMFSH - History History Provided By: Patient, System Architect / EMT - Medical History Medical History: Medical History (Last Reviewed 11/11/17 @ 16:56 by Magalie Ramirez MD) Chemotherapy management, encounter for Hypertension Liver cancer Pancreatic cancer Pulmonary air embolism - Surgical History Surgical History: Surgical History (Last Updated 11/11/17 @ 21:35 by Lucinda Vang MD) No history of previous surgery - Family History Family History: Family History (Last Updated 10/27/17 @ 17:56 by Dick Montelongo MD) Mother Esophageal adenocarcinoma Grandparent Cervical cancer - Tobacco History Second Hand Smoke Exposure: No Tobacco Use In Past 30 Days: No Smoking Status: Former smoker Tobacco Type: Cigarettes - Alcohol History How Often Do You Have a Drink Containing Alcohol: Never - Substance Use History Substance History: No History of Abuse - Travel History Recent Travel in the [place] Within the Last 8 Weeks: No Recent Travel Out of the Country Within the Last 8 Weeks: No - Immunization History Tetanus Immunization: Unsure Medications and Allergies Active Medications: Active Medications Acetaminophen (Tylenol) 650 mg PO Q4H PRN PRN Reason: fever Apixaban (Eliquis) 5 mg PO BID NEVIN Vancomycin HCl 1,000 mg/ (Sodium Chloride) 250 mls @ 250 mls/hr IV.SIG Q24H NEVIN Cefepime HCl 2,000 mg/ Sodium (Chloride) 100 mls @ 200 mls/hr IV.SIG Q12H NEVIN Lactulose (Lactulose Liq) 15 ml PO TID NEVIN Levothyroxine Sodium (Synthroid) 100 mcg PO DAILY@0600 [facility] Miscellaneous Information ([facility] Ordered Lab Info) 1 each OTHER ONCE ONE Stop: 11/14/17 08:46 Morphine Sulfate (Msir) 15 mg PO Q12HR NEVIN Ondansetron HCl (Zofran Inj) 4 mg IV.PUSH Q6H PRN PRN Reason: Nausea And Vomiting Oxycodone HCl (Roxicodone) 5 mg PO Q4HR NEVIN Pantoprazole Sodium (Protonix) 40 mg PO DAILY NEVIN Temazepam (Restoril) 15 mg PO HS PRN PRN Reason: INSOMNIA Allergies Allergy/AdvReac Type Severity Reaction Status Date / Time No Known Allergies Allergy Unverified 10/26/17 22:29 Home Medications Medication Instructions Recorded Confirmed Type apixaban [Eliquis] 5 mg PO BID 10/27/17 10/27/17 History lactulose 10 g PO TID 10/27/17 10/27/17 History levothyroxine 100 mcg PO DAILY 10/27/17 10/27/17 History morphine 15 mg PO Q12H 10/27/17 10/27/17 History nicotine 1 patch TRANSDERMAL Q24H 10/27/17 10/27/17 History ondansetron 4 mg PO QID PRN 10/27/17 10/27/17 History oxycodone 5 mg PO Q4H 10/27/17 10/27/17 History Exam Vital signs: Vital Signs 11/11/17 16:16 11/11/17 16:25 11/11/17 16:32 Temperature 101 F H 101 F H 101 F H Pulse Rate 135 H 135 H 135 H Respiratory Rate 20 18 20 Blood Pressure 119/58 L 119/73 Pulse Oximetry 99 97 99 11/11/17 17:03 11/11/17 19:14 11/11/17 19:32 Temperature Pulse Rate 104 H Respiratory Rate 20 Blood Pressure 95/52 L Pulse Oximetry 99 99 98 11/11/17 20:00 Temperature Pulse Rate 100 H Respiratory Rate Blood Pressure 95/60 L Pulse Oximetry 99 Intake & Output 11/11/17 11/11/17 11/12/17 06:59 18:59 06:59 Intake Total 1100 / 1100 Balance 1100 / 1100 Weight 64.41 kg Intake: IV 1100 / 1100 Zosyn 4.5 GM Premix 4.5 gm In 100 / 100 100 ml @ 200 mls/hr IV.SIG STAT STA Rx#:[id number] NS Inj 1,000 ML @ Wide Open IV. 1000 / 1000 SIG BOLUS ONE Rx#:[id number] Narrative: Gen.: No acute distress Head: Normocephalic. Atraumatic. EENT: Pupils equal round and reactive to light. Nose without drainage. Airway intact. Throat without injection. Cardiovascular: Regular rate and rhythm. No murmurs, rubs or gallops. Respiratory: Lungs clear to auscultation bilaterally. No wheezes or rhonchi. Abdomen: Soft, nontender, nondistended. No peritoneal signs. Musculoskeletal: No gross deformities. Bilateral lower extremity pedal and leg edema Skin: Bilateral feet erythematous and edematous. Warm to the touch. Neuro: Sensory and motor grossly intact. Cranial nerves II through XII grossly intact. Psych: Appropriate mood and affect Results - Labs CBC & Chem 7: 11/11/17 17:30 11/11/17 17:30 Labs: Laboratory Results - last 24 hr 11/11/17 11/11/17 11/11/17 17:30 17:30 17:30 WBC 10.8 RBC 2.91 L Hgb 8.4 L Hct 25.7 L MCV 88.5 MCH 29.1 MCHC 32.8 RDW 24.8 H Plt Count 226 D MPV 7.9 Neut % (Auto) 95.8 H Lymph % (Auto) 2.2 L [place] % (Auto) 1.4 Eos % (Auto) 0.1 Baso % (Auto) 0.5 Neut # (Auto) 10.4 H Lymph # (Auto) 0.2 L [place] # (Auto) 0.2 Eos # (Auto) 0.0 Baso # (Auto) 0.1 WBC Differential . Differential Comment Auto diff final PT 11.0 INR 1.1 APTT 28.6 Sodium 138 Potassium 4.9 Chloride 104 Carbon Dioxide 27.7 Anion Gap 6 BUN 22 H Creatinine 1.00 Estimated GFR 54 L Random Glucose 94 Lactic Acid Calcium 7.6 L Magnesium 2.3 Total Bilirubin 0.7 AST 63 H ALT 51 Alkaline Phosphatase 209 H Total Creatine Kinase 33 Total Protein 6.1 L Albumin 2.3 L Urine Color Urine Clarity Urine pH Ur Specific [place] Urine Protein Urine Glucose (UA) Urine Ketones Urine Occult Blood Urine Nitrate Urine Bilirubin Urine Urobilinogen Ur Leukocyte Esterase Urine WBC Ur Squamous Epith Cells Urine Mucus Micro UA Comment Urine Culture Comments 11/11/17 11/11/17 17:30 20:50 WBC RBC Hgb Hct MCV MCH MCHC RDW Plt Count MPV Neut % (Auto) Lymph % (Auto) [place] % (Auto) Eos % (Auto) Baso % (Auto) Neut # (Auto) Lymph # (Auto) [place] # (Auto) Eos # (Auto) Baso # (Auto) WBC Differential Differential Comment PT INR APTT Sodium Potassium Chloride Carbon Dioxide Anion Gap BUN Creatinine Estimated GFR Random Glucose Lactic Acid 1.1 Calcium Magnesium Total Bilirubin AST ALT Alkaline Phosphatase Total Creatine Kinase Total Protein Albumin Urine Color Yellow Urine Clarity Clear Urine pH 6.0 Ur Specific [place] 1.010 Urine Protein Negative Urine Glucose (UA) Negative Urine Ketones Negative Urine Occult Blood Negative Urine Nitrate Negative Urine Bilirubin Negative Urine Urobilinogen Less than 2 Ur Leukocyte Esterase Negative Urine WBC 1 Ur Squamous Epith Cells 1 Urine Mucus Few H Micro UA Comment Cath-culture not ind Urine Culture Comments Cath-cult not ind - Imaging Impressions Chest X-Ray 11/11/17 16:26 CONCLUSION: No acute findings. Stable presumed scarring right midlung and left base compared with October 26. [id number] in superior vena cava. Venous Doppler Study 11/11/17 16:50 CONCLUSION: 1. The study is negative for bilateral lower extremity deep venous thrombosis. Caprini VTE Risk Assessment Caprini VTE Risk Assessment: Moderate/High Risk (score >= 2) Caprini Risk Assessment Model: Point Value = 1 Point Value = 2 Point Value = 3 Point Value = 5 Age 41-60 Minor surgery BMI > 25 kg/m2 Swollen legs Varicose veins or History of unexplained or recurrent spontaneous Oral contraceptives or hormone replacement Sepsis (< 1 month) Serious lung disease, including pneumonia (< 1 month) Abnormal pulmonary function Acute myocardial infarction Congestive heart failure (< 1 month) History of inflammatory bowel disease Medical patient at bed rest Age 61-74 Arthroscopic surgery Major open surgery (> 45 min) Laparoscopic surgery (> 45 min) Malignancy Confined to bed (> 72 hours) Immobilizing plaster cast Central venous access Age >= 75 History of VTE Family history of VTE Factor V Leiden Prothrombin [id number] Lupus anticoagulant Anticardiolipin antibodies Elevated serum homocysteine Heparin-induced thrombocytopenia Other congenital or acquired thrombophilia Stroke (< 1 month) Elective arthroplasty Hip, pelvis, or leg fracture Acute spinal cord injury (< 1 month) Prophylaxis Regimen: Total Risk Factor Score Risk Level Prophylaxis Regimen 0-1 Low Early ambulation 2 Moderate Order ONE of the following: *Sequential Compression Device (SCD) *Heparin 5000 units SQ BID 3-4 Higher Order ONE of the following medications: *Heparin 5000 units SQ TID *Enoxaparin/Lovenox 40 mg SQ daily (WT < 150 kg, CrCl > 30 mL/min) *Enoxaparin/Lovenox 30 mg SQ daily (WT < 150 kg, CrCl > 10-29 mL/min) *Enoxaparin/Lovenox 30 mg SQ BID (WT < 150 kg, CrCl > 30 mL/min) AND/OR *Sequential Compression Device (SCD) 5 or more Highest Order ONE of the following medications: *Heparin 5000 units SQ TID (Preferred with Epidurals) *Enoxaparin/Lovenox 40 mg SQ daily (WT < 150 kg, CrCl > 30 mL/min) *Enoxaparin/Lovenox 30 mg SQ daily (WT < 150 kg, CrCl > 10-29 mL/min) *Enoxaparin/Lovenox 30 mg SQ BID (WT < 150 kg, CrCl > 30 mL/min) AND *Sequential Compression Device (SCD) Assessment and Plan - Plan Assessment/plan: 1. Fever while undergoing chemotherapy/pancreatic cancer Patient febrile at home Cefepime and vancomycin Medical oncology consulted, Dr. Olson, appreciate recommendations Chest x-ray, UA negative Blood cultures pending Continue home pain medication regimen 2. History of hypertension Patient normotensive at this time Previously taken off all of her blood pressure medications Monitor 3. Hypothyroidism Continue Synthroid FEN Regular diet Electrolytes: Monitor and replete as needed Ani
[2017-11-12] MEDS ORDERED: Heparin Central Flush 100 UNIT/ML 5 ML Vial IV.FLUSH PRN (01:48)
[2017-11-12] MEDS: Levothyroxine 100 MCG Tablet PO SCH (05:21)
[2017-11-12 05:34] LABS: Baso # (Auto) 0.1 th/mm3 (0.0-0.2); Baso % (Auto) 0.5 % (0.0-2.0); Eos % (Auto) 0.2 % (0.0-4.0); Hematocrit 21.4 % (35.0-46.0); Lymph # (Auto) 0.2 th/mm3 (1.0-4.8); Lymph % (Auto) 1.7 % (9.0-44.0); Mean Corpuscular HGB Conc 32.1 % (32.0-36.0); Mean Corpuscular Hemoglobin 28.3 pg (27.0-34.0); Mean Corpuscular Volume 88.4 fL (80.0-100.0); Mean Platelet Volume 8.2 fL (7.0-11.0); Mono # (Auto) 0.1 th/mm3 (0.0-0.9); Mono % (Auto) 0.9 % (0.0-8.0); Neut # (Auto) 10.2 th/mm3 (1.8-7.7); Neut % (Auto) 96.7 % (16.0-70.0); Platelet Count 158 th/mm3 (150-450); Red Blood Count 2.42 mil/mm3 (4.00-5.30); Red Cell Distribution Width 24.9 % (11.6-17.2); White Blood Count 10.6 th/mm3 (4.0-11.0)
[2017-11-12 05:40] LABS: Hemoglobin 6.9 gm/dL (11.6-15.3)
[2017-11-12 05:57] LABS: Calcium 7.6 mg/dL (8.5-10.1); Carbon Dioxide 26.2 meq/L (21.0-32.0); Potassium 4.5 meq/L (3.5-5.1)
[2017-11-12] MEDS ORDERED: Sodium Chlor 0.9% Inj 250 ML IV.SIG SCH ×2 (06:00→07:00)
[2017-11-12] MEDS: Heparin Central Flush 100 UNIT/ML 5 ML Vial IV.FLUSH PRN (06:21)
--- NOTE | 2017-11-12 08:34 | P.CON ---
History of Present Illness Service: Hematology/oncology Consult date: 11/12/17 Primary Care Provider: UNKNOWN Chief Complaint: Pain and swelling of the legs. Fever. History of Present Illness: Ms. 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 She was initiated on palliative systemic therapy with first-line FOLFIRINOX, she progressed on this following 3 cycles of treatment and was transitioned to second line palliative systemic therapy with gemcitabine and Abraxane in September 2017. The patient received cycle 2-day 8 dose of gemcitabine/Abraxane on 11/09/2017 at [facility]. The patient reports developing increasing swelling of her bilateral lower extremities with warmth, tenderness and pain of the left leg distal to the knee. She tells me the left leg became red and "hot ". On 11/11/2017 she notes feeling of fever, her temperature increased to 101.2 F at home and she decided to come into the emergency department. In the ER she has had several temperatures of 101 F, she was assessed to have cellulitis and was initiated on combination antibiotics with vancomycin and cefepime. Blood cultures were drawn, urine analysis was also obtained which was negative. Ultrasound Doppler of the lower extremities was also obtained which was negative for deep venous thromboses. Review of Systems Constitutional: Reports anorexia, Reports fatigue, Reports fever(s), Reports lack of energy, Reports weakness, Reports weight loss, Denies body ache(s), Denies chills, Denies daytime sleepiness, Denies excessive sweating, Denies headache(s) Eyes: Denies blind spots, Denies blurry vision Ears, Nose, Mouth, and Throat: Denies abnormal hearing, Denies bleeding gums, Denies change in voice, Denies facial pain, Denies headache(s), Denies sinus pressure, Denies sore throat Cardiovascular: Denies chest pain, Denies chest pain at rest, Denies shortness of breath, Denies shortness of breath with activity, Denies shortness of breath when lying down Respiratory: Reports chest congestion, Reports cough, Denies change in phlegm color, Denies coughing up blood, Denies excessive phlegm production, Denies pain on inspiration Gastrointestinal: Reports abdominal pain (Chronic involving the epigastric area/ left upper quadrant.), Reports constipation, Denies black, tarry stools, Denies bloating, Denies bright, red blood in stools, Denies loose stools, Denies nausea , Denies pain with swallowing, Denies vomiting blood Comments: Postmenopausal. Musculoskeletal: Reports joint pain, Denies abnormal walking, Denies back pain, Denies decreased muscle mass, Denies muscle weakness Skin/Breast: Reports redness (Left leg redness and "warmth". Patient also reports pain in the left leg.), Denies sores Neurologic: Reports weakness, Denies abnormal hearing, Denies abnormal speech, Denies confusion, Denies fainting, Denies frequent falls, Denies headache(s), Denies lack of coordination, Denies localized weakness, Denies tingling, Denies tremor(s), Denies unsteadiness Psychiatric: Denies abnormal sleep pattern, Denies anxiety, Denies behavioral changes Endocrine: Denies cold intolerance, Denies excessive sweating Hematologic/Lymphatic: Denies easy bleeding, Denies easy bruising Allergic/Immunologic: Denies GI upset with certain foods PMFSH - History History Provided By: Patient - Medical History Medical History: Medical History (Last Updated 11/12/17 @ 08:28 by Hugo Olson MD) Current tobacco use Hypothyroidism Malignant neoplasm determined by biopsy of pancreas Port-A-Cath in place Pulmonary embolism Secondary malignant neoplasm of liver Hypertension Pancreatic cancer - Surgical History Surgical History: Surgical History (Last Updated 11/11/17 @ 21:35 by Lucinda Vang MD) No history of previous surgery - Family History Family History: Family History (Last Updated 10/27/17 @ 17:56 by Dick Montelongo MD) Mother Esophageal adenocarcinoma Grandparent Cervical cancer - Tobacco History Second Hand Smoke Exposure: Yes Tobacco Use In Past 30 Days: Yes Smoking Status: Former smoker Tobacco Type: Cigarettes - Alcohol History How Often Do You Have a Drink Containing Alcohol: Never - Substance Use History Substance History: No History of Abuse - Travel History Recent Travel in the [place] Within the Last 8 Weeks: No Recent Travel Out of the Country Within the Last 8 Weeks: No - Immunization History Tetanus Immunization: >5 Years Hx Influenza Vaccine This Season: Yes Medications and Allergies Active Medications: Active Medications Acetaminophen (Tylenol) 650 mg PO Q4H PRN PRN Reason: fever Last Admin: 07/23/18 04:21 Dose: 650 mg Apixaban (Eliquis) 5 mg PO BID [facility] Last Admin: 11/11/17 21:50 Dose: 5 mg Diphenhydramine HCl (Benadryl) 25 mg PO Q4H PRN PRN Reason: SEE LABEL COMMENTS Heparin Sodium (Porcine) (Heparin Central Flush) 250 unit IV.FLUSH PRN PRN PRN Reason: Flush Infusapot Last Admin: 11/12/17 06:21 Dose: 250 unit Heparin Sodium (Porcine) (Heparin Central Flush) 500 unit IV.FLUSH PRN PRN PRN Reason: Flush infusaport Vancomycin HCl 1,000 mg/ (Sodium Chloride) 250 mls @ 250 mls/hr IV.SIG Q24H NEVIN Cefepime HCl 2,000 mg/ Sodium (Chloride) 100 mls @ 200 mls/hr IV.SIG Q12H [facility] Last Infusion: 11/12/17 01:34 Dose: Infused Sodium Chloride (Ns Inj) 250 mls @ 15 mls/hr IV.SIG ONCE NEVIN Stop: 11/12/17 22:39 Sodium Chloride (Ns Inj) 250 mls @ 15 mls/hr IV.SIG ONCE NEVIN Stop: 11/12/17 23:39 Lactulose (Lactulose Liq) 15 ml PO TID [facility] Levothyroxine Sodium (Synthroid) 100 mcg PO DAILY@0600 [facility] Last Admin: 11/12/17 05:21 Dose: 100 mcg Miscellaneous Information ([facility] Ordered Lab Info) 1 each OTHER ONCE ONE Stop: 11/14/17 08:46 Morphine Sulfate (Oramorph Sr) 100 mg PO Q12HR [facility] Ondansetron HCl (Zofran Inj) 4 mg IV.PUSH Q6H PRN PRN Reason: Nausea And Vomiting Oxycodone HCl (Roxicodone) 5 mg PO Q4HR [facility] Last Admin: 11/12/17 04:16 Dose: 5 mg Pantoprazole Sodium (Protonix) 40 mg PO DAILY [facility] Sodium Chloride (Ns Flush) 5 ml IV.FLUSH PRN PRN PRN Reason: Flush Infusaport Last Admin: 11/12/17 06:21 Dose: 5 ml Temazepam (Restoril) 15 mg PO HS PRN PRN Reason: INSOMNIA Allergies Allergy/AdvReac Type Severity Reaction Status Date / Time No Known Allergies Allergy Unverified 10/26/17 22:29 Home Medications Medication Instructions Recorded Confirmed Type apixaban [Eliquis] 5 mg PO BID 10/27/17 10/27/17 History lactulose 10 g PO TID 10/27/17 10/27/17 History levothyroxine 100 mcg PO DAILY 10/27/17 10/27/17 History morphine 15 mg PO Q12H 10/27/17 10/27/17 History nicotine 1 patch TRANSDERMAL Q24H 10/27/17 10/27/17 History ondansetron 4 mg PO QID PRN 10/27/17 10/27/17 History oxycodone 5 mg PO Q4H 10/27/17 10/27/17 History Physical Exam Vital signs: Vital Signs 11/11/17 16:16 11/11/17 16:25 11/11/17 16:32 Temperature 101 F H 101 F H 101 F H Pulse Rate 135 H 135 H 135 H Respiratory Rate 20 18 20 Blood Pressure 119/58 L 119/73 Pulse Oximetry 99 97 99 11/11/17 17:03 11/11/17 19:14 11/11/17 19:32 Temperature Pulse Rate 104 H Respiratory Rate 20 Blood Pressure 95/52 L Pulse Oximetry 99 99 98 11/11/17 20:00 11/11/17 21:21 11/11/17 23:18 Temperature 98.6 F Pulse Rate 100 H 98 H 102 H Respiratory Rate Blood Pressure 95/60 L 112/52 L Pulse Oximetry 99 98 11/11/17 23:39 11/12/17 04:00 11/12/17 06:23 Temperature 101 F H 99.3 F Pulse Rate 104 H 120 H Respiratory Rate 16 Blood Pressure 102/68 Pulse Oximetry 99 11/12/17 08:00 11/12/17 08:15 Temperature 99.0 F 99.0 F Pulse Rate 98 H 98 H Respiratory Rate 20 Blood Pressure 99/57 L 99/57 L Pulse Oximetry 98 98 Intake & Output 11/11/17 11/12/17 11/12/17 18:59 06:59 18:59 Intake Total 1715 / 1715 Output Total 450 / 450 Balance 1265 / 1265 Weight 64.41 kg 64.3 kg Intake: IV 1475 / 1475 Maxipime Inj 2,000 MG In NS Inj 110 / 110 100 ML @ 200 mls/hr IV.SIG Q12H NEVIN Rx#:[id number] Zosyn 4.5 GM Premix 4.5 gm In 100 / 100 100 ml @ 200 mls/hr IV.SIG STAT STA Rx#:[id number] NS Inj 1,000 ML @ Wide Open IV. 1000 / 1000 SIG BOLUS ONE Rx#:[id number] Vancomycin Inj 1,000 MG In NS 265 / 265 Inj 250 ML @ 250 mls/hr IV.SIG STAT STA Rx#:[id number] Oral 240 / 240 Output: Urine 450 / 450 Other: Weight On Admission 64.58 kg - Constitutional no acute distress - Routine HEENT Exam Head: Present: normocephalic, atraumatic, CSF rhinorrhea. Absent: cushingoid faces Eye: Present: EOMI, PERRL - Routine Neck Exam Present: supple, full ROM. Absent: JVD, lymphadenopathy - Routine Respiratory Exam Present: CTA bilaterally. Absent: accessory muscle use, respiratory distress, wheezes, crackles, distant breath sounds - Routine Cardiovascular Exam Present: RRR, S1, S2. Absent: murmur, gallop, rubs, S3, S4 - Routine Abdominal Exam Present: soft, tenderness (Over the left upper quadrant.). Absent: distended, rebound, guarding, firm, rigid, organomegaly, mass - Routine Extremities Exam Comments: Left lower extremity with erythema, warmth and tenderness - Routine Skin Exam Comments: Erythema and edema of the left lower extremity. - Routine Neurological Exam Present: alert, oriented X3, CN II-XII intact. Absent: sensory deficit, motor deficit - Detailed Neurological Exam: Coma Scale Eye Opening: Spontaneous Verbal Response: Oriented - Routine Psychiatric Exam Present: normal affect Assessment and Plan - Assessment (1) Cellulitis and abscess of leg Code(s): L03.119 - Cellulitis of unspecified part of limb; L02.419 - Cutaneous abscess of limb, unspecified Status: Acute Plan: Patient currently has clinical signs and symptoms consistent with cellulitis without evidence of an abscess. Blood cultures have been drawn and are pending. She is empirically on appropriate dosing of vancomycin and cefepime. I would recommend continuing antibiotic therapy with the current regimen and monitoring her progress closely. As her fever subsided and the erythema and swelling and tenderness of the left lower extremity subside she would be a good candidate to transition to oral antibiotic therapy. (2) Pulmonary emboli Code(s): I26.99 - Other pulmonary embolism without acute cor pulmonale Status : Acute Plan: Pulmonary emboli were diagnosed in September 2017, likely related to her underlying diagnosis of metastatic pancreas cancer. Continue therapeutic anticoagulation with Eliquis 5 mg twice daily. (3) Pancreatic adenocarcinoma Code(s): C25.9 - Malignant neoplasm of pancreas, unspecified Status: Chronic Plan: Diagnosis of metastatic pancreas carcinoma: She had been on palliative second line treatment with gemcitabine and Abraxane after having progressed on first- line palliative systemic therapy consisting of FOLFIRINOX. Treatment will remain on hold until she has recovered from her acute issue; cellulitis. - Plan 1. Cellulitis: Continue combination antibiotic therapy. 2. History of pulmonary emboli: Continue therapeutic anticoagulation. 3. Pancreatic carcinoma: Had been on palliative chemotherapy to help prolong survival. Treatment will be on hold until she recovers fully from her cellulitis.
[2017-11-12] MEDS: Vancomycin Inj 1,000 MG in Sodium Chlor 0.9% Inj 250 ML IV.SIG SCH (08:59)
[2017-11-12] MEDS: Morphine Sulfate 100 MG SR Tablet PO SCH ×2 (11:37→21:42)
--- NOTE | 2017-11-12 14:29 | P.PN ---
Physical Exam Vital signs: Vital Signs 11/11/17 16:16 11/11/17 16:25 11/11/17 16:32 Temperature 101 F H 101 F H 101 F H Pulse Rate 135 H 135 H 135 H Respiratory Rate 20 18 20 Blood Pressure 119/58 L 119/73 Pulse Oximetry 99 97 99 11/11/17 17:03 11/11/17 19:14 11/11/17 19:32 Temperature Pulse Rate 104 H Respiratory Rate 20 Blood Pressure 95/52 L Pulse Oximetry 99 99 98 11/11/17 20:00 11/11/17 21:21 11/11/17 23:18 Temperature 98.6 F Pulse Rate 100 H 98 H 102 H Respiratory Rate Blood Pressure 95/60 L 112/52 L Pulse Oximetry 99 98 11/11/17 23:39 11/12/17 04:00 11/12/17 06:23 Temperature 101 F H 99.3 F Pulse Rate 104 H 120 H Respiratory Rate 16 Blood Pressure 102/68 Pulse Oximetry 99 11/12/17 08:00 11/12/17 08:15 11/12/17 12:08 Temperature 99.0 F 99.0 F 98.5 F Pulse Rate 98 H 98 H 104 H Respiratory Rate 20 20 Blood Pressure 99/57 L 99/57 L 116/78 Pulse Oximetry 98 98 98 11/12/17 12:39 11/12/17 13:21 Temperature 99.1 F 97.9 F Pulse Rate 107 H Respiratory Rate 20 Blood Pressure 118/69 Pulse Oximetry Intake & Output 11/11/17 11/12/17 11/12/17 18:59 06:59 18:59 Intake Total 1715 / 1715 0 / 0 Output Total 450 / 450 Balance 1265 / 1265 0 / 0 Weight 64.41 kg 64.3 kg Intake: IV 1475 / 1475 Maxipime Inj 2,000 MG In NS Inj 110 / 110 100 ML @ 200 mls/hr IV.SIG Q12H NEVIN Rx#:[id number] Zosyn 4.5 GM Premix 4.5 gm In 100 / 100 100 ml @ 200 mls/hr IV.SIG STAT STA Rx#:[id number] NS Inj 1,000 ML @ Wide Open IV. 1000 / 1000 SIG BOLUS ONE Rx#:[id number] Vancomycin Inj 1,000 MG In NS 265 / 265 Inj 250 ML @ 250 mls/hr IV.SIG STAT STA Rx#:[id number] Oral 240 / 240 Intake (Blood Product) Amt 0 / 0 Rbc As-3 Leukoreduced Irrad 0 / 0 Unit [id number] Output: Urine 450 / 450 Other: Weight On Admission 64.58 kg Narrative: Gen.: Pleasant elderly female, well-nourished well-developed, in no acute distress Skin: Bilateral feet erythematous and edematous. Warm to the touch. Cardiovascular: Regular rate and rhythm. No murmurs, rubs or gallops. Respiratory: Lungs clear to auscultation bilaterally. No wheezes or rhonchi. Abdomen: Soft, nontender, nondistended. Musculoskeletal: No gross deformities. Bilateral lower extremity pedal and leg edema Neuro: Sensory and motor grossly intact. Cranial nerves II through XII grossly intact. Psych: Appropriate mood and affect Assessment and Plan 1. Bilateral lower extremity cellulitis. Fever while undergoing chemotherapy/ pancreatic cancer Patient febrile at home Cefepime and vancomycin Medical oncology consulted, Dr. Olson, appreciate recommendations Chest x-ray, UA negative Blood cultures pending Obtain cultures if possible Continue home pain medication regimen Hematology oncology consulted seen by Dr. Olson. On hold chemo until cellulitis is treated. 2. History of hypertension Patient normotensive at this time Previously taken off all of her blood pressure medications Monitor 3. Hypothyroidism Continue Synthroid FEN Regular diet Electrolytes: Monitor and replete as needed Eliquis Discussed with the patient, nurse Results - Labs CBC & Chem 7: 11/12/17 05:20 11/12/17 05:20 Laboratory Results - last 24 hr 11/11/17 11/11/17 11/11/17 17:30 17:30 17:30 WBC 10.8 RBC 2.91 L Hgb 8.4 L Hct 25.7 L MCV 88.5 MCH 29.1 MCHC 32.8 RDW 24.8 H Plt Count 226 D MPV 7.9 Prelim Diff (Auto) Neut % (Auto) 95.8 H Lymph % (Auto) 2.2 L Surry % (Auto) 1.4 Eos % (Auto) 0.1 Baso % (Auto) 0.5 Neut # (Auto) 10.4 H Lymph # (Auto) 0.2 L [place] # (Auto) 0.2 Eos # (Auto) 0.0 Baso # (Auto) 0.1 WBC Differential . Diff Scan Differential Comment Auto diff final PT 11.0 INR 1.1 APTT 28.6 Sodium 138 Potassium 4.9 Chloride 104 Carbon Dioxide 27.7 Anion Gap 6 BUN 22 H Creatinine 1.00 Estimated GFR 54 L Random Glucose 94 Lactic Acid Calcium 7.6 L Magnesium 2.3 Total Bilirubin 0.7 AST 63 H ALT 51 Alkaline Phosphatase 209 H Total Creatine Kinase 33 Total Protein 6.1 L Albumin 2.3 L Urine Color Urine Clarity Urine pH Ur Specific [place] Urine Protein Urine Glucose (UA) Urine Ketones Urine Occult Blood Urine Nitrate Urine Bilirubin Urine Urobilinogen Ur Leukocyte Esterase Urine WBC Ur Squamous Epith Cells Urine Mucus Micro UA Comment Urine Culture Comments Blood Type Antibody Screen MTS Gel Crossmatch 11/11/17 11/11/17 11/12/17 17:30 20:50 05:20 WBC RBC Hgb Hct MCV MCH MCHC RDW Plt Count MPV Prelim Diff (Auto) Neut % (Auto) Lymph % (Auto) Surry % (Auto) Eos % (Auto) Baso % (Auto) Neut # (Auto) Lymph # (Auto) Surry # (Auto) Eos # (Auto) Baso # (Auto) WBC Differential Diff Scan Differential Comment PT INR APTT Sodium 139 Potassium 4.5 Chloride 107 Carbon Dioxide 26.2 Anion Gap 6 BUN 22 H Creatinine 1.02 H Estimated GFR 53 L Random Glucose 108 H Lactic Acid 1.1 Calcium 7.6 L Magnesium Total Bilirubin AST ALT Alkaline Phosphatase Total Creatine Kinase Total Protein Albumin Urine Color Yellow Urine Clarity Clear Urine pH 6.0 Ur Specific [place] 1.010 Urine Protein Negative Urine Glucose (UA) Negative Urine Ketones Negative Urine Occult Blood Negative Urine Nitrate Negative Urine Bilirubin Negative Urine Urobilinogen Less than 2 Ur Leukocyte Esterase Negative Urine WBC 1 Ur Squamous Epith Cells 1 Urine Mucus Few H Micro UA Comment Cath-culture not ind Urine Culture Comments Cath-cult not ind Blood Type Antibody Screen MTS Gel Crossmatch 11/12/17 11/12/17 05:20 06:18 WBC 10.6 RBC 2.42 L Hgb 6.9 L* Hct 21.4 L MCV 88.4 MCH 28.3 MCHC 32.1 RDW 24.9 H Plt Count 158 D MPV 8.2 Prelim Diff (Auto) Slide review pending Neut % (Auto) 96.7 H Lymph % (Auto) 1.7 L Surry % (Auto) 0.9 Eos % (Auto) 0.2 Baso % (Auto) 0.5 Neut # (Auto) 10.2 H Lymph # (Auto) 0.2 L [place] # (Auto) 0.1 Eos # (Auto) 0.0 Baso # (Auto) 0.1 WBC Differential . Diff Scan Auto diff confirmed Differential Comment . PT INR APTT Sodium Potassium Chloride Carbon Dioxide Anion Gap BUN Creatinine Estimated GFR Random Glucose Lactic Acid Calcium Magnesium Total Bilirubin AST ALT Alkaline Phosphatase Total Creatine Kinase Total Protein Albumin Urine Color Urine Clarity Urine pH Ur Specific [place] Urine Protein Urine Glucose (UA) Urine Ketones Urine Occult Blood Urine Nitrate Urine Bilirubin Urine Urobilinogen Ur Leukocyte Esterase Urine WBC Ur Squamous Epith Cells Urine Mucus Micro UA Comment Urine Culture Comments Blood Type B Positive Antibody Screen Negative MTS Gel Crossmatch See Detail Microbiology 11/11/17 17:30 Blood - Peripheral Aerobic Blood Culture - Preliminary No growth in 1 day 11/11/17 17:30 Blood - Peripheral Anaerobic Blood Culture - Preliminary No growth in 1 day 11/11/17 17:30 Blood - Peripheral Aerobic Blood Culture - Preliminary No growth in 1 day 11/11/17 17:30 Blood - Peripheral Anaerobic Blood Culture - Preliminary No growth in 1 day - Imaging Impressions Chest X-Ray 11/11/17 16:26 CONCLUSION: No acute findings. Stable presumed scarring right midlung and left base compared with October 26. [id number] in superior vena cava. Venous Doppler Study 11/11/17 16:50 CONCLUSION: 1. The study is negative for bilateral lower extremity deep venous thrombosis.
[2017-11-13] MEDS: Heparin Central Flush 100 UNIT/ML 5 ML Vial IV.FLUSH PRN ×2 (04:49→05:47)
[2017-11-13 05:26] LABS: Baso % (Auto) 0.4 % (0.0-2.0); Eos # (Auto) 0.1 th/mm3 (0.0-0.4); Eos % (Auto) 1.1 % (0.0-4.0); Hematocrit 25.5 % (35.0-46.0); Hemoglobin 8.4 gm/dL (11.6-15.3); Lymph # (Auto) 0.3 th/mm3 (1.0-4.8); Mean Corpuscular Hemoglobin 29.3 pg (27.0-34.0); Mean Corpuscular Volume 88.8 fL (80.0-100.0); Mean Platelet Volume 8.1 fL (7.0-11.0); Mono # (Auto) 0.1 th/mm3 (0.0-0.9); Mono % (Auto) 1.2 % (0.0-8.0); Neut % (Auto) 93.3 % (16.0-70.0); Platelet Count 162 th/mm3 (150-450); Red Blood Count 2.87 mil/mm3 (4.00-5.30); Red Cell Distribution Width 22.6 % (11.6-17.2); White Blood Count 8.6 th/mm3 (4.0-11.0)
[2017-11-13] MEDS: Levothyroxine 100 MCG Tablet PO SCH (05:48)
[2017-11-13 05:49] LABS: Calcium 8.1 mg/dL (8.5-10.1); Carbon Dioxide 25.6 meq/L (21.0-32.0); Potassium 4.2 meq/L (3.5-5.1)
--- NOTE | 2017-11-13 07:50 | P.PNONC ---
Subjective Interval history: Patient seen and examined, vital signs, labs, medications and microbiology results reviewed. Blood cultures remain negative to date. Patient remains on broad-spectrum antibiotic coverage with vancomycin and cefepime. Subjectively; the patient feels her legs are less tender and painful, she tells me she has not stood up since yesterday morning and is not sure how steady she would be on her feet. This morning she had a temperature maximum of 100F. Objective Vital Signs/Intake & Output: Vital Signs 11/12/17 08:00 11/12/17 08:15 11/12/17 09:00 Temperature 99.0 F 99.0 F Pulse Rate 98 H 98 H 67 Respiratory Rate 20 Blood Pressure 99/57 L 99/57 L Pulse Oximetry 98 98 11/12/17 12:08 11/12/17 12:39 11/12/17 13:21 Temperature 98.5 F 99.1 F 97.9 F Pulse Rate 104 H 107 H Respiratory Rate 20 20 Blood Pressure 116/78 118/69 Pulse Oximetry 98 11/12/17 15:58 11/12/17 17:09 11/12/17 19:35 Temperature 99.6 F 98.8 F 100.5 F H Pulse Rate 109 H 114 H 111 H Respiratory Rate 18 20 16 Blood Pressure 130/70 113/69 117/67 Pulse Oximetry 97 99 11/12/17 20:07 11/12/17 22:30 11/12/17 23:12 Temperature Pulse Rate 109 H 105 H Respiratory Rate 16 Blood Pressure Pulse Oximetry 11/13/17 00:50 11/13/17 04:04 11/13/17 04:33 Temperature 99.1 F 100 F H Pulse Rate 104 H 104 H 107 H Respiratory Rate 16 16 Blood Pressure 136/78 136/83 Pulse Oximetry 95 96 11/13/17 07:20 11/13/17 07:30 Temperature Pulse Rate 104 H Respiratory Rate 18 Blood Pressure Pulse Oximetry Intake & Output 11/12/17 11/13/17 11/13/17 18:59 06:59 18:59 Intake Total 1452 / 1452 110 / 110 Output Total 1400 / 1400 150 / 150 Balance 52 / 52 -40 / -40 Weight 64.5 kg Intake: IV 350 / 350 110 / 110 Maxipime Inj 2,000 MG In NS Inj 100 / 100 110 / 110 100 ML @ 200 mls/hr IV.SIG Q12H [facility] Rx#:[id number] Vancomycin Inj 1,000 MG In NS 250 / 250 Inj 250 ML @ 250 mls/hr IV.SIG Q24H [facility] Rx#:[id number] Oral 700 / 700 Other 2 / 2 Rbc As-3 Leukoreduced Irrad 2 / 2 Unit [id number] Intake (Blood Product) Amt 400 / 400 Rbc As-3 Leukoreduced Irrad 400 / 400 Unit [id number] Output: Urine 1400 / 1400 150 / 150 Other: Other Intake Source Rbc As-3 Leukoreduced Irrad Saline Solution Unit [id number] Date of Last Bowel Movement 11/11/17 # Bowel Movements 2 Result Diagrams: 11/13/17 05:00 11/13/17 05:00 Laboratory Results: Laboratory Results - last 24 hr 11/12/17 11/13/17 11/13/17 06:18 05:00 05:00 WBC 8.6 RBC 2.87 L Hgb 8.4 L Hct 25.5 L MCV 88.8 MCH 29.3 MCHC 33.0 RDW 22.6 H Plt Count 162 MPV 8.1 Neut % (Auto) 93.3 H Lymph % (Auto) 4.0 L [place] % (Auto) 1.2 Eos % (Auto) 1.1 Baso % (Auto) 0.4 Neut # (Auto) 8.0 H Lymph # (Auto) 0.3 L [place] # (Auto) 0.1 Eos # (Auto) 0.1 Baso # (Auto) 0.0 WBC Differential . Differential Comment Auto diff final Sodium 139 Potassium 4.2 Chloride 105 Carbon Dioxide 25.6 Anion Gap 8 BUN 22 H Creatinine 1.19 H Estimated GFR 44 L Random Glucose 116 H Calcium 8.1 L Blood Type B Positive Antibody Screen Negative MTS Gel Crossmatch See Detail Culture Results: Microbiology 11/11/17 17:30 Aerobic Blood Culture - Preliminary Blood - Peripheral No growth in 1 day Anaerobic Blood Culture - Preliminary No growth in 1 day 11/11/17 17:30 Aerobic Blood Culture - Preliminary Blood - Peripheral No growth in 1 day Anaerobic Blood Culture - Preliminary No growth in 1 day Medications: Active Medications Generic Name Dose Route Start Last Admin Trade Name Freq PRN Reason Stop Dose Admin Acetaminophen 650 mg 11/11/17 20:19 11/12/17 04:21 Tylenol PO 650 mg Q4H PRN Administration fever Apixaban 5 mg 11/11/17 21:00 11/12/17 21:44 Eliquis PO 5 mg BID NEVIN Administration Heparin Sodium (Porcine) 250 unit 11/12/17 01:48 11/13/17 05:47 Heparin Central Flush IV.FLUSH 250 unit PRN PRN Administration Flush Infusapot Cefepime HCl 2,000 mg/ Sodium 100 mls @ 200 mls/hr 11/12/17 16:00 11/13/17 05 :48 Chloride IV.SIG Infused Q12H [facility] Infusion Vancomycin HCl 1,000 mg/ 250 mls @ 250 mls/hr 11/12/17 09:00 11/12/17 15:36 Sodium Chloride IV.SIG Infused Q24H [facility] Infusion Lactulose 15 ml 11/12/17 09:00 11/12/17 18:30 Lactulose Liq PO Not Given TID NEVIN Levothyroxine Sodium 100 mcg 11/12/17 06:00 11/13/17 05:48 Synthroid PO 100 mcg DAILY@0600 NEVIN Administration Morphine Sulfate 100 mg 11/12/17 09:00 11/12/17 21:42 Oramorph Sr PO 100 mg Q12HR NEVIN Administration Oxycodone HCl 5 mg 11/11/17 20:30 11/13/17 04:54 Roxicodone PO 5 mg Q4HR NEVIN Administration Pantoprazole Sodium 40 mg 11/12/17 09:00 11/12/17 08:58 Protonix PO 40 mg DAILY NEVIN Administration Sodium Chloride 5 ml 11/12/17 01:48 11/13/17 05:47 Ns Flush IV.FLUSH 5 ml PRN PRN Administration Flush Infusaport Objective Remarks: GENERAL: Elderly lady, laying in bed, not acutely distressed. Pleasant disposition, watching television. SKIN: Skin overlying the left leg, decreased erythema, decreased tenderness to touch and decreased warmth. Persistent edema bilateral lower extremities (left greater than right). HEAD: Normocephalic. EYES: No scleral icterus. No injection or drainage. NECK: Supple, trachea midline. No JVD or lymphadenopathy. LYMPHATIC: No adenopathy. CARDIOVASCULAR: Regular rate and rhythm without murmurs. RESPIRATORY: Good air movement bilaterally over the upper and middle lung zones , decreased bibasilar breath sounds. GASTROINTESTINAL: Protuberant abdomen, tender over the epigastric area, left upper quadrant, no definite organ enlargement, she reports pain in the suprapubic area on palpation, she tells me this is because of a "full bladder " . EXTREMITIES: Bilateral lower extremity edema, left greater than right. MUSCULOSKELETAL: Adequate muscle tone. NEUROLOGICAL: No obvious focal deficit. Awake, alert, and oriented x3. PSYCHIATRIC: Appropriate mood and affect; insight and judgment normal. 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 She had progressive disease on first-line palliative systemic therapy consisting of FOLFIRINOX, after 3 cycles she had definite evidence of progression and was transitioned to second line palliative systemic therapy with gemcitabine and Abraxane. In mid September she was also diagnosed with pulmonary emboli and has been on therapeutic anticoagulation with Eliquis. Over the weekend, approximately 2 days after receiving cycle 2 day 8 gemcitabine/Abraxane she developed fevers associated with swelling of her legs and tenderness of the left leg. She presented to the hospital and was assessed to have cellulitis of the left leg. She has been initiated on empiric antibiotic therapy consisting of cefepime and vancomycin with good clinical effect thus far with decreased erythema, tenderness and redness of the left leg. Recommendations: 1. Cellulitis of the left lower extremity: Continue current combination of antibiotics. As her clinical condition improves and the erythema, tenderness and redness of the left leg improves I would recommend transitioning her to oral antibiotic therapy with appropriate coverage. At that point she should be ready for discharge home. 2. Metastatic pancreas adenocarcinoma: Systemic therapy will remain on hold until she has fully recovered from her current infectious issue i.e. cellulitis. 3. Pulmonary emboli: Continue therapeutic anticoagulation with Eliquis. 4. I have advised the patient to try to get up out of bed so she does not develop progressive debility. I do not think she needs physical therapy, I have therefore asked her to just request assistance from the nursing staff to help her get out of bed to chair. Continue ongoing care.
[2017-11-13] MEDS: Morphine Sulfate 100 MG SR Tablet PO SCH (08:13)
[2017-11-13] MEDS: Vancomycin Inj 1,000 MG in Sodium Chlor 0.9% Inj 250 ML IV.SIG SCH (08:15)
[2017-11-13] MEDS ORDERED: Lidocaine PF 1% Inj 30 ML Vial ONE (11:26)
[2017-11-13] MEDS: Sod Chloride 0.9% Inj 1,000 ML IV.CONT SCH (12:26)
--- NOTE | 2017-11-13 13:00 | P.CONPAL ---
Consult Service: Palliative Care Requesting Physician: Lay Dominguez Reason for Consult: a. To assist with evaluation and management of symptoms including: pain, decreased appetite, weakness. b. To assist medical decision maker(s) with: better understanding of current medical conditions; weighing benefits/burdens of medical treatment options; making medical treatment decisions. Primary Care Provider: UNKNOWN History of Present Illness History of Present Illness: Ms. 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 She was seen by Dr. Natalie Olson and started on palliative systemic therapy with first-line FOLFIRINOX, despite this treatment disease progressed following 3 cycles of treatment. She was transitioned to second line palliative systemic therapy with gemcitabine and Abraxane in September 2017. Her last dose of gemcitabine/Abraxane ( Cycle 2 -day 8) was on 11/09/2017. Patient presented to [facility] emergency department after she developed increased bilateral lower extremity edema with warmth, tenderness and pain of the left leg distal to the knee. On 11/11/2017, patient developed fever with temp of 101.2 F. Upon arrival to the emergency room she was found to have temperature of 101 F. She was admitted with cellulitis and started on vancomycin and cefepime. Blood cultures were drawn, negative to date. Urinalysis was negative. Ultrasound Doppler of the lower extremities was also obtained which was negative for deep venous thromboses. Since admission her extremities are less painful, decreased edema and redness. She reports significant improvement. Her appetite remains poor. Palliative care was consulted to assist with symptom management further clarification of medical treatment goals. Met with patient and her sister at bedside. Patient has a good understanding of her current cancer, prognosis and treatment options. Patient elects NO CODE , would like to complete [place] DNR order prior to discharge. She completed written advance directives including the living will and designation of healthcare surrogate during my visit today. Copies provided to the patient and her sister, sent to [facility] to be scanned into the medical record. She remains hopeful she will be able to be discharged home and to pursue additional outpatient chemotherapy. Discussed with Dr. Olson and nursing staff. Function/Cognitive Trajectory: Patient has had some trajectory of decline over the past few months secondary to disease progression and treatment. She has remained functional and able to care for herself. Review of Systems Constitutional: Reports anorexia, Reports daytime sleepiness, Reports fatigue, Reports lack of energy, Reports weight gain (due to fluid retention) Ears, Nose, Mouth, and Throat: Reports pain with swallowing (no really pain she describes a hesitation with swallowing) Cardiovascular: Reports generalized swelling, Reports leg sores, Reports leg swelling Respiratory: Denies change in phlegm color, Denies chest congestion, Denies cough, Denies coughing up blood, Denies excessive phlegm production, Denies pain on inspiration, Denies pain with cough, Denies shortness of breath, Denies shortness of breath with activity, Denies snoring, Denies stridor, Denies wheezing, Denies other Gastrointestinal: Reports abdominal pain, Reports belching, Reports difficulty swallowing, Reports feeling full early Musculoskeletal: Reports decreased muscle mass, Reports muscle weakness, Reports tingling Skin/Breast: Reports non-healing lesions, Reports redness (bilateral LEs) Neurologic: Reports numbness, Reports tingling (fingers and toes) Psychiatric: Denies abnormal sleep pattern, Denies anxiety, Denies behavioral changes, Denies change in appetite, Denies change in sex drive, Denies confusion , Denies depression, Denies difficulty concentrating, Denies hearing things others do not hear, Denies hopelessness, Denies irritability, Denies lack of enjoyment, Denies memory loss, Denies mood swings, Denies panic attacks, Denies paranoia, Denies seeing things others do not see, Denies sensing things others do not sense, Denies tactile hallucinations, Denies thoughts of hurting/killing others, Denies thoughts of hurting/killing yourself, Denies other Endocrine: Denies cold intolerance, Denies excessive sweating, Denies flushing, Denies heat intolerance, Denies increased hunger, Denies increased thirst, Denies increased urination, Denies rapid, pounding, or irregular heartbeat, Denies other PMFSH - History History Provided By: Patient - Medical History Medical History: Medical History (Last Updated 11/12/17 @ 08:28 by Hugo Olson MD) Current tobacco use Hypothyroidism Malignant neoplasm determined by biopsy of pancreas Port-A-Cath in place Pulmonary embolism Secondary malignant neoplasm of liver Hypertension Pancreatic cancer - Surgical History Surgical History: Surgical History (Last Updated 11/13/17 @ 15:58 by Marizol Machuca) Port-A-Cath in place - Family History Family History: Family History (Last Updated 10/27/17 @ 17:56 by Dick Montelongo MD) Mother Esophageal adenocarcinoma Grandparent Cervical cancer - Tobacco History Second Hand Smoke Exposure: Yes Tobacco Use In Past 30 Days: Yes Smoking Status: Former smoker Tobacco Type: Cigarettes - Alcohol History How Often Do You Have a Drink Containing Alcohol: Never - Substance Use History Substance History: No History of Abuse - Travel History Recent Travel in the [place] Within the Last 8 Weeks: No Recent Travel Out of the Country Within the Last 8 Weeks: No - Immunization History Tetanus Immunization: >5 Years Hx Influenza Vaccine This Season: Yes Medications and Allergies Active Medications: Active Medications Acetaminophen (Tylenol) 650 mg PO Q4H PRN PRN Reason: fever Last Admin: 11/12/17 04:21 Dose: 650 mg Apixaban (Eliquis) 5 mg PO BID [facility] Last Admin: 11/13/17 08:14 Dose: 5 mg Diphenhydramine HCl (Benadryl) 25 mg PO Q4H PRN PRN Reason: SEE LABEL COMMENTS Heparin Sodium (Porcine) (Heparin Central Flush) 250 unit IV.FLUSH PRN PRN PRN Reason: Flush Infusapot Last Admin: 11/13/17 05:47 Dose: 250 unit Heparin Sodium (Porcine) (Heparin Central Flush) 500 unit IV.FLUSH PRN PRN PRN Reason: Flush infusaport Cefepime HCl 2,000 mg/ Sodium (Chloride) 100 mls @ 200 mls/hr IV.SIG Q12H NEVIN Last Infusion: 11/13/17 05:48 Dose: Infused Sodium Chloride (Ns Inj) 1,000 mls @ 84 mls/hr IV.CONT .[id number] [facility] Last Admin: 11/13/17 12:26 Dose: 84 mls/hr Vancomycin HCl 1,000 mg/ (Sodium Chloride) 250 mls @ 250 mls/hr IV.SIG Q24H [facility] Last Admin: 11/13/17 08:15 Dose: 250 mls/hr Lactulose (Lactulose Liq) 15 ml PO TID [facility] Last Admin: 11/13/17 12:30 Dose: Not Given Levothyroxine Sodium (Synthroid) 100 mcg PO DAILY@0600 [facility] Last Admin: 11/13/17 05:48 Dose: 100 mcg Miscellaneous Information ([facility] Ordered Lab Info) 1 each OTHER ONCE ONE Stop: 11/14/17 08:46 Morphine Sulfate (Oramorph Sr) 100 mg PO Q12HR [facility] Last Admin: 11/13/17 08:13 Dose: 100 mg Ondansetron HCl (Zofran Inj) 4 mg IV.PUSH Q6H PRN PRN Reason: Nausea And Vomiting Oxycodone HCl (Roxicodone) 5 mg PO Q4HR [facility] Last Admin: 11/13/17 12:26 Dose: 5 mg Pantoprazole Sodium (Protonix) 40 mg PO DAILY [facility] Last Admin: 11/13/17 08:14 Dose: 40 mg Sodium Chloride (Ns Flush) 5 ml IV.FLUSH PRN PRN PRN Reason: Flush Infusaport Last Admin: 11/13/17 05:47 Dose: 5 ml Temazepam (Restoril) 15 mg PO HS PRN PRN Reason: INSOMNIA Allergies Allergy/AdvReac Type Severity Reaction Status Date / Time No Known Allergies Allergy Unverified 10/26/17 22:29 Home Medications Medication Instructions Recorded Confirmed Type apixaban [Eliquis] 5 mg PO BID 10/27/17 10/27/17 History lactulose 10 g PO TID 10/27/17 10/27/17 History levothyroxine 100 mcg PO DAILY 10/27/17 10/27/17 History morphine 15 mg PO Q12H 10/27/17 10/27/17 History nicotine 1 patch TRANSDERMAL Q24H 10/27/17 10/27/17 History ondansetron 4 mg PO QID PRN 10/27/17 10/27/17 History oxycodone 5 mg PO Q4H 10/27/17 10/27/17 History Advance Directives Advance Directives Date on File: 11/13/17 (Completed living well and designation of healthcare surrogate) Living Will: Yes Healthcare Surrogate: Yes Health Care Surrogate Name and Number: Diana Jacy AND Cleve Seymourburn. Power of Apparel Sales Associate: No Documented care wishes: Patient completed standard Living Will. She elects DNR. She completed designation of HCS paperwork. Today's verbally stated goals: She desires continued aggressive care including IV antibiotics, chemotherapy upon DC when OK with Dr. Olson, etc. She elects NO CODE. She appreciates palliative care assistance with symptom management. Family/friends goals: Sister at bedside during our visit, she supports patient wishes. Ethical and Legal Issues: Patient is currently capacitated to make health care decisions. She completed Living Will and Designation of health care surrogate today naming Diana Louie (dtr) AND Cleve Hernández ([place]) as co-health care surrogates should she lose capacity. Physical Exam Vital Signs: Vital Signs - 24 hr 11/12/17 13:21 11/12/17 15:58 11/12/17 17:09 Temperature 97.9 F 99.6 F 98.8 F Pulse Rate 109 H 114 H Respiratory Rate 18 20 Blood Pressure 130/70 113/69 Pulse Oximetry 97 11/12/17 19:35 11/12/17 20:07 11/12/17 22:30 Temperature 100.5 F H Pulse Rate 111 H 109 H Respiratory Rate 16 16 Blood Pressure 117/67 Pulse Oximetry 99 11/12/17 23:12 11/13/17 00:50 11/13/17 04:04 Temperature 99.1 F Pulse Rate 105 H 104 H 104 H Respiratory Rate 16 Blood Pressure 136/78 Pulse Oximetry 95 11/13/17 04:33 11/13/17 07:20 11/13/17 07:30 Temperature 100 F H Pulse Rate 107 H 104 H Respiratory Rate 16 18 Blood Pressure 136/83 Pulse Oximetry 96 11/13/17 08:21 11/13/17 12:00 11/13/17 12:02 Temperature 98.5 F 99.3 F Pulse Rate 101 H 100 H 73 Respiratory Rate 18 18 Blood Pressure 129/87 117/73 Pulse Oximetry 98 96 I&O: Intake & Output 11/11/17 11/12/17 11/13/17 11/14/17 06:59 06:59 06:59 06:59 Intake Total 1715 / 1715 1562 / 1562 Output Total 450 / 450 1550 / 1550 Balance 1265 / 1265 Weight 64.3 kg 64.5 kg Physical Exam: CONSTITUTIONAL/GENERAL: This is a chronically ill appearing patient, in no apparent distress. TUBES/LINES/DRAINS: Right port, purewick catheter. SKIN: Bilateral LE redness, edema and warm to touch, left > right. Left lateral LE cellulitis skin changes noted. Skin temperature appropriate. Not diaphoretic. HEAD: Atraumatic. Normocephalic. EYES: Pupils equal and round and reactive. ENT: Hearing grossly normal. Nose without bleeding or purulent drainage. Throat without visible erythema, exudates, masses, or lesions. NECK: Trachea midline. CARDIOVASCULAR: Regular rate and rhythm without murmurs, gallops, or rubs. No JVD. Peripheral pulses symmetric. RESPIRATORY/CHEST: Clear to auscultation. Breath sounds equal bilaterally. GASTROINTESTINAL: Abdomen soft, non-tender, nondistended. No guarding. Bowel sounds present. GENITOURINARY: Without palpable bladder distension. MUSCULOSKELETAL: Extremities with edema. No mottling or clubbing. LYMPHATICS: No palpable cervical or supraclavicular adenopathy. NEUROLOGICAL: Awake and alert. Motor and sensory grossly within normal limits. Follows commands. Cognitively sharp. Moves all extremities. PSYCHIATRIC: No obvious anxiety/depression. no apparent hallucinations or other psychotic thought process. Diagnostic Tests Laboratory: Laboratory Results - last 72 hr 11/11/17 11/11/17 11/11/17 17:30 17:30 17:30 WBC 10.8 RBC 2.91 L Hgb 8.4 L Hct 25.7 L MCV 88.5 MCH 29.1 MCHC 32.8 RDW 24.8 H Plt Count 226 D MPV 7.9 Prelim Diff (Auto) Neut % (Auto) 95.8 H Lymph % (Auto) 2.2 L [place] % (Auto) 1.4 Eos % (Auto) 0.1 Baso % (Auto) 0.5 Neut # (Auto) 10.4 H Lymph # (Auto) 0.2 L [place] # (Auto) 0.2 Eos # (Auto) 0.0 Baso # (Auto) 0.1 WBC Differential . Diff Scan Differential Comment Auto diff final PT 11.0 INR 1.1 APTT 28.6 Sodium 138 Potassium 4.9 Chloride 104 Carbon Dioxide 27.7 Anion Gap 6 BUN 22 H Creatinine 1.00 Estimated GFR 54 L Random Glucose 94 Lactic Acid Calcium 7.6 L Magnesium 2.3 Total Bilirubin 0.7 AST 63 H ALT 51 Alkaline Phosphatase 209 H Total Creatine Kinase 33 Total Protein 6.1 L Albumin 2.3 L Urine Color Urine Clarity Urine pH Ur Specific [place] Urine Protein Urine Glucose (UA) Urine Ketones Urine Occult Blood Urine Nitrate Urine Bilirubin Urine Urobilinogen Ur Leukocyte Esterase Urine WBC Ur Squamous Epith Cells Urine Mucus Micro UA Comment Urine Culture Comments Blood Type Antibody Screen MTS Gel Crossmatch 11/11/17 11/11/17 11/12/17 17:30 20:50 05:20 WBC RBC Hgb Hct MCV MCH MCHC RDW Plt Count MPV Prelim Diff (Auto) Neut % (Auto) Lymph % (Auto) [place] % (Auto) Eos % (Auto) Baso % (Auto) Neut # (Auto) Lymph # (Auto) [place] # (Auto) Eos # (Auto) Baso # (Auto) WBC Differential Diff Scan Differential Comment PT INR APTT Sodium 139 Potassium 4.5 Chloride 107 Carbon Dioxide 26.2 Anion Gap 6 BUN 22 H Creatinine 1.02 H Estimated GFR 53 L Random Glucose 108 H Lactic Acid 1.1 Calcium 7.6 L Magnesium Total Bilirubin AST ALT Alkaline Phosphatase Total Creatine Kinase Total Protein Albumin Urine Color Yellow Urine Clarity Clear Urine pH 6.0 Ur Specific [place] 1.010 Urine Protein Negative Urine Glucose (UA) Negative Urine Ketones Negative Urine Occult Blood Negative Urine Nitrate Negative Urine Bilirubin Negative Urine Urobilinogen Less than 2 Ur Leukocyte Esterase Negative Urine WBC 1 Ur Squamous Epith Cells 1 Urine Mucus Few H Micro UA Comment Cath-culture not ind Urine Culture Comments Cath-cult not ind Blood Type Antibody Screen MTS Gel Crossmatch 11/12/17 11/12/17 11/13/17 05:20 06:18 05:00 WBC 10.6 RBC 2.42 L Hgb 6.9 L* Hct 21.4 L MCV 88.4 MCH 28.3 MCHC 32.1 RDW 24.9 H Plt Count 158 D MPV 8.2 Prelim Diff (Auto) Slide review pending Neut % (Auto) 96.7 H Lymph % (Auto) 1.7 L [place] % (Auto) 0.9 Eos % (Auto) 0.2 Baso % (Auto) 0.5 Neut # (Auto) 10.2 H Lymph # (Auto) 0.2 L [place] # (Auto) 0.1 Eos # (Auto) 0.0 Baso # (Auto) 0.1 WBC Differential . Diff Scan Auto diff confirmed Differential Comment . PT INR APTT Sodium 139 Potassium 4.2 Chloride 105 Carbon Dioxide 25.6 Anion Gap 8 BUN 22 H Creatinine 1.19 H Estimated GFR 44 L Random Glucose 116 H Lactic Acid Calcium 8.1 L Magnesium Total Bilirubin AST ALT Alkaline Phosphatase Total Creatine Kinase Total Protein Albumin Urine Color Urine Clarity Urine pH Ur Specific [place] Urine Protein Urine Glucose (UA) Urine Ketones Urine Occult Blood Urine Nitrate Urine Bilirubin Urine Urobilinogen Ur Leukocyte Esterase Urine WBC Ur Squamous Epith Cells Urine Mucus Micro UA Comment Urine Culture Comments Blood Type B Positive Antibody Screen Negative MTS Gel Crossmatch See Detail 11/13/17 05:00 WBC 8.6 RBC 2.87 L Hgb 8.4 L Hct 25.5 L MCV 88.8 MCH 29.3 MCHC 33.0 RDW 22.6 H Plt Count 162 MPV 8.1 Prelim Diff (Auto) Neut % (Auto) 93.3 H Lymph % (Auto) 4.0 L [place] % (Auto) 1.2 Eos % (Auto) 1.1 Baso % (Auto) 0.4 Neut # (Auto) 8.0 H Lymph # (Auto) 0.3 L [place] # (Auto) 0.1 Eos # (Auto) 0.1 Baso # (Auto) 0.0 WBC Differential . Diff Scan Differential Comment Auto diff final PT INR APTT Sodium Potassium Chloride Carbon Dioxide Anion Gap BUN Creatinine Estimated GFR Random Glucose Lactic Acid Calcium Magnesium Total Bilirubin AST ALT Alkaline Phosphatase Total Creatine Kinase Total Protein Albumin Urine Color Urine Clarity Urine pH Ur Specific [place] Urine Protein Urine Glucose (UA) Urine Ketones Urine Occult Blood Urine Nitrate Urine Bilirubin Urine Urobilinogen Ur Leukocyte Esterase Urine WBC Ur Squamous Epith Cells Urine Mucus Micro UA Comment Urine Culture Comments Blood Type Antibody Screen MTS Gel Crossmatch Result Diagrams: 11/13/17 05:00 11/13/17 05:00 Microbiology: Microbiology 11/11/17 17:30 Aerobic Blood Culture - Preliminary Blood - Peripheral No growth in 2 days Anaerobic Blood Culture - Preliminary No growth in 2 days 11/11/17 17:30 Aerobic Blood Culture - Preliminary Blood - Peripheral No growth in 2 days Anaerobic Blood Culture - Preliminary No growth in 2 days Imaging: Chest X-Ray 11/11/17 16:26 CONCLUSION: No acute findings. Stable presumed scarring right midlung and left base compared with October 26. [id number] in superior vena cava. Venous Doppler Study 11/11/17 16:50 CONCLUSION: 1. The study is negative for bilateral lower extremity deep venous thrombosis. Patient/Family Conference Present at Family Conference: Patient and her sister. Family Conference Time: 60 Family Conference Location: Bedside Issues Discussed: * Palliative care role, purpose, approach * Additional medical, psychosocial, and spiritual history * Patients general health, functional status, and cognitive changes in the months leading up to the current hospitalization * Patient/family understanding of the current medical problems * Patient/family understanding of prognosis * Patients goals of care as best understood from advance directives and/or conversations and/or values * Current medical treatment options and benefits/burdens of those options * Likely scenarios comparing ongoing aggressive care with a transition to comfort measures only * Questions answered to the best of my ability * Palliative care contact information provided Assessment and Plan - Disease Oriented Problem List (1) Pancreatic adenocarcinoma (2) Epigastric pain (3) Fever (4) Cellulitis and abscess of leg (5) Pulmonary emboli - Symptom Scale (1) Pain 0-10 Scale: 6 Comment: reports bilateral LE pain, numbness and tingling of fingers and toes and left upper abdominal pain. Pertinent Non-Medical Issues: Psychosocial: . Has 3 sons and 1 daughter. She lives with her significant other Cleve. She is also supported by her sister. Spiritual: None. Legal:Patient is currently capacitated to make health care decisions. She completed Living Will and Designation of health care surrogate today naming Diana Reesesteban (dtr) AND Cleve Hernández ([place]) as co-health care surrogates should she lose capacity. Ethical issues impacting care: No known concerns at this time. . Important Contacts: * Diana Louie, daughter/ co-HCS: [phone] * Cleve Seymourburn, signifcant other/ co-HCS: [phone] or [phone] Prognosis: While Ms. Louie has mets pancreatic cancer she has been getting palliative chemotherapy under the direction on Dr. Olson, she appears to be tolerating treatment. She remains high risk for further setbacks or decline, repeat infections. If she elected not to pursue additional chemotherapy she would be hospice appropriate. Code Status: No Code DNR Plan: * Patient is currently capacitated to make health care decisions. She completed Living Will and Designation of health care surrogate today naming Diana Reesesteban (dtr) AND Cleve Seymourburn ([place]) as co-health care surrogates should she lose capacity. * NO CODE - Will complete [place] DNR prior to DC home. * She desires continued aggressive care including IV antibiotics, chemotherapy upon DC when OK with Dr. Olson, etc. She elects NO CODE. She appreciates palliative care assistance with symptom management. * Discussed with Dr. Olson, her medical oncologist. He confirms she was on Oramorph 15mg PO every 12 hours at home. It appears her Oramorph dose has been increased to 100mg PO every 12 hours on 11/12. She has been using Roxicodone 5mg PO every 4 hours PRN breakthrough pain prior to admission and during this admission. She has had 6 doses of Roxicodone in the past 24 hours which is equivalent to 45mg oral Morphine. I have therefore discontinued Oramorph 100mg every 12 hours and change to a decreased dose of Oramorph 30mg PO every 12 hours ATC, Dr. Olson agrees. We will need to monitor her renal function, as Morphine would not be the drug of choice if renal functions worsens. She then may be a better candidate for Methadone, especially given her peripheral neuropathic pain. We will monitor renal function, creatinine 1.19 today. Discussed with nurse, eBrnie. 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 Decrease Oramorph as above. Weakness: due to mets pancreatic cancer, cellulitis, chemotherapy, etc. Getting out of bed with assistance. Decreased: Appetite: due to mets pancreatic cancer, cellulitis, chemotherapy, etc. She reports she has "chemo mouth" which she relates to taste changes after chemo. No sores noted. * Palliative care number provided. * Palliative care will continue to follow to assist with symptom management and clarification of medical treatment goals. Appreciation Thank you for the opportunity to participate in the care of Laura Louie. Attestation Attestation: To help prompt me to consider important information that might be impacting today's encounter and assessment, information from prior notes written by myself or my colleagues may have been "brought forward" into today's note. My signature on this note, however, is an attestation that I personally performed the exam, history, and/or decision-making noted today, and, unless otherwise indicated, the interactions with patient, family, and staff as well as the review of records all occurred today. I also attest that the listed assessment and stated plan reflect my best clinical judgment today based on the combination of historical information, prior notes, and today's exam/ interactions. When time spent is documented, it refers only to time spent today by the signer, or if indicated, combined time spent today by collaborating physician/nurse practitioner.
--- NOTE | 2017-11-13 13:46 | P.PN ---
Physical Exam Vital signs: Vital Signs 11/12/17 15:58 11/12/17 17:09 11/12/17 19:35 Temperature 99.6 F 98.8 F 100.5 F H Pulse Rate 109 H 114 H 111 H Respiratory Rate 18 20 16 Blood Pressure 130/70 113/69 117/67 Pulse Oximetry 97 99 11/12/17 20:07 11/12/17 22:30 11/12/17 23:12 Temperature Pulse Rate 109 H 105 H Respiratory Rate 16 Blood Pressure Pulse Oximetry 11/13/17 00:50 11/13/17 04:04 11/13/17 04:33 Temperature 99.1 F 100 F H Pulse Rate 104 H 104 H 107 H Respiratory Rate 16 16 Blood Pressure 136/78 136/83 Pulse Oximetry 95 96 11/13/17 07:20 11/13/17 07:30 11/13/17 08:21 Temperature 98.5 F Pulse Rate 104 H 101 H Respiratory Rate 18 18 Blood Pressure 129/87 Pulse Oximetry 98 11/13/17 12:00 11/13/17 12:02 Temperature 99.3 F Pulse Rate 100 H 73 Respiratory Rate 18 Blood Pressure 117/73 Pulse Oximetry 96 Intake & Output 11/12/17 11/13/17 11/13/17 18:59 06:59 18:59 Intake Total 1452 / 1452 110 / 110 Output Total 1400 / 1400 150 / 150 Balance 52 / 52 -40 / -40 Weight 64.5 kg Intake: IV 350 / 350 110 / 110 Maxipime Inj 2,000 MG In NS Inj 100 / 100 110 / 110 100 ML @ 200 mls/hr IV.SIG Q12H NEVIN Rx#:[id number] Vancomycin Inj 1,000 MG In NS 250 / 250 Inj 250 ML @ 250 mls/hr IV.SIG Q24H NEVIN Rx#:[id number] Oral 700 / 700 Other 2 / 2 Rbc As-3 Leukoreduced Irrad 2 / 2 Unit [id number] Intake (Blood Product) Amt 400 / 400 Rbc As-3 Leukoreduced Irrad 400 / 400 Unit [id number] Output: Urine 1400 / 1400 150 / 150 Other: Other Intake Source Rbc As-3 Leukoreduced Irrad Saline Solution Unit [id number] Date of Last Bowel Movement 11/11/17 # Bowel Movements 2 Narrative: Subjective Was up in the chair . Edema and erythema in legs improving No fever or chills overnight Physical exam: Gen.: Pleasant elderly female, well-nourished well-developed, in no acute distress Skin: Bilateral feet erythema and edema is improving. Warm to the touch. Cardiovascular: Regular rate and rhythm. No murmurs, rubs or gallops. Respiratory: Lungs clear to auscultation bilaterally. No wheezes or rhonchi. Abdomen: Soft, nontender, nondistended. Musculoskeletal: No gross deformities. Bilateral lower extremity pedal and leg edema Neuro: Sensory and motor grossly intact. Cranial nerves II through XII grossly intact. Psych: Appropriate mood and affect Assessment and Plan 1. Bilateral lower extremity cellulitis. Fever while undergoing chemotherapy/ pancreatic cancer Patient febrile at home Cefepime and vancomycin Medical oncology consulted, Dr. Olson, appreciate recommendations Chest x-ray, UA negative Blood cultures pending Obtain cultures if possible Continue home pain medication regimen Hematology oncology consulted seen by Dr. Olson. On hold chemo until cellulitis is treated. 2. History of hypertension Patient normotensive at this time Previously taken off all of her blood pressure medications Monitor 3. Hypothyroidism Continue Synthroid FEN Regular diet Electrolytes: Monitor and replete as needed Eliquis Discussed with the patient, nurse Results - Labs CBC & Chem 7: 11/13/17 05:00 11/13/17 05:00 Laboratory Results - last 24 hr 11/12/17 11/13/17 11/13/17 06:18 05:00 05:00 WBC 8.6 RBC 2.87 L Hgb 8.4 L Hct 25.5 L MCV 88.8 MCH 29.3 MCHC 33.0 RDW 22.6 H Plt Count 162 MPV 8.1 Neut % (Auto) 93.3 H Lymph % (Auto) 4.0 L [place] % (Auto) 1.2 Eos % (Auto) 1.1 Baso % (Auto) 0.4 Neut # (Auto) 8.0 H Lymph # (Auto) 0.3 L [place] # (Auto) 0.1 Eos # (Auto) 0.1 Baso # (Auto) 0.0 WBC Differential . Differential Comment Auto diff final Sodium 139 Potassium 4.2 Chloride 105 Carbon Dioxide 25.6 Anion Gap 8 BUN 22 H Creatinine 1.19 H Estimated GFR 44 L Random Glucose 116 H Calcium 8.1 L MTS Gel Crossmatch See Detail Microbiology 11/11/17 17:30 Blood - Peripheral Aerobic Blood Culture - Preliminary No growth in 2 days 11/11/17 17:30 Blood - Peripheral Anaerobic Blood Culture - Preliminary No growth in 2 days 11/11/17 17:30 Blood - Peripheral Aerobic Blood Culture - Preliminary No growth in 2 days 11/11/17 17:30 Blood - Peripheral Anaerobic Blood Culture - Preliminary No growth in 2 days
[2017-11-13] MEDS ORDERED: Morphine Sulfate 30 MG SR Tablet PO SCH (15:00)
[2017-11-13] MEDS: Morphine Sulfate 30 MG SR Tablet PO SCH (20:07)
[2017-11-14] MEDS: Sod Chloride 0.9% Inj 1,000 ML IV.CONT SCH ×3 (00:28→22:26)
[2017-11-14 05:29] LABS: Baso # (Auto) 0.1 th/mm3 (0.0-0.2); Baso % (Auto) 1.1 % (0.0-2.0); Eos # (Auto) 0.1 th/mm3 (0.0-0.4); Eos % (Auto) 2.5 % (0.0-4.0); Hematocrit 22.5 % (35.0-46.0); Hemoglobin 7.2 gm/dL (11.6-15.3); Lymph # (Auto) 0.4 th/mm3 (1.0-4.8); Lymph % (Auto) 9.7 % (9.0-44.0); Mean Corpuscular HGB Conc 32.1 % (32.0-36.0); Mean Corpuscular Hemoglobin 29.3 pg (27.0-34.0); Mean Corpuscular Volume 91.1 fL (80.0-100.0); Mean Platelet Volume 8.3 fL (7.0-11.0); Mono # (Auto) 0.1 th/mm3 (0.0-0.9); Mono % (Auto) 1.4 % (0.0-8.0); Neut # (Auto) 3.8 th/mm3 (1.8-7.7); Neut % (Auto) 85.3 % (16.0-70.0); Platelet Count 111 th/mm3 (150-450); Red Blood Count 2.47 mil/mm3 (4.00-5.30); Red Cell Distribution Width 22.5 % (11.6-17.2); White Blood Count 4.5 th/mm3 (4.0-11.0)
[2017-11-14 05:38] LABS: Calcium 7.7 mg/dL (8.5-10.1); Carbon Dioxide 24.6 meq/L (21.0-32.0); Potassium 4.5 meq/L (3.5-5.1)
[2017-11-14] MEDS: Levothyroxine 100 MCG Tablet PO SCH (05:42)
--- NOTE | 2017-11-14 07:25 | P.PNONC ---
Subjective Interval history: Patient seen and examined this morning, vital signs reviewed. T maximum was 100 F at 4:30 AM on 11/13, this was slightly more than 24 hours ago. She tells me her left leg feels quite a bit improved, she was able to stand and walk to the bedside commode to urinate over the course of yesterday. She reports having some nausea overnight but feels that this is minor. Objective Vital Signs/Intake & Output: Vital Signs 11/13/17 07:30 11/13/17 08:21 11/13/17 12:00 Temperature 98.5 F Pulse Rate 101 H 100 H Respiratory Rate 18 18 Blood Pressure 129/87 Pulse Oximetry 98 11/13/17 12:02 11/13/17 16:00 11/13/17 16:06 Temperature 99.3 F 98.5 F Pulse Rate 73 97 H 96 H Respiratory Rate 18 18 Blood Pressure 117/73 102/65 Pulse Oximetry 96 11/13/17 19:47 11/13/17 20:10 11/14/17 00:15 Temperature 98.6 F Pulse Rate 95 H 92 H 96 H Respiratory Rate 18 Blood Pressure 105/70 Pulse Oximetry 97 11/14/17 00:24 11/14/17 04:00 11/14/17 04:01 Temperature 98.5 F 98.2 F Pulse Rate 95 H 96 H 94 H Respiratory Rate 18 16 Blood Pressure 92/66 L 90/51 L Pulse Oximetry 96 93 L Intake & Output 11/13/17 11/14/17 11/14/17 18:59 06:59 18:59 Intake Total 1640 / 1640 1460 / 1460 Output Total 700 / 700 425 / 425 Balance 940 / 940 1035 / 1035 Weight 65 kg Intake: IV 250 / 250 1220 / 1220 NS Inj 1,000 ML @ 84 mls/hr IV. 1000 / 1000 CONT .[id number] NEVIN Rx#:[id number] Maxipime Inj 2,000 MG In NS Inj 220 / 220 100 ML @ 200 mls/hr IV.SIG Q12H NEVIN Rx#:[id number] Vancomycin Inj 1,000 MG In NS 250 / 250 Inj 250 ML @ 250 mls/hr IV.SIG Q24H NEVIN Rx#:[id number] Oral 1390 / 1390 240 / 240 Output: Urine 700 / 700 425 / 425 Other: Date of Last Bowel Movement 11/11/17 # Bowel Movements 1 # Emeses 2 Result Diagrams: 11/14/17 04:30 11/14/17 04:30 Laboratory Results: Laboratory Results - last 24 hr 11/14/17 11/14/17 04:30 04:30 WBC 4.5 RBC 2.47 L Hgb 7.2 L Hct 22.5 L MCV 91.1 MCH 29.3 MCHC 32.1 RDW 22.5 H Plt Count 111 L D MPV 8.3 Neut % (Auto) 85.3 H Lymph % (Auto) 9.7 [place] % (Auto) 1.4 Eos % (Auto) 2.5 Baso % (Auto) 1.1 Neut # (Auto) 3.8 Lymph # (Auto) 0.4 L [place] # (Auto) 0.1 Eos # (Auto) 0.1 Baso # (Auto) 0.1 WBC Differential . Differential Comment Auto diff final Sodium 143 Potassium 4.5 Chloride 111 H Carbon Dioxide 24.6 Anion Gap 7 BUN 24 H Creatinine 1.23 H Estimated GFR 43 L Random Glucose 141 H Calcium 7.7 L Culture Results: Microbiology 11/11/17 17:30 Aerobic Blood Culture - Preliminary Blood - Peripheral No growth in 2 days Anaerobic Blood Culture - Preliminary No growth in 2 days 11/11/17 17:30 Aerobic Blood Culture - Preliminary Blood - Peripheral No growth in 2 days Anaerobic Blood Culture - Preliminary No growth in 2 days Medications: Active Medications Generic Name Dose Route Start Last Admin Trade Name Freq PRN Reason Stop Dose Admin Acetaminophen 650 mg 11/11/17 20:19 11/12/17 04:21 Tylenol PO 650 mg Q4H PRN Administration fever Apixaban 5 mg 11/11/17 21:00 11/13/17 20:07 Eliquis PO 5 mg BID NEVIN Administration Heparin Sodium (Porcine) 250 unit 11/12/17 01:48 11/13/17 05:47 Heparin Central Flush IV.FLUSH 250 unit PRN PRN Administration Flush Infusapot Cefepime HCl 2,000 mg/ Sodium 100 mls @ 200 mls/hr 11/12/17 16:00 11/14/17 05 :00 Chloride IV.SIG Infused Q12H NEVIN Infusion Sodium Chloride 1,000 mls @ 84 mls/hr 11/13/17 10:44 11/14/17 00:28 Ns Inj IV.CONT 84 mls/hr .[id number] NEVIN Administration Vancomycin HCl 1,000 mg/ 250 mls @ 250 mls/hr 11/12/17 09:00 11/13/17 09:15 Sodium Chloride IV.SIG Infused Q24H NEVIN Infusion Lactulose 15 ml 11/12/17 09:00 11/13/17 19:40 Lactulose Liq PO Not Given TID NEVIN Levothyroxine Sodium 100 mcg 11/12/17 06:00 11/14/17 05:42 Synthroid PO 100 mcg DAILY@0600 NEVIN Administration Metoclopramide HCl 5 mg 11/13/17 16:34 11/13/17 17:26 Reglan Inj IV.PUSH 5 mg Q8H PRN Administration nausea/vomiting Protocol Morphine Sulfate 30 mg 11/13/17 21:00 11/13/17 20:07 Oramorph Sr PO Not Given Q12H NEVIN Oxycodone HCl 5 mg 11/11/17 20:30 11/14/17 04:23 Roxicodone PO 5 mg Q4HR NEVIN Administration Pantoprazole Sodium 40 mg 11/12/17 09:00 11/13/17 08:14 Protonix PO 40 mg DAILY NEVIN Administration Sodium Chloride 5 ml 11/12/17 01:48 11/13/17 05:47 Ns Flush IV.FLUSH 5 ml PRN PRN Administration Flush Infusaport Objective Remarks: GENERAL: Elderly lady, laying in bed, not acutely distressed. SKIN: Warm and dry, some erythema persists of the left lower extremity, tenderness and warmth is significantly decreased. HEAD: Normocephalic. EYES: No scleral icterus. No injection or drainage. NECK: Supple, trachea midline. No JVD or lymphadenopathy. LYMPHATIC: No adenopathy. CARDIOVASCULAR: Regular rate and rhythm without murmurs. RESPIRATORY: Breath sounds equal bilaterally. No accessory muscle use. GASTROINTESTINAL: Soft abdomen, tender over the left upper quadrant and epigastric area, no definite organ enlargement. EXTREMITIES: Bilateral lower chin edema, some erythema remains at the left lower extremity. MUSCULOSKELETAL: Adequate muscle tone. NEUROLOGICAL: No obvious focal deficit. Awake, alert, and oriented x3. PSYCHIATRIC: Appropriate mood and affect; insight and judgment normal. 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 She had progressive disease on first-line palliative systemic therapy consisting of FOLFIRINOX, after 3 cycles she had definite evidence of progression and was transitioned to second line palliative systemic therapy with gemcitabine and Abraxane. In mid September she was also diagnosed with pulmonary emboli and has been on therapeutic anticoagulation with Eliquis. Over the weekend, approximately 2 days after receiving cycle 2 day 8 gemcitabine/Abraxane she developed fevers associated with swelling of her legs and tenderness of the left leg. She presented to the hospital and was assessed to have cellulitis of the left leg. She has been initiated on empiric antibiotic therapy consisting of cefepime and vancomycin with good clinical effect thus far with decreased erythema, tenderness and redness of the left leg. Recommendations: 1. Cellulitis of the left lower extremity: Continues to improve clinically, continue current antibiotic regimen, transition to oral antibiotics in the upcoming 24-48 hours at the time of discharge. 2. Metastatic pancreas adenocarcinoma: Systemic therapy will remain on hold until she has fully recovered from her current infectious issue i.e. cellulitis. 3. Pulmonary emboli: Continue therapeutic anticoagulation with Eliquis. 4. I have advised the patient to try to get up out of bed so she does not develop progressive debility. I do not think she needs physical therapy, I have therefore asked her to just request assistance from the nursing staff to help her get out of bed to chair. Continue ongoing care.
[2017-11-14] MEDS ORDERED: Pharmacy Ordered Lab Info OTHER ONE (08:45)
[2017-11-14] MEDS: Morphine Sulfate 30 MG SR Tablet PO SCH ×2 (08:48→22:10)
[2017-11-14] MEDS: Vancomycin Inj 1,000 MG in Sodium Chlor 0.9% Inj 250 ML IV.SIG SCH (09:15)
--- NOTE | 2017-11-14 14:24 | P.PN ---
Physical Exam Vital signs: Vital Signs 11/13/17 16:00 11/13/17 16:06 11/13/17 19:47 Temperature 98.5 F 98.6 F Pulse Rate 97 H 96 H 95 H Respiratory Rate 18 18 Blood Pressure 102/65 105/70 Pulse Oximetry 97 11/13/17 20:10 11/14/17 00:15 11/14/17 00:24 Temperature 98.5 F Pulse Rate 92 H 96 H 95 H Respiratory Rate 18 Blood Pressure 92/66 L Pulse Oximetry 96 11/14/17 04:00 11/14/17 04:01 11/14/17 08:00 Temperature 98.2 F Pulse Rate 96 H 94 H 90 Respiratory Rate 16 Blood Pressure 90/51 L Pulse Oximetry 93 L 11/14/17 08:01 11/14/17 11:39 11/14/17 12:00 Temperature 98.8 F 98.8 F Pulse Rate 88 93 H 104 H Respiratory Rate 18 18 Blood Pressure 108/68 108/68 Pulse Oximetry 95 100 Intake & Output 11/13/17 11/14/17 11/14/17 18:59 06:59 18:59 Intake Total 1640 / 1640 1460 / 1460 1979 / 1979 Output Total 700 / 700 425 / 425 600 / 600 Balance 940 / 940 1035 / 1035 1380 / 1380 Weight 65 kg Intake: IV 250 / 250 1220 / 1220 1500 / 1500 NS Inj 1,000 ML @ 84 mls/hr IV. 1000 / 1000 1000 / 1000 CONT .[id number] NEVIN Rx#:[id number] Maxipime Inj 2,000 MG In NS Inj 220 / 220 100 ML @ 200 mls/hr IV.SIG Q12H NEVIN Rx#:[id number] Vancomycin Inj 1,000 MG In NS 250 / 250 250 / 250 Inj 250 ML @ 250 mls/hr IV.SIG Q24H NEVIN Rx#:[id number] Oral 1390 / 1390 240 / 240 480 / 480 Output: Urine 700 / 700 425 / 425 200 / 200 Emesis 400 / 400 Other: Date of Last Bowel Movement 11/11/17 11/13/17 # Bowel Movements 1 1 # Emeses 2 1 Narrative: Subjective Fells improving. Edema and erythema in legs improving. More pain in her left leg. No fever or chills. No more nausea, vomiting. Physical exam: Gen.: Pleasant elderly female, well-nourished well-developed, in no acute distress Skin: Bilateral feet erythema and edema is improving. Warm to the touch. Cardiovascular: Regular rate and rhythm. No murmurs, rubs or gallops. Respiratory: Lungs clear to auscultation bilaterally. No wheezes or rhonchi. Abdomen: Soft, nontender, nondistended. Musculoskeletal: Bilateral lower extremity pedal and leg edema improving. Also pain in both legs L> R Neuro: Sensory and motor grossly intact. Cranial nerves II through XII grossly intact. Psych: Appropriate mood and affect Assessment and Plan 1. Bilateral lower extremity cellulitis. Fever while undergoing chemotherapy/ pancreatic cancer Patient febrile at home Cefepime and vancomycin Medical oncology consulted, Dr. Olson, appreciate recommendations Chest x-ray, UA negative Blood cultures so far NTD Obtain wound cultures if possible Continue home pain medication regimen Hematology oncology consulted seen by Dr. Olson. On hold chemo until cellulitis is treated. 2. History of hypertension Patient normotensive at this time Previously taken off all of her blood pressure medications Monitor 3. Hypothyroidism Continue Synthroid 4. Acute on chronic anemia with significant drop in HGB poss GI loss and also patient symptomatic anemia. Patient received 2U PRBCs. H/H so far stable. Monitor FEN Regular diet Electrolytes: Monitor and replete as needed Eliquis Discussed with the patient, nurse Results - Labs CBC & Chem 7: 11/14/17 04:30 11/14/17 04:30 Laboratory Results - last 24 hr 11/14/17 11/14/17 11/14/17 04:30 04:30 09:05 WBC 4.5 RBC 2.47 L Hgb 7.2 L Hct 22.5 L MCV 91.1 MCH 29.3 MCHC 32.1 RDW 22.5 H Plt Count 111 L D MPV 8.3 Neut % (Auto) 85.3 H Lymph % (Auto) 9.7 [place] % (Auto) 1.4 Eos % (Auto) 2.5 Baso % (Auto) 1.1 Neut # (Auto) 3.8 Lymph # (Auto) 0.4 L [place] # (Auto) 0.1 Eos # (Auto) 0.1 Baso # (Auto) 0.1 WBC Differential . Differential Comment Auto diff final Sodium 143 Potassium 4.5 Chloride 111 H Carbon Dioxide 24.6 Anion Gap 7 BUN 24 H Creatinine 1.23 H Estimated GFR 43 L Random Glucose 141 H Calcium 7.7 L Vancomycin Trough 14.1 H Microbiology 11/11/17 17:30 Blood - Peripheral Aerobic Blood Culture - Preliminary No growth in 3 days 11/11/17 17:30 Blood - Peripheral Anaerobic Blood Culture - Preliminary No growth in 3 days 11/11/17 17:30 Blood - Peripheral Aerobic Blood Culture - Preliminary No growth in 3 days 11/11/17 17:30 Blood - Peripheral Anaerobic Blood Culture - Preliminary No growth in 3 days
--- NOTE | 2017-11-14 16:27 | P.PNPAL ---
Reason for Visit Reason for visit: a. To assist with evaluation and management of symptoms including: pain, decreased appetite, weakness. b. To assist medical decision maker(s) with: better understanding of current medical conditions; weighing benefits/burdens of medical treatment options; making medical treatment decisions. Subjective Subjective/Interval History: Met with patient and her sister at bedside. Also present Beth Bucio LCSW. Patient reports nausea has decreased today. She reports pain 6 in left upper quadrant. She reports pain decreases to 4/10 after Roxicodone. We reviewed medications and recent adjustments. I explained reason for decrease from 100mg Oramorph every 12 hours to 30 mg every 12 hours. She is an agreement. I reviewed my concern that Morphine will need to be changed if her renal function worsens. She is open to consideration of Methadone if needed. She is hoping she will be discharged in the next day or so. Patient completed [place] DNR during this visit for her to take home with her upon DC. Vital signs stable. Hemoglobin decreased to 7.2, platelets 111, BUN 24 and creatinine 1.23. Will need to monitor renal function. Family/Friend Interactions: See interval note. Advance Directives Advance Directives Date on File: 11/13/17 (Completed living well and designation of healthcare surrogate) Health Care Surrogate Name and Number: Diana Jacy AND Cleve Hernández. Documented care wishes:: Patient completed standard Living Will. She elects DNR, completed [place] DNR. She completed designation of HCS paperwork. Significant change in goals:: NO CODE. She desires continued antibiotic treatment for cellulitis, she hopes to retrun home in the coming days and to return to oncology for continued palliative chemotherapy. Objective Vital Signs: Vital Signs 11/13/17 16:06 11/13/17 19:47 11/13/17 20:10 Temperature 98.5 F 98.6 F Pulse Rate 96 H 95 H 92 H Respiratory Rate 18 18 Blood Pressure 102/65 105/70 Pulse Oximetry 97 11/14/17 00:15 11/14/17 00:24 11/14/17 04:00 Temperature 98.5 F 98.2 F Pulse Rate 96 H 95 H 96 H Respiratory Rate 18 16 Blood Pressure 92/66 L 90/51 L Pulse Oximetry 96 93 L 11/14/17 04:01 11/14/17 08:00 11/14/17 08:01 Temperature 98.8 F Pulse Rate 94 H 90 88 Respiratory Rate 18 Blood Pressure 108/68 Pulse Oximetry 95 11/14/17 11:39 11/14/17 12:00 Temperature 98.8 F Pulse Rate 93 H 104 H Respiratory Rate 18 Blood Pressure 108/68 Pulse Oximetry 100 Intake & Output 11/13/17 11/14/17 11/14/17 18:59 06:59 18:59 Intake Total 1640 / 1640 1460 / 1460 2080 / 2080 Output Total 700 / 700 425 / 425 600 / 600 Balance 940 / 940 1035 / 1035 1480 / 1480 Weight 65 kg Intake: IV 250 / 250 1220 / 1220 1600 / 1600 NS Inj 1,000 ML @ 84 mls/hr IV. 1000 / 1000 1000 / 1000 CONT .[id number] NEVIN Rx#:[id number] Maxipime Inj 2,000 MG In NS Inj 220 / 220 100 / 100 100 ML @ 200 mls/hr IV.SIG Q12H NEVIN Rx#:[id number] Vancomycin Inj 1,000 MG In NS 250 / 250 250 / 250 Inj 250 ML @ 250 mls/hr IV.SIG Q24H NEVIN Rx#:[id number] Oral 1390 / 1390 240 / 240 480 / 480 Output: Urine 700 / 700 425 / 425 200 / 200 Emesis 400 / 400 Other: Date of Last Bowel Movement 11/11/17 11/13/17 # Bowel Movements 1 1 # Emeses 2 1 Physical Exam: CONSTITUTIONAL/GENERAL: This is a chronically ill appearing patient, in no apparent distress. TUBES/LINES/DRAINS: Right port, purewick catheter. SKIN: Bilateral LE redness, edema and warm to touch, left > right. Left lateral LE cellulitis skin changes noted. Skin temperature appropriate. Not diaphoretic. ENT: Hearing grossly normal. Nose without bleeding or purulent drainage. Throat without visible erythema, exudates, masses, or lesions. CARDIOVASCULAR: Regular rate and rhythm without murmurs. RESPIRATORY/CHEST: Clear to auscultation. Breath sounds equal bilaterally. GASTROINTESTINAL: Abdomen soft, non-tender, nondistended. No guarding. Bowel sounds present. GENITOURINARY: Without palpable bladder distension. MUSCULOSKELETAL: Extremities with edema. No mottling or clubbing. NEUROLOGICAL: Awake and alert. Motor and sensory grossly within normal limits. Follows commands. Cognitively sharp. Moves all extremities. PSYCHIATRIC: No obvious anxiety/depression. no apparent hallucinations or other psychotic thought process. Diagnostic Tests Laboratory: Laboratory Results - last 72 hr 11/11/17 11/11/17 11/11/17 17:30 17:30 17:30 WBC 10.8 RBC 2.91 L Hgb 8.4 L Hct 25.7 L MCV 88.5 MCH 29.1 MCHC 32.8 RDW 24.8 H Plt Count 226 D MPV 7.9 Prelim Diff (Auto) Neut % (Auto) 95.8 H Lymph % (Auto) 2.2 L Bent % (Auto) 1.4 Eos % (Auto) 0.1 Baso % (Auto) 0.5 Neut # (Auto) 10.4 H Lymph # (Auto) 0.2 L Bent # (Auto) 0.2 Eos # (Auto) 0.0 Baso # (Auto) 0.1 WBC Differential . Diff Scan Differential Comment Auto diff final PT 11.0 INR 1.1 APTT 28.6 Sodium 138 Potassium 4.9 Chloride 104 Carbon Dioxide 27.7 Anion Gap 6 BUN 22 H Creatinine 1.00 Estimated GFR 54 L Random Glucose 94 Lactic Acid Calcium 7.6 L Magnesium 2.3 Total Bilirubin 0.7 AST 63 H ALT 51 Alkaline Phosphatase 209 H Total Creatine Kinase 33 Total Protein 6.1 L Albumin 2.3 L Urine Color Urine Clarity Urine pH Ur Specific [place] Urine Protein Urine Glucose (UA) Urine Ketones Urine Occult Blood Urine Nitrate Urine Bilirubin Urine Urobilinogen Ur Leukocyte Esterase Urine WBC Ur Squamous Epith Cells Urine Mucus Micro UA Comment Urine Culture Comments Vancomycin Trough Blood Type Antibody Screen MTS Gel Crossmatch 11/11/17 11/11/17 11/12/17 17:30 20:50 05:20 WBC RBC Hgb Hct MCV MCH MCHC RDW Plt Count MPV Prelim Diff (Auto) Neut % (Auto) Lymph % (Auto) Bent % (Auto) Eos % (Auto) Baso % (Auto) Neut # (Auto) Lymph # (Auto) Bent # (Auto) Eos # (Auto) Baso # (Auto) WBC Differential Diff Scan Differential Comment PT INR APTT Sodium 139 Potassium 4.5 Chloride 107 Carbon Dioxide 26.2 Anion Gap 6 BUN 22 H Creatinine 1.02 H Estimated GFR 53 L Random Glucose 108 H Lactic Acid 1.1 Calcium 7.6 L Magnesium Total Bilirubin AST ALT Alkaline Phosphatase Total Creatine Kinase Total Protein Albumin Urine Color Yellow Urine Clarity Clear Urine pH 6.0 Ur Specific [place] 1.010 Urine Protein Negative Urine Glucose (UA) Negative Urine Ketones Negative Urine Occult Blood Negative Urine Nitrate Negative Urine Bilirubin Negative Urine Urobilinogen Less than 2 Ur Leukocyte Esterase Negative Urine WBC 1 Ur Squamous Epith Cells 1 Urine Mucus Few H Micro UA Comment Cath-culture not ind Urine Culture Comments Cath-cult not ind Vancomycin Trough Blood Type Antibody Screen MTS Gel Crossmatch 11/12/17 11/12/17 11/13/17 05:20 06:18 05:00 WBC 10.6 RBC 2.42 L Hgb 6.9 L* Hct 21.4 L MCV 88.4 MCH 28.3 MCHC 32.1 RDW 24.9 H Plt Count 158 D MPV 8.2 Prelim Diff (Auto) Slide review pending Neut % (Auto) 96.7 H Lymph % (Auto) 1.7 L Bent % (Auto) 0.9 Eos % (Auto) 0.2 Baso % (Auto) 0.5 Neut # (Auto) 10.2 H Lymph # (Auto) 0.2 L Bent # (Auto) 0.1 Eos # (Auto) 0.0 Baso # (Auto) 0.1 WBC Differential . Diff Scan Auto diff confirmed Differential Comment . PT INR APTT Sodium 139 Potassium 4.2 Chloride 105 Carbon Dioxide 25.6 Anion Gap 8 BUN 22 H Creatinine 1.19 H Estimated GFR 44 L Random Glucose 116 H Lactic Acid Calcium 8.1 L Magnesium Total Bilirubin AST ALT Alkaline Phosphatase Total Creatine Kinase Total Protein Albumin Urine Color Urine Clarity Urine pH Ur Specific [place] Urine Protein Urine Glucose (UA) Urine Ketones Urine Occult Blood Urine Nitrate Urine Bilirubin Urine Urobilinogen Ur Leukocyte Esterase Urine WBC Ur Squamous Epith Cells Urine Mucus Micro UA Comment Urine Culture Comments Vancomycin Trough Blood Type B Positive Antibody Screen Negative MTS Gel Crossmatch See Detail 11/13/17 11/14/17 11/14/17 05:00 04:30 04:30 WBC 8.6 4.5 RBC 2.87 L 2.47 L Hgb 8.4 L 7.2 L Hct 25.5 L 22.5 L MCV 88.8 91.1 MCH 29.3 29.3 MCHC 33.0 32.1 RDW 22.6 H 22.5 H Plt Count 162 111 L D MPV 8.1 8.3 Prelim Diff (Auto) Neut % (Auto) 93.3 H 85.3 H Lymph % (Auto) 4.0 L 9.7 Bent % (Auto) 1.2 1.4 Eos % (Auto) 1.1 2.5 Baso % (Auto) 0.4 1.1 Neut # (Auto) 8.0 H 3.8 Lymph # (Auto) 0.3 L 0.4 L Bent # (Auto) 0.1 0.1 Eos # (Auto) 0.1 0.1 Baso # (Auto) 0.0 0.1 WBC Differential . . Diff Scan Differential Comment Auto diff final Auto diff final PT INR APTT Sodium 143 Potassium 4.5 Chloride 111 H Carbon Dioxide 24.6 Anion Gap 7 BUN 24 H Creatinine 1.23 H Estimated GFR 43 L Random Glucose 141 H Lactic Acid Calcium 7.7 L Magnesium Total Bilirubin AST ALT Alkaline Phosphatase Total Creatine Kinase Total Protein Albumin Urine Color Urine Clarity Urine pH Ur Specific [place] Urine Protein Urine Glucose (UA) Urine Ketones Urine Occult Blood Urine Nitrate Urine Bilirubin Urine Urobilinogen Ur Leukocyte Esterase Urine WBC Ur Squamous Epith Cells Urine Mucus Micro UA Comment Urine Culture Comments Vancomycin Trough Blood Type Antibody Screen MTS Gel Crossmatch 11/14/17 09:05 WBC RBC Hgb Hct MCV MCH MCHC RDW Plt Count MPV Prelim Diff (Auto) Neut % (Auto) Lymph % (Auto) Bent % (Auto) Eos % (Auto) Baso % (Auto) Neut # (Auto) Lymph # (Auto) Bent # (Auto) Eos # (Auto) Baso # (Auto) WBC Differential Diff Scan Differential Comment PT INR APTT Sodium Potassium Chloride Carbon Dioxide Anion Gap BUN Creatinine Estimated GFR Random Glucose Lactic Acid Calcium Magnesium Total Bilirubin AST ALT Alkaline Phosphatase Total Creatine Kinase Total Protein Albumin Urine Color Urine Clarity Urine pH Ur Specific [place] Urine Protein Urine Glucose (UA) Urine Ketones Urine Occult Blood Urine Nitrate Urine Bilirubin Urine Urobilinogen Ur Leukocyte Esterase Urine WBC Ur Squamous Epith Cells Urine Mucus Micro UA Comment Urine Culture Comments Vancomycin Trough 14.1 H Blood Type Antibody Screen MTS Gel Crossmatch Result Diagrams: 11/14/17 04:30 11/14/17 04:30 Microbiology: Microbiology 11/11/17 17:30 Aerobic Blood Culture - Preliminary Blood - Peripheral No growth in 3 days Anaerobic Blood Culture - Preliminary No growth in 3 days 11/11/17 17:30 Aerobic Blood Culture - Preliminary Blood - Peripheral No growth in 3 days Anaerobic Blood Culture - Preliminary No growth in 3 days Imaging: Chest X-Ray 11/11/17 16:26 CONCLUSION: No acute findings. Stable presumed scarring right midlung and left base compared with October 26. [id number] in superior vena cava. Venous Doppler Study 11/11/17 16:50 CONCLUSION: 1. The study is negative for bilateral lower extremity deep venous thrombosis. Assessment and Plan - Disease Oriented Problem List (1) Pancreatic adenocarcinoma (2) Epigastric pain (3) Fever (4) Cellulitis and abscess of leg (5) Pulmonary emboli - Symptom Scale (1) Pain 0-10 Scale: 6 Comment: reports bilateral LE pain, numbness and tingling of fingers and toes and left upper abdominal pain. (2) Weakness 0-10 Scale: Unable to quantify (3) Decreased appetite 0-10 Scale: Unable to quantify Pertinent Non-Medical Issues: Psychosocial: . Has 3 sons and 1 daughter. She lives with her significant other Cleve. She is also supported by her sister. Spiritual: None. Legal:Patient is currently capacitated to make health care decisions. She completed Living Will and Designation of health care surrogate today naming Diana Alvaresabdiaziz (dtr) AND Cleve Se[place]ourburn ([place]) as co-health care surrogates should she lose capacity. Ethical issues impacting care: No known concerns at this time. . Important Contacts: * Diana Louie, daughter/ co-HCS: [phone] * Celve Hernández signifcant other/ co-HCS: [phone] or [phone] Prognosis: While Ms. Louie has mets pancreatic cancer she has been getting palliative chemotherapy under the direction on Dr. Olson, she appears to be tolerating treatment. She remains high risk for further setbacks or decline, repeat infections. If she elected not to pursue additional chemotherapy she would be hospice appropriate. Code Status: No Code DNR Plan: * Patient is currently capacitated to make health care decisions. She completed Living Will and Designation of health care surrogate today naming Diana Reesesteban (dtr) AND Cleve Hernández ([place]) as co-health care surrogates should she lose capacity. * NO CODE - completed [place] DNR on 11/14/17 * She desires continued aggressive care including IV antibiotics, chemotherapy upon DC when OK with Dr. Olson, etc. She elects NO CODE. She appreciates palliative care assistance with symptom management. 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 Continue Oramorph 30 mg every 12 hours ATC and PRN Roxicodone. Will monitor need. May need to consider changing long acting medication if renal function continues to worsen. Would change to Methadone if need to change meds. Weakness: due to mets pancreatic cancer, cellulitis, chemotherapy, etc. Getting out of bed with assistance. Decreased: Appetite: due to mets pancreatic cancer, cellulitis, chemotherapy, etc. She reports she has "chemo mouth" which she relates to taste changes after chemo. No sores noted. * Palliative care will continue to follow to assist with symptom management and clarification of medical treatment goals. Attestation Attestation: To help prompt me to consider important information that might be impacting today's encounter and assessment, information from prior notes written by myself or my colleagues may have been "brought forward" into today's note. My signature on this note, however, is an attestation that I personally performed the exam, history, and/or decision-making noted today, and, unless otherwise indicated, the interactions with patient, family, and staff as well as the review of records all occurred today. I also attest that the listed assessment and stated plan reflect my best clinical judgment today based on the combination of historical information, prior notes, and today's exam/ interactions. When time spent is documented, it refers only to time spent today by the signer, or if indicated, combined time spent today by collaborating physician/nurse practitioner.
[2017-11-15 05:28] LABS: Baso # (Auto) 0.1 th/mm3 (0.0-0.2); Baso % (Auto) 2.4 % (0.0-2.0); Eos # (Auto) 0.1 th/mm3 (0.0-0.4); Eos % (Auto) 2.6 % (0.0-4.0); Hematocrit 23.6 % (35.0-46.0); Hemoglobin 7.7 gm/dL (11.6-15.3); Lymph # (Auto) 0.6 th/mm3 (1.0-4.8); Lymph % (Auto) 20.2 % (9.0-44.0); Mean Corpuscular HGB Conc 32.5 % (32.0-36.0); Mean Corpuscular Hemoglobin 29.2 pg (27.0-34.0); Mean Platelet Volume 8.1 fL (7.0-11.0); Mono # (Auto) 0.2 th/mm3 (0.0-0.9); Mono % (Auto) 6.4 % (0.0-8.0); Neut # (Auto) 2.1 th/mm3 (1.8-7.7); Neut % (Auto) 68.4 % (16.0-70.0); Platelet Count 89 th/mm3 (150-450); Red Blood Count 2.62 mil/mm3 (4.00-5.30); Red Cell Distribution Width 22.2 % (11.6-17.2); White Blood Count 3.1 th/mm3 (4.0-11.0)
[2017-11-15 05:50] LABS: Calcium 8.1 mg/dL (8.5-10.1); Carbon Dioxide 22.6 meq/L (21.0-32.0); Potassium 4.2 meq/L (3.5-5.1)
[2017-11-15] MEDS: Levothyroxine 100 MCG Tablet PO SCH (06:47)
[2017-11-15 07:16] LABS: Eosinophils 1 % (0-4); Lymphocytes 23 % (9-44); Monocytes 4 % (0-8); Ovalocytes 1+; Platelet Morphology Normal (Normal); Tallied Nucleated RBC 1 (0-0)
[2017-11-15] MEDS: Vancomycin Inj 1,000 MG in Sodium Chlor 0.9% Inj 250 ML IV.SIG SCH (08:00)
[2017-11-15] MEDS: Morphine Sulfate 30 MG SR Tablet PO SCH ×2 (08:00→20:33)
[2017-11-15] MEDS: Sod Chloride 0.9% Inj 1,000 ML IV.CONT SCH (12:51)
--- NOTE | 2017-11-15 14:39 | P.PN ---
Physical Exam Vital signs: Vital Signs 11/14/17 16:25 11/14/17 16:51 11/14/17 20:00 Temperature 99.1 F 99.1 F Pulse Rate 99 H 100 H 101 H Respiratory Rate 20 18 Blood Pressure 132/75 132/75 Pulse Oximetry 99 99 11/14/17 21:28 11/14/17 23:40 11/14/17 23:41 Temperature 99.4 F Pulse Rate 97 H Respiratory Rate 17 16 16 Blood Pressure 139/87 Pulse Oximetry 98 11/15/17 00:00 11/15/17 04:00 11/15/17 07:22 Temperature 99.0 F 99.0 F Pulse Rate 105 H 100 H 94 H Respiratory Rate 17 17 Blood Pressure 141/87 H 146/89 H Pulse Oximetry 98 99 11/15/17 07:36 11/15/17 11:46 Temperature 98.5 F Pulse Rate 100 H 92 H Respiratory Rate 20 Blood Pressure 150/92 H Pulse Oximetry 100 Intake & Output 11/14/17 11/15/17 11/15/17 18:59 06:59 18:59 Intake Total 2320 / 2320 1100 / 1100 1000 / 1000 Output Total 1140 / 1140 802 / 802 Balance 1180 / 1180 298 / 298 1000 / 1000 Weight 71.1 kg Intake: IV 1600 / 1600 1100 / 1100 1000 / 1000 NS Inj 1,000 ML @ 84 mls/hr IV. 1000 / 1000 1000 / 1000 1000 / 1000 CONT .[id number] NEVIN Rx#:[id number] Maxipime Inj 2,000 MG In NS Inj 100 / 100 100 / 100 100 ML @ 200 mls/hr IV.SIG Q12H NEVIN Rx#:[id number] Vancomycin Inj 1,000 MG In NS 250 / 250 Inj 250 ML @ 250 mls/hr IV.SIG Q24H NEVIN Rx#:[id number] Oral 720 / 720 Output: Urine 740 / 740 800 / 800 Stool 2 / 2 Emesis 400 / 400 Other: # Voids 1 Date of Last Bowel Movement 11/13/17 11/15/17 11/14/17 # Bowel Movements 1 1 # Emeses 1 Narrative: Subjective Follow-up bilateral lower extremity cellulitis, hypertension, acute on chronic anemia, metastatic pancreatic adenocarcinoma, pulmonary emboli. Patient complains of nausea vomiting not able to eat much. Erythema and edema in the legs improving some however still with significant pain. Left leg is worse than the right leg. She has more pain especially when she walks however she was able to walk with physical therapy in the hallways with a walker. Says she has a walker at home. No fever or chills overnight. No diarrhea. Physical exam: Gen.: Pleasant elderly female, well-nourished well-developed, in no acute distress Skin: Bilateral feet erythema and edema is improving. Warm to the touch. Cardiovascular: Regular rate and rhythm. No murmurs, rubs or gallops. Respiratory: Lungs clear to auscultation bilaterally. No wheezes or rhonchi. Abdomen: Soft, nontender, nondistended. Musculoskeletal: Bilateral lower extremity pedal and leg edema improving. Also pain in both legs L> R Neuro: Sensory and motor grossly intact. Cranial nerves II through XII grossly intact. Psych: Appropriate mood and affect Assessment and Plan 1. Bilateral lower extremity cellulitis. Fever while undergoing chemotherapy/ pancreatic cancer Patient febrile at home Cefepime and vancomycin Medical oncology consulted, Dr. Olson, appreciate recommendations Chest x-ray, UA negative Blood cultures so far NTD Obtain wound cultures if possible Continue home pain medication regimen Hematology oncology consulted seen by Dr. Olson. On hold chemo until cellulitis is treated. 2. History of hypertension Patient normotensive at this time Previously taken off all of her blood pressure medications Monitor 3. Hypothyroidism Continue Synthroid 4. Acute on chronic anemia with significant drop in HGB poss GI loss and also patient symptomatic anemia. Patient received 2U PRBCs. H/H so far stable. Monitor 5. Metastatic pancreas adenocarcinoma: Most recently on palliative systemic therapy with a combination of Abraxane and gemcitabine., Unfortunately she now has symptoms of persistent nausea and vomiting, I am concerned she may have gastric outflow obstruction related to her significant tumor burden in the pancreas. Should her symptoms of nausea and vomiting not resolve with optimal antiemetic therapy I would recommend obtaining restaging CT scan of the abdomen pelvis to rule out interval disease progression 6. Pulmonary emboli: Continue therapeutic anticoagulation with Eliquis. Stable at this time 7. Nausea and vomiting: Shortage of IV Zofran and switched to by mouth if patient tries to take by mouth, I did metoclopramide 5 mg IV every 8 hours. FEN Regular diet Electrolytes: Monitor and replete as needed Eliquis Discussed with the patient, nurse Results - Labs CBC & Chem 7: 11/15/17 04:33 11/15/17 04:33 Laboratory Results - last 24 hr 11/15/17 11/15/17 04:33 04:33 WBC 3.1 L RBC 2.62 L Hgb 7.7 L Hct 23.6 L MCV 90.0 MCH 29.2 MCHC 32.5 RDW 22.2 H Plt Count 89 L MPV 8.1 Prelim Diff (Auto) Slide review pending Neut % (Auto) 68.4 Lymph % (Auto) 20.2 Villalba % (Auto) 6.4 Eos % (Auto) 2.6 Baso % (Auto) 2.4 H Neut # (Auto) 2.1 Lymph # (Auto) 0.6 L [place] # (Auto) 0.2 Eos # (Auto) 0.1 Baso # (Auto) 0.1 WBC Differential Manual diff final Seg Neuts % (Manual) 70 Band Neuts % (Manual) 2 Lymphocytes % (Manual) 23 Monocytes % (Manual) 4 Eosinophils % (Manual) 1 Abs Neuts (Manual) 2.2 Nucleated RBCs/100 WBC 1 H Differential Comment . Platelet Estimate Low L Platelet Morphology Normal Ovalocytes 1+ H Sodium 143 Potassium 4.2 Chloride 112 H Carbon Dioxide 22.6 Anion Gap 8 BUN 16 Creatinine 0.79 Estimated GFR 71 L Random Glucose 104 Calcium 8.1 L Microbiology 11/11/17 17:30 Blood - Peripheral Aerobic Blood Culture - Preliminary No growth in 4 days 11/11/17 17:30 Blood - Peripheral Anaerobic Blood Culture - Preliminary No growth in 4 days 11/11/17 17:30 Blood - Peripheral Aerobic Blood Culture - Preliminary No growth in 4 days 11/11/17 17:30 Blood - Peripheral Anaerobic Blood Culture - Preliminary No growth in 4 days
--- NOTE | 2017-11-15 16:57 | P.PNONC ---
Subjective Interval history: Patient seen and examined, vital signs, labs, medications reviewed. Subjectively; she reports nausea and vomiting, she feels her abdomen is distended. She tells me she "just got done throwing up ". She denies additional fevers or chills, she was up out of bed and ambulated in the hallway without difficulty with assistance from physical therapy. Objective Vital Signs/Intake & Output: Vital Signs 11/14/17 20:00 11/14/17 21:28 11/14/17 23:40 Temperature 99.4 F Pulse Rate 101 H 97 H Respiratory Rate 17 16 Blood Pressure 139/87 Pulse Oximetry 98 11/14/17 23:41 11/15/17 00:00 11/15/17 04:00 Temperature 99.0 F 99.0 F Pulse Rate 105 H 100 H Respiratory Rate 16 17 17 Blood Pressure 141/87 H 146/89 H Pulse Oximetry 98 99 11/15/17 07:22 11/15/17 07:36 11/15/17 11:46 Temperature 98.5 F Pulse Rate 94 H 100 H 92 H Respiratory Rate 20 Blood Pressure 150/92 H Pulse Oximetry 100 11/15/17 12:00 11/15/17 15:45 11/15/17 16:00 Temperature 98.0 F 98.1 F Pulse Rate 105 H 119 H 105 H Respiratory Rate 20 20 Blood Pressure 146/87 H 138/81 Pulse Oximetry 95 95 Intake & Output 11/14/17 11/15/17 11/15/17 18:59 06:59 18:59 Intake Total 2320 / 2320 1100 / 1100 1800 / 1800 Output Total 1140 / 1140 802 / 802 Balance 1180 / 1180 298 / 298 1800 / 1800 Weight 71.1 kg Intake: IV 1600 / 1600 1100 / 1100 1000 / 1000 NS Inj 1,000 ML @ 84 mls/hr IV. 1000 / 1000 1000 / 1000 1000 / 1000 CONT .[id number] NEVIN Rx#:[id number] Maxipime Inj 2,000 MG In NS Inj 100 / 100 100 / 100 100 ML @ 200 mls/hr IV.SIG Q12H NEVIN Rx#:[id number] Vancomycin Inj 1,000 MG In NS 250 / 250 Inj 250 ML @ 250 mls/hr IV.SIG Q24H NEVIN Rx#:[id number] Oral 720 / 720 800 / 800 Output: Urine 740 / 740 800 / 800 Stool 2 / 2 Emesis 400 / 400 Other: # Voids 1 4 Date of Last Bowel Movement 11/13/17 11/15/17 11/14/17 # Bowel Movements 1 1 3 # Emeses 1 Result Diagrams: 11/15/17 04:33 11/15/17 04:33 Laboratory Results: Laboratory Results - last 24 hr 11/15/17 11/15/17 04:33 04:33 WBC 3.1 L RBC 2.62 L Hgb 7.7 L Hct 23.6 L MCV 90.0 MCH 29.2 MCHC 32.5 RDW 22.2 H Plt Count 89 L MPV 8.1 Prelim Diff (Auto) Slide review pending Neut % (Auto) 68.4 Lymph % (Auto) 20.2 [place] % (Auto) 6.4 Eos % (Auto) 2.6 Baso % (Auto) 2.4 H Neut # (Auto) 2.1 Lymph # (Auto) 0.6 L [place] # (Auto) 0.2 Eos # (Auto) 0.1 Baso # (Auto) 0.1 WBC Differential Manual diff final Seg Neuts % (Manual) 70 Band Neuts % (Manual) 2 Lymphocytes % (Manual) 23 Monocytes % (Manual) 4 Eosinophils % (Manual) 1 Abs Neuts (Manual) 2.2 Nucleated RBCs/100 WBC 1 H Differential Comment . Platelet Estimate Low L Platelet Morphology Normal Ovalocytes 1+ H Sodium 143 Potassium 4.2 Chloride 112 H Carbon Dioxide 22.6 Anion Gap 8 BUN 16 Creatinine 0.79 Estimated GFR 71 L Random Glucose 104 Calcium 8.1 L Culture Results: Microbiology 11/11/17 17:30 Aerobic Blood Culture - Preliminary Blood - Peripheral No growth in 4 days Anaerobic Blood Culture - Preliminary No growth in 4 days 11/11/17 17:30 Aerobic Blood Culture - Preliminary Blood - Peripheral No growth in 4 days Anaerobic Blood Culture - Preliminary No growth in 4 days Medications: Active Medications Generic Name Dose Route Start Last Admin Trade Name Freq PRN Reason Stop Dose Admin Acetaminophen 650 mg 11/11/17 20:19 11/12/17 04:21 Tylenol PO 650 mg Q4H PRN Administration fever Apixaban 5 mg 11/11/17 21:00 11/15/17 08:00 Eliquis PO 5 mg BID NEVIN Administration Heparin Sodium (Porcine) 250 unit 11/12/17 01:48 11/13/17 05:47 Heparin Central Flush IV.FLUSH 250 unit PRN PRN Administration Flush Infusapot Cefepime HCl 2,000 mg/ Sodium 100 mls @ 200 mls/hr 11/12/17 16:00 11/15/17 16 :12 Chloride IV.SIG 200 mls/hr Q12H NEVIN Administration Sodium Chloride 1,000 mls @ 84 mls/hr 11/13/17 10:44 11/15/17 12:51 Ns Inj IV.CONT 84 mls/hr .[id number] NEVIN Administration Vancomycin HCl 1,000 mg/ 250 mls @ 250 mls/hr 11/12/17 09:00 11/15/17 08:00 Sodium Chloride IV.SIG 250 mls/hr Q24H NEVIN Administration Lactulose 15 ml 11/12/17 09:00 11/15/17 12:39 Lactulose Liq PO Not Given TID NEVIN Levothyroxine Sodium 100 mcg 11/12/17 06:00 11/15/17 06:47 Synthroid PO 100 mcg DAILY@0600 NEVIN Administration Metoclopramide HCl 5 mg 11/13/17 16:34 11/15/17 16:12 Reglan Inj IV.PUSH 5 mg Q8H PRN Administration nausea/vomiting Protocol Morphine Sulfate 30 mg 11/13/17 21:00 11/15/17 08:00 Oramorph Sr PO 30 mg Q12H NEVIN Administration Oxycodone HCl 5 mg 11/11/17 20:30 11/15/17 16:12 Roxicodone PO 5 mg Q4HR NEVIN Administration Pantoprazole Sodium 40 mg 11/12/17 09:00 11/15/17 08:00 Protonix PO 40 mg DAILY NEVIN Administration Sodium Chloride 5 ml 11/12/17 01:48 11/13/17 05:47 Ns Flush IV.FLUSH 5 ml PRN PRN Administration Flush Infusaport Objective Remarks: GENERAL: Elderly lady, laying in bed, emesis basin in her lap, drops of vomitus on her gown she appears uncomfortable. SKIN: Warm and dry. HEAD: Normocephalic. EYES: No scleral icterus. No injection or drainage. NECK: Supple, trachea midline. No JVD or lymphadenopathy. LYMPHATIC: No adenopathy. CARDIOVASCULAR: Regular rate and rhythm without murmurs. RESPIRATORY: Breath sounds equal bilaterally. No accessory muscle use. GASTROINTESTINAL: Protuberant abdomen, tender in the epigastric, right upper and left upper quadrants, tympanic to percussion, hyperactive bowel sounds. EXTREMITIES: Erythema and warmth involving the left lower extremity has now resolved. Bilateral lower extremities remain edematous. MUSCULOSKELETAL: Adequate muscle tone. NEUROLOGICAL: No obvious focal deficit. Awake, alert, and oriented x3. PSYCHIATRIC: Appropriate mood and affect; insight and judgment normal. 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 She had progressive disease on first-line palliative systemic therapy consisting of FOLFIRINOX, after 3 cycles she had definite evidence of progression and was transitioned to second line palliative systemic therapy with gemcitabine and Abraxane. In mid September she was also diagnosed with pulmonary emboli and has been on therapeutic anticoagulation with Eliquis. Over the weekend, approximately 2 days after receiving cycle 2 day 8 gemcitabine/Abraxane she developed fevers associated with swelling of her legs and tenderness of the left leg. She presented to the hospital and was assessed to have cellulitis of the left leg. She has been initiated on empiric antibiotic therapy consisting of cefepime and vancomycin with good clinical effect thus far with decreased erythema, tenderness and redness of the left leg. Recommendations: 1. Cellulitis of the left lower extremity: Continues to improve clinically, continue current antibiotic regimen, transition to oral antibiotics in the upcoming 24-48 hours at the time of discharge. Seems to have responded very well, I would recommend transition to oral antibiotics. Reasonable choice would be either Bactrim or doxycycline. Doxycycline may be prescribed in combination with Keflex. 2. Metastatic pancreas adenocarcinoma: Most recently on palliative systemic therapy with a combination of Abraxane and gemcitabine., Unfortunately she now has symptoms of persistent nausea and vomiting, I am concerned she may have gastric outflow obstruction related to her significant tumor burden in the pancreas. Should her symptoms of nausea and vomiting not resolve with optimal antiemetic therapy I would recommend obtaining restaging CT scan of the abdomen pelvis to rule out interval disease progression 3. Pulmonary emboli: Continue therapeutic anticoagulation with Eliquis. 4. Nausea and vomiting: Continue metoclopramide 5 mg IV every 8 hours, I have added onto this oral ondansetron at a dose of 4 mg every 6 hours. The patient had previously been prescribed ondansetron IV however because of shortages this is not been available. Continue ongoing care.
[2017-11-16] MEDS: Sod Chloride 0.9% Inj 1,000 ML IV.CONT SCH ×2 (00:04→12:21)
[2017-11-16 05:14] LABS: Baso # (Auto) 0.1 th/mm3 (0.0-0.2); Eos # (Auto) 0.2 th/mm3 (0.0-0.4); Eos % (Auto) 3.2 % (0.0-4.0); Hematocrit 23.1 % (35.0-46.0); Hemoglobin 7.5 gm/dL (11.6-15.3); Lymph # (Auto) 0.7 th/mm3 (1.0-4.8); Lymph % (Auto) 13.4 % (9.0-44.0); Mean Corpuscular HGB Conc 32.3 % (32.0-36.0); Mean Corpuscular Hemoglobin 29.1 pg (27.0-34.0); Mean Corpuscular Volume 90.1 fL (80.0-100.0); Mean Platelet Volume 7.7 fL (7.0-11.0); Mono # (Auto) 0.6 th/mm3 (0.0-0.9); Neut # (Auto) 3.8 th/mm3 (1.8-7.7); Neut % (Auto) 70.4 % (16.0-70.0); Platelet Count 86 th/mm3 (150-450); Red Blood Count 2.57 mil/mm3 (4.00-5.30); Red Cell Distribution Width 22.5 % (11.6-17.2); White Blood Count 5.4 th/mm3 (4.0-11.0)
[2017-11-16 05:38] LABS: Calcium 7.7 mg/dL (8.5-10.1); Carbon Dioxide 23.2 meq/L (21.0-32.0); Potassium 4.4 meq/L (3.5-5.1)
[2017-11-16] MEDS: Levothyroxine 100 MCG Tablet PO SCH (06:46)
[2017-11-16 06:56] LABS: Platelet Morphology Normal (Normal); Tear Drop Cells 1+
[2017-11-16] MEDS: Morphine Sulfate 30 MG SR Tablet PO SCH ×2 (09:02→23:06)
--- NOTE | 2017-11-16 09:03 | P.DS ---
Date of admission: 11/11/17 18:26 Primary care physician: UNKNOWN Brief History from admission: 72-year-old female with a past medical history significant for stage IV pancreatic cancer presents to the emergency department for the evaluation of a fever and bilateral lower extremity edema. The patient reports for the past 1-1 /2 weeks she has had bilateral lower extremity edema with redness and heat. Her feet have changed to a red/purple color and have been painful. She reports slight improvement in them today. The patient states that she had a fever of 101.1 today while at home. Her oncologist is Dr. Olson and her last chemotherapy was Sunday. Dr. Olson advised the patient that if she had a fever to come to the hospital. Additionally, the patient was in the hospital 2 weeks ago for pneumonia where she was treated and released to home. She denies any chest pain or shortness of breath. No abdominal pain. No nausea/vomiting/ diarrhea. No dysuria. No lateralizing signs/symptoms. DS: Medications - Discharge Medications Prescriptions: cephalexin 500 mg PO BID 4 Days #8 cap doxycycline hyclate 100 mg PO Q12HR 4 Days cap DS: Summary Hospital Course: Gen.: Pleasant elderly female, well-nourished well-developed, in no acute distress Skin: Bilateral feet erythema and edema is improving. Warm to the touch. Cardiovascular: Regular rate and rhythm. No murmurs, rubs or gallops. Respiratory: Lungs clear to auscultation bilaterally. No wheezes or rhonchi. Abdomen: Soft, nontender, nondistended. Musculoskeletal: Bilateral lower extremity pedal and leg edema improving. Also pain in both legs L> R Neuro: Sensory and motor grossly intact. Cranial nerves II through XII grossly intact. Psych: Appropriate mood and affect Assessment and Plan 1. Bilateral lower extremity cellulitis. Fever while undergoing chemotherapy/ pancreatic cancer Patient febrile at home Cefepime and vancomycin Medical oncology consulted, Dr. Olson, appreciate recommendations Chest x-ray, UA negative Blood cultures so far NTD Obtain wound cultures if possible Continue home pain medication regimen Hematology oncology consulted seen by Dr. Olson. On hold chemo until cellulitis is treated. 2. History of hypertension Patient normotensive at this time Previously taken off all of her blood pressure medications Monitor 3. Hypothyroidism Continue Synthroid 4. Acute on chronic anemia with significant drop in HGB poss GI loss and also patient symptomatic anemia. Patient received 2U PRBCs. H/H so far stable. Monitor 5. Metastatic pancreas adenocarcinoma: Most recently on palliative systemic therapy with a combination of Abraxane and gemcitabine., Unfortunately she now has symptoms of persistent nausea and vomiting, I am concerned she may have gastric outflow obstruction related to her significant tumor burden in the pancreas. Should her symptoms of nausea and vomiting not resolve with optimal antiemetic therapy CT scan of the abdomen pelvis reviewed , shows improvement 6. Pulmonary emboli: Continue therapeutic anticoagulation with Eliquis. Stable at this time 7. Nausea and vomiting: Shortage of IV Zofran and switched to by mouth if patient tries to take by mouth, I did metoclopramide 5 mg IV every 8 hours. I discussed with Dr. Wright hematology oncology plan for CT abdomen if patient still with nausea vomiting. Patient went for CT abdomen and pelvis today. FEN Regular diet Electrolytes: Monitor and replete as needed Eliquis - Time Spent with Patient Total time spent providing and/or coordinating discharge services: - Quality: VTE Deep Vein Thrombosis/Pulmonary Embolism Present on Admission: No Exam Vital signs: Vital Signs 11/15/17 11:46 11/15/17 12:00 11/15/17 15:45 Temperature 98.0 F Pulse Rate 92 H 105 H 119 H Respiratory Rate 20 Blood Pressure 146/87 H Pulse Oximetry 95 11/15/17 16:00 11/15/17 20:00 11/15/17 20:10 Temperature 98.1 F 99.3 F Pulse Rate 105 H 72 108 H Respiratory Rate 20 Blood Pressure 138/81 150/87 H Pulse Oximetry 95 99 11/16/17 00:00 11/16/17 00:14 11/16/17 04:00 Temperature 98.5 F 98.7 F Pulse Rate 113 H 111 H 100 H Respiratory Rate Blood Pressure 130/82 132/83 Pulse Oximetry 97 99 11/16/17 07:00 11/16/17 08:55 Temperature Pulse Rate 98 H 95 H Respiratory Rate 18 Blood Pressure 127/86 Pulse Oximetry 98 Intake & Output 11/15/17 11/16/17 11/16/17 18:59 06:59 18:59 Intake Total 2150 / 2150 1100 / 1100 Output Total 600 / 600 Balance 2150 / 2150 500 / 500 Weight 73.2 kg Intake: IV 1350 / 1350 1100 / 1100 NS Inj 1,000 ML @ 84 mls/hr IV. 1000 / 1000 1000 / 1000 CONT .[id number] NEVIN Rx#:[id number] Maxipime Inj 2,000 MG In NS Inj 100 / 100 100 / 100 100 ML @ 200 mls/hr IV.SIG Q12H NEVIN Rx#:[id number] Vancomycin Inj 1,000 MG In NS 250 / 250 Inj 250 ML @ 250 mls/hr IV.SIG Q24H NEVIN Rx#:[id number] Oral 800 / 800 Output: Urine 600 / 600 Other: # Voids 4 Date of Last Bowel Movement 11/14/17 11/14/17 # Bowel Movements 3 2 Results Procedures completed during hospitalization: No procedures Labs on day of discharge: Labs from last 24 hours 11/16/17 11/16/17 04:40 04:40 WBC 5.4 RBC 2.57 L Hgb 7.5 L Hct 23.1 L MCV 90.1 MCH 29.1 MCHC 32.3 RDW 22.5 H Plt Count 86 L MPV 7.7 Prelim Diff (Auto) Slide review pending Neut % (Auto) 70.4 H Lymph % (Auto) 13.4 [place] % (Auto) 12.0 H Eos % (Auto) 3.2 Baso % (Auto) 1.0 Neut # (Auto) 3.8 Lymph # (Auto) 0.7 L [place] # (Auto) 0.6 Eos # (Auto) 0.2 Baso # (Auto) 0.1 WBC Differential . Diff Scan Auto diff confirmed Differential Comment . Platelet Estimate Low L Platelet Morphology Normal Tear Drop Cells 1+ H Sodium 143 Potassium 4.4 Chloride 112 H Carbon Dioxide 23.2 Anion Gap 8 BUN 12 Creatinine 0.65 Estimated GFR 89 Random Glucose 91 Calcium 7.7 L Preliminary micro results at discharge 11/11/17 17:30 Aerobic Blood Culture - Preliminary Blood - Peripheral No growth in 4 days Anaerobic Blood Culture - Preliminary No growth in 4 days 11/11/17 17:30 Aerobic Blood Culture - Preliminary Blood - Peripheral No growth in 4 days Anaerobic Blood Culture - Preliminary No growth in 4 days - Impressions ITS Impressions Chest X-Ray 11/11/17 16:26 CONCLUSION: No acute findings. Stable presumed scarring right midlung and left base compared with October 26. [id number] in superior vena cava. Venous Doppler Study 11/11/17 16:50 CONCLUSION: 1. The study is negative for bilateral lower extremity deep venous thrombosis. Discharge Plan - Discharge Disposition Patient Disposition: /Home Health Service - Discharge Condition Condition: Fair - Discharge Order Discharge Orders: Discharge Order (Routine); Ordered 11/16/17 Ordered By: Lay Dominguez Oncology Clear for Discharge (Routine); Ordered 11/16/17 Ordered By: Mireya Chua - Discharge Details Anticipated Discharge Date: 11/16/17 - Physicians Team Primary Care Provider: UNKNOWN, Attending Provider: Lay Dominguez Other Providers: Hugo Olson MD ; Aj Phan MD
--- NOTE | 2017-11-16 09:05 | P.DCO ---
- Diagnosis (4) Fever - Physical Therapy Order: Evaluate and treat - Certification I have seen patient Laura Louie on 11/16/17. My clinical findings support the need for the requested home health care services because: Limited mobility due to disease progression, Patient has SOB I certify that my clinical findings support that this patient is homebound because: Post-op weakness, Unsteady gait/balance (4) Fever Qualifiers: Fever type: unspecified Qualified Code(s): R50.9 - Fever, unspecified
[2017-11-16] MEDS: Vancomycin Inj 1,000 MG in Sodium Chlor 0.9% Inj 250 ML IV.SIG SCH (09:21)
--- NOTE | 2017-11-16 13:23 | P.PNONC ---
Subjective Interval history: Afebrile Patient reports her nausea is much improved Has not vomited since yesterday morning Walked over 100 feet with physical therapy Objective Vital Signs/Intake & Output: Vital Signs 11/15/17 15:45 11/15/17 16:00 11/15/17 20:00 Temperature 98.1 F 99.3 F Pulse Rate 119 H 105 H 72 Respiratory Rate 20 Blood Pressure 138/81 150/87 H Pulse Oximetry 95 99 11/15/17 20:10 11/16/17 00:00 11/16/17 00:14 Temperature 98.5 F Pulse Rate 108 H 113 H 111 H Respiratory Rate Blood Pressure 130/82 Pulse Oximetry 97 11/16/17 04:00 11/16/17 07:00 11/16/17 08:55 Temperature 98.7 F Pulse Rate 100 H 98 H 95 H Respiratory Rate 18 Blood Pressure 132/83 127/86 Pulse Oximetry 99 98 11/16/17 10:12 11/16/17 10:13 11/16/17 11:20 Temperature 98.8 F Pulse Rate 89 Respiratory Rate 18 18 18 Blood Pressure 141/89 H Pulse Oximetry 97 11/16/17 11:45 Temperature Pulse Rate 96 H Respiratory Rate Blood Pressure Pulse Oximetry Intake & Output 11/15/17 11/16/17 11/16/17 18:59 06:59 18:59 Intake Total 2150 / 2150 1100 / 1100 1000 / 1000 Output Total 600 / 600 Balance 2150 / 2150 500 / 500 1000 / 1000 Weight 161 lb 6.054 oz Intake: IV 1350 / 1350 1100 / 1100 1000 / 1000 NS Inj 1,000 ML @ 84 mls/hr IV. 1000 / 1000 1000 / 1000 1000 / 1000 CONT .[id number] NEVIN Rx#:[id number] Maxipime Inj 2,000 MG In NS Inj 100 / 100 100 / 100 100 ML @ 200 mls/hr IV.SIG Q12H NEVIN Rx#:[id number] Vancomycin Inj 1,000 MG In NS 250 / 250 Inj 250 ML @ 250 mls/hr IV.SIG Q24H NEVIN Rx#:[id number] Oral 800 / 800 Output: Urine 600 / 600 Other: # Voids 4 Date of Last Bowel Movement 11/14/17 11/14/17 11/16/17 # Bowel Movements 3 2 Result Diagrams: 11/16/17 04:40 07/27/18 04:40 Laboratory Results: Laboratory Results - last 24 hr 11/16/17 11/16/17 04:40 04:40 WBC 5.4 RBC 2.57 L Hgb 7.5 L Hct 23.1 L MCV 90.1 MCH 29.1 MCHC 32.3 RDW 22.5 H Plt Count 86 L MPV 7.7 Prelim Diff (Auto) Slide review pending Neut % (Auto) 70.4 H Lymph % (Auto) 13.4 [place] % (Auto) 12.0 H Eos % (Auto) 3.2 Baso % (Auto) 1.0 Neut # (Auto) 3.8 Lymph # (Auto) 0.7 L [place] # (Auto) 0.6 Eos # (Auto) 0.2 Baso # (Auto) 0.1 WBC Differential . Diff Scan Auto diff confirmed Differential Comment . Platelet Estimate Low L Platelet Morphology Normal Tear Drop Cells 1+ H Sodium 143 Potassium 4.4 Chloride 112 H Carbon Dioxide 23.2 Anion Gap 8 BUN 12 Creatinine 0.65 Estimated GFR 89 Random Glucose 91 Calcium 7.7 L Culture Results: Microbiology 11/11/17 17:30 Aerobic Blood Culture - Final Blood - Peripheral No growth in 5 days Anaerobic Blood Culture - Final No growth in 5 days 11/11/17 17:30 Aerobic Blood Culture - Final Blood - Peripheral No growth in 5 days Anaerobic Blood Culture - Final No growth in 5 days Medications: Active Medications Generic Name Dose Route Start Last Admin Trade Name Freq PRN Reason Stop Dose Admin Acetaminophen 650 mg 11/11/17 20:19 11/12/17 04:21 Tylenol PO 650 mg Q4H PRN Administration fever Apixaban 5 mg 11/11/17 21:00 11/16/17 09:01 Eliquis PO 5 mg BID NEVIN Administration Cephalexin Monohydrate 500 mg 11/16/17 09:00 11/16/17 10:12 Keflex PO 11/20/17 08:59 500 mg BID NEVIN Administration Doxycycline Hyclate 100 mg 11/16/17 09:00 11/16/17 10:12 Vibramycin PO 11/20/17 08:59 100 mg Q12HR NEVIN Administration Heparin Sodium (Porcine) 250 unit 11/12/17 01:48 11/13/17 05:47 Heparin Central Flush IV.FLUSH 250 unit PRN PRN Administration Flush Infusapot Cefepime HCl 2,000 mg/ Sodium 100 mls @ 200 mls/hr 11/12/17 16:00 11/16/17 06 :46 Chloride IV.SIG Infused Q12H NEVIN Infusion Sodium Chloride 1,000 mls @ 84 mls/hr 11/13/17 10:44 11/16/17 12:21 Ns Inj IV.CONT Infused .[id number] NEVIN Infusion Vancomycin HCl 1,000 mg/ 250 mls @ 250 mls/hr 11/12/17 09:00 11/16/17 09:21 Sodium Chloride IV.SIG Not Given Q24H NEVIN Lactulose 15 ml 11/12/17 09:00 11/16/17 12:38 Lactulose Liq PO Not Given TID NEVIN Levothyroxine Sodium 100 mcg 11/12/17 06:00 11/16/17 06:46 Synthroid PO 100 mcg DAILY@0600 NEVIN Administration Metoclopramide HCl 5 mg 11/13/17 16:34 11/15/17 16:12 Reglan Inj IV.PUSH 5 mg Q8H PRN Administration nausea/vomiting Protocol Morphine Sulfate 30 mg 11/13/17 21:00 11/16/17 09:02 Oramorph Sr PO 30 mg Q12H NEVIN Administration Ondansetron HCl 4 mg 11/15/17 16:50 11/15/17 20:36 Zofran Odt PO 4 mg Q6H PRN Administration NAUSEA OR VOMITING Oxycodone HCl 5 mg 11/11/17 20:30 11/16/17 12:21 Roxicodone PO 5 mg Q4HR NEVIN Administration Pantoprazole Sodium 40 mg 11/12/17 09:00 11/16/17 09:02 Protonix PO 40 mg DAILY NEVIN Administration Sodium Chloride 5 ml 11/12/17 01:48 11/13/17 05:47 Ns Flush IV.FLUSH 5 ml PRN PRN Administration Flush Infusaport Objective Remarks: GENERAL: Elderly female resting in bed watching TV in no obvious distress SKIN: Warm and dry. HEAD: Normocephalic. EYES: No scleral icterus. No injection or drainage. NECK: Supple, trachea midline. No JVD or lymphadenopathy. CARDIOVASCULAR: Regular rate and rhythm without murmurs. RESPIRATORY: Clear anteriorly. Breathing unlabored at rest. GASTROINTESTINAL: Abdomen soft. Mildly tender to palpation. EXTREMITIES: Erythema to left lower extremity. Generalized edema bilaterally, left greater than right. MUSCULOSKELETAL: Adequate muscle tone. NEUROLOGICAL: No obvious focal deficit. Awake, alert, and oriented x3. 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 She had progressive disease on first-line palliative systemic therapy consisting of FOLFIRINOX, after 3 cycles she had definite evidence of progression and was transitioned to second line palliative systemic therapy with gemcitabine and Abraxane. In mid September she was also diagnosed with pulmonary emboli and has been on therapeutic anticoagulation with Eliquis. Over the weekend, approximately 2 days after receiving cycle 2 day 8 gemcitabine/Abraxane she developed fevers associated with swelling of her legs and tenderness of the left leg. She presented to the hospital and was assessed to have cellulitis of the left leg. She has been initiated on empiric antibiotic therapy consisting of cefepime and vancomycin with good clinical effect thus far with decreased erythema, tenderness and redness of the left leg. Recommendations: 1. Cellulitis of the left lower extremity: Continue antibiotics on discharge. 2. Metastatic pancreas adenocarcinoma: Most recently on palliative systemic therapy with a combination of Abraxane and gemcitabine., Her previous nausea and vomiting is improved. Hold off on repeat imaging. Discussed with patient to follow-up with Dr. Olson as scheduled. 3. Pulmonary emboli: Continue therapeutic anticoagulation with Eliquis. 4. Clear for discharge from oncology standpoint. Patient will follow-up in the outpatient setting. Addendum: Pt was getting up for discharge and had some dry-heaving. Will obtain CT Abdomen/Pelvis.
[2017-11-16] MEDS ORDERED: Diatrizoate Meglum/Diatrizoate Sod Liq 9 ML UDC PO ONE (14:45)
--- NOTE | 2017-11-16 19:10 | CT ---
EXAM DATE: 11/16/2017 6:54 PM EDT AGE/SEX: 72 years / Female INDICATIONS: Abdominal distention and nausea. CLINICAL DATA: This is the patient's initial encounter. Patient reports that signs and symptoms have been present for 1 day and indicates a pain score of 3/10. MEDICAL/SURGICAL HISTORY: Carcinoma, pancreas. Metastatic disease to liver, Pulmonary embolus . ORAL CONTRAST: No oral contrast ingested. RADIATION DOSE: 15.54 CTDI (mGy) COMPARISON: [facility] [place], CT ABDOMEN & PELVIS W/O CONTRAST, 10/27/2017. . TECHNIQUE: Multiple contiguous axial images were obtained through the abdomen and pelvis following b olus infusion of 68 ml Omnipaque 350 (iohexol) nonionic water-soluble contrast as a single exam dos e. No oral contrast ingested. Using automated exposure control and adjustment of the mA and/or kV ac cording to patient size, radiation dose was kept as low as reasonably achievable to obtain optimal di agnostic quality images. DICOM format image data is available electronically for review and comparis on. FINDINGS: Lower Lungs: The visualized lower lungs are clear. Liver: There continue to be multiple low-density masses seen throughout the liver. These appear somew hat smaller on the current exam which can suggest good response to treatment. The largest mass measur es up to 3 cm. Spleen: Homogeneous density without enlargement. Pancreas: There is a 3.9 cm mass at the pancreatic tail. This is a central area of low density likel y related to necrosis. This appears similar to the prior noncontrast CT examination Kidneys: There is dilatation the collecting systems and ureters bilaterally. There is cystic change seen in the kidneys bilaterally. The largest cyst is seen at the posterior lateral left mid kidney me asuring 5.2 cm. Adrenal Glands: Unremarkable. Aorta: The aorta and proximal iliac vessels are grossly unremarkable without aneurysmal dilation. A therosclerotic calcifications are present. Bowel/Mesentery: The bowel loops are grossly unremarkable. The cecum and sigmoid colon have a normal configuration. There is mild ascites seen around the liver and spleen and in the paracolic gutter re gions. Abdominal Wall: Intact. Retroperitoneum: No evidence of adenopathy in the retrocrural, para-aortic, or deep pelvic regions. Bladder: The urinary bladder is distended extending beyond the iliac crest level. Reproductive Organs: No abnormal masses or calcifications seen. Inguinal: The inguinal region is unremarkable without evidence of adenopathy. Bony Structures: There is a 2.1 cm focal bone lesion involving the left pedicle and transverse proce ss at the L3 level. There is also a focal bone lesion seen at the anterior upper right sacrum. CONCLUSION: 1. Numerous hepatic masses consistent with metastatic disease. These appear slightly smaller on the current exam. 2. Persistent 3.9 cm pancreatic mass which appears unchanged. The patient has a history of pancreati c cancer. 3. At least 2 focal bone lesions are seen. These are consistent with metastatic lesions. 4. Mild ascites seen around the liver, spleen and in the paracolic gutter regions. This is too small and amount to drain. 5. Distention of the urinary bladder. This certainly can lead to a sensation of fullness in the pelv is. There is dilatation of the renal collecting systems and ureters bilaterally likely secondary to t he distended urinary bladder. The cause of the distention is not seen. Electronically signed by: Chin Beckham MD 11/16/2017 7:09 PM EDT
--- NOTE | 2017-11-16 23:52 | P.PN ---
Physical Exam Vital signs: Vital Signs 11/16/17 00:00 11/16/17 00:14 11/16/17 04:00 Temperature 98.5 F 98.7 F Pulse Rate 113 H 111 H 100 H Respiratory Rate Blood Pressure 130/82 132/83 Pulse Oximetry 97 99 11/16/17 07:00 11/16/17 08:55 11/16/17 10:12 Temperature Pulse Rate 98 H 95 H Respiratory Rate 18 18 Blood Pressure 127/86 Pulse Oximetry 98 11/16/17 10:13 11/16/17 11:20 11/16/17 11:45 Temperature 98.8 F Pulse Rate 89 96 H Respiratory Rate 18 18 Blood Pressure 141/89 H Pulse Oximetry 97 11/16/17 14:53 11/16/17 16:10 11/16/17 17:00 Temperature 98.3 F Pulse Rate 83 Respiratory Rate 18 18 18 Blood Pressure 139/79 Pulse Oximetry 100 Intake & Output 11/16/17 11/16/17 11/17/17 06:59 18:59 06:59 Intake Total 1100 / 1100 2500 / 2500 Output Total 600 / 600 1600 / 1600 Balance 500 / 500 900 / 900 Weight 73.2 kg Intake: IV 1100 / 1100 1000 / 1000 NS Inj 1,000 ML @ 84 mls/hr IV. 1000 / 1000 1000 / 1000 CONT .[id number] NEVIN Rx#:[id number] Maxipime Inj 2,000 MG In NS Inj 100 / 100 100 ML @ 200 mls/hr IV.SIG Q12H NEVIN Rx#:[id number] Oral 1500 / 1500 Output: Urine 600 / 600 1600 / 1600 Other: Date of Last Bowel Movement 11/14/17 11/16/17 # Bowel Movements 2 2 Narrative: Subjective Follow-up bilateral lower extremity cellulitis, hypertension, acute on chronic anemia, metastatic pancreatic adenocarcinoma, pulmonary emboli. 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 No no diarrhea or constipation. Patient denies any fever or chills. Says. Redness in the edema in her legs improving. Has some pain in her legs with ambulation. Patient was however noted was nausea later in the day. I discussed with Dr. Wright for his oncology DrLoreto plan for CT abdomen if nausea recurs. Patient went for CT later in the afternoon. Hold discharge Physical exam: Gen.: Pleasant elderly female, well-nourished well-developed, in no acute distress Skin: Bilateral feet erythema and edema is improving. Warm to the touch. Cardiovascular: Regular rate and rhythm. No murmurs, rubs or gallops. Respiratory: Lungs clear to auscultation bilaterally. No wheezes or rhonchi. Abdomen: Soft, nontender, nondistended. Musculoskeletal: Bilateral lower extremity pedal and leg edema improving. Also pain in both legs L> R Neuro: Sensory and motor grossly intact. Cranial nerves II through XII grossly intact. Psych: Appropriate mood and affect Assessment and Plan 1. Bilateral lower extremity cellulitis. Fever while undergoing chemotherapy/ pancreatic cancer Patient febrile at home Cefepime and vancomycin Medical oncology consulted, Dr. Olson, appreciate recommendations Chest x-ray, UA negative Blood cultures so far NTD Obtain wound cultures if possible Continue home pain medication regimen Hematology oncology consulted seen by Dr. Olson. On hold chemo until cellulitis is treated. 2. History of hypertension Patient normotensive at this time Previously taken off all of her blood pressure medications Monitor 3. Hypothyroidism Continue Synthroid 4. Acute on chronic anemia with significant drop in HGB poss GI loss and also patient symptomatic anemia. Patient received 2U PRBCs. H/H so far stable. Monitor 5. Metastatic pancreas adenocarcinoma: Most recently on palliative systemic therapy with a combination of Abraxane and gemcitabine., Unfortunately she now has symptoms of persistent nausea and vomiting, I am concerned she may have gastric outflow obstruction related to her significant tumor burden in the pancreas. Should her symptoms of nausea and vomiting not resolve with optimal antiemetic therapy I would recommend obtaining restaging CT scan of the abdomen pelvis to rule out interval disease progression 6. Pulmonary emboli: Continue therapeutic anticoagulation with Eliquis. Stable at this time 7. Nausea and vomiting: Shortage of IV Zofran and switched to by mouth if patient tries to take by mouth, I did metoclopramide 5 mg IV every 8 hours. I discussed with Dr. Wright hematology oncology plan for CT abdomen if patient still with nausea vomiting. Patient went for CT abdomen and pelvis today. FEN Regular diet Electrolytes: Monitor and replete as needed Eliquis Discussed with the patient, nurse, Dr. Olson hematology oncology Discharge plan: Plan to discharge home possible tomorrow Results - Labs CBC & Chem 7: 11/16/17 04:40 11/16/17 04:40 Laboratory Results - last 24 hr 11/16/17 11/16/17 04:40 04:40 WBC 5.4 RBC 2.57 L Hgb 7.5 L Hct 23.1 L MCV 90.1 MCH 29.1 MCHC 32.3 RDW 22.5 H Plt Count 86 L MPV 7.7 Prelim Diff (Auto) Slide review pending Neut % (Auto) 70.4 H Lymph % (Auto) 13.4 [place] % (Auto) 12.0 H Eos % (Auto) 3.2 Baso % (Auto) 1.0 Neut # (Auto) 3.8 Lymph # (Auto) 0.7 L [place] # (Auto) 0.6 Eos # (Auto) 0.2 Baso # (Auto) 0.1 WBC Differential . Diff Scan Auto diff confirmed Differential Comment . Platelet Estimate Low L Platelet Morphology Normal Tear Drop Cells 1+ H Sodium 143 Potassium 4.4 Chloride 112 H Carbon Dioxide 23.2 Anion Gap 8 BUN 12 Creatinine 0.65 Estimated GFR 89 Random Glucose 91 Calcium 7.7 L Microbiology 11/11/17 17:30 Blood - Peripheral Aerobic Blood Culture - Final No growth in 5 days 11/11/17 17:30 Blood - Peripheral Anaerobic Blood Culture - Final No growth in 5 days 11/11/17 17:30 Blood - Peripheral Aerobic Blood Culture - Final No growth in 5 days 11/11/17 17:30 Blood - Peripheral Anaerobic Blood Culture - Final No growth in 5 days - Imaging Impressions Abdomen/Pelvis CT 11/16/17 00:00 CONCLUSION: 1. Numerous hepatic masses consistent with metastatic disease. These appear slightly smaller on the current exam. 2. Persistent 3.9 cm pancreatic mass which appears unchanged. The patient has a history of pancreatic cancer. 3. At least 2 focal bone lesions are seen. These are consistent with metastatic lesions. 4. Mild ascites seen around the liver, spleen and in the paracolic gutter regions. This is too small and amount to drain. 5. Distention of the urinary bladder. This certainly can lead to a sensation of fullness in the pelvis. There is dilatation of the renal collecting systems and ureters bilaterally likely secondary to the distended urinary bladder. The cause of the distention is not seen. Assessment and Plan - Assessment (1) Metastasis from pancreatic cancer Code(s): C79.9 - Secondary malignant neoplasm of unspecified site; C25.9 - Malignant neoplasm of pancreas, unspecified Status: Chronic (2) Pancreatic adenocarcinoma Code(s): C25.9 - Malignant neoplasm of pancreas, unspecified Status: Chronic (3) Epigastric pain Code(s): R10.13 - Epigastric pain Status: Acute (4) Fever Code(s): R50.9 - Fever, unspecified Status: Acute (5) Port-A-Cath in place Code(s): Z95.828 - Presence of other vascular implants and grafts Status: Acute (6) Cellulitis and abscess of leg Code(s): L03.119 - Cellulitis of unspecified part of limb; L02.419 - Cutaneous abscess of limb, unspecified Status: Acute (7) Pulmonary emboli Code(s): I26.99 - Other pulmonary embolism without acute cor pulmonale Status : Acute (8) Pain Code(s): R52 - Pain, unspecified Status: Acute (4) Fever Qualifiers: Fever type: unspecified Qualified Code(s): R50.9 - Fever, unspecified
[2017-11-17] MEDS: Levothyroxine 100 MCG Tablet PO SCH (05:20)
[2017-11-17 05:49] LABS: Baso % (Auto) 0.6 % (0.0-2.0); Eos # (Auto) 0.2 th/mm3 (0.0-0.4); Eos % (Auto) 3.1 % (0.0-4.0); Hemoglobin 8.3 gm/dL (11.6-15.3); Lymph % (Auto) 13.6 % (9.0-44.0); Mean Corpuscular HGB Conc 33.3 % (32.0-36.0); Mean Corpuscular Hemoglobin 29.8 pg (27.0-34.0); Mean Corpuscular Volume 89.4 fL (80.0-100.0); Mean Platelet Volume 7.9 fL (7.0-11.0); Mono % (Auto) 13.8 % (0.0-8.0); Neut # (Auto) 5.2 th/mm3 (1.8-7.7); Neut % (Auto) 68.9 % (16.0-70.0); Platelet Count 160 th/mm3 (150-450); Red Cell Distribution Width 22.2 % (11.6-17.2); White Blood Count 7.6 th/mm3 (4.0-11.0)
[2017-11-17 06:23] LABS: Calcium 8.2 mg/dL (8.5-10.1); Carbon Dioxide 23.8 meq/L (21.0-32.0); Potassium 4.6 meq/L (3.5-5.1)
[2017-11-17 08:34] LABS: Eosinophils 4 % (0-4); Lymphocytes 8 % (9-44); Metamyelocytes 1 % (0-1); Monocytes 8 % (0-8); Myelocytes 1 % (0-0)
[2017-11-17 08:35] LABS: Ovalocytes 1+; Platelet Estimate Normal (Normal); Platelet Morphology Normal (Normal)
--- NOTE | 2017-11-17 09:27 | P.PN ---
Physical Exam Vital signs: Vital Signs 11/16/17 10:12 11/16/17 10:13 11/16/17 11:20 Temperature 98.8 F Pulse Rate 89 Respiratory Rate 18 18 18 Blood Pressure 141/89 H Pulse Oximetry 97 11/16/17 11:45 11/16/17 14:53 11/16/17 16:10 Temperature 98.3 F Pulse Rate 96 H 83 Respiratory Rate 18 18 Blood Pressure 139/79 Pulse Oximetry 100 11/16/17 17:00 11/16/17 20:00 11/17/17 00:00 Temperature 98.8 F 97.9 F Pulse Rate 96 H 94 H Respiratory Rate 18 20 18 Blood Pressure 151/91 H 129/84 Pulse Oximetry 100 100 11/17/17 00:05 11/17/17 04:00 11/17/17 04:44 Temperature 98.1 F Pulse Rate 91 H Respiratory Rate 18 18 18 Blood Pressure 123/73 Pulse Oximetry 98 11/17/17 05:00 11/17/17 08:39 Temperature 98.4 F Pulse Rate 90 Respiratory Rate 18 18 Blood Pressure 142/88 H Pulse Oximetry 100 Intake & Output 11/16/17 11/17/17 11/17/17 18:59 06:59 18:59 Intake Total 2500 / 2500 100 / 100 Output Total 1600 / 1600 1000 / 1000 Balance 900 / 900 -1000 / -1000 100 / 100 Weight 74.8 kg Intake: IV 1000 / 1000 100 / 100 NS Inj 1,000 ML @ 84 mls/hr IV. 1000 / 1000 CONT .[id number] NEVIN Rx#:[id number] Maxipime Inj 2,000 MG In NS Inj 100 / 100 100 ML @ 200 mls/hr IV.SIG Q12H NEVIN Rx#:[id number] Oral 1500 / 1500 Output: Urine 1600 / 1600 1000 / 1000 Other: Date of Last Bowel Movement 11/16/17 11/16/17 # Bowel Movements 2 Narrative: Subjective Follow-up bilateral lower extremity cellulitis, hypertension, acute on chronic anemia, metastatic pancreatic adenocarcinoma, pulmonary emboli. The patient has no more nausea today however she feels very tired and she does not feel comfortable to go home. He Monhaylie Olson recommend possible discharge tomorrow. Patient with no fever or chills. Not eating much. Some pain in her legs however improved currently. Edema and erythema improving also Physical exam: Gen.: Pleasant elderly female, well-nourished well-developed, in no acute distress Skin: Bilateral feet erythema and edema is improving. Warm to the touch. Cardiovascular: Regular rate and rhythm. No murmurs, rubs or gallops. Respiratory: Lungs clear to auscultation bilaterally. No wheezes or rhonchi. Abdomen: Soft, nontender, nondistended. Musculoskeletal: Bilateral lower extremity pedal and leg edema improving. Also pain in both legs L> R Neuro: Sensory and motor grossly intact. Cranial nerves II through XII grossly intact. Psych: Appropriate mood and affect Assessment and Plan 1. Bilateral lower extremity cellulitis. Fever while undergoing chemotherapy/ pancreatic cancer Patient febrile at home Cefepime and vancomycin Medical oncology consulted, Dr. Olson, appreciate recommendations Chest x-ray, UA negative Blood cultures so far NTD Obtain wound cultures if possible Continue home pain medication regimen Hematology oncology consulted seen by Dr. Olson. On hold chemo until cellulitis is treated. 2. History of hypertension Patient normotensive at this time Previously taken off all of her blood pressure medications Monitor 3. Hypothyroidism Continue Synthroid 4. Acute on chronic anemia with significant drop in HGB poss GI loss and also patient symptomatic anemia. Patient received 2U PRBCs. H/H so far stable. Monitor 5. Metastatic pancreas adenocarcinoma: Most recently on palliative systemic therapy with a combination of Abraxane and gemcitabine., Unfortunately she now has symptoms of persistent nausea and vomiting, I am concerned she may have gastric outflow obstruction related to her significant tumor burden in the pancreas. Should her symptoms of nausea and vomiting not resolve with optimal antiemetic therapy CT scan of the abdomen pelvis reviewed 6. Pulmonary emboli: Continue therapeutic anticoagulation with Eliquis. Stable at this time 7. Nausea and vomiting: Shortage of IV Zofran and switched to by mouth if patient tries to take by mouth, I did metoclopramide 5 mg IV every 8 hours. I discussed with Dr. Wright hematology oncology plan for CT abdomen if patient still with nausea vomiting. Patient went for CT abdomen and pelvis today. FEN Regular diet Electrolytes: Monitor and replete as needed Eliquis Discussed with the patient, nurse, Dr. Olson hematology oncology Discharge plan: Plan to discharge home possible tomorrow per hem/onc Results - Labs CBC & Chem 7: 11/17/17 05:30 11/17/17 05:30 Laboratory Results - last 24 hr 11/17/17 11/17/17 05:30 05:30 WBC 7.6 RBC 2.80 L Hgb 8.3 L Hct 25.0 L MCV 89.4 MCH 29.8 MCHC 33.3 RDW 22.2 H Plt Count 160 D MPV 7.9 Prelim Diff (Auto) Slide review pending Neut % (Auto) 68.9 Lymph % (Auto) 13.6 [place] % (Auto) 13.8 H Eos % (Auto) 3.1 Baso % (Auto) 0.6 Neut # (Auto) 5.2 Lymph # (Auto) 1.0 [place] # (Auto) 1.0 H Eos # (Auto) 0.2 Baso # (Auto) 0.0 WBC Differential Manual diff final Seg Neuts % (Manual) 74 H Band Neuts % (Manual) 4 Lymphocytes % (Manual) 8 L Monocytes % (Manual) 8 Eosinophils % (Manual) 4 Metamyelocytes % (Man) 1 Myelocytes % (Man) 1 H Abs Neuts (Manual) 6.1 Differential Comment . Platelet Estimate Normal Platelet Morphology Normal Ovalocytes 1+ H Sodium 139 Potassium 4.6 Chloride 110 H Carbon Dioxide 23.8 Anion Gap 5 BUN 10 Creatinine 0.73 Estimated GFR 78 L Random Glucose 80 Calcium 8.2 L Microbiology 11/11/17 17:30 Blood - Peripheral Aerobic Blood Culture - Final No growth in 5 days 11/11/17 17:30 Blood - Peripheral Anaerobic Blood Culture - Final No growth in 5 days 11/11/17 17:30 Blood - Peripheral Aerobic Blood Culture - Final No growth in 5 days 11/11/17 17:30 Blood - Peripheral Anaerobic Blood Culture - Final No growth in 5 days - Imaging Impressions Abdomen/Pelvis CT 11/16/17 00:00 CONCLUSION: 1. Numerous hepatic masses consistent with metastatic disease. These appear slightly smaller on the current exam. 2. Persistent 3.9 cm pancreatic mass which appears unchanged. The patient has a history of pancreatic cancer. 3. At least 2 focal bone lesions are seen. These are consistent with metastatic lesions. 4. Mild ascites seen around the liver, spleen and in the paracolic gutter regions. This is too small and amount to drain. 5. Distention of the urinary bladder. This certainly can lead to a sensation of fullness in the pelvis. There is dilatation of the renal collecting systems and ureters bilaterally likely secondary to the distended urinary bladder. The cause of the distention is not seen. Assessment and Plan - Assessment (1) Metastasis from pancreatic cancer Code(s): C79.9 - Secondary malignant neoplasm of unspecified site; C25.9 - Malignant neoplasm of pancreas, unspecified Status: Chronic (2) Pancreatic adenocarcinoma Code(s): C25.9 - Malignant neoplasm of pancreas, unspecified Status: Chronic (3) Epigastric pain Code(s): R10.13 - Epigastric pain Status: Acute (4) Fever Code(s): R50.9 - Fever, unspecified Status: Acute (5) Port-A-Cath in place Code(s): Z95.828 - Presence of other vascular implants and grafts Status: Acute (6) Cellulitis and abscess of leg Code(s): L03.119 - Cellulitis of unspecified part of limb; L02.419 - Cutaneous abscess of limb, unspecified Status: Acute (7) Pulmonary emboli Code(s): I26.99 - Other pulmonary embolism without acute cor pulmonale Status : Acute (8) Pain Code(s): R52 - Pain, unspecified Status: Acute (4) Fever Qualifiers: Fever type: unspecified Qualified Code(s): R50.9 - Fever, unspecified
[2017-11-17] MEDS: Morphine Sulfate 30 MG SR Tablet PO SCH ×2 (09:33→21:43)
[2017-11-17] MEDS: Vancomycin Inj 1,000 MG in Sodium Chlor 0.9% Inj 250 ML IV.SIG SCH (09:33)
[2017-11-17] MEDS: Sod Chloride 0.9% Inj 1,000 ML IV.CONT SCH ×3 (09:35→21:54)
--- NOTE | 2017-11-17 13:53 | P.PNONC ---
Subjective Interval history: Patient seen and examined this morning, vital signs, labs, medications, imaging studies are reviewed. Subjectively; patient reports improvement in her nausea, she tells me her left leg also feels better. She in fact feels almost well enough to go home but would prefer perhaps staying till tomorrow. She tells me thus far she has held down her breakfast and lunch. She denies fevers or chills. Objective Vital Signs/Intake & Output: Vital Signs 11/16/17 14:53 11/16/17 16:10 11/16/17 17:00 Temperature 98.3 F Pulse Rate 83 Respiratory Rate 18 18 18 Blood Pressure 139/79 Pulse Oximetry 100 11/16/17 20:00 11/17/17 00:00 11/17/17 00:05 Temperature 98.8 F 97.9 F Pulse Rate 96 H 94 H Respiratory Rate 20 18 18 Blood Pressure 151/91 H 129/84 Pulse Oximetry 100 100 11/17/17 04:00 11/17/17 04:44 11/17/17 05:00 Temperature 98.1 F Pulse Rate 91 H Respiratory Rate 18 18 18 Blood Pressure 123/73 Pulse Oximetry 98 11/17/17 08:39 11/17/17 11:23 Temperature 98.4 F 96.6 F L Pulse Rate 90 86 Respiratory Rate 18 16 Blood Pressure 142/88 H 122/41 L Pulse Oximetry 100 99 Intake & Output 11/16/17 11/17/17 11/17/17 18:59 06:59 18:59 Intake Total 2500 / 2500 350 / 350 Output Total 1600 / 1600 1000 / 1000 Balance 900 / 900 -1000 / -1000 350 / 350 Weight 74.8 kg Intake: IV 1000 / 1000 350 / 350 NS Inj 1,000 ML @ 84 mls/hr IV. 1000 / 1000 CONT .[id number] NEVIN Rx#:[id number] Maxipime Inj 2,000 MG In NS Inj 100 / 100 100 ML @ 200 mls/hr IV.SIG Q12H NEVIN Rx#:[id number] Vancomycin Inj 1,000 MG In NS 250 / 250 Inj 250 ML @ 250 mls/hr IV.SIG Q24H NEVIN Rx#:[id number] Oral 1500 / 1500 Output: Urine 1600 / 1600 1000 / 1000 Other: Date of Last Bowel Movement 11/16/17 11/16/17 11/16/17 # Bowel Movements 2 Result Diagrams: 11/17/17 05:30 11/17/17 05:30 Laboratory Results: Laboratory Results - last 24 hr 11/17/17 11/17/17 05:30 05:30 WBC 7.6 RBC 2.80 L Hgb 8.3 L Hct 25.0 L MCV 89.4 MCH 29.8 MCHC 33.3 RDW 22.2 H Plt Count 160 D MPV 7.9 Prelim Diff (Auto) Slide review pending Neut % (Auto) 68.9 Lymph % (Auto) 13.6 [place] % (Auto) 13.8 H Eos % (Auto) 3.1 Baso % (Auto) 0.6 Neut # (Auto) 5.2 Lymph # (Auto) 1.0 [place] # (Auto) 1.0 H Eos # (Auto) 0.2 Baso # (Auto) 0.0 WBC Differential Manual diff final Seg Neuts % (Manual) 74 H Band Neuts % (Manual) 4 Lymphocytes % (Manual) 8 L Monocytes % (Manual) 8 Eosinophils % (Manual) 4 Metamyelocytes % (Man) 1 Myelocytes % (Man) 1 H Abs Neuts (Manual) 6.1 Differential Comment . Platelet Estimate Normal Platelet Morphology Normal Ovalocytes 1+ H Sodium 139 Potassium 4.6 Chloride 110 H Carbon Dioxide 23.8 Anion Gap 5 BUN 10 Creatinine 0.73 Estimated GFR 78 L Random Glucose 80 Calcium 8.2 L Culture Results: Microbiology 11/11/17 17:30 Aerobic Blood Culture - Final Blood - Peripheral No growth in 5 days Anaerobic Blood Culture - Final No growth in 5 days 11/11/17 17:30 Aerobic Blood Culture - Final Blood - Peripheral No growth in 5 days Anaerobic Blood Culture - Final No growth in 5 days Imaging Studies: Impressions Abdomen/Pelvis CT 11/16/17 00:00 CONCLUSION: 1. Numerous hepatic masses consistent with metastatic disease. These appear slightly smaller on the current exam. 2. Persistent 3.9 cm pancreatic mass which appears unchanged. The patient has a history of pancreatic cancer. 3. At least 2 focal bone lesions are seen. These are consistent with metastatic lesions. 4. Mild ascites seen around the liver, spleen and in the paracolic gutter regions. This is too small and amount to drain. 5. Distention of the urinary bladder. This certainly can lead to a sensation of fullness in the pelvis. There is dilatation of the renal collecting systems and ureters bilaterally likely secondary to the distended urinary bladder. The cause of the distention is not seen. Medications: Active Medications Generic Name Dose Route Start Last Admin Trade Name Freq PRN Reason Stop Dose Admin Acetaminophen 650 mg 11/11/17 20:19 11/12/17 04:21 Tylenol PO 650 mg Q4H PRN Administration fever Apixaban 5 mg 11/11/17 21:00 11/17/17 09:33 Eliquis PO 5 mg BID NEVIN Administration Cephalexin Monohydrate 500 mg 11/16/17 09:00 11/17/17 09:34 Keflex PO 11/20/17 08:59 500 mg BID NEVIN Administration Doxycycline Hyclate 100 mg 11/16/17 09:00 11/17/17 09:34 Vibramycin PO 11/20/17 08:59 100 mg Q12HR NEVIN Administration Heparin Sodium (Porcine) 250 unit 11/12/17 01:48 11/13/17 05:47 Heparin Central Flush IV.FLUSH 250 unit PRN PRN Administration Flush Infusapot Cefepime HCl 2,000 mg/ Sodium 100 mls @ 200 mls/hr 11/12/17 16:00 11/17/17 07 :42 Chloride IV.SIG Infused Q12H NEVIN Infusion Sodium Chloride 1,000 mls @ 84 mls/hr 11/13/17 10:44 11/17/17 11:21 Ns Inj IV.CONT Not Given .[id number] NEVIN Vancomycin HCl 1,000 mg/ 250 mls @ 250 mls/hr 11/12/17 09:00 11/17/17 11:22 Sodium Chloride IV.SIG Infused Q24H NEVIN Infusion Lactulose 15 ml 11/12/17 09:00 11/17/17 13:16 Lactulose Liq PO Not Given TID NEVIN Levothyroxine Sodium 100 mcg 11/12/17 06:00 11/17/17 05:20 Synthroid PO 100 mcg DAILY@0600 NEVIN Administration Metoclopramide HCl 5 mg 11/13/17 16:34 11/17/17 00:36 Reglan Inj IV.PUSH 5 mg Q8H PRN Administration nausea/vomiting Protocol Morphine Sulfate 30 mg 11/13/17 21:00 11/17/17 09:33 Oramorph Sr PO 30 mg Q12H NEVIN Administration Ondansetron HCl 4 mg 11/15/17 16:50 11/15/17 20:36 Zofran Odt PO 4 mg Q6H PRN Administration NAUSEA OR VOMITING Oxycodone HCl 5 mg 11/11/17 20:30 11/17/17 11:20 Roxicodone PO 5 mg Q4HR NEVIN Administration Pantoprazole Sodium 40 mg 11/12/17 09:00 11/17/17 09:33 Protonix PO 40 mg DAILY NEVIN Administration Sodium Chloride 5 ml 11/12/17 01:48 11/13/17 05:47 Ns Flush IV.FLUSH 5 ml PRN PRN Administration Flush Infusaport Objective Remarks: GENERAL: Middle-aged/elderly lady, sitting up at bedside, appears to be no acute distress is a pleasant disposition.. SKIN: Warm and dry. HEAD: Normocephalic. EYES: No scleral icterus. No injection or drainage. NECK: Supple, trachea midline. No JVD or lymphadenopathy. LYMPHATIC: No adenopathy. CARDIOVASCULAR: Regular rate and rhythm without murmurs. RESPIRATORY: Breath sounds equal bilaterally. No accessory muscle use. GASTROINTESTINAL: Abdomen appears less distended, continues to have tenderness in the epigastric area and left upper quadrant. EXTREMITIES: Bilateral pretibial edema no calf tenderness, she near complete resolution of erythema of the left leg. MUSCULOSKELETAL: Adequate muscle tone. NEUROLOGICAL: No obvious focal deficit. Awake, alert, and oriented x3. PSYCHIATRIC: Appropriate mood and affect; insight and judgment normal. 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 She had progressive disease on first-line palliative systemic therapy consisting of FOLFIRINOX, after 3 cycles she had definite evidence of progression and was transitioned to second line palliative systemic therapy with gemcitabine and Abraxane. In mid September she was also diagnosed with pulmonary emboli and has been on therapeutic anticoagulation with Eliquis. Over the weekend, approximately 2 days after receiving cycle 2 day 8 gemcitabine/Abraxane she developed fevers associated with swelling of her legs and tenderness of the left leg. She presented to the hospital and was assessed to have cellulitis of the left leg. She has been initiated on empiric antibiotic therapy consisting of cefepime and vancomycin with good clinical effect thus far with decreased erythema, tenderness and redness of the left leg. Recommendations: 1. Cellulitis of the left lower extremity: Doing well, recommend discharge on doxycycline with Keflex. 2. Metastatic pancreas adenocarcinoma: Most recently on palliative systemic therapy with a combination of Abraxane and gemcitabine., Her previous nausea and vomiting is improved. CT scan of the abdomen pelvis performed 11/16/2017 reviewed, imaging studies actually reveal improvement in the metastatic disease burden involving the liver. Her stomach does appear distended on the scan but her nausea is improved. Continue metoclopramide and Zofran. 3. Pulmonary emboli: Continue therapeutic anticoagulation with Eliquis. 4. Clear for discharge from oncology standpoint. Patient will follow-up in the outpatient setting. Clear for discharge from oncology standpoint.
[2017-11-18 05:43] LABS: Baso # (Auto) 0.1 th/mm3 (0.0-0.2); Baso % (Auto) 1.1 % (0.0-2.0); Eos # (Auto) 0.2 th/mm3 (0.0-0.4); Eos % (Auto) 2.8 % (0.0-4.0); Hematocrit 23.7 % (35.0-46.0); Hemoglobin 7.7 gm/dL (11.6-15.3); Lymph # (Auto) 1.2 th/mm3 (1.0-4.8); Mean Corpuscular HGB Conc 32.6 % (32.0-36.0); Mean Corpuscular Hemoglobin 29.2 pg (27.0-34.0); Mean Corpuscular Volume 89.5 fL (80.0-100.0); Mean Platelet Volume 7.8 fL (7.0-11.0); Mono # (Auto) 1.7 th/mm3 (0.0-0.9); Neut # (Auto) 5.1 th/mm3 (1.8-7.7); Neut % (Auto) 61.1 % (16.0-70.0); Platelet Count 247 th/mm3 (150-450); Red Blood Count 2.65 mil/mm3 (4.00-5.30); Red Cell Distribution Width 22.1 % (11.6-17.2); White Blood Count 8.3 th/mm3 (4.0-11.0)
[2017-11-18 05:50] LABS: Carbon Dioxide 28.2 meq/L (21.0-32.0); Potassium 4.4 meq/L (3.5-5.1)
[2017-11-18] MEDS: Levothyroxine 100 MCG Tablet PO SCH (06:47)
[2017-11-18 07:22] LABS: Eosinophils 4 % (0-4); Lymphocytes 15 % (9-44); Metamyelocytes 4 % (0-1); Monocytes 18 % (0-8); Myelocytes 5 % (0-0); Promyelocyte 1 % (0-0); Tallied Nucleated RBC 3 (0-0)
[2017-11-18 07:23] LABS: Platelet Estimate Normal (Normal); Platelet Morphology Normal (Normal)
[2017-11-18 08:07] VITALS: RESP 18
[2017-11-18] MEDS: Vancomycin Inj 1,000 MG in Sodium Chlor 0.9% Inj 250 ML IV.SIG SCH (08:08)
[2017-11-18] MEDS: Morphine Sulfate 30 MG SR Tablet PO SCH (08:10)
[2017-11-18] MEDS: Sod Chloride 0.9% Inj 1,000 ML IV.CONT SCH (09:48)
[2017-11-18 11:37] VITALS: BP 138/85; PULSE 95; TEMP 97.6; O2SAT 100
--- NOTE | 2017-11-18 12:18 | P.PNIM ---
Subjective Interval history: 11-17 Follow-up bilateral lower extremity cellulitis, hypertension, acute on chronic anemia, metastatic pancreatic adenocarcinoma, pulmonary emboli. The patient has no more nausea today however she feels very tired and she does not feel comfortable to go home. Dr. Olson recommend possible discharge tomorrow. Patient with no fever or chills. Not eating much. Some pain in her legs however improved currently. Edema and erythema improving also 11-18 WILL DC TO HOME TODAY ON DOXYCYCLINE AND KEFLEX CLEARED BY ONCOLOGY Physical Exam Vital signs: Vital Signs 11/17/17 16:00 11/17/17 20:00 11/17/17 21:40 Temperature 98.4 F 98.1 F Pulse Rate 89 106 H 107 H Respiratory Rate 16 17 Blood Pressure 146/85 H 162/94 H Pulse Oximetry 98 98 11/17/17 22:13 11/17/17 22:14 11/18/17 00:00 Temperature Pulse Rate 100 H Respiratory Rate 16 18 Blood Pressure Pulse Oximetry 11/18/17 01:20 11/18/17 04:00 11/18/17 04:33 Temperature 98.7 F 98.6 F Pulse Rate 102 H 98 H 93 H Respiratory Rate 16 16 Blood Pressure 145/88 H 156/89 H Pulse Oximetry 97 98 11/18/17 05:33 11/18/17 08:00 11/18/17 11:34 Temperature 98.3 F 97.6 F Pulse Rate 94 H 95 H Respiratory Rate 16 18 18 Blood Pressure 154/86 H 138/85 Pulse Oximetry 97 100 Intake & Output 11/17/17 11/18/17 11/18/17 18:59 06:59 18:59 Intake Total 1310 / 1310 100 / 100 250 / 250 Output Total 1700 / 1700 Balance 1310 / 1310 -1600 / -1600 250 / 250 Weight 74 kg Intake: IV 450 / 450 100 / 100 250 / 250 Maxipime Inj 2,000 MG In NS Inj 200 / 200 100 / 100 100 ML @ 200 mls/hr IV.SIG Q12H NEVIN Rx#:[id number] Vancomycin Inj 1,000 MG In NS 250 / 250 250 / 250 Inj 250 ML @ 250 mls/hr IV.SIG Q24H NEVIN Rx#:[id number] Oral 860 / 860 Output: Urine 1700 / 1700 Other: # Voids 4 Date of Last Bowel Movement 11/16/17 11/17/17 11/17/17 # Bowel Movements 3 Narrative: Gen.: Pleasant elderly female, well-nourished well-developed, in no acute distress Skin: Bilateral feet erythema and edema is improving. Warm to the touch. Cardiovascular: Regular rate and rhythm. No murmurs, rubs or gallops. Respiratory: Lungs clear to auscultation bilaterally. No wheezes or rhonchi. Abdomen: Soft, nontender, nondistended. Musculoskeletal: Bilateral lower extremity pedal and leg edema improving. Also pain in both legs L> R Neuro: Sensory and motor grossly intact. Cranial nerves II through XII grossly intact. Psych: Appropriate mood and affect Results - Labs CBC & Chem 7: 11/18/17 04:40 11/18/17 04:40 Laboratory Results - last 24 hr 11/18/17 11/18/17 04:40 04:40 WBC 8.3 RBC 2.65 L Hgb 7.7 L Hct 23.7 L MCV 89.5 MCH 29.2 MCHC 32.6 RDW 22.1 H Plt Count 247 D MPV 7.8 Prelim Diff (Auto) Slide review pending Neut % (Auto) 61.1 Lymph % (Auto) 14.0 [place] % (Auto) 21.0 H Eos % (Auto) 2.8 Baso % (Auto) 1.1 Neut # (Auto) 5.1 Lymph # (Auto) 1.2 [place] # (Auto) 1.7 H Eos # (Auto) 0.2 Baso # (Auto) 0.1 WBC Differential Manual diff final Seg Neuts % (Manual) 50 Band Neuts % (Manual) 3 Lymphocytes % (Manual) 15 Monocytes % (Manual) 18 H Eosinophils % (Manual) 4 Metamyelocytes % (Man) 4 H Myelocytes % (Man) 5 H Promyelocytes % (Man) 1 H Abs Neuts (Manual) 5.2 Nucleated RBCs/100 WBC 3 H Differential Comment . Platelet Estimate Normal Platelet Morphology Normal Keratocytes Occ H Sodium 142 Potassium 4.4 Chloride 110 H Carbon Dioxide 28.2 Anion Gap 4 L BUN 10 Creatinine 0.71 Estimated GFR 81 L Random Glucose 97 Calcium 8.0 L - Imaging Chest X-Ray 11/11/17 16:26 CONCLUSION: No acute findings. Stable presumed scarring right midlung and left base compared with October 26. [id number] in superior vena cava. Venous Doppler Study 11/11/17 16:50 CONCLUSION: 1. The study is negative for bilateral lower extremity deep venous thrombosis. Abdomen/Pelvis CT 11/16/17 00:00 CONCLUSION: 1. Numerous hepatic masses consistent with metastatic disease. These appear slightly smaller on the current exam. 2. Persistent 3.9 cm pancreatic mass which appears unchanged. The patient has a history of pancreatic cancer. 3. At least 2 focal bone lesions are seen. These are consistent with metastatic lesions. 4. Mild ascites seen around the liver, spleen and in the paracolic gutter regions. This is too small and amount to drain. 5. Distention of the urinary bladder. This certainly can lead to a sensation of fullness in the pelvis. There is dilatation of the renal collecting systems and ureters bilaterally likely secondary to the distended urinary bladder. The cause of the distention is not seen. - Procedures No procedures Assessment and Plan - Plan 1. Bilateral lower extremity cellulitis. Fever while undergoing chemotherapy/ pancreatic cancer Patient febrile at home Cefepime and vancomycin Medical oncology consulted, Dr. Olson, appreciate recommendations Chest x-ray, UA negative Blood cultures so far NTD Obtain wound cultures if possible Continue home pain medication regimen Hematology oncology consulted seen by Dr. Olson. On hold chemo until cellulitis is treated. 2. History of hypertension Patient normotensive at this time Previously taken off all of her blood pressure medications Monitor 3. Hypothyroidism Continue Synthroid 4. Acute on chronic anemia with significant drop in HGB poss GI loss and also patient symptomatic anemia. Patient received 2U PRBCs. H/H so far stable. Monitor 5. Metastatic pancreas adenocarcinoma: Most recently on palliative systemic therapy with a combination of Abraxane and gemcitabine., Unfortunately she now has symptoms of persistent nausea and vomiting, I am concerned she may have gastric outflow obstruction related to her significant tumor burden in the pancreas. Should her symptoms of nausea and vomiting not resolve with optimal antiemetic therapy CT scan of the abdomen pelvis reviewed 6. Pulmonary emboli: Continue therapeutic anticoagulation with Eliquis. Stable at this time 7. Nausea and vomiting: Shortage of IV Zofran and switched to by mouth if patient tries to take by mouth, I did metoclopramide 5 mg IV every 8 hours. I discussed with Dr. Wright hematology oncology plan for CT abdomen if patient still with nausea vomiting. Patient went for CT abdomen and pelvis today. FEN Regular diet Electrolytes: Monitor and replete as needed Eliquis Discussed with the patient, nurse, Dr. Olson hematology oncology Discharge plan: Plan to discharge home possible tomorrow per hem/onc Code Status: DNR Discussed Condition With: ONCOLOGY AND RN AND PT Discharge Planning: DC TO HOME TODAY
--- NOTE | 2017-11-18 12:25 | P.DS ---
Date of admission: 11/11/17 18:26 Primary care physician: UNKNOWN Attending physician on discharge: Robinson Lux Anticipated date of discharge: 11/18/17 Brief History from admission: 72-year-old female with a past medical history significant for stage IV pancreatic cancer presents to the emergency department for the evaluation of a fever and bilateral lower extremity edema. The patient reports for the past 1-1 /2 weeks she has had bilateral lower extremity edema with redness and heat. Her feet have changed to a red/purple color and have been painful. She reports slight improvement in them today. The patient states that she had a fever of 101.1 today while at home. Her oncologist is Dr. Olson and her last chemotherapy was Sunday. Dr. Olson advised the patient that if she had a fever to come to the hospital. Additionally, the patient was in the hospital 2 weeks ago for pneumonia where she was treated and released to home. She denies any chest pain or shortness of breath. No abdominal pain. No nausea/vomiting/ diarrhea. No dysuria. No lateralizing signs/symptoms. 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 The patient reports for the past 1-1 /2 weeks she has had bilateral lower extremity edema with redness and heat. Her feet have changed to a red/purple color and have been painful. She reports slight improvement in them today. The patient states that she had a fever of 101.1 today while at home. Her oncologist is Dr. Olson and her last chemotherapy was Sunday. Dr. Olson advised the patient that if she had a fever to come to the hospital. Additionally, the patient was in the hospital 2 weeks ago for pneumonia where she was treated and released to home. She denies any chest pain or shortness of breath. No abdominal pain. No nausea/vomiting/ diarrhea. No dysuria. No lateralizing signs/symptoms MEDS HAVE BEEN ADJUSTED SEEN BY ONCOLOGY AND PALLIATIVE CARE DC ON KEFLEX AND DOXY FOR CELLULITIS - Time Spent with Patient Total time spent providing and/or coordinating discharge services: Greater than 30 minutes - Quality: VTE Deep Vein Thrombosis/Pulmonary Embolism Present on Admission: No Exam Vital signs: Vital Signs 11/17/17 16:00 11/17/17 20:00 11/17/17 21:40 Temperature 98.4 F 98.1 F Pulse Rate 89 106 H 107 H Respiratory Rate 16 17 Blood Pressure 146/85 H 162/94 H Pulse Oximetry 98 98 11/17/17 22:13 11/17/17 22:14 11/18/17 00:00 Temperature Pulse Rate 100 H Respiratory Rate 16 18 Blood Pressure Pulse Oximetry 11/18/17 01:20 11/18/17 04:00 11/18/17 04:33 Temperature 98.7 F 98.6 F Pulse Rate 102 H 98 H 93 H Respiratory Rate 16 16 Blood Pressure 145/88 H 156/89 H Pulse Oximetry 97 98 11/18/17 05:33 11/18/17 08:00 11/18/17 11:34 Temperature 98.3 F 97.6 F Pulse Rate 94 H 95 H Respiratory Rate 16 18 18 Blood Pressure 154/86 H 138/85 Pulse Oximetry 97 100 Intake & Output 11/17/17 11/18/17 11/18/17 18:59 06:59 18:59 Intake Total 1310 / 1310 100 / 100 250 / 250 Output Total 1700 / 1700 Balance 1310 / 1310 -1600 / -1600 250 / 250 Weight 74 kg Intake: IV 450 / 450 100 / 100 250 / 250 Maxipime Inj 2,000 MG In NS Inj 200 / 200 100 / 100 100 ML @ 200 mls/hr IV.SIG Q12H NEVIN Rx#:[id number] Vancomycin Inj 1,000 MG In NS 250 / 250 250 / 250 Inj 250 ML @ 250 mls/hr IV.SIG Q24H NEVIN Rx#:[id number] Oral 860 / 860 Output: Urine 1700 / 1700 Other: # Voids 4 Date of Last Bowel Movement 11/16/17 11/17/17 11/17/17 # Bowel Movements 3 Narrative: Gen.: Pleasant elderly female, well-nourished well-developed, in no acute distress Skin: Bilateral feet erythema and edema is improving. Warm to the touch. Cardiovascular: Regular rate and rhythm. No murmurs, rubs or gallops. Respiratory: Lungs clear to auscultation bilaterally. No wheezes or rhonchi. Abdomen: Soft, nontender, nondistended. Musculoskeletal: Bilateral lower extremity pedal and leg edema improving. Also pain in both legs L> R Neuro: Sensory and motor grossly intact. Cranial nerves II through XII grossly intact. Psych: Appropriate mood and affect Results Procedures completed during hospitalization: No procedures Completed studies during hospitalization: Laboratory Results WBC 8.3 th/mm3 (4.0-11.0) 11/18/17 04:40 RBC 2.65 mil/mm3 (4.00-5.30) L 11/18/17 04:40 Hgb 7.7 gm/dL (11.6-15.3) L 11/18/17 04:40 Hct 23.7 % (35.0-46.0) L 11/18/17 04:40 MCV 89.5 fL (80.0-100.0) 11/18/17 04:40 MCH 29.2 pg (27.0-34.0) 11/18/17 04:40 MCHC 32.6 % (32.0-36.0) 11/18/17 04:40 RDW 22.1 % (11.6-17.2) H 11/18/17 04:40 Plt Count 247 th/mm3 (150-450) D 11/18/17 04:40 MPV 7.8 fL (7.0-11.0) 11/18/17 04:40 Prelim Diff (Auto) Slide review pending 11/18/17 04:40 Neut % (Auto) 61.1 % (16.0-70.0) 11/18/17 04:40 Lymph % (Auto) 14.0 % (9.0-44.0) 11/18/17 04:40 Daniels % (Auto) 21.0 % (0.0-8.0) H 11/18/17 04:40 Eos % (Auto) 2.8 % (0.0-4.0) 11/18/17 04:40 Baso % (Auto) 1.1 % (0.0-2.0) 11/18/17 04:40 Neut # (Auto) 5.1 th/mm3 (1.8-7.7) 11/18/17 04:40 Lymph # (Auto) 1.2 th/mm3 (1.0-4.8) 11/18/17 04:40 Daniels # (Auto) 1.7 th/mm3 (0.0-0.9) H 11/18/17 04:40 Eos # (Auto) 0.2 th/mm3 (0.0-0.4) 11/18/17 04:40 Baso # (Auto) 0.1 th/mm3 (0.0-0.2) 11/18/17 04:40 WBC Differential Manual diff final 11/18/17 04:40 Diff Scan Auto diff confirmed 11/16/17 04:40 Seg Neuts % (Manual) 50 % (16-70) 11/18/17 04:40 Band Neuts % (Manual) 3 % (0-6) 11/18/17 04:40 Lymphocytes % (Manual) 15 % (9-44) 11/18/17 04:40 Monocytes % (Manual) 18 % (0-8) H 11/18/17 04:40 Eosinophils % (Manual) 4 % (0-4) 11/18/17 04:40 Metamyelocytes % (Man) 4 % (0-1) H 11/18/17 04:40 Myelocytes % (Man) 5 % (0-0) H 11/18/17 04:40 Promyelocytes % (Man) 1 % (0-0) H 11/18/17 04:40 Abs Neuts (Manual) 5.2 th/mm3 (1.8-7.7) 11/18/17 04:40 Nucleated RBCs/100 WBC 3 /100 WBC (0-0) H 11/18/17 04:40 Differential Comment . 11/18/17 04:40 Platelet Estimate Normal (Normal) 11/18/17 04:40 Platelet Morphology Normal (Normal) 11/18/17 04:40 Tear Drop Cells 1+ (None) H 11/16/17 04:40 Ovalocytes 1+ (None) H 11/17/17 05:30 Keratocytes Occ (None) H 11/18/17 04:40 PT 11.0 sec (9.8-11.6) 11/11/17 17:30 INR 1.1 Ratio 11/11/17 17:30 APTT 28.6 sec (24.3-30.1) 11/11/17 17:30 Sodium 142 meq/L (136-145) 11/18/17 04:40 Potassium 4.4 meq/L (3.5-5.1) 11/18/17 04:40 Chloride 110 meq/L (98-107) H 11/18/17 04:40 Carbon Dioxide 28.2 meq/L (21.0-32.0) 11/18/17 04:40 Anion Gap 4 meq/L (5-15) L 11/18/17 04:40 BUN 10 mg/dL (7-18) 11/18/17 04:40 Creatinine 0.71 mg/dL (0.50-1.00) 11/18/17 04:40 Estimated GFR 81 mL/min (>89) L 11/18/17 04:40 Random Glucose 97 mg/dL (74-106) 11/18/17 04:40 Lactic Acid 1.1 mmol/L (0.4-2.0) 11/11/17 17:30 Calcium 8.0 mg/dL (8.5-10.1) L 11/18/17 04:40 Magnesium 2.3 mg/dL (1.5-2.5) 11/11/17 17:30 Total Bilirubin 0.7 mg/dL (0.2-1.0) 11/11/17 17:30 AST 63 U/L (15-37) H 11/11/17 17:30 ALT 51 U/L (10-53) 11/11/17 17:30 Alkaline Phosphatase 209 U/L (45-117) H 11/11/17 17:30 Total Creatine Kinase 33 U/L (26-192) 11/11/17 17:30 Total Protein 6.1 g/dL (6.4-8.2) L 11/11/17 17:30 Albumin 2.3 g/dL (3.4-5.0) L 11/11/17 17:30 Urine Color Yellow (Yellw/Straw) 11/11/17 20:50 Urine Clarity Clear (Clear) 11/11/17 20:50 Urine pH 6.0 (5.0-8.5) 11/11/17 20:50 Ur Specific [place] 1.010 (1.002-1.035) 11/11/17 20:50 Urine Protein Negative mg/dL (Neg-Trace) 11/11/17 20:50 Urine Glucose (UA) Negative mg/dL (Negative) 11/11/17 20:50 Urine Ketones Negative mg/dL (Negative) 11/11/17 20:50 Urine Occult Blood Negative (Negative) 11/11/17 20:50 Urine Nitrate Negative (Negative) 11/11/17 20:50 Urine Bilirubin Negative (Negative) 11/11/17 20:50 Urine Urobilinogen Less than 2 mg/dL (Less than 2) 11/11/17 20:50 Ur Leukocyte Esterase Negative (Negative) 11/11/17 20:50 Urine WBC 1 /hpf (0-5) 11/11/17 20:50 Ur Squamous Epith Cells 1 /hpf (0-5) 11/11/17 20:50 Urine Mucus Few /lpf (Occasional) H 11/11/17 20:50 Micro UA Comment Cath-culture not ind 11/11/17 20:50 Urine Culture Comments Cath-cult not ind 11/11/17 20:50 Vancomycin Trough 14.1 mcg/mL (5.0-10.0) H 11/14/17 09:05 Blood Type B Positive 11/12/17 06:18 Antibody Screen Negative 11/12/17 06:18 MTS Gel Crossmatch See Detail 11/12/17 06:18 Impressions Chest X-Ray 11/11/17 16:26 CONCLUSION: No acute findings. Stable presumed scarring right midlung and left base compared with October 26. [id number] in superior vena cava. Venous Doppler Study 11/11/17 16:50 CONCLUSION: 1. The study is negative for bilateral lower extremity deep venous thrombosis. Abdomen/Pelvis CT 11/16/17 00:00 CONCLUSION: 1. Numerous hepatic masses consistent with metastatic disease. These appear slightly smaller on the current exam. 2. Persistent 3.9 cm pancreatic mass which appears unchanged. The patient has a history of pancreatic cancer. 3. At least 2 focal bone lesions are seen. These are consistent with metastatic lesions. 4. Mild ascites seen around the liver, spleen and in the paracolic gutter regions. This is too small and amount to drain. 5. Distention of the urinary bladder. This certainly can lead to a sensation of fullness in the pelvis. There is dilatation of the renal collecting systems and ureters bilaterally likely secondary to the distended urinary bladder. The cause of the distention is not seen. Labs on day of discharge: Labs from last 24 hours 11/18/17 11/18/17 04:40 04:40 WBC 8.3 RBC 2.65 L Hgb 7.7 L Hct 23.7 L MCV 89.5 MCH 29.2 MCHC 32.6 RDW 22.1 H Plt Count 247 D MPV 7.8 Prelim Diff (Auto) Slide review pending Neut % (Auto) 61.1 Lymph % (Auto) 14.0 Daniels % (Auto) 21.0 H Eos % (Auto) 2.8 Baso % (Auto) 1.1 Neut # (Auto) 5.1 Lymph # (Auto) 1.2 Daniels # (Auto) 1.7 H Eos # (Auto) 0.2 Baso # (Auto) 0.1 WBC Differential Manual diff final Seg Neuts % (Manual) 50 Band Neuts % (Manual) 3 Lymphocytes % (Manual) 15 Monocytes % (Manual) 18 H Eosinophils % (Manual) 4 Metamyelocytes % (Man) 4 H Myelocytes % (Man) 5 H Promyelocytes % (Man) 1 H Abs Neuts (Manual) 5.2 Nucleated RBCs/100 WBC 3 H Differential Comment . Platelet Estimate Normal Platelet Morphology Normal Keratocytes Occ H Sodium 142 Potassium 4.4 Chloride 110 H Carbon Dioxide 28.2 Anion Gap 4 L BUN 10 Creatinine 0.71 Estimated GFR 81 L Random Glucose 97 Calcium 8.0 L - Impressions ITS Impressions Chest X-Ray 11/11/17 16:26 CONCLUSION: No acute findings. Stable presumed scarring right midlung and left base compared with October 26. [id number] in superior vena cava. Venous Doppler Study 11/11/17 16:50 CONCLUSION: 1. The study is negative for bilateral lower extremity deep venous thrombosis. Abdomen/Pelvis CT 11/16/17 00:00 CONCLUSION: 1. Numerous hepatic masses consistent with metastatic disease. These appear slightly smaller on the current exam. 2. Persistent 3.9 cm pancreatic mass which appears unchanged. The patient has a history of pancreatic cancer. 3. At least 2 focal bone lesions are seen. These are consistent with metastatic lesions. 4. Mild ascites seen around the liver, spleen and in the paracolic gutter regions. This is too small and amount to drain. 5. Distention of the urinary bladder. This certainly can lead to a sensation of fullness in the pelvis. There is dilatation of the renal collecting systems and ureters bilaterally likely secondary to the distended urinary bladder. The cause of the distention is not seen. Discharge Plan - Discharge Disposition Patient Disposition: W/Home Health Service - Discharge Condition Condition: Fair - Discharge Order Discharge Orders: Discharge Order (Routine); Ordered 11/18/17 Ordered By: Lay Dominguez Oncology Clear for Discharge (Routine); Ordered 11/16/17 Ordered By: Mireya Chua - Discharge Details Anticipated Discharge Date: 11/18/17 Discharge Comment: DC WITH [facility] - Physicians Team Primary Care Provider: UNKNOWN, Attending Provider: Robinson Lux Other Providers: Hugo Olson MD ; Aj Phan MD
== END 2017-11-18 14:13 | disposition home health service (06) ==
LOC: NEPC 15:58 → NEDA 18:26 → HCIN 20:15
PROVIDERS: ADMIT Hospitalist; ATTEND Hospitalist

== ENCOUNTER 2017-12-14 15:33 | Inpatient (IN) ==
--- NOTE | 2017-12-14 16:47 | P.CON ---
History of Present Illness Service: Hematology/oncology Consult date: 12/14/17 Requesting Physician: Tiera Mandel Reason for Consult: Urosepsis. Diagnosis of metastatic pancreas cancer. Primary Care Provider: Chin Randle MD Family Provider: Chin Randle MD Chief Complaint: Fever of 102.5F at home. History of Present Illness: Ms. Louie is a 72-year-old female who is well-known to me from outpatient practice. This patient was diagnosed in the spring 2017 with metastatic pancreas carcinoma, the primary tumor involves the tail the pancreas was associate with innumerable liver metastases. Initial treatment consisted of palliative first-line systemic therapy with a combination of FOLFIRINOX, after 4 cycles restaging imaging scans indicated disease progression. She was subsequently transitioned to second line palliative therapy with Abraxane and gemcitabine, she has received 3 cycles thus far with the most recent dose delivered on 12/03/2017. Earlier this month the patient was hospitalized at [facility] with lower extremity cellulitis. She had been on oral antibiotic therapy for management of this, clinically she reports her cellulitis is improved. The patient called the outpatient oncology clinic this morning reporting symptoms of fevers, she documented a temperature of 102.5F at home, she reports feeling weak and tired but did not localize additional symptoms. Upon evaluation in the outpatient oncology clinic, the patient was noted to have a heart rate of 135 bpm, temperature was noted to be 100F and her blood pressure was borderline low. Blood cultures were ordered in the clinic including 1 peripheral stick in 1 port draw and urine analysis was also recommended with reflex to culture. She was treated with 1000 cc normal saline IV fluid for hydration (this resulted in improvement in her heart rate down to 100 bpm) C's. She was also empirically treated with cefepime 2 g IV 1 in the clinic. The patient subsequently provided us with a urine sample for urinalysis, the urine was grossly purulent. She was substernally transferred to the emergency department for urosepsis. Case was discussed personally with the ER physician as well as hospitalist physician. Review of Systems Constitutional: Reports chills, Reports lack of energy, Reports weight loss, Denies anorexia, Denies body ache(s), Denies daytime sleepiness Eyes: Denies blurry vision Ears, Nose, Mouth, and Throat: Denies abnormal hearing, Denies change in voice, Denies sore throat Cardiovascular: Denies chest pain, Denies shortness of breath with activity, Denies shortness of breath when lying down, Denies shortness of breath causing sudden awakening Respiratory: Reports cough, Reports shortness of breath, Denies change in phlegm color, Denies coughing up blood Gastrointestinal: Reports abdominal pain, Denies bloating, Denies bright, red blood in stools, Denies loose stools Genitourinary: Denies blood in urine Comments: Patient reports cloudy urine for the past few weeks. Musculoskeletal: Denies abnormal walking, Denies back pain, Denies body aches Neurologic: Reports unsteadiness, Reports weakness, Denies abnormal hearing, Denies abnormal speech, Denies tremor(s) Psychiatric: Denies abnormal sleep pattern, Denies anxiety, Denies panic attacks Endocrine: Reports cold intolerance Hematologic/Lymphatic: Denies easy bleeding Allergic/Immunologic: Denies GI upset with certain foods PMFSH - History History Provided By: Patient - Medical History Medical History: Medical History (Last Updated 12/14/17 @ 16:40 by Hugo Olson MD) Malignant neoplasm determined by biopsy of pancreas (Acute) Current tobacco use (Acute) Hypothyroidism (Acute) Pulmonary embolism (Acute) Secondary malignant neoplasm of liver (Acute) Hypertension (Acute) Pancreatic cancer (Acute) Cancer determined by pancreatic biopsy Recurrent cellulitis of lower extremity - Surgical History Surgical History: Surgical History (Last Updated 12/14/17 @ 15:54 by Krystal Kwok RN) Port-A-Cath in place (Acute) - Family History Family History: Family History (Last Updated 10/27/17 @ 17:56 by Dick Montelongo MD) Mother Esophageal adenocarcinoma Grandparent Cervical cancer - Tobacco History Second Hand Smoke Exposure: No Smoking Status: Former smoker Tobacco Type: Cigarettes - Alcohol History How Often Do You Have a Drink Containing Alcohol: Never - Substance Use History Substance History: No History of Abuse - Travel History Recent Travel in the [place] Within the Last 8 Weeks: No Recent Travel Out of the Country Within the Last 8 Weeks: No - Immunization History Tetanus Immunization: Unsure Hx Influenza Vaccine This Season: Yes Medications and Allergies Allergies Allergy/AdvReac Type Severity Reaction Status Date / Time No Known Allergies Allergy Verified 12/14/17 15:36 Home Medications Medication Instructions Recorded Confirmed Type apixaban [Eliquis] 5 mg PO BID 10/27/17 12/14/17 History lactulose 10 g PO TID 10/27/17 12/14/17 History levothyroxine 100 mcg PO DAILY 10/27/17 12/14/17 History morphine 15 mg PO Q12H 10/27/17 12/14/17 History ondansetron 4 mg PO QID PRN 10/27/17 12/14/17 History oxycodone 5 mg PO Q4H 10/27/17 12/14/17 History cephalexin [Keflex] 500 mg PO BID 12/14/17 12/14/17 History furosemide [Lasix] 20 mg PO BID 12/14/17 12/14/17 History potassium chloride 20 meq PO DAILY 12/14/17 12/14/17 History Physical Exam Vital signs: Vital Signs 12/14/17 15:38 12/14/17 15:54 Temperature 98.9 F Pulse Rate 120 H 116 H Respiratory Rate 14 18 Blood Pressure 138/60 119/54 L Pulse Oximetry 98 95 Intake & Output 12/13/17 12/14/17 12/14/17 18:59 06:59 18:59 Weight 65 kg Narrative: Elderly lady, laying in ER rharrah, appears to be no acute distress. - Constitutional no acute distress, thin, chronically ill appearing, cooperative - Routine HEENT Exam Head: Present: normocephalic Eye: Present: EOMI, PERRL, normal accommodation. Absent: conjunctival icterus ENT: Present: mucous membranes moist - Routine Neck Exam Present: supple, full ROM. Absent: lymphadenopathy - Routine Respiratory Exam Present: CTA bilaterally, respiratory distress, rhonchi. Absent: accessory muscle use, decreased breath sounds, wheezes, crackles, distant breath sounds, diminished air movement - Routine Cardiovascular Exam Present: RRR, S1, S2 - Routine Abdominal Exam Present: soft, tenderness (Over the right and left upper quadrant.). Absent: hernia, bruit - Routine Extremities Exam Absent: cyanosis, clubbing, edema, calf tenderness, tenderness Comments: Resolving cellulitis. - Routine Skin Exam Present: intact. Absent: rash - Routine Neurological Exam Present: alert, oriented X3, CN II-XII intact. Absent: sensory deficit - Detailed Neurological Exam: Coma Scale Eye Opening: Spontaneous - Routine Psychiatric Exam Present: normal affect Assessment and Plan - Plan Ms. Louie is a very pleasant 72-year-old female with a history of metastatic pancreas cancer initially diagnosed in June 2017. She had innumerable liver metastases at the time of diagnosis, she progressed on first- line palliative systemic therapy with FOLFIRINOX and was initiated on second line palliative systemic therapy with Abraxane and gemcitabine in late September 2017. She has thus far received 3 cycles of this treatment. Over the past 1 month she has noticed increased cloudiness in her urine and also reports having had some dysuria. Several weeks ago she was hospitalized at [place] with fevers and was assessed to have cellulitis, she was treated with intravenous antibiotics and then transition to oral antibiotics and discharged home. Additionally late September 2017 she was diagnosed with pulmonary emboli and is on therapeutic anticoagulation with Eliquis 5 mg twice daily. Earlier today she noticed a fever of 102.5F at home, she was evaluated in my clinic and was noted to be tachycardic and hypotensive, by the time she presented to my clinic her temperature was noted to be 100F. Urine was obtained for urinalysis and the urine was grossly purulent. She was treated with normal saline 1000 cc hydration and cefepime 2 g IV 1. Additional findings on blood work revealed leukocytosis with a WBC count of 25,000 mostly driven by neutrophilia. She was also noted on chemistries to have acute on chronic renal insufficiency. She was transferred to [facility] emergency department for further workup and management of what appears to be early urosepsis. Recommendations: 1. Urosepsis: Continue empiric antibiotic therapy with cefepime 1 g IV every 12 hours. Urine culture has been ordered. 2. Obtain blood cultures. 3. Metastatic pancreas carcinoma: All treatment will remain on hold until her acute issues resolved. 4. History of pulmonary emboli: Continue therapeutic anticoagulation with Eliquis. Oncology service to follow along with you.
[2017-12-14] MEDS ORDERED: Acetaminophen 325 MG Tablet PO ONE (16:49)
--- NOTE | 2017-12-14 17:06 | XR ---
EXAM DATE: 12/14/2017 5:01 PM EDT AGE/SEX: 72 years / Female INDICATIONS: Fever for 24 hours CLINICAL DATA: This is the patient's initial encounter. Patient reports that signs and symptoms have been present for 1 day and indicates a pain score of 0/10. MEDICAL/SURGICAL HISTORY: . COPD, GERD, Pancreatitis, HTN, Metastatic pancreas carcinoma, Thyro id disease, Secondary metastatic disease to liver. . [id number]. COMPARISON: [facility] [place] CHEST W/O CONTRAST, 10/27/2017. . FINDINGS: Right IJ [id number]-Dcki is present with tip overlapping the expected region of the SVC. There is minim al parenchymal infiltrate right midlung laterally, however overall improved since 11/11/2017. Heart an d mediastinum are unremarkable for technique. COPD changes are again seen. CONCLUSION: Overall improvement in right middle and lateral infiltrate since 11/09/2017. Residual opacity remains. Electronically signed by: Dominique Johnson MD 12/14/2017 5:05 PM EDT
[2017-12-14] MEDS ORDERED: Acetaminophen 325 MG Tablet PO PRN (17:28)
[2017-12-14] MEDS ORDERED: Bisacodyl 10 MG Supp RECTAL PRN (17:28)
--- NOTE | 2017-12-14 17:39 | ED ---
HPI General Chief complaint: Recheck/Abnormal Lab/Rx Stated complaint: Abnormal labs Source: patient Mode of arrival: ambulatory Limitations: no limitations History of Present Illness HPI narrative: Patient is a 72 year old female with history of pancreatic cancer. who comes in due to fever and urinary symptoms. She went to Dr. Olson' s office today for a follow up and was found to be febrile and tachycardic. She was given IVF and 2g Cefepime by Dr. Olson and sent here. She says she started to have some dysuria yesterday and did not know she was febrile until today at the doctor's office. She says she has pain to her upper abdomen, but this has been the same due to her cancer. She says her last chemo was 1.5 weeks ago. She has had some cough and shortness of breath on exertion. She denies leg swelling or pain. She was recently on antibiotics for cellulitis of her legs. Severity is moderate. Related Data Home Medications Medication Instructions Recorded Confirmed apixaban [Eliquis] 5 mg PO BID 10/27/17 12/14/17 lactulose 10 g PO TID 10/27/17 12/14/17 levothyroxine 100 mcg PO DAILY 10/27/17 12/14/17 morphine 15 mg PO Q12H 10/27/17 12/14/17 ondansetron 4 mg PO QID PRN 10/27/17 12/14/17 oxycodone 5 mg PO Q4H 10/27/17 12/14/17 cephalexin [Keflex] 500 mg PO BID 12/14/17 12/14/17 furosemide [Lasix] 20 mg PO BID 12/14/17 12/14/17 potassium chloride 20 meq PO DAILY 12/14/17 12/14/17 Previous Rx's Medication Instructions Recorded pantoprazole 40 mg PO DAILY #90 tab 10/29/17 Allergies Allergy/AdvReac Type Severity Reaction Status Date / Time No Known Allergies Allergy Verified 12/14/17 15:36 Review of Systems ROS: all other systems reviewed are negative Constitutional Reports fever(s) ENT Denies dizziness Cardiovascular Denies chest pain Respiratory Reports cough Gastrointestinal Denies nausea and Denies vomiting Genitourinary Reports dysuria Musculoskeletal Denies back pain and Reports myalgias Integumentary/Breasts Denies lesions and Denies rash [facility] Medical History Medical History Malignant neoplasm determined by biopsy of pancreas (Acute) Current tobacco use (Acute) Hypothyroidism (Acute) Pulmonary embolism (Acute) Secondary malignant neoplasm of liver (Acute) Hypertension (Acute) Pancreatic cancer (Acute) Cancer determined by pancreatic biopsy (Acute) Recurrent cellulitis of lower extremity (Acute) Surgical History Surgical History Port-A-Cath in place (Acute) Family History Family History Mother Esophageal adenocarcinoma Grandparent Cervical cancer Social History Social History Substance History: No History of Abuse Second Hand Smoke Exposure: No Smoking Status: Former smoker Tobacco Type: Cigarettes How Often Do You Have a Drink Containing Alcohol: Never Recent Travel in [facility] within the Last 8 Weeks: No Recent Out of Country Travel within the Last 8 Weeks: No Immunization History Tetanus Immunization: Unsure Hx Influenza Vaccine This Season: Yes Exam Narrative Exam Narrative: GENERAL: Awake and alert, in no acute distress. SKIN: Focused skin assessment warm/dry. HEAD: Atraumatic. Normocephalic. EYES: Pupils equal and round. No scleral icterus. ENT: Mucous membranes pink and moist. NECK: Trachea midline. No JVD. CARDIOVASCULAR: Tachycardia. No murmur appreciated. RESPIRATORY: No accessory muscle use. Clear to auscultation. Breath sounds equal bilaterally. GASTROINTESTINAL: Abdomen soft, non-tender, nondistended. MUSCULOSKELETAL: No obvious deformities. No clubbing. No cyanosis. No edema. NEUROLOGICAL: Awake and alert. No obvious cranial nerve deficits. Motor grossly within normal limits. Normal speech. PSYCHIATRIC: Appropriate mood and affect; insight and judgment normal. Course Initial Documented Vital Signs Temperature 98.9 F 12/14/17 15:38 Pulse Rate 120 H 12/14/17 15:38 Respiratory Rate 14 12/14/17 15:38 Blood Pressure 138/60 12/14/17 15:38 Pulse Oximetry 98 12/14/17 15:38 Last Documented Vital Signs Temperature 98.9 F 12/14/17 15:38 Pulse Rate 115 H 12/14/17 17:28 Respiratory Rate 16 12/14/17 17:28 Blood Pressure 135/65 12/14/17 17:28 Pulse Oximetry 95 12/14/17 17:28 Medical Decision Making MDM Narrative Medical decision making narrative: Patient is a 72-year-old female with history of pancreatic cancer sent from the oncology office due to fever, tachycardia and UTI. Patient is tachycardic on arrival. She has received 2 L of fluid as well as 2 g of cefepime prior to arrival. She is given another liter of fluid, Tylenol. Blood cultures sent. She will be admitted for further management. Medical Screen Exam Complete: Yes Emergency Medical Condition: Yes Medical Records Medical records reviewed: Yes I reviewed the patient's medical records. Lab Data Lab results reviewed: Yes I reviewed the patient's lab results. Result diagrams: 12/14/17 17:20 12/14/17 17:20 Lab Results 12/14/17 12/14/17 12/14/17 Range/Units 17:20 17:20 17:20 CBC w Diff Slide review pending WBC 19.1 H (4.0-11.0) th/mm3 RBC 3.48 L (4.00-5.30) mil/mm3 Hgb 10.1 L (11.6-15.3) gm/dL Hct 32.1 L (35.0-46.0) % MCV 92.3 (80.0-100.0) fL MCH 28.9 (27.0-34.0) pg MCHC 31.3 L (32.0-36.0) % RDW 19.7 H (11.6-17.2) % Plt Count 508 H (150-450) th/mm3 MPV 7.6 (7.0-11.0) fL Neut % (Auto) 84.7 H (16.0-70.0) % Lymph % (Auto) 3.7 L (9.0-44.0) % [place] % (Auto) 11.0 H (0.0-8.0) % Eos % (Auto) 0.3 (0.0-4.0) % Baso % (Auto) 0.3 (0.0-2.0) % Neut # (Auto) 16.1 H (1.8-7.7) th/mm3 Lymph # (Auto) 0.7 L (1.0-4.8) th/mm3 [place] # (Auto) 2.1 H (0.0-0.9) th/mm3 Eos # (Auto) 0.1 (0.0-0.4) th/mm3 Baso # (Auto) 0.1 (0.0-0.2) th/mm3 Differential Comment . Sodium 138 (136-145) meq/L Potassium 4.9 (3.5-5.1) meq/L Chloride 105 (98-107) meq/L Carbon Dioxide 26.5 (21.0-32.0) meq/L Anion Gap 7 (5-15) meq/L BUN 24 H (7-18) mg/dL Creatinine 1.60 H (0.50-1.00) mg/dL Estimated GFR 32 L (>89) mL/min Random Glucose 108 H (74-106) mg/dL Lactic Acid 1.7 (0.4-2.0) mmol/L Calcium 8.5 (8.5-10.1) mg/dL Total Bilirubin 0.5 (0.2-1.0) mg/dL AST 23 (15-37) U/L ALT 33 (10-53) U/L Alkaline Phosphatase 215 H (45-117) U/L Total Protein 7.4 (6.4-8.2) g/dL Albumin 2.6 L (3.4-5.0) g/dL Imaging Data Radiologist's impression: Chest X-Ray 12/14/17 16:51 CONCLUSION: Overall improvement in right middle and lateral infiltrate since 11/09/2017. Residual opacity remains. ECG Data EKG Prior to Arrival: No Attestation: I personally reviewed and interpreted this ECG as follows: Interpretation: ECG shows sinus tachycardia at a rate of 113, no ST elevation or depression, normal intervals Discharge Plan Discharge Disposition Patient Disposition: 30 Still Patient Discharge Condition Condition: Stable Discharge Details Diagnosis: Sepsis, Acute UTI Physicians Team ED Provider: Tiera Mandel Primary Care Provider: Chin Randle Attending Provider: Lb Cristina Discharge Interventions Interventions: Vital Signs Last Done: 12/14/17 15:54 Status ED Status: Admitted Patient
[2017-12-14] MEDS: Sod Chloride 0.9% Inj 1,000 ML IV.SIG SCH (17:41)
[2017-12-14 17:49] LABS: Baso # (Auto) 0.1 th/mm3 (0.0-0.2); Baso % (Auto) 0.3 % (0.0-2.0); Eos # (Auto) 0.1 th/mm3 (0.0-0.4); Eos % (Auto) 0.3 % (0.0-4.0); Hematocrit 32.1 % (35.0-46.0); Hemoglobin 10.1 gm/dL (11.6-15.3); Lymph # (Auto) 0.7 th/mm3 (1.0-4.8); Lymph % (Auto) 3.7 % (9.0-44.0); Mean Corpuscular HGB Conc 31.3 % (32.0-36.0); Mean Corpuscular Hemoglobin 28.9 pg (27.0-34.0); Mean Corpuscular Volume 92.3 fL (80.0-100.0); Mean Platelet Volume 7.6 fL (7.0-11.0); Mono # (Auto) 2.1 th/mm3 (0.0-0.9); Neut # (Auto) 16.1 th/mm3 (1.8-7.7); Neut % (Auto) 84.7 % (16.0-70.0); Platelet Count 508 th/mm3 (150-450); Red Blood Count 3.48 mil/mm3 (4.00-5.30); Red Cell Distribution Width 19.7 % (11.6-17.2); White Blood Count 19.1 th/mm3 (4.0-11.0)
[2017-12-14 17:50] LABS: Chloride 105 meq/L (98-107); Potassium 4.9 meq/L (3.5-5.1); Sodium 138 meq/L (136-145)
[2017-12-14 17:53] LABS: Calcium 8.5 mg/dL (8.5-10.1)
[2017-12-14 17:54] LABS: Albumin 2.6 g/dL (3.4-5.0); Anion Gap 7 meq/L (5-15); Blood Urea Nitrogen 24 mg/dL (7-18); Carbon Dioxide 26.5 meq/L (21.0-32.0); Glucose,Random 108 mg/dL (74-106)
[2017-12-14 17:57] LABS: Alanine Aminotransferase 33 U/L (10-53); Aspartate Aminotransferase 23 U/L (15-37); Glomerular Filtration Rate 32 mL/min (>89)
[2017-12-14 17:59] LABS: Total Protein 7.4 g/dL (6.4-8.2)
[2017-12-14 18:00] LABS: Alkaline Phosphatase 215 U/L (45-117)
--- NOTE | 2017-12-14 18:12 | P.HP ---
History of Present Illness Primary Care Physician: Chin Randle MD Chief Complaint: Fever of 102.5F at home. History of Present Illness: This is a 72-year-old female patient who has a present history of metastatic pancreatic coma, hypothyroidism, hypertension who presented to the ED from Dr. Olson's, oncology, office today with a reported fever of 102.5, with associated weakness and overall fatigue. In the office her heart rate was in the 130s with borderline low blood pressure. At that time blood cultures were drawn as well as 1 L NS bolus was given and empirically treated with cefepime 2 g IV in the clinic. UA was also sent for analysis. Patient has been admitted to the hospitalist service for urosepsis workup. Patient seen and examined in the ED, lying in bed comfortably in no apparent distress. She states that she has not had any reports of fever except for today, 102.5 at home. She has been in her normal state of health, denies any recent chills, shortness of breath, chest pain, dumping, nausea, vomiting, diarrhea or dysuria. She does admit to receiving palliative chemotherapy with oncology on 12/03/17. It should also be noted that patient was hospitalized earlier this month for bilateral lower extremity cellulitis. On examination today this has improved significantly. She did complete her oral antibiotic therapy. Patient does have a right upper chest port in place. Upon presentation patient presents with tachycardia heart rate in the 120s, with leukocytosis white blood cell greater than 25,000. - Diagnosis (1) Sepsis (2) Metastasis from pancreatic cancer Inpatient Certification: I certify that the inpatient services were ordered in accordance with Medicare regulations governing the order. This includes certification that hospital inpatient services are reasonable and necessary and in the case of services not specified as inpatient-only under 42 CFR 419.22(n), that they are appropriately provided as inpatient services in accordance to with the 2-midnight benchmark under 43 CFR 412.3(e) Estimated Total Length of Stay (Days): 3 Plans for Post Hospital Care: Not yet determined Review of Systems All other systems reviewed negative except as stated in HPI PMFSH - History History Provided By: Patient - Medical History Medical History: Medical History (Last Reviewed 12/14/17 @ 18:16 by Tiera Mandel MD) Malignant neoplasm determined by biopsy of pancreas (Acute) Current tobacco use (Acute) Hypothyroidism (Acute) Pulmonary embolism (Acute) Secondary malignant neoplasm of liver (Acute) Hypertension (Acute) Pancreatic cancer (Acute) Cancer determined by pancreatic biopsy Recurrent cellulitis of lower extremity - Surgical History Surgical History: Surgical History (Last Reviewed 12/14/17 @ 18:16 by Tiera Mandel MD) Port-A-Cath in place (Acute) - Family History Family History: Family History (Last Updated 10/27/17 @ 17:56 by Dick Montelongo MD) Mother Esophageal adenocarcinoma Grandparent Cervical cancer - Tobacco History Second Hand Smoke Exposure: No Smoking Status: Former smoker Tobacco Type: Cigarettes - Alcohol History How Often Do You Have a Drink Containing Alcohol: Never - Substance Use History Substance History: No History of Abuse - Travel History Recent Travel in the [place] Within the Last 8 Weeks: No Recent Travel Out of the Country Within the Last 8 Weeks: No - Immunization History Tetanus Immunization: Unsure Hx Influenza Vaccine This Season: Yes Medications and Allergies Active Medications: Active Medications Acetaminophen (Tylenol) 650 mg PO Q4H PRN PRN Reason: Temp > 100.4 Al Hydroxide/Mg Hydroxide (Milk Of Magnesia Liq) 30 ml PO Q12H PRN PRN Reason: Mild Constipation Bisacodyl (Dulcolax Supp) 10 mg RECTAL DAILY PRN PRN Reason: SEVERE CONSITIPATION Sodium Chloride (Ns Inj) 1,000 mls @ 0 mls/hr IV.SIG .Q0M [facility] Last Admin: 12/14/17 17:41 Dose: 999 mls/hr Sodium Chloride (Ns Inj) 1,000 mls @ 100 mls/hr IV.CONT .Q10H [facility] Lactulose (Lactulose Liq) 30 ml PO DAILY PRN PRN Reason: SEVERE CONSITIPATION Ondansetron HCl (Zofran Inj) 4 mg IV.PUSH Q6H PRN PRN Reason: NAUSEA OR VOMITING Sennosides (Senokot) 17.2 mg PO Q12H PRN PRN Reason: Moderate Constipation Allergies Allergy/AdvReac Type Severity Reaction Status Date / Time No Known Allergies Allergy Verified 12/14/17 15:36 Home Medications Medication Instructions Recorded Confirmed Type apixaban [Eliquis] 5 mg PO BID 10/27/17 12/14/17 History lactulose 10 g PO TID 10/27/17 12/14/17 History levothyroxine 100 mcg PO DAILY 10/27/17 12/14/17 History morphine 15 mg PO Q12H 10/27/17 12/14/17 History ondansetron 4 mg PO QID PRN 10/27/17 12/14/17 History oxycodone 5 mg PO Q4H 10/27/17 12/14/17 History cephalexin [Keflex] 500 mg PO BID 12/14/17 12/14/17 History furosemide [Lasix] 20 mg PO BID 12/14/17 12/14/17 History potassium chloride 20 meq PO DAILY 12/14/17 12/14/17 History Exam Vital signs: Vital Signs 12/14/17 15:38 12/14/17 15:54 12/14/17 17:28 Temperature 98.9 F Pulse Rate 120 H 116 H 115 H Respiratory Rate 14 18 16 Blood Pressure 138/60 119/54 L 135/65 Pulse Oximetry 98 95 95 Intake & Output 12/13/17 12/14/17 12/14/17 18:59 06:59 18:59 Weight 65 kg Narrative: GENERAL: Well-developed, well-nourished patient in [facility]. SKIN: Warm and dry. No rash. Right chest [id number] in place, clean dry and intact, dressing intact. HEAD: Normocephalic. Atraumatic. EYES: Pupils equal and round. No scleral icterus. No injection or drainage. ENT: No nasal bleeding or discharge. Mucous membranes pink and moist. NECK: Supple. Trachea midline. CARDIOVASCULAR: Regular rate and rhythm. S1, S2 noted. No murmur appreciated. RESPIRATORY: No accessory muscle use. Clear to auscultation. Breath sounds equal bilaterally. GASTROINTESTINAL: Abdomen soft, non-tender, nondistended. Normoactive bowel sounds x4. MUSCULOSKELETAL: No obvious deformities. Extremities without clubbing, cyanosis , or edema. NEUROLOGICAL: Awake and alert. No obvious cranial nerve deficits. Motor grossly within normal limits. 5/5 muscle strength in bilateral upper and lower extremities. Normal speech. PSYCHIATRIC: Appropriate mood and affect; insight and judgment normal. Results - Labs CBC & Chem 7: 12/14/17 17:20 12/14/17 17:20 Labs: Laboratory Results - last 24 hr 08/24/18 08/24/18 08/24/18 17:20 17:20 17:20 CBC w Diff Slide review pending WBC 19.1 H RBC 3.48 L Hgb 10.1 L Hct 32.1 L MCV 92.3 MCH 28.9 MCHC 31.3 L RDW 19.7 H Plt Count 508 H MPV 7.6 Neut % (Auto) 84.7 H Lymph % (Auto) 3.7 L [place] % (Auto) 11.0 H Eos % (Auto) 0.3 Baso % (Auto) 0.3 Neut # (Auto) 16.1 H Lymph # (Auto) 0.7 L [place] # (Auto) 2.1 H Eos # (Auto) 0.1 Baso # (Auto) 0.1 Differential Comment . Sodium 138 Potassium 4.9 Chloride 105 Carbon Dioxide 26.5 Anion Gap 7 BUN 24 H Creatinine 1.60 H Estimated GFR 32 L Random Glucose 108 H Lactic Acid 1.7 Calcium 8.5 Total Bilirubin 0.5 AST 23 ALT 33 Alkaline Phosphatase 215 H Total Protein 7.4 Albumin 2.6 L - Imaging Impressions Chest X-Ray 12/14/17 16:51 CONCLUSION: Overall improvement in right middle and lateral infiltrate since 11/09/2017. Residual opacity remains. Caprini VTE Risk Assessment Caprini VTE Risk Assessment: Moderate/High Risk (score >= 2) Caprini Risk Assessment Model: Point Value = 1 Point Value = 2 Point Value = 3 Point Value = 5 Age 41-60 Minor surgery BMI > 25 kg/m2 Swollen legs Varicose veins or History of unexplained or recurrent spontaneous Oral contraceptives or hormone replacement Sepsis (< 1 month) Serious lung disease, including pneumonia (< 1 month) Abnormal pulmonary function Acute myocardial infarction Congestive heart failure (< 1 month) History of inflammatory bowel disease Medical patient at bed rest Age 61-74 Arthroscopic surgery Major open surgery (> 45 min) Laparoscopic surgery (> 45 min) Malignancy Confined to bed (> 72 hours) Immobilizing plaster cast Central venous access Age >= 75 History of VTE Family history of VTE Factor V Leiden Prothrombin [id number] Lupus anticoagulant Anticardiolipin antibodies Elevated serum homocysteine Heparin-induced thrombocytopenia Other congenital or acquired thrombophilia Stroke (< 1 month) Elective arthroplasty Hip, pelvis, or leg fracture Acute spinal cord injury (< 1 month) Prophylaxis Regimen: Total Risk Factor Score Risk Level Prophylaxis Regimen 0-1 Low Early ambulation 2 Moderate Order ONE of the following: *Sequential Compression Device (SCD) *Heparin 5000 units SQ BID 3-4 Higher Order ONE of the following medications: *Heparin 5000 units SQ TID *Enoxaparin/Lovenox 40 mg SQ daily (WT < 150 kg, CrCl > 30 mL/min) *Enoxaparin/Lovenox 30 mg SQ daily (WT < 150 kg, CrCl > 10-29 mL/min) *Enoxaparin/Lovenox 30 mg SQ BID (WT < 150 kg, CrCl > 30 mL/min) AND/OR *Sequential Compression Device (SCD) 5 or more Highest Order ONE of the following medications: *Heparin 5000 units SQ TID (Preferred with Epidurals) *Enoxaparin/Lovenox 40 mg SQ daily (WT < 150 kg, CrCl > 30 mL/min) *Enoxaparin/Lovenox 30 mg SQ daily (WT < 150 kg, CrCl > 10-29 mL/min) *Enoxaparin/Lovenox 30 mg SQ BID (WT < 150 kg, CrCl > 30 mL/min) AND *Sequential Compression Device (SCD) Assessment and Plan - Assessment (1) Sepsis Code(s): A41.9 - Sepsis, unspecified organism Status: Acute (2) Metastasis from pancreatic cancer Code(s): C79.9 - Secondary malignant neoplasm of unspecified site; C25.9 - Malignant neoplasm of pancreas, unspecified Status: Chronic - Plan This is a pleasant 72-year-old patient with: Severe sepsis with suspected etiology UTI Acute kidney injury suspect secondary to above -Met criteria with tachycardia, leukocytosis over 25,000 with likely source urine. Patient reports a fever of 102.5 at home. Creatinine 1.6. Will continue to trend. -UA has been ordered and showing innumerable white blood cells, bacteria and nitrate. Awaiting urine culture. Follow. -Blood cultures ordered and pending. Follow growth. -Will continue cefepime 1 g IV twice daily. -Follow lab work in a.m. Metastatic pancreatic carcinoma -Follows with Dr. Olson, who has been consulted and aware patient has been hospitalized. -Treatment will remain on hold until her acute issues resolved. -Pain control with prescribed home narcotics. Will resume. [place] database has been checked. -Will continue home lactulose, Lasix and potassium supplementation. History of pulmonary emboli: Will continue Eliquis. Hypothyroidism, chronic: We will continue home levothyroxine. DVT prophylaxis: SCDs. Eliquis.
[2017-12-14 18:21] LABS: Lymphocytes 7 % (9-44); Metamyelocytes 1 % (0-1); Monocytes 12 % (0-8)
[2017-12-14 18:22] LABS: Ovalocytes 1+
[2017-12-14 18:23] LABS: Dohle Bodies Present
[2017-12-14 18:26] LABS: Platelet Morphology Normal (Normal)
[2017-12-14] MEDS: Morphine Sulfate 15 MG IR Tablet PO SCH (20:47)
[2017-12-14] MEDS: Sod Chloride 0.9% Inj 1,000 ML IV.CONT SCH (20:47)
[2017-12-15 02:37] LABS: Bilirubin,Urine Negative (Negative); Clarity,Urine Turbid (Clear); Color,Urine Yellow (Yellw/Straw); Glucose,Urine (UA) Negative (Negative); Leukocyte Esterase,Urine Large (Negative); Nitrite,Urine Negative (Negative); Specific Gravity,Urine 1.015 (1.002-1.035); Urobilinogen,Urine 0.2 mg/dL (Less than 2)
[2017-12-15 02:43] LABS: RBC,Urine 0-3 /hpf (0-3); WBC,Urine Innumerable /hpf (0-5)
[2017-12-15] MEDS: Sod Chloride 0.9% Inj 1,000 ML IV.CONT SCH ×3 (04:34→23:31)
[2017-12-15 07:38] LABS: Potassium 4.9 meq/L (3.5-5.1)
[2017-12-15 07:41] LABS: Calcium 7.9 mg/dL (8.5-10.1)
[2017-12-15 07:42] LABS: Carbon Dioxide 24.4 meq/L (21.0-32.0)
[2017-12-15 07:46] LABS: Baso # (Auto) 0.1 th/mm3 (0.0-0.2); Baso % (Auto) 0.3 % (0.0-2.0); Eos # (Auto) 0.2 th/mm3 (0.0-0.4); Eos % (Auto) 1.3 % (0.0-4.0); Hematocrit 26.5 % (35.0-46.0); Hemoglobin 8.4 gm/dL (11.6-15.3); Lymph # (Auto) 0.9 th/mm3 (1.0-4.8); Lymph % (Auto) 5.2 % (9.0-44.0); Mean Corpuscular HGB Conc 31.9 % (32.0-36.0); Mean Corpuscular Hemoglobin 29.4 pg (27.0-34.0); Mean Corpuscular Volume 92.1 fL (80.0-100.0); Mean Platelet Volume 7.4 fL (7.0-11.0); Mono % (Auto) 16.9 % (0.0-8.0); Neut # (Auto) 13.5 th/mm3 (1.8-7.7); Neut % (Auto) 76.3 % (16.0-70.0); Platelet Count 430 th/mm3 (150-450); Red Blood Count 2.87 mil/mm3 (4.00-5.30); White Blood Count 17.7 th/mm3 (4.0-11.0)
[2017-12-15] MEDS: Potassium Chloride 20 MEQ Pwd Pkt PO SCH (08:16)
[2017-12-15] MEDS: Levothyroxine 100 MCG Tablet PO SCH (08:21)
[2017-12-15 08:22] LABS: Eosinophils 2 % (0-4); Lymphocytes 6 % (9-44); Monocytes 10 % (0-8)
[2017-12-15] MEDS: Morphine Sulfate 15 MG IR Tablet PO SCH ×2 (08:22→20:22)
[2017-12-15 08:26] LABS: Basophilic Stippling Moderate; Ovalocytes 1+
[2017-12-15 08:27] LABS: Dohle Bodies Present; Platelet Morphology Normal (Normal); Rouleaux Present
--- NOTE | 2017-12-15 08:41 | P.PN ---
Subjective Interval history: Follow up uropsepsis. Patient seen and examined, no acute events overnight. Doing well overall. Low grade temp overnight. Pain well controlled. Eating well , no abdominal pain, nausea and vomiting. Physical Exam Vital signs: Vital Signs 12/14/17 15:38 12/14/17 15:54 12/14/17 17:28 Temperature 98.9 F Pulse Rate 120 H 116 H 115 H Respiratory Rate 14 18 16 Blood Pressure 138/60 119/54 L 135/65 Pulse Oximetry 98 95 95 12/14/17 18:36 12/14/17 20:00 12/15/17 00:00 Temperature 99.9 F H 98.9 F Pulse Rate 105 H 102 H 84 Respiratory Rate 16 16 16 Blood Pressure 105/51 L 129/59 L 153/95 H Pulse Oximetry 96 95 94 L 12/15/17 08:00 Temperature 98.0 F Pulse Rate 112 H Respiratory Rate 17 Blood Pressure 162/68 H Pulse Oximetry 95 Intake & Output 12/14/17 12/15/17 12/15/17 18:59 06:59 18:59 Intake Total 2099 Balance 2099 Weight 65 kg 64.7 kg Intake: IV 2099 NS Inj 1,000 ML @ 100 mls/hr IV 1000 / 1000 .CONT .Q10H NEVIN Rx#:[id number] Maxipime Inj 1,000 MG In NS Inj 100 / 100 100 ML @ 200 mls/hr IV.SIG Q12H NEVIN Rx#:[id number] NS Inj 1,000 ML @ Wide Open IV. 1000 / 1000 SIG .Q0M NEVIN Rx#:[id number] Other: # Voids 3 # Bowel Movements 1 Weight On Admission 64.7 kg Narrative: GENERAL: Well-developed, well-nourished patient in [facility]. SKIN: Warm and dry. No rash. Right chest [id number] in place, clean dry and intact, dressing intact. HEAD: Normocephalic. Atraumatic. EYES: Pupils equal and round. No scleral icterus. No injection or drainage. ENT: No nasal bleeding or discharge. Mucous membranes pink and moist. NECK: Supple. Trachea midline. CARDIOVASCULAR: Regular rate and rhythm. S1, S2 noted. No murmur appreciated. RESPIRATORY: No accessory muscle use. Clear to auscultation. Breath sounds equal bilaterally. GASTROINTESTINAL: Abdomen soft, non-tender, nondistended. Normoactive bowel sounds x4. MUSCULOSKELETAL: No obvious deformities. Extremities without clubbing, cyanosis , or edema. NEUROLOGICAL: Awake and alert. No obvious cranial nerve deficits. Motor grossly within normal limits. 5/5 muscle strength in bilateral upper and lower extremities. Normal speech. PSYCHIATRIC: Appropriate mood and affect; insight and judgment normal. Results - Labs CBC & Chem 7: 12/15/17 07:15 12/15/17 07:15 Laboratory Results - last 24 hr 12/14/17 12/14/17 12/14/17 17:20 17:20 17:20 CBC w Diff Slide review pending WBC 19.1 H RBC 3.48 L Hgb 10.1 L Hct 32.1 L MCV 92.3 MCH 28.9 MCHC 31.3 L RDW 19.7 H Plt Count 508 H MPV 7.6 Neut % (Auto) 84.7 H Lymph % (Auto) 3.7 L Garza % (Auto) 11.0 H Eos % (Auto) 0.3 Baso % (Auto) 0.3 Neut # (Auto) 16.1 H Lymph # (Auto) 0.7 L Garza # (Auto) 2.1 H Eos # (Auto) 0.1 Baso # (Auto) 0.1 WBC Differential Manual diff final Seg Neuts % (Manual) 64 Band Neuts % (Manual) 16 H Lymphocytes % (Manual) 7 L Monocytes % (Manual) 12 H Eosinophils % (Manual) Metamyelocytes % (Man) 1 Abs Neuts (Manual) 15.5 H Differential Comment . Dohle Bodies Present H Platelet Estimate High H Platelet Morphology Normal Basophilic Stippling Ovalocytes 1+ H Rouleaux Keratocytes Occ H Sodium 138 Potassium 4.9 Chloride 105 Carbon Dioxide 26.5 Anion Gap 7 BUN 24 H Creatinine 1.60 H Estimated GFR 32 L Random Glucose 108 H Lactic Acid 1.7 Calcium 8.5 Total Bilirubin 0.5 AST 23 ALT 33 Alkaline Phosphatase 215 H Total Protein 7.4 Albumin 2.6 L Urine Color Urine Clarity Urine pH Ur Specific [place] Urine Protein Urine Glucose (UA) Urine Ketones Urine Occult Blood Urine Nitrate Urine Bilirubin Urine Urobilinogen Ur Leukocyte Esterase Urine RBC Urine WBC Micro UA Comment Ur Microscopic Review Urine Culture Comments 12/15/17 12/15/17 12/15/17 01:50 07:15 07:15 CBC w Diff Slide review pending WBC 17.7 H RBC 2.87 L Hgb 8.4 L Hct 26.5 L MCV 92.1 MCH 29.4 MCHC 31.9 L RDW 20.0 H Plt Count 430 MPV 7.4 Neut % (Auto) 76.3 H Lymph % (Auto) 5.2 L Garza % (Auto) 16.9 H Eos % (Auto) 1.3 Baso % (Auto) 0.3 Neut # (Auto) 13.5 H Lymph # (Auto) 0.9 L Garza # (Auto) 3.0 H Eos # (Auto) 0.2 Baso # (Auto) 0.1 WBC Differential Manual diff final Seg Neuts % (Manual) 71 H Band Neuts % (Manual) 11 H Lymphocytes % (Manual) 6 L Monocytes % (Manual) 10 H Eosinophils % (Manual) 2 Metamyelocytes % (Man) Abs Neuts (Manual) 14.5 H Differential Comment . Dohle Bodies Present H Platelet Estimate High H Platelet Morphology Normal Basophilic Stippling Moderate H Ovalocytes 1+ H Rouleaux Present H Keratocytes Sodium 142 Potassium 4.9 Chloride 111 H Carbon Dioxide 24.4 Anion Gap 7 BUN 22 H Creatinine 1.20 H Estimated GFR 44 L Random Glucose 90 Lactic Acid Calcium 7.9 L Total Bilirubin AST ALT Alkaline Phosphatase Total Protein Albumin Urine Color Yellow Urine Clarity Turbid H Urine pH 6.0 Ur Specific [place] 1.015 Urine Protein 100 H Urine Glucose (UA) Negative Urine Ketones Negative Urine Occult Blood Moderate H Urine Nitrate Negative Urine Bilirubin Negative Urine Urobilinogen 0.2 Ur Leukocyte Esterase Large H Urine RBC 0-3 Urine WBC Innumerable H Micro UA Comment Culture indicated Ur Microscopic Review Microscopic reviewed Urine Culture Comments Culture indicated - Imaging Impressions Chest X-Ray 12/14/17 16:51 CONCLUSION: Overall improvement in right middle and lateral infiltrate since 11/09/2017. Residual opacity remains. Assessment and Plan - Assessment (1) Sepsis Code(s): A41.9 - Sepsis, unspecified organism Status: Acute (2) Metastasis from pancreatic cancer Code(s): C79.9 - Secondary malignant neoplasm of unspecified site; C25.9 - Malignant neoplasm of pancreas, unspecified Status: Chronic - Plan This is a pleasant 72-year-old patient with: Severe sepsis with suspected etiology UTI Acute kidney injury suspect secondary to above, improving. -Met criteria with tachycardia, leukocytosis over 25,000 with likely source urine. Patient reports a fever of 102.5 at home. Creatinine 1.6 on presentation, improved today 1.2. Will continue to trend. -UA has been ordered and showing innumerable white blood cells, bacteria and nitrate. Awaiting urine culture. Follow. -Blood cultures ordered and pending. Follow growth. -Will continue cefepime 1 g IV twice daily. Metastatic pancreatic carcinoma -Follows with Dr. Olson, who has been consulted and aware patient has been hospitalized. -Treatment will remain on hold until her acute issues resolved. -Pain control with prescribed home narcotics. Will resume. E-force database has been checked. -Will continue home lactulose, Lasix and potassium supplementation. History of pulmonary emboli: Will continue Eliquis. Hypothyroidism, chronic: We will continue home levothyroxine. DVT prophylaxis: SCDs. Eliquis. (1) Sepsis Qualifiers: Sepsis type: sepsis due to unspecified organism Qualified Code(s): A41.9 - Sepsis, unspecified organism
--- NOTE | 2017-12-15 13:18 | ECG ---
Date Performed: 12/14/2017 Time Performed: 17:01:50 PTAGE: 72 years EKG: SINUS TACHYCARDIA ABNORMAL RHYTHM ECG Compared to PREVIOUS TRACING sinus rate is faster PREVIOUS TRACIN10/27/2017 04.18 DOCTOR: Alejandro Cotter Interpretating Date/Time 12/15/2017 13:17:38
[2017-12-15] MEDS: Sod Chloride 0.9% Inj 1,000 ML IV.SIG SCH (14:41)
[2017-12-16] MEDS: Morphine Sulfate 15 MG IR Tablet PO SCH ×2 (08:28→21:11)
[2017-12-16] MEDS: Levothyroxine 100 MCG Tablet PO SCH (08:28)
[2017-12-16] MEDS: Potassium Chloride 20 MEQ Pwd Pkt PO SCH (08:29)
--- NOTE | 2017-12-16 09:38 | P.PN ---
Subjective Interval history: Follow up urosepsis. Patient seen and examined, lying in bed comfortably in [facility]. TMAX 100.1. Pain controlled. Does complain of cough overnight, clear phlegm noted. Denies any chest pain or shortness of breath. Will await clinical improvement. Physical Exam Vital signs: Vital Signs 12/15/17 12:00 12/15/17 16:00 12/15/17 20:00 Temperature 98.6 F 99.7 F H 100.1 F H Pulse Rate 102 H 97 H 94 H Respiratory Rate 17 17 20 Blood Pressure 110/59 L 123/58 L 129/69 Pulse Oximetry 97 98 95 12/16/17 00:00 Temperature 99.7 F H Pulse Rate 99 H Respiratory Rate 20 Blood Pressure 128/65 Pulse Oximetry 94 L Intake & Output 12/15/17 12/16/17 12/16/17 18:59 06:59 18:59 Intake Total 1971 1580 / 1580 100 / 100 Balance 1971 1580 / 1580 100 / 100 Weight 64.5 kg Intake: IV 1012 / 1012 1100 / 1100 100 / 100 NS Inj 1,000 ML @ 100 mls/hr IV 912 / 912 1000 / 1000 .CONT .Q10H NEVIN Rx#:[id number] Maxipime Inj 1,000 MG In NS Inj 100 / 100 100 / 100 100 / 100 100 ML @ 200 mls/hr IV.SIG Q12H NEVIN Rx#:[id number] Oral 960 / 960 480 / 480 Other: # Voids 6 Date of Last Bowel Movement 12/15/17 12/16/17 # Bowel Movements 3 1 Narrative: GENERAL: Well-developed, well-nourished patient in [facility]. SKIN: Warm and dry. No rash. Right chest [id number]-p-[id number] in place, clean dry and intact, dressing intact. HEAD: Normocephalic. Atraumatic. EYES: Pupils equal and round. No scleral icterus. No injection or drainage. ENT: No nasal bleeding or discharge. Mucous membranes pink and moist. NECK: Supple. Trachea midline. CARDIOVASCULAR: Regular rate and rhythm. S1, S2 noted. No murmur appreciated. RESPIRATORY: No accessory muscle use. Diminished breath sounds in bilateral bases. Clear breath sounds in upper bilateral lobes. Breath sounds equal bilaterally. GASTROINTESTINAL: Abdomen soft, non-tender, nondistended. Normoactive bowel sounds x4. MUSCULOSKELETAL: No obvious deformities. Extremities without clubbing, cyanosis , or edema. NEUROLOGICAL: Awake and alert. No obvious cranial nerve deficits. Motor grossly within normal limits. 5/5 muscle strength in bilateral upper and lower extremities. Normal speech. PSYCHIATRIC: Appropriate mood and affect; insight and judgment normal. Results - Labs CBC & Chem 7: 12/15/17 07:15 12/15/17 07:15 Microbiology 12/14/17 17:20 Blood - Peripheral Aerobic Blood Culture - Preliminary No growth in 1 day 12/14/17 17:20 Blood - Peripheral Anaerobic Blood Culture - Preliminary No growth in 1 day 12/14/17 17:30 Blood - Peripheral Aerobic Blood Culture - Preliminary No growth in 1 day 12/14/17 17:30 Blood - Peripheral Anaerobic Blood Culture - Preliminary No growth in 1 day Assessment and Plan - Assessment (1) Sepsis Code(s): A41.9 - Sepsis, unspecified organism Status: Acute (2) Metastasis from pancreatic cancer Code(s): C79.9 - Secondary malignant neoplasm of unspecified site; C25.9 - Malignant neoplasm of pancreas, unspecified Status: Chronic - Plan This is a pleasant 72-year-old patient with: Severe sepsis with suspected etiology UTI Acute kidney injury suspect secondary to above, improving. -Met criteria on presentation with tachycardia, leukocytosis over 25,000 with likely source urine. Patient reports a fever of 102.5 at home. -Creatinine 1.6 on presentation, improved to 1.2. Will continue to trend. IVF dcd. -UA has been ordered and showing innumerable white blood cells, bacteria and nitrate. Awaiting urine culture. Follow. -Blood cultures ordered negative to date. Continue to follow growth. -Awaiting labs today, leukocytosis trending down. -Will continue cefepime 1 g IV twice daily. Metastatic pancreatic carcinoma -Follows with Dr. Olson, who has been consulted and aware patient has been hospitalized. -Treatment will remain on hold until her acute issues resolved. -Pain control with prescribed home narcotics. Will resume. E-force database has been checked. -Will continue home lactulose, Lasix and potassium supplementation. Cough -May be secondary to congestion. Reports of clear phlegm. -Will obtain CXR today. Follow. -DC IVF. Encourage use of IS. -Encourage increase in activity and ambulating. History of pulmonary emboli: Will continue Eliquis. Hypothyroidism, chronic: We will continue home levothyroxine. DVT prophylaxis: SCDs. Eliquis. Discharge Planning: Awaiting clinical improvement. Still having fevers, Await urine culture. DC 1-2 days. (1) Sepsis Qualifiers: Sepsis type: sepsis due to unspecified organism Qualified Code(s): A41.9 - Sepsis, unspecified organism
--- NOTE | 2017-12-16 10:21 | XR ---
EXAM DATE: 12/16/2017 10:12 AM EDT AGE/SEX: 72 years / Female INDICATIONS: Cough CLINICAL DATA: This is the patient's subsequent encounter. Patient reports that signs and symptoms h ave been present for 3 days and indicates a pain score of 0/10. MEDICAL/SURGICAL HISTORY: . 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 . [id number] COMPARISON: HPO, CHEST 1V SINGLE AP, 12/14/2017. . FINDINGS: Persistent focal airspace disease in the right midlung laterally. No new focal pleural or parenchymal opacities. Stable right IJ [id number]. Cardiomediastinal contours are within normal limits. Remai nder of exam is unchanged. CONCLUSION: 1. No significant interval change with persistent residual airspace disease in the lateral right mid lung. Electronically signed by: Joshua Henning MD 12/16/2017 10:20 AM EDT
[2017-12-16] MEDS: Sod Chloride 0.9% Inj 1,000 ML IV.CONT SCH (10:51)
[2017-12-16 12:17] LABS: Baso # (Auto) 0.1 th/mm3 (0.0-0.2); Baso % (Auto) 0.3 % (0.0-2.0); Eos # (Auto) 0.4 th/mm3 (0.0-0.4); Eos % (Auto) 2.1 % (0.0-4.0); Hematocrit 27.2 % (35.0-46.0); Hemoglobin 8.5 gm/dL (11.6-15.3); Lymph # (Auto) 0.8 th/mm3 (1.0-4.8); Lymph % (Auto) 4.8 % (9.0-44.0); Mean Corpuscular HGB Conc 31.4 % (32.0-36.0); Mean Corpuscular Volume 92.4 fL (80.0-100.0); Mean Platelet Volume 7.6 fL (7.0-11.0); Mono # (Auto) 2.5 th/mm3 (0.0-0.9); Mono % (Auto) 14.5 % (0.0-8.0); Neut # (Auto) 13.5 th/mm3 (1.8-7.7); Neut % (Auto) 78.3 % (16.0-70.0); Platelet Count 484 th/mm3 (150-450); Red Blood Count 2.94 mil/mm3 (4.00-5.30); Red Cell Distribution Width 19.6 % (11.6-17.2); White Blood Count 17.3 th/mm3 (4.0-11.0)
[2017-12-16 12:39] LABS: Eosinophils 1 % (0-4); Lymphocytes 1 % (9-44); Monocytes 9 % (0-8)
[2017-12-16 12:40] LABS: Ovalocytes 1+; Platelet Morphology Normal (Normal); Rouleaux Present
[2017-12-16] MEDS: guaiFENesin 600 MG ER Tablet PO SCH ×2 (12:54→21:11)
[2017-12-17 06:21] LABS: Baso # (Auto) 0.1 th/mm3 (0.0-0.2); Baso % (Auto) 0.5 % (0.0-2.0); Eos # (Auto) 0.6 th/mm3 (0.0-0.4); Eos % (Auto) 3.8 % (0.0-4.0); Hematocrit 25.9 % (35.0-46.0); Hemoglobin 8.3 gm/dL (11.6-15.3); Lymph % (Auto) 6.8 % (9.0-44.0); Mean Corpuscular Hemoglobin 29.2 pg (27.0-34.0); Mean Corpuscular Volume 91.3 fL (80.0-100.0); Mean Platelet Volume 6.9 fL (7.0-11.0); Mono # (Auto) 2.4 th/mm3 (0.0-0.9); Mono % (Auto) 15.9 % (0.0-8.0); Neut # (Auto) 11.1 th/mm3 (1.8-7.7); Platelet Count 543 th/mm3 (150-450); Red Blood Count 2.84 mil/mm3 (4.00-5.30); Red Cell Distribution Width 19.4 % (11.6-17.2); White Blood Count 15.2 th/mm3 (4.0-11.0)
[2017-12-17 07:43] LABS: Platelet Morphology Normal (Normal)
[2017-12-17] MEDS: guaiFENesin 600 MG ER Tablet PO SCH (09:14)
[2017-12-17] MEDS: Potassium Chloride 20 MEQ Pwd Pkt PO SCH (09:14)
[2017-12-17] MEDS: Levothyroxine 100 MCG Tablet PO SCH (09:15)
[2017-12-17 10:13] VITALS: RESP 18
--- NOTE | 2017-12-17 10:41 | P.DS ---
Date of admission: 12/14/17 17:21 Primary care physician: Chin Randle MD Brief History from admission: This is a 72-year-old female patient who has a present history of metastatic pancreatic coma, hypothyroidism, hypertension who presented to the ED from Dr. Olson's, oncology, office today with a reported fever of 102.5, with associated weakness and overall fatigue. In the office her heart rate was in the 130s with borderline low blood pressure. At that time blood cultures were drawn as well as 1 L NS bolus was given and empirically treated with cefepime 2 g IV in the clinic. UA was also sent for analysis. Patient has been admitted to the hospitalist service for urosepsis workup. Patient seen and examined in the ED, lying in bed comfortably in no apparent distress. She states that she has not had any reports of fever except for today, 102.5 at home. She has been in her normal state of health, denies any recent chills, shortness of breath, chest pain, dumping, nausea, vomiting, diarrhea or dysuria. She does admit to receiving palliative chemotherapy with oncology on 12/03/17. It should also be noted that patient was hospitalized earlier this month for bilateral lower extremity cellulitis. On examination today this has improved significantly. She did complete her oral antibiotic therapy. Patient does have a right upper chest port in place. Upon presentation patient presents with tachycardia heart rate in the 120s, with leukocytosis white blood cell greater than 25,000. DS: Diagnosis - Discharge Diagnosis (1) Sepsis Status: Acute (2) Metastasis from pancreatic cancer Status: Chronic DS: Medications - Discharge Medications Prescriptions: fosfomycin tromethamine 1 packet PO Q3D #1 ea DS: Summary Hospital Course: This is a pleasant 72-year-old patient who presented to the ED with severe sepsis suspect secondary to UTI with acute kidney injury. Patient was in Dr. Olson's office at that time, and found to have a fever as well as significant leukocytosis. Patient was sent here with tachycardia, leukocytosis over 25,000 with likely source urine. Patient reports a fever of 102.5 at home prior to presentation. Her fevers have improved as well as leukocytosis is trending downward on day of discharge. Creatinine 1.6 on presentation, improved to 1.2. Was given IV fluids and IV antibiotics cefepime. Urine culture growing out group D Streptococcus as well as Pseudomonas. Keep cefepime for 4 days IV and discharged on fosfomycin 3 g 1 packet. Blood cultures were negative to date. Patient does have metastatic pancreatic carcinoma, follows with Dr. Olson, who has been updated about discharge. Pain control with prescribed home narcotics will be resumed. We will continue home Lasix, lactulose and potassium supplementation. Patient has a history of pulmonary emboli, will continue on Eliquis. Also has a history of hypothyroidism and continued on levothyroxine. Patient did have a cough during hospitalization, x-ray was reviewed and showing some atelectasis. Patient has been encouraged to use incentive spirometer as well as increase activity and ambulation. Patient is stable on day of discharge encouraged follow-up PCP and Dr. Olson. - Time Spent with Patient Total time spent providing and/or coordinating discharge services: Greater than 30 minutes - Quality: VTE Deep Vein Thrombosis/Pulmonary Embolism Present on Admission: No Exam Vital signs: Vital Signs 12/16/17 11:00 12/16/17 12:00 12/16/17 13:24 Temperature 98.1 F Pulse Rate 84 Respiratory Rate 18 13 18 Blood Pressure 125/79 Pulse Oximetry 99 12/16/17 16:00 12/16/17 16:47 12/16/17 20:00 Temperature 98.0 F 97.6 F Pulse Rate 80 88 Respiratory Rate 15 18 20 Blood Pressure 135/89 142/70 H Pulse Oximetry 99 99 12/17/17 00:00 12/17/17 08:00 Temperature 98.9 F 98.5 F Pulse Rate 88 83 Respiratory Rate 20 18 Blood Pressure 115/80 139/72 Pulse Oximetry 98 98 Intake & Output 12/16/17 12/17/17 12/17/17 18:59 06:59 18:59 Intake Total 1625 / 1625 340 / 340 100 / 100 Output Total 200 / 200 600 / 600 Balance 1425 / 1425 -260 / -260 100 / 100 Weight 69.9 kg Intake: IV 1000 / 1000 100 / 100 100 / 100 NS Inj 1,000 ML @ 100 mls/hr IV 900 / 900 .CONT .Q10H NEVIN Rx#:[id number] Maxipime Inj 1,000 MG In NS Inj 100 / 100 100 / 100 100 / 100 100 ML @ 200 mls/hr IV.SIG Q12H NEVIN Rx#:[id number] Oral 625 / 625 240 / 240 Output: Urine 200 / 200 600 / 600 Other: # Voids 2 Narrative: GENERAL: Well-developed, well-nourished patient in [facility]. SKIN: Warm and dry. No rash. HEAD: Normocephalic. Atraumatic. EYES: Pupils equal and round. No scleral icterus. No injection or drainage. ENT: No nasal bleeding or discharge. Mucous membranes pink and moist. NECK: Supple. Trachea midline. CARDIOVASCULAR: Regular rate and rhythm. S1, S2 noted. No murmur appreciated. RESPIRATORY: No accessory muscle use. Clear to auscultation. Breath sounds equal bilaterally. GASTROINTESTINAL: Abdomen soft, non-tender, nondistended. Normoactive bowel sounds x4. MUSCULOSKELETAL: No obvious deformities. Extremities without clubbing, cyanosis , or edema. NEUROLOGICAL: Awake and alert. No obvious cranial nerve deficits. Motor grossly within normal limits. 5/5 muscle strength in bilateral upper and lower extremities. Normal speech. PSYCHIATRIC: Appropriate mood and affect; insight and judgment normal. Results Procedures completed during hospitalization: None. Labs on day of discharge: Labs from last 24 hours 12/17/17 12/16/17 05:53 11:50 CBC w Diff Slide review pending Slide review pending WBC 15.2 H 17.3 H RBC 2.84 L 2.94 L Hgb 8.3 L 8.5 L Hct 25.9 L 27.2 L MCV 91.3 92.4 MCH 29.2 29.0 MCHC 32.0 31.4 L RDW 19.4 H 19.6 H Plt Count 543 H 484 H MPV 6.9 L 7.6 Neut % (Auto) 73.0 H 78.3 H Lymph % (Auto) 6.8 L 4.8 L [place] % (Auto) 15.9 H 14.5 H Eos % (Auto) 3.8 2.1 Baso % (Auto) 0.5 0.3 Neut # (Auto) 11.1 H 13.5 H Lymph # (Auto) 1.0 0.8 L Grainger # (Auto) 2.4 H 2.5 H Eos # (Auto) 0.6 H 0.4 Baso # (Auto) 0.1 0.1 WBC Differential . Manual diff final Diff Scan Auto diff confirmed Seg Neuts % (Manual) 77 H Band Neuts % (Manual) 12 H Lymphocytes % (Manual) 1 L Monocytes % (Manual) 9 H Eosinophils % (Manual) 1 Abs Neuts (Manual) 15.4 H Differential Comment . . Platelet Estimate High H High H Platelet Morphology Normal Normal Basophilic Stippling Faint H Ovalocytes 1+ H Rouleaux Present H Preliminary micro results at discharge 12/14/17 17:20 Aerobic Blood Culture - Preliminary Blood - Peripheral No growth in 2 days Anaerobic Blood Culture - Preliminary No growth in 2 days 12/14/17 17:30 Aerobic Blood Culture - Preliminary Blood - Peripheral No growth in 2 days Anaerobic Blood Culture - Preliminary No growth in 2 days 12/15/17 Unknown Urine Culture - Preliminary Random Urine Group D Enterococcus Pseudomonas aeruginosa - Impressions ITS Impressions Chest X-Ray 12/16/17 00:00 CONCLUSION: 1. No significant interval change with persistent residual airspace disease in the lateral right midlung. Discharge Plan - Discharge Disposition Patient Disposition: 01 Discharge Home - Discharge Condition Condition: Stable - Discharge Order Discharge Orders: Discharge Order (Routine); Ordered 12/17/17 Ordered By: Tiera Perez - Discharge Details Anticipated Discharge Date: 12/17/17 - Physicians Team Primary Care Provider: Chin Randle Attending Provider: Janelle Jimenez
[2017-12-17] MEDS: Morphine Sulfate 15 MG IR Tablet PO SCH (10:42)
[2017-12-17 12:08] VITALS: TEMP 96.3; O2SAT 97
[2017-12-17 12:41] VITALS: BP 146/71; PULSE 79
== END 2017-12-17 13:26 | disposition home or self-care (01) ==
LOC: PHED 15:33 → PHEDA 17:21 → PH3 18:43
PROVIDERS: ADMIT Hospitalist; ATTEND Hospitalist

== ENCOUNTER 2018-01-26 22:11 | Inpatient (IN) ==
[2018-01-26 22:40] LABS: Baso # (Auto) 0.2 th/mm3 (0.0-0.2); Baso % (Auto) 0.9 % (0.0-2.0); Eos % (Auto) 0.1 % (0.0-4.0); Lymph # (Auto) 0.2 th/mm3 (1.0-4.8); Lymph % (Auto) 1.1 % (9.0-44.0); Mean Corpuscular HGB Conc 33.4 % (32.0-36.0); Mean Corpuscular Hemoglobin 28.2 pg (27.0-34.0); Mean Corpuscular Volume 84.6 fL (80.0-100.0); Mean Platelet Volume 8.8 fL (7.0-11.0); Mono # (Auto) 1.1 th/mm3 (0.0-0.9); Mono % (Auto) 5.6 % (0.0-8.0); Neut # (Auto) 17.4 th/mm3 (1.8-7.7); Neut % (Auto) 92.3 % (16.0-70.0); Platelet Count 190 th/mm3 (150-450); Red Blood Count 2.46 mil/mm3 (4.00-5.30); Red Cell Distribution Width 20.2 % (11.6-17.2); White Blood Count 18.9 th/mm3 (4.0-11.0)
[2018-01-26 22:44] LABS: Hematocrit 20.8 % (35.0-46.0); Hemoglobin 6.9 gm/dL (11.6-15.3)
--- NOTE | 2018-01-26 22:52 | ED ---
HPI General Chief Complaint: Medical Clearance Stated Complaint: gen weakness Time Seen by Provider: 01/26/18 22:18 Source: patient, EMS and old records reviewed Mode of arrival: EMS Limitations: altered mental status (The patient seems to be having a little bit of trouble recalling some of the details of the past couple of days) History of Present Illness MD complaint: Reports fever Onset (ago): day(s) (1) Maximum Temperature: 102.3 F Context: Reports on chemotherapy Associated symptoms: Reports cough Relieving factors: nothing Exacerbating factors: nothing Treatments prior to arrival fever: Reports antibiotics (Levaquin X 1 dose) Related Data Home Medications Medication Instructions Recorded Confirmed apixaban [Eliquis] 5 mg PO BID 10/27/17 01/26/18 lactulose 10 g PO TID 10/27/17 01/26/18 levothyroxine 100 mcg PO DAILY 10/27/17 01/26/18 morphine 15 mg PO Q12H 10/27/17 01/26/18 ondansetron 4 mg PO QID PRN 10/27/17 01/26/18 oxycodone 5 mg PO Q4H 10/27/17 01/26/18 furosemide [Lasix] 20 mg PO BID 12/14/17 01/26/18 potassium chloride 20 meq PO DAILY 12/14/17 01/26/18 Previous Rx's Medication Instructions Recorded pantoprazole 40 mg PO DAILY #90 tab 10/29/17 fosfomycin tromethamine 1 packet PO Q3D #1 ea 12/17/17 Allergies Allergy/AdvReac Type Severity Reaction Status Date / Time No Known Allergies Allergy Verified 01/26/18 22:22 Review of Systems ROS: all other systems reviewed are negative [facility] Medical History Medical History Malignant neoplasm determined by biopsy of pancreas (Acute) Current tobacco use (Acute) Hypothyroidism (Acute) Pulmonary embolism (Acute) Secondary malignant neoplasm of liver (Acute) Hypertension (Acute) Pancreatic cancer (Acute) Cancer determined by pancreatic biopsy (Acute) Recurrent cellulitis of lower extremity (Acute) Social History Social History Substance History: No History of Abuse Second Hand Smoke Exposure: Yes Smoking Status: Former smoker Tobacco Type: Cigarettes How Often Do You Have a Drink Containing Alcohol: Never Recent Travel in [facility] within the Last 8 Weeks: No Recent Out of Country Travel within the Last 8 Weeks: No Immunization History Tetanus Immunization: Unsure Exam Const General: cooperative, comfortable, well developed and ill appearing Orientation: alert, awake and oriented x3 HENMT Head: normal to inspection, normocephalic and atraumatic Mouth: moist mucous membranes abnormal (Dry) Eyes Alignment and Position: alignment normal and position abnormal Conjunctivae: conjunctivae normal Sclera: sclerae normal EOM: EOM intact bilaterally Neck Neck: normal visual inspection and full ROM Chest Chest: normal inspection of the chest Resp Effort & Inspection: normal respiratory effort and able to speak in complete sentences Auscultation: clear to auscultation bilaterally Cardio Rate: tachycardic Rhythm: regular rhythm GI Inspection: normal to inspection Palpation: soft Back/Spine/Pelvis Cervical Spine: cervical ROM normal Thoracic/Lumbar Spine: thoraco-lumbar ROM normal Skin General: no rashes or lesions noted, turgor normal and dry skin Neuro General: alert, awake, oriented x3, moves all extremities and CN's II-XI intact bilaterally Extrem General: normal to inspection and full ROM Psych Appearance: grossly normal Mental Status: mental status grossly normal Speech and Movement: speech and movement normal Mood: congruent mood Affect: normal affect Attitude: cooperative Thought Process: normal Thought Content: normal Judgment: judgment good Course Reevaluation(s) Reevaluation #1: Hemoglobin is 6.9 Time: 22:52 Reevaluation #2: The results of her labs and x-ray studies were explained to the patient and her fianc. She understands the need to stay in the hospital for further treatment. Time: 23:30 Consultations Consultation #1: Dr. Prakash will admit Time: 23:30 Initial Documented Vital Signs Temperature 98.8 F 01/26/18 22:17 Pulse Rate 120 H 01/26/18 22:17 Respiratory Rate 20 01/26/18 22:17 Blood Pressure 103/54 L 01/26/18 22:17 Pulse Oximetry 100 01/26/18 22:17 Last Documented Vital Signs Temperature 100.7 F H 01/26/18 22:25 Pulse Rate 117 H 01/26/18 22:40 Respiratory Rate 20 01/26/18 22:17 Blood Pressure 103/54 L 01/26/18 22:17 Pulse Oximetry 98 01/26/18 22:44 Critical Care Time Critical Care Time: Yes Total Critical Care Time: 45 Attestation: Time to perform other separately billable procedures was not included in the critical care time. My time did not include minutes spent treating any other patients simultaneously or on activities that did not directly contribute to the patient's treatment. The services I provided to this patient were to treat and/or prevent clinically significant deterioration due to probable sepsis I provided critical care services requiring my management, as noted below: Chart data review, documentation time, medication orders and management, vital sign assessments/reviewing monitor data, ordering and reviewing lab tests, ordering and interpreting/reviewing x-rays and diagnostic studies, care of the patient and discussion of the patient with the admitting physicians Medical Decision Making MDM Narrative Medical decision making narrative: This is a patient with a history of pancreatic cancer with metastases to the liver who is currently on palliative chemotherapy who presents to us with weakness, fever and cough. Septic workup is in process. She is receiving a 2 L fluid bolus. Rocephin has been ordered for her urinary tract infection. Blood is pending. Medical Screen Exam Complete: Yes Emergency Medical Condition: Yes Differential Diagnosis Differential Diagnosis: Differential diagnosis of fever includes but is not limited to viral illness, strep throat, otitis media, pneumonia, sepsis, UTI Medical Records Medical records reviewed: Yes I reviewed the patient's medical records. This is a patient with pancreatic cancer with metastases to the liver who is currently receiving palliative chemotherapy. Other medical problems include COPD, alcohol abuse, hypertension and hypothyroidism. Lab Data Lab results reviewed: Yes I reviewed the patient's lab results. Result diagrams: 01/26/18 22:25 01/26/18 22:25 Lab Results 01/26/18 01/26/18 01/26/18 Range/Units 22:25 22:25 22:25 WBC 18.9 H (4.0-11.0) th/mm3 RBC 2.46 L (4.00-5.30) mil/mm3 Hgb 6.9 L* (11.6-15.3) gm/dL Hct 20.8 L* (35.0-46.0) % MCV 84.6 (80.0-100.0) fL MCH 28.2 (27.0-34.0) pg MCHC 33.4 (32.0-36.0) % RDW 20.2 H (11.6-17.2) % Plt Count 190 (150-450) th/mm3 MPV 8.8 (7.0-11.0) fL Prelim Diff (Auto) Slide review pending Neut % (Auto) 92.3 H (16.0-70.0) % Lymph % (Auto) 1.1 L (9.0-44.0) % [place] % (Auto) 5.6 (0.0-8.0) % Eos % (Auto) 0.1 (0.0-4.0) % Baso % (Auto) 0.9 (0.0-2.0) % Neut # (Auto) 17.4 H (1.8-7.7) th/mm3 Lymph # (Auto) 0.2 L (1.0-4.8) th/mm3 [place] # (Auto) 1.1 H (0.0-0.9) th/mm3 Eos # (Auto) 0.0 (0.0-0.4) th/mm3 Baso # (Auto) 0.2 (0.0-0.2) th/mm3 WBC Differential Manual diff final Seg Neuts % (Manual) 82 H (16-70) % Band Neuts % (Manual) 15 H (0-6) % Monocytes % (Manual) 3 (0-8) % Abs Neuts (Manual) 18.3 H (1.8-7.7) th/mm3 Nucleated RBCs/100 WBC 1 H (0-0) /100 WBC Differential Comment . Toxic Granulation 3+ H (None) Dohle Bodies Present H (None) Platelet Estimate Normal (Normal) Platelet Morphology Normal (Normal) Basophilic Stippling Faint H (None) Acanthocytes (Spur) Occ H (None) Sodium 134 L (136-145) meq/L Potassium 4.2 (3.5-5.1) meq/L Chloride 106 (98-107) meq/L Carbon Dioxide 16.1 L (21.0-32.0) meq/L Anion Gap 12 (5-15) meq/L BUN 31 H (7-18) mg/dL Creatinine 1.62 H (0.50-1.00) mg/dL Estimated GFR 31 L (>89) mL/min Random Glucose 119 H (74-106) mg/dL Lactic Acid 3.4 H (0.4-2.0) mmol/L Calcium 7.8 L (8.5-10.1) mg/dL Total Bilirubin 0.8 (0.2-1.0) mg/dL AST 30 (15-37) U/L ALT 27 (10-53) U/L Alkaline Phosphatase 256 H (45-117) U/L Total Protein 5.6 L (6.4-8.2) g/dL Albumin 1.4 L (3.4-5.0) g/dL Urine Color (Yellw/Straw) Urine Clarity (Clear) Urine pH (5.0-8.5) Ur Specific [place] (1.002-1.035) Urine Protein (Neg-Trace) mg/dL Urine Glucose (UA) (Negative) mg/dL Urine Ketones (Negative) mg/dL Urine Occult Blood (Negative) Urine Nitrate (Negative) Urine Bilirubin (Negative) Urine Urobilinogen (Less than 2) mg/dL Ur Leukocyte Esterase (Negative) Urine WBC (0-5) /hpf Urine WBC Clumps (None) Urine Bacteria (None) /hpf Urine Mucus (Occasional) /lpf Micro UA Comment Ur Microscopic Review Urine Culture Comments Blood Type MTS Gel Crossmatch 01/26/18 01/26/18 Range/Units 23:00 23:00 WBC (4.0-11.0) th/mm3 RBC (4.00-5.30) mil/mm3 Hgb (11.6-15.3) gm/dL Hct (35.0-46.0) % MCV (80.0-100.0) fL MCH (27.0-34.0) pg MCHC (32.0-36.0) % RDW (11.6-17.2) % Plt Count (150-450) th/mm3 MPV (7.0-11.0) fL Prelim Diff (Auto) Neut % (Auto) (16.0-70.0) % Lymph % (Auto) (9.0-44.0) % [place] % (Auto) (0.0-8.0) % Eos % (Auto) (0.0-4.0) % Baso % (Auto) (0.0-2.0) % Neut # (Auto) (1.8-7.7) th/mm3 Lymph # (Auto) (1.0-4.8) th/mm3 [place] # (Auto) (0.0-0.9) th/mm3 Eos # (Auto) (0.0-0.4) th/mm3 Baso # (Auto) (0.0-0.2) th/mm3 WBC Differential Seg Neuts % (Manual) (16-70) % Band Neuts % (Manual) (0-6) % Monocytes % (Manual) (0-8) % Abs Neuts (Manual) (1.8-7.7) th/mm3 Nucleated RBCs/100 WBC (0-0) /100 WBC Differential Comment Toxic Granulation (None) Dohle Bodies (None) Platelet Estimate (Normal) Platelet Morphology (Normal) Basophilic Stippling (None) Acanthocytes (Spur) (None) Sodium (136-145) meq/L Potassium (3.5-5.1) meq/L Chloride (98-107) meq/L Carbon Dioxide (21.0-32.0) meq/L Anion Gap (5-15) meq/L BUN (7-18) mg/dL Creatinine (0.50-1.00) mg/dL Estimated GFR (>89) mL/min Random Glucose (74-106) mg/dL Lactic Acid (0.4-2.0) mmol/L Calcium (8.5-10.1) mg/dL Total Bilirubin (0.2-1.0) mg/dL AST (15-37) U/L ALT (10-53) U/L Alkaline Phosphatase (45-117) U/L Total Protein (6.4-8.2) g/dL Albumin (3.4-5.0) g/dL Urine Color Yellow (Yellw/Straw) Urine Clarity Turbid H (Clear) Urine pH 5.0 (5.0-8.5) Ur Specific [place] 1.012 (1.002-1.035) Urine Protein 100 H (Neg-Trace) mg/dL Urine Glucose (UA) Negative (Negative) mg/dL Urine Ketones Negative (Negative) mg/dL Urine Occult Blood Moderate H (Negative) Urine Nitrate Negative (Negative) Urine Bilirubin Negative (Negative) Urine Urobilinogen 4 or greater (Less than 2) mg/dL Ur Leukocyte Esterase Moderate H (Negative) Urine WBC (0-5) /hpf Urine WBC Clumps Many H (None) Urine Bacteria Many H (None) /hpf Urine Mucus Few H (Occasional) /lpf Micro UA Comment Cath-culture ind Ur Microscopic Review Not Reportable Urine Culture Comments Cath-cult indicated Blood Type B Positive MTS Gel Crossmatch See Detail Imaging Data Radiologist's impression: Chest X-Ray 01/26/18 22:26 CONCLUSION: Generally improved appearance. Mild patchy parenchymal opacities in the right lung ECG Data EKG Prior to Arrival: No Attestation: I personally reviewed and interpreted this ECG as follows: (EKG shows a sinus rhythm with rate of 112. No acute STT wave changes.) Discharge Plan Discharge Disposition Patient Disposition: 30 Still Patient Discharge Details Diagnosis: Anemia, Urinary tract infection, Sepsis Physicians Team ED Provider: Nancy Meza Rxs /Orders / Referrals /Forms Prescriptions: No Action levothyroxine 100 mcg Tablet 100 mcg PO DAILY RF: 0 ondansetron 4 mg Tablet,Disintegrating 4 mg PO QID PRN (Reason: Nausea And Vomiting) RF: 0 oxycodone 5 mg Tablet 5 mg PO Q4H RF: 0 lactulose 10 gram/15 mL Solution 10 g PO TID RF: 0 apixaban [Eliquis] 5 mg Tablet 5 mg PO BID RF: 0 morphine 15 mg Tablet,Oral Only,Ext.Rel.12 Hr 15 mg PO Q12H RF: 0 pantoprazole 40 mg Tablet,Delayed Release (Dr/Ec) 40 mg PO DAILY Qty: 90 RF: 0 furosemide [Lasix] 20 mg Tablet 20 mg PO BID RF: 0 potassium chloride 20 mEq Packet 20 meq PO DAILY RF: 0 fosfomycin tromethamine 3 gram Packet 1 packet PO Q3D Qty: 1 RF: 0 Status ED Status: With Doctor
[2018-01-26 22:55] LABS: Albumin 1.4 g/dL (3.4-5.0); Anion Gap 12 meq/L (5-15); Aspartate Aminotransferase 30 U/L (15-37); Blood Urea Nitrogen 31 mg/dL (7-18); Calcium 7.8 mg/dL (8.5-10.1); Carbon Dioxide 16.1 meq/L (21.0-32.0); Chloride 106 meq/L (98-107); Glomerular Filtration Rate 31 mL/min (>89); Glucose,Random 119 mg/dL (74-106); Potassium 4.2 meq/L (3.5-5.1); Sodium 134 meq/L (136-145)
[2018-01-26 22:56] LABS: Alanine Aminotransferase 27 U/L (10-53)
[2018-01-26 22:58] LABS: Alkaline Phosphatase 256 U/L (45-117); Total Protein 5.6 g/dL (6.4-8.2)
[2018-01-26 23:13] LABS: Dohle Bodies Present; Monocytes 3 % (0-8); Tallied Nucleated RBC 1 (0-0); Toxic Granulation 3+
[2018-01-26 23:14] LABS: Platelet Estimate Normal (Normal); Platelet Morphology Normal (Normal)
[2018-01-26 23:15] LABS: Acanthocytes Occ
[2018-01-26 23:17] LABS: Bacteria,Urine Many /hpf; Bilirubin,Urine Negative (Negative); Clarity,Urine Turbid (Clear); Color,Urine Yellow (Yellw/Straw); Glucose,Urine (UA) Negative (Negative); Leukocyte Esterase,Urine Moderate (Negative); Mucus,Urine Few /lpf (Occasional); Nitrite,Urine Negative (Negative); Specific Gravity,Urine 1.012 (1.002-1.035); Urobilinogen,Urine 4 or Greater mg/dL (Less than 2)
--- NOTE | 2018-01-26 23:18 | XR ---
EXAM DATE: 01/26/2018 10:26 PM EDT AGE/SEX: 72 years / Female INDICATIONS: Fever. Weakness and not feeling well. CLINICAL DATA: This is the patient's initial encounter. Patient reports that signs and symptoms have been present for 1 day and indicates a pain score of 0/10. MEDICAL/SURGICAL HISTORY: . COPD, GERD, Pancreatitis, HTN, Metastatic pancreas carcinoma, Thyro id disease, Secondary metastatic disease to liver. . [id number] COMPARISON: [facility]PO, CHEST 1V SINGLE AP, 12/16/2017. . FINDINGS: Right chest port is stable in position. Patchy nodular densities in the right lung appear less conspi cuous than on previous exam. Mild linear parenchymal opacity at the right lung base may be scarring o r atelectasis. Cardiac contours are unchanged. CONCLUSION: Generally improved appearance. Mild patchy parenchymal opacities in the right lung Electronically signed by: Chin Cordero MD 01/26/2018 11:17 PM EDT
[2018-01-26] MEDS ORDERED: Vancomycin Consult Pharmacy OTHER PRN (23:27)
[2018-01-26] MEDS ORDERED: Bisacodyl 10 MG Supp RECTAL PRN (23:28)
[2018-01-26] MEDS ORDERED: Acetaminophen 325 MG Tablet PO PRN (23:28)
--- NOTE | 2018-01-26 23:31 | P.HPIM ---
History of Present Illness History of Present Illness: This is a 72-year-old female with a PMH of HTN, Hypothyroidism and Pancreatic CA who presented to ER with complaints of fever of 102.3, generalized weakness and cough x1 day. States she follows w/ Dr. Olson, was scheduled for Chemo this past Sunday, however her BP was too low. Today, w/ fever and worsening weakness. Denies nausea, vomiting or diarrhea. No sick contacts reported. On arrival, BP 103/54, HR 120, O2 sat 100% on RA, Temp 100.7. WBC 18.9. Hemoglobin 6.9, previously 8.0 on 01/25/2018. Bands 15%. Lactic Acid 3.4. Creatinine 1.62, previously 1.60 on 01/25/2018. U/a positive for UTI. CXR w/ mild patchy parenchymal opacities right lung. S/p Blood Cultures, Rocephin in ER. States she has upcoming appt on the for repeat imaging w/ CT/MRI and is scheduled for next round of Chemo on the . - Diagnosis (1) Sepsis (2) PNA (pneumonia) (3) UTI (urinary tract infection) (4) Anemia (5) Pancreatic cancer Review of Systems PAST FAMILY HISTORY: Reviewed. No h/o DM or CAD All other systems reviewed negative except as stated in HPI PMFSH - History History Provided By: Patient - Medical History Medical History: Medical History (Last Reviewed 01/26/18 @ 22:49 by Nancy Meza) Malignant neoplasm determined by biopsy of pancreas (Acute) Current tobacco use (Acute) Hypothyroidism (Acute) Pulmonary embolism (Acute) Secondary malignant neoplasm of liver (Acute) Hypertension (Acute) Pancreatic cancer (Acute) Cancer determined by pancreatic biopsy Recurrent cellulitis of lower extremity - Surgical History Surgical History: Surgical History (Last Reviewed 12/17/17 @ 08:11 by Bobo Paredes) Port-A-Cath in place (Acute) - Family History Family History: Family History (Last Reviewed 12/14/17 @ 18:16 by Tiera Mandel MD) Mother Esophageal adenocarcinoma Grandparent Cervical cancer - Tobacco History Second Hand Smoke Exposure: Yes Smoking Status: Former smoker Tobacco Type: Cigarettes - Alcohol History How Often Do You Have a Drink Containing Alcohol: Never - Substance Use History Substance History: No History of Abuse - Travel History Recent Travel in the [place] Within the Last 8 Weeks: No Recent Travel Out of the Country Within the Last 8 Weeks: No - Immunization History Tetanus Immunization: Unsure Medications and Allergies Active Medications: Active Medications Acetaminophen (Tylenol) 650 mg PO Q4H PRN PRN Reason: Temp > 100.4 Al Hydroxide/Mg Hydroxide (Milk Of Magnesia Liq) 30 ml PO Q12H PRN PRN Reason: Mild Constipation Bisacodyl (Dulcolax Supp) 10 mg RECTAL DAILY PRN PRN Reason: SEVERE CONSITIPATION Sodium Chloride (Ns Inj) 1,000 mls @ 0 mls/hr IV.SIG BOLUS NEVIN Stop: 01/27/18 22:31 Ceftriaxone Sodium 1,000 mg/ (Sodium Chloride) 100 mls @ 200 mls/hr IV.SIG ONCE ONE Stop: 01/26/18 23:48 Cefepime HCl 1,000 mg/ Sodium (Chloride) 100 mls @ 200 mls/hr IV.SIG Q12H NEVIN Lactulose (Lactulose Liq) 30 ml PO DAILY PRN PRN Reason: SEVERE CONSITIPATION Allergies Allergy/AdvReac Type Severity Reaction Status Date / Time No Known Allergies Allergy Verified 01/26/18 22:22 Home Medications Medication Instructions Recorded Confirmed Type apixaban [Eliquis] 5 mg PO BID 10/27/17 01/26/18 History lactulose 10 g PO TID 10/27/17 01/26/18 History levothyroxine 100 mcg PO DAILY 10/27/17 01/26/18 History morphine 15 mg PO Q12H 10/27/17 01/26/18 History ondansetron 4 mg PO QID PRN 10/27/17 01/26/18 History oxycodone 5 mg PO Q4H 10/27/17 01/26/18 History furosemide [Lasix] 20 mg PO BID 12/14/17 01/26/18 History potassium chloride 20 meq PO DAILY 12/14/17 01/26/18 History Exam Vital signs: Vital Signs 01/26/18 22:17 01/26/18 22:25 01/26/18 22:40 Temperature 98.8 F 100.7 F H Pulse Rate 120 H 117 H Respiratory Rate 20 Blood Pressure 103/54 L Pulse Oximetry 100 01/26/18 22:44 Temperature Pulse Rate Respiratory Rate Blood Pressure Pulse Oximetry 98 Intake & Output 01/26/18 01/26/18 01/27/18 06:59 18:59 06:59 Weight 60.781 kg Narrative: PE: GENERAL: Very pleasant middle-aged female in no acute distress. SKIN: Focused skin assessment warm and dry. HEENT: PERRLA, EOMI. No scleral icterus or conjunctival pallor. No lid lag or facial droop. CARDIOVASCULAR: Regular rate and rhythm. No obvious murmurs to auscultation. No chest tenderness to palpation. RESPIRATORY: No obvious rhonchi or wheezing. Clear to auscultation. Breath sounds equal bilaterally. GASTROINTESTINAL: Abdomen soft, non-tender, nondistended. BS normal. MUSCULOSKELETAL: Extremities without clubbing, cyanosis, or edema. No obvious deformities. NEUROLOGICAL: Awake, alert and oriented x4. No focal neurologic deficits. Moving both upper and lower extremities spontaneously. PSYCHIATRIC: Appropriate mood and affect. Insight and judgment normal. Results - Labs CBC & Chem 7: 01/26/18 22:25 01/26/18 22:25 Labs: Short CBC 01/26/18 Range/Units 22:25 WBC 18.9 H (4.0-11.0) th/mm3 Hgb 6.9 L* (11.6-15.3) gm/dL Hct 20.8 L* (35.0-46.0) % Plt Count 190 (150-450) th/mm3 BMP 01/26/18 22:25 Sodium 134 L Potassium 4.2 Chloride 106 Carbon Dioxide 16.1 L BUN 31 H Creatinine 1.62 H Calcium 7.8 L Liver Function 01/26/18 Range/Units 22:25 Total Bilirubin 0.8 (0.2-1.0) mg/dL AST 30 (15-37) U/L ALT 27 (10-53) U/L Alkaline Phosphatase 256 H (45-117) U/L Albumin 1.4 L (3.4-5.0) g/dL Urine 01/26/18 Range/Units 23:00 Urine Color Yellow (Yellw/Straw) Urine Clarity Turbid H (Clear) Urine pH 5.0 (5.0-8.5) Ur Specific [place] 1.012 (1.002-1.035) Urine Protein 100 H (Neg-Trace) mg/dL Urine Glucose (UA) Negative (Negative) mg/dL - Imaging Impressions Chest X-Ray 01/26/18 22:26 CONCLUSION: Generally improved appearance. Mild patchy parenchymal opacities in the right lung Caprini VTE Risk Assessment Caprini VTE Risk Assessment: No/Low Risk (score <= 1) Caprini Risk Assessment Model: Point Value = 1 Point Value = 2 Point Value = 3 Point Value = 5 Age 41-60 Minor surgery BMI > 25 kg/m2 Swollen legs Varicose veins or History of unexplained or recurrent spontaneous Oral contraceptives or hormone replacement Sepsis (< 1 month) Serious lung disease, including pneumonia (< 1 month) Abnormal pulmonary function Acute myocardial infarction Congestive heart failure (< 1 month) History of inflammatory bowel disease Medical patient at bed rest Age 61-74 Arthroscopic surgery Major open surgery (> 45 min) Laparoscopic surgery (> 45 min) Malignancy Confined to bed (> 72 hours) Immobilizing plaster cast Central venous access Age >= 75 History of VTE Family history of VTE Factor V Leiden Prothrombin [id number] Lupus anticoagulant Anticardiolipin antibodies Elevated serum homocysteine Heparin-induced thrombocytopenia Other congenital or acquired thrombophilia Stroke (< 1 month) Elective arthroplasty Hip, pelvis, or leg fracture Acute spinal cord injury (< 1 month) Prophylaxis Regimen: Total Risk Factor Score Risk Level Prophylaxis Regimen 0-1 Low Early ambulation 2 Moderate Order ONE of the following: *Sequential Compression Device (SCD) *Heparin 5000 units SQ BID 3-4 Higher Order ONE of the following medications: *Heparin 5000 units SQ TID *Enoxaparin/Lovenox 40 mg SQ daily (WT < 150 kg, CrCl > 30 mL/min) *Enoxaparin/Lovenox 30 mg SQ daily (WT < 150 kg, CrCl > 10-29 mL/min) *Enoxaparin/Lovenox 30 mg SQ BID (WT < 150 kg, CrCl > 30 mL/min) AND/OR *Sequential Compression Device (SCD) 5 or more Highest Order ONE of the following medications: *Heparin 5000 units SQ TID (Preferred with Epidurals) *Enoxaparin/Lovenox 40 mg SQ daily (WT < 150 kg, CrCl > 30 mL/min) *Enoxaparin/Lovenox 30 mg SQ daily (WT < 150 kg, CrCl > 10-29 mL/min) *Enoxaparin/Lovenox 30 mg SQ BID (WT < 150 kg, CrCl > 30 mL/min) AND *Sequential Compression Device (SCD) Assessment and Plan - Assessment (1) Sepsis Code(s): A41.9 - Sepsis, unspecified organism Status: Acute (2) PNA (pneumonia) Code(s): J18.9 - Pneumonia, unspecified organism Status: Acute (3) UTI (urinary tract infection) Code(s): N39.0 - Urinary tract infection, site not specified Status: Acute (4) Anemia Code(s): D64.9 - Anemia, unspecified Status: Acute (5) Pancreatic cancer Code(s): C25.9 - Malignant neoplasm of pancreas, unspecified Status: Acute - Plan A/P: 1. Sepsis: Temp 102.5 at home, HR 120, WBC 18.9, 15% bands, s/p Blood Cultures and Rocephin IV, will follow up blood cultures, continue w/ broad spectrum IV Abx. 2. UTI: U/a w/ UTI, continue IV Abx, IVF for hydration, monitor I/O, follow up cultures. 3. PNA: CXR w/ patchy opacities right lung, images reviewed, +cough, continue w/ Vanc/Cefepime, DuoNeb prn. 4. Anemia: Hgb 6.9, previously 8.0, 2u pRBC ordered, pending transfusion, repeat Hgb after transfusion. 5. Pancreatic CA: Following w/ Dr. Olson, was scheduled for chemo Sunday (1 day ago), however re-scheduled for the due to hypotension. Has upcoming appt on the for repeat imaging w/ CT/MRI. Consult Dr. Olson for further eval/recommendations. 6. DVT Prophylaxis: SCD/Teds 7. Social work for d/c planning as needed 8. Case discussed w/ ER physician at length, labs/records/imaging reviewed by me.
[2018-01-26] MEDS: Sod Chloride 0.9% Inj 1,000 ML IV.CONT SCH (23:57)
[2018-01-26] MEDS: Sod Chloride 0.9% Inj 1,000 ML IV.SIG SCH (23:59)
[2018-01-26] MEDS ORDERED: Vancomycin Inj 1,500 MG in Sodium Chlor 0.9% Inj 500 ML IV.SIG ONE (23:59)
[2018-01-27] MEDS: Sod Chloride 0.9% Inj 1,000 ML IV.SIG SCH (01:17)
[2018-01-27] MEDS: Sod Chloride 0.9% Inj 1,000 ML IV.CONT SCH ×2 (09:29→20:44)
[2018-01-27] MEDS: Senna/Docusate Sodium 8.6/50 MG Tablet PO SCH ×2 (09:29→20:45)
--- NOTE | 2018-01-27 09:54 | ECG ---
Date Performed: 01/26/2018 Time Performed: 22:50:04 PTAGE: 72 years EKG: SINUS TACHYCARDIA ABNORMAL RHYTHM ECG PREVIOUS TRACING : 12/14/2017 17.01 DOCTOR: Elvira Machado Interpretating Date/Time 01/27/2018 09:52:57
[2018-01-27] MEDS: Levothyroxine 100 MCG Tablet PO SCH (11:15)
[2018-01-27] MEDS ORDERED: MORPHINE 15 MG PO SCH (11:45)
--- NOTE | 2018-01-27 11:46 | P.PNIM ---
Subjective Interval history: The patient says she was recently in the hospital for a urinary tract infection. She does endorse discomfort with urination at this time. She says she has had black stools but she also says she is on iron supplementation. Physical Exam Vital signs: Vital Signs 01/26/18 22:17 01/26/18 22:25 01/26/18 22:40 Temperature 98.8 F 100.7 F H Pulse Rate 120 H 117 H Respiratory Rate 20 Blood Pressure 103/54 L Pulse Oximetry 100 01/26/18 22:44 01/27/18 00:31 01/27/18 00:59 Temperature Pulse Rate 104 H 104 H Respiratory Rate 17 17 Blood Pressure 89/58 L Pulse Oximetry 98 97 97 01/27/18 01:29 01/27/18 01:37 01/27/18 02:09 Temperature 98 F 98.1 F Pulse Rate 106 H 105 H 99 H Respiratory Rate 18 18 Blood Pressure 86/52 L 85/54 L Pulse Oximetry 98 98 01/27/18 05:05 01/27/18 05:48 01/27/18 07:35 Temperature 97.4 F L 97.6 F Pulse Rate 80 78 65 Respiratory Rate 18 18 Blood Pressure 95/64 L 95/63 L Pulse Oximetry 99 99 01/27/18 08:11 Temperature Pulse Rate 72 Respiratory Rate 16 Blood Pressure 114/71 Pulse Oximetry 100 Intake & Output 01/26/18 01/27/18 01/27/18 18:59 06:59 18:59 Intake Total 2615 / 2615 200 / 200 Balance 2615 / 2615 200 / 200 Weight 67 kg Intake: IV 2615 / 2615 200 / 200 NS Inj 1,000 ML @ 100 mls/hr IV 100 / 100 .CONT .Q10H NEVIN Rx#:[id number] Maxipime Inj 1,000 MG In NS Inj 100 / 100 100 ML @ 200 mls/hr IV.SIG Q12H NEVIN Rx#:[id number] NS Inj 1,000 ML @ Wide Open IV. 1999 SIG BOLUS NEVIN Rx#:[id number] Vancomycin Inj 1,500 MG In NS 515 / 515 Inj 500 ML @ 250 mls/hr IV.SIG ONCE ONE Rx#:[id number] Rocephin Inj 1,000 MG In NS Inj 100 / 100 100 ML @ 200 mls/hr IV.SIG ONCE ONE Rx#:[id number] Intake (Blood Product) Amt 0 / 0 Rbc As-3 Leukoreduced Irrad 0 / 0 Unit [id number] Rbc As-3 Leukoreduced Irrad 0 / 0 Unit [id number] Other: Weight On Admission 67 kg Narrative: GENERAL: No acute distress. SKIN: Focused skin assessment warm and dry. HEENT: PERRLA, EOMI. No scleral icterus or conjunctival pallor. No lid lag or facial droop. CARDIOVASCULAR: Regular rate and rhythm. No obvious murmurs to auscultation. No chest tenderness to palpation. RESPIRATORY: No obvious rhonchi or wheezing. Clear to auscultation. Breath sounds equal bilaterally. GASTROINTESTINAL: Abdomen soft, non-tender, nondistended. BS normal. MUSCULOSKELETAL: Extremities without clubbing, cyanosis, or edema. No obvious deformities. NEUROLOGICAL: Awake, alert and oriented x4. No focal neurologic deficits. Moving both upper and lower extremities spontaneously. PSYCHIATRIC: Appropriate mood and affect. Insight and judgment normal. Results - Labs CBC & Chem 7: 01/26/18 22:25 01/26/18 22:25 Laboratory Results - last 24 hr 01/26/18 01/26/18 01/26/18 22:25 22:25 22:25 WBC 18.9 H RBC 2.46 L Hgb 6.9 L* Hct 20.8 L* MCV 84.6 MCH 28.2 MCHC 33.4 RDW 20.2 H Plt Count 190 MPV 8.8 Prelim Diff (Auto) Slide review pending Neut % (Auto) 92.3 H Lymph % (Auto) 1.1 L [place]rell % (Auto) 5.6 Eos % (Auto) 0.1 Baso % (Auto) 0.9 Neut # (Auto) 17.4 H Lymph # (Auto) 0.2 L [place]rell # (Auto) 1.1 H Eos # (Auto) 0.0 Baso # (Auto) 0.2 WBC Differential Manual diff final Seg Neuts % (Manual) 82 H Band Neuts % (Manual) 15 H Monocytes % (Manual) 3 Abs Neuts (Manual) 18.3 H Nucleated RBCs/100 WBC 1 H Differential Comment . Toxic Granulation 3+ H Dohle Bodies Present H Platelet Estimate Normal Platelet Morphology Normal Basophilic Stippling Faint H Acanthocytes (Spur) Occ H Sodium 134 L Potassium 4.2 Chloride 106 Carbon Dioxide 16.1 L Anion Gap 12 BUN 31 H Creatinine 1.62 H Estimated GFR 31 L Random Glucose 119 H Lactic Acid 3.4 H Calcium 7.8 L Total Bilirubin 0.8 AST 30 ALT 27 Alkaline Phosphatase 256 H Total Protein 5.6 L Albumin 1.4 L Urine Color Urine Clarity Urine pH Ur Specific [place] Urine Protein Urine Glucose (UA) Urine Ketones Urine Occult Blood Urine Nitrate Urine Bilirubin Urine Urobilinogen Ur Leukocyte Esterase Urine WBC Urine WBC Clumps Urine Bacteria Urine Mucus Micro UA Comment Ur Microscopic Review Urine Culture Comments Blood Type Antibody Screen MTS Gel Crossmatch 01/26/18 01/26/18 01/27/18 23:00 23:00 03:35 WBC RBC Hgb Hct MCV MCH MCHC RDW Plt Count MPV Prelim Diff (Auto) Neut % (Auto) Lymph % (Auto) Tyrrell % (Auto) Eos % (Auto) Baso % (Auto) Neut # (Auto) Lymph # (Auto) Tyr[place] # (Auto) Eos # (Auto) Baso # (Auto) WBC Differential Seg Neuts % (Manual) Band Neuts % (Manual) Monocytes % (Manual) Abs Neuts (Manual) Nucleated RBCs/100 WBC Differential Comment Toxic Granulation Dohle Bodies Platelet Estimate Platelet Morphology Basophilic Stippling Acanthocytes (Spur) Sodium Potassium Chloride Carbon Dioxide Anion Gap BUN Creatinine Estimated GFR Random Glucose Lactic Acid 1.2 Calcium Total Bilirubin AST ALT Alkaline Phosphatase Total Protein Albumin Urine Color Yellow Urine Clarity Turbid H Urine pH 5.0 Ur Specific [place] 1.012 Urine Protein 100 H Urine Glucose (UA) Negative Urine Ketones Negative Urine Occult Blood Moderate H Urine Nitrate Negative Urine Bilirubin Negative Urine Urobilinogen 4 or greater Ur Leukocyte Esterase Moderate H Urine WBC Urine WBC Clumps Many H Urine Bacteria Many H Urine Mucus Few H Micro UA Comment Cath-culture ind Ur Microscopic Review Not Reportable Urine Culture Comments Cath-cult indicated Blood Type B Positive Antibody Screen Negative MTS Gel Crossmatch See Detail Microbiology 01/26/18 22:25 Blood - Peripheral Aerobic Blood Culture - Preliminary No growth in 1 day 01/26/18 22:25 Blood - Peripheral Anaerobic Blood Culture - Preliminary No growth in 1 day 01/26/18 22:30 Blood - Peripheral Aerobic Blood Culture - Preliminary No growth in 1 day 01/26/18 22:30 Blood - Peripheral Anaerobic Blood Culture - Preliminary No growth in 1 day - Imaging Impressions Chest X-Ray 01/26/18 22:26 CONCLUSION: Generally improved appearance. Mild patchy parenchymal opacities in the right lung Assessment and Plan - Assessment (1) Sepsis Code(s): A41.9 - Sepsis, unspecified organism Status: Acute (2) PNA (pneumonia) Code(s): J18.9 - Pneumonia, unspecified organism Status: Acute (3) UTI (urinary tract infection) Code(s): N39.0 - Urinary tract infection, site not specified Status: Acute (4) Anemia Code(s): D64.9 - Anemia, unspecified Status: Acute (5) Pancreatic cancer Code(s): C25.9 - Malignant neoplasm of pancreas, unspecified Status: Acute - Plan Sepsis/ UTI/ HCAP Temp 102.5 at home, HR 120, WBC 18.9, 15% bands. UA indicative of UTI. The pt was recently hospitalized for urosepsis. CXR with patchy opacities in the right lung. -follow blood cultures and urine culture. -continue w/ Vanc/cefepime IV. -oxygen and DuoNebs prn. Acute renal failure Likely prerenal. -IVFs. -avoid nephrotoxins. -hold Lasix. Anemia Hgb 6.9, previously 8. S/p two units of red cells. -follow CBC and transfuse as needed. -holding Eliquis. Hypotension Exacerbated by sepsis and anemia. -IVFs. -hold long-acting morphine. -treatment as above. Pancreatic CA Following w/ Dr. Olson, was scheduled for chemo Sunday, however, re-scheduled for the due to hypotension. -Has upcoming appt on the for repeat imaging w/ CT/MRI. -Consult Dr. Olson for further eval/recommendations. DVT Prophylaxis: SCD/Teds
[2018-01-27 12:48] LABS: Baso % (Auto) 0.1 % (0.0-2.0); Hemoglobin 9.6 gm/dL (11.6-15.3); Lymph # (Auto) 0.6 th/mm3 (1.0-4.8); Lymph % (Auto) 2.5 % (9.0-44.0); Mean Corpuscular HGB Conc 31.9 % (32.0-36.0); Mean Corpuscular Hemoglobin 27.4 pg (27.0-34.0); Mean Corpuscular Volume 85.7 fL (80.0-100.0); Mean Platelet Volume 9.1 fL (7.0-11.0); Mono # (Auto) 1.9 th/mm3 (0.0-0.9); Mono % (Auto) 8.3 % (0.0-8.0); Neut # (Auto) 19.9 th/mm3 (1.8-7.7); Neut % (Auto) 89.1 % (16.0-70.0); Platelet Count 171 th/mm3 (150-450); Red Cell Distribution Width 18.6 % (11.6-17.2); White Blood Count 22.4 th/mm3 (4.0-11.0)
[2018-01-27 13:17] LABS: Albumin 1.3 g/dL (3.4-5.0); Calcium 7.1 mg/dL (8.5-10.1); Carbon Dioxide 18.3 meq/L (21.0-32.0); Potassium 4.2 meq/L (3.5-5.1)
--- NOTE | 2018-01-27 16:23 | P.DIET ---
Nutritional Evaluation Type of nutrition evaluation: initial Nutrition screening: Weight Loss > 10 lbs Subjective Subjective Comments: Pt reports a poor appetite and recent unintentional wt loss. Objective - Diagnosis Sepsis, UTI, Anemia - Objective [place] body weight: 46 kg Body Weight Used for Calculations: Actual (Estimated by nursing staff: 67kg) Energy Needs - Lower Range (kCal/kg): 28 Energy Needs - Upper Range (kCal/kg): 33 Lower Limit kCal/kg (kCals): 1,876 Upper Limit kCal/kg (kCals): 2,211 Lower Limit Protein Factor (Grams per Kg): 1.2 Upper Limit Protein Factor (Grams per Kg): 1.5 Lower Protein Needs (Protein): 80 Upper Protein Needs (Protein): 101 Dietitian Reviewed in Medical Record: Current diet, Curent medications, Intake & Output, Labs, Medical history Diet Order: Regular Objective Comments: PMH: HTN, Hypothyroidism, pancreatic cancer in chemo Meds include: Synthroid Assessment Assessment: Pt at nutritional risk r/t dx and reported recent wt loss. Pt admitted with sepsis, UTI, Anemia. Pt in chemo treatments for pancreatic cancer. An accurate wt is not yet available on pt. Nutritional needs assessed above are based on an estimated wt. Adequate po intake has not yet been established. Will provide Enlive tid, each bottle contains 350kcals and 20gms protein. Will monitor po intake, clinical course. Recommendations: Regular diet with Enlive tid Please weigh patient for a more accurate nutritional assessment. Dietitian to Monitor: Supplement acceptance, Intake & Output, Diet tolerance, Weight change, PO Intake, Medical course
[2018-01-28] MEDS: Sod Chloride 0.9% Inj 1,000 ML IV.CONT SCH ×2 (06:12→17:39)
[2018-01-28] MEDS: Levothyroxine 100 MCG Tablet PO SCH (06:12)
[2018-01-28 06:26] LABS: Hematocrit 29.9 % (35.0-46.0); Hemoglobin 9.7 gm/dL (11.6-15.3); Mean Corpuscular HGB Conc 32.6 % (32.0-36.0); Mean Corpuscular Hemoglobin 27.6 pg (27.0-34.0); Mean Corpuscular Volume 84.5 fL (80.0-100.0); Mean Platelet Volume 8.9 fL (7.0-11.0); Platelet Count 196 th/mm3 (150-450); Red Blood Count 3.53 mil/mm3 (4.00-5.30); Red Cell Distribution Width 18.4 % (11.6-17.2); White Blood Count 19.9 th/mm3 (4.0-11.0)
[2018-01-28 06:57] LABS: Calcium 7.3 mg/dL (8.5-10.1); Carbon Dioxide 18.2 meq/L (21.0-32.0); Magnesium 1.8 mg/dL (1.5-2.5); Potassium 4.3 meq/L (3.5-5.1); Vancomycin,Random 13.1 Comment
[2018-01-28 07:17] LABS: Calcium-Albumin Corrected 8.4 mg/dL (8.5-10.1); Total Protein 5.1 g/dL (6.4-8.2)
--- NOTE | 2018-01-28 07:37 | MB ---
cc: Sally Dailey MD DATE: 01/27/2018 CHIEF COMPLAINT: 1. Metastatic pancreatic cancer. 2. Sepsis. 3. Urinary tract infection. 4. Pneumonia. HISTORY OF PRESENT ILLNESS: Ms. Louie is a 72-year-old lady with a history of pancreatic cancer who is admitted to the hospital with sepsis. Her pancreatic cancer history began when she initially presented to the hospital with a several-month history of progressive epigastric left upper quadrant abdominal pain associated with nausea and vomiting. She also reports an unexplained 15-pound weight loss over the past month. She underwent imaging studies of the abdomen and pelvis, found to have a 5 x 2.7 x 2.2 cm mass involving the tail of the pancreas, was associated with innumerable hypodense lesions in the liver. CA 19-9 level was greater than 7000. CT-guided biopsy of the pancreatic tail mass was performed. The pathologic skin findings consistent with moderate to poorly differentiated adenocarcinoma. She was initiated on palliative systemic therapy with FOLFIRINOX in 07/2017. After 3 cycles of FOLFIRINOX, she had disease progression, and then she was started on second line palliative systemic therapy with gemcitabine and Abraxane. This was initiated 10/05/2017. She was due for her next cycle of therapy at the end of December. However, this was held due to hypotension, and Dr. Olson had requested restaging scans. She presented to the hospital on 01/26/2018 with fever of 102.3, generalized weakness, and cough of 1-day duration. PAST MEDICAL HISTORY: 1. Pancreatic cancer. 2. Acid reflux. 3. Hypertension. 4. Hypothyroidism. 5. History of tobacco abuse. PAST SURGICAL HISTORY: CT-guided biopsy of pancreatic lesion. FAMILY HISTORY: Mother with a history of unknown metastatic cancer. ALLERGIES: NO KNOWN DRUG ALLERGIES. SOCIAL HISTORY: She is a former smoker. She has a good support. REVIEW OF SYSTEMS: As above in the HPI. All others negative. HOSPITAL MEDICATIONS: 1. Cefepime. 2. Levothyroxine. 3. Zofran. 4. Oxycodone. 5. Protonix. 6. Senna. 7. Docusate. PHYSICAL EXAMINATION: VITAL SIGNS: Temperature 96.1, pulse 72, respiratory rate 16, blood pressure 99/65. GENERAL: This is a chronically ill appearing, elderly lady in no distress. HEENT: Head is normocephalic, atraumatic. Eyes: PERRLA. EOMI. NECK: Supple with no palpable lymphadenopathy. CARDIOVASCULAR: Regular rate and rhythm. No murmurs. RESPIRATORY: Congestion bilaterally. ABDOMEN: Soft, nontender, nondistended. Bowel sounds present. EXTREMITIES: No edema. NEUROLOGIC: Grossly nonfocal. PSYCHIATRIC: Appropriate mood and affect. ASSESSMENT AND PLAN: 1. Metastatic pancreatic cancer with progressive disease, on first line FOLFIRINOX therapy, and now currently receiving second line palliative systemic therapy with gemcitabine and Abraxane under the direction of my colleague Dr. Olson, and he has ordered re-imaging studies to be done. 2. Sepsis, possibly secondary to pneumonia with mild patchy parenchymal opacities in the right lung. Laboratory studies also with occult blood, elevated leukocyte esterase, many white blood cell clumps in the urine. Urine culture at this point in time is pending. Blood cultures are pending. She is on broad-spectrum antibiotic therapy. 3. Leukocytosis, chronic. Hemoglobin is low at 6. She is status post blood transfusion. Less likely contributing include chemotherapy. Platelet count is within normal limits. MD EKATERINA Rubi/mendoza , 12:33 PM , 12:41 PM
--- NOTE | 2018-01-28 08:29 | P.PNONC ---
Subjective Interval history: Patient reports feeling a great deal improved today as compared to yesterday. She tells me she does not recall the events leading up to her transfer to the hospital. Apparently her significant other found her to be confused at home. EMS were called and she was brought into the hospital. The patient herself has no recollection of any of this happening. She tells me she has no significant pain at this time, she tells me she has been urinating well, she gets up out of bed to the bedside commode to urinate. She remains on IV fluid hydration is also on IV antibiotics consisting of cefepime and vancomycin. Objective Vital Signs/Intake & Output: Vital Signs 01/27/18 11:37 01/27/18 12:00 01/27/18 17:11 Temperature 96.1 F L Pulse Rate 72 72 75 Respiratory Rate 16 Blood Pressure 99/65 L Pulse Oximetry 98 01/27/18 17:40 01/27/18 20:00 01/27/18 21:32 Temperature 97.9 F 99.2 F Pulse Rate 78 100 H 96 H Respiratory Rate 20 20 Blood Pressure 115/68 131/86 Pulse Oximetry 100 99 01/28/18 00:00 01/28/18 00:05 01/28/18 03:17 Temperature 98.7 F 98.2 F Pulse Rate 84 86 95 H Respiratory Rate 18 18 Blood Pressure 142/82 H 141/86 H Pulse Oximetry 98 98 01/28/18 04:05 01/28/18 07:54 Temperature Pulse Rate 88 93 H Respiratory Rate 18 Blood Pressure Pulse Oximetry Intake & Output 01/27/18 01/28/18 01/28/18 18:59 06:59 18:59 Intake Total 600 / 600 3590 / 3590 Output Total 1025 / 1025 Balance 600 / 600 2565 / 2565 Weight 67 kg Intake: IV 200 / 200 3110 / 3110 NS Inj 1,000 ML @ 100 mls/hr IV 100 / 100 1999 / 1999 .CONT .Q10H NEVIN Rx#:[id number] Maxipime Inj 1,000 MG In NS Inj 100 / 100 110 / 110 100 ML @ 200 mls/hr IV.SIG Q12H NEVIN Rx#:[id number] NS Inj 1,000 ML @ Wide Open IV. 1000 / 1000 SIG BOLUS NEVIN Rx#:[id number] Oral 480 / 480 Intake (Blood Product) Amt 400 / 400 Rbc As-3 Leukoreduced Irrad 400 / 400 Unit [id number] Output: Urine 1025 / 1025 Other: Date of Last Bowel Movement 01/27/18 # Bowel Movements 1 1 Result Diagrams: 01/28/18 06:09 01/28/18 06:09 Laboratory Results: Laboratory Results - last 24 hr 01/26/18 01/27/18 01/27/18 23:00 11:44 11:44 WBC 22.4 H RBC 3.50 L Hgb 9.6 L D Hct 30.0 L MCV 85.7 MCH 27.4 MCHC 31.9 L RDW 18.6 H Plt Count 171 MPV 9.1 Neut % (Auto) 89.1 H Lymph % (Auto) 2.5 L [place] % (Auto) 8.3 H Eos % (Auto) 0.0 Baso % (Auto) 0.1 Neut # (Auto) 19.9 H Lymph # (Auto) 0.6 L [place] # (Auto) 1.9 H Eos # (Auto) 0.0 Baso # (Auto) 0.0 WBC Differential . Differential Comment Auto diff final Sodium 141 Potassium 4.2 Chloride 112 H Carbon Dioxide 18.3 L Anion Gap 11 BUN 30 H Creatinine 1.40 H Estimated GFR 37 L Random Glucose 118 H Calcium 7.1 L* Prot Corrected Calcium 8.2 L Magnesium Total Bilirubin 1.8 H AST 25 ALT 25 Alkaline Phosphatase 217 H Total Protein 5.0 L D Albumin 1.3 L Random Vancomycin MTS Gel Crossmatch See Detail 01/28/18 01/28/18 06:09 06:09 WBC 19.9 H RBC 3.53 L Hgb 9.7 L Hct 29.9 L MCV 84.5 MCH 27.6 MCHC 32.6 RDW 18.4 H Plt Count 196 MPV 8.9 Neut % (Auto) Lymph % (Auto) [place] % (Auto) Eos % (Auto) Baso % (Auto) Neut # (Auto) Lymph # (Auto) [place] # (Auto) Eos # (Auto) Baso # (Auto) WBC Differential Differential Comment Sodium 141 Potassium 4.3 Chloride 114 H Carbon Dioxide 18.2 L Anion Gap 9 BUN 30 H Creatinine 1.27 H Estimated GFR 41 L Random Glucose 88 Calcium 7.3 L* Prot Corrected Calcium 8.4 L Magnesium 1.8 Total Bilirubin AST ALT Alkaline Phosphatase Total Protein 5.1 L Albumin Random Vancomycin 13.1 MTS Gel Crossmatch Culture Results: Microbiology 01/26/18 22:25 Aerobic Blood Culture - Preliminary Blood - Peripheral No growth in 1 day Anaerobic Blood Culture - Preliminary No growth in 1 day 01/26/18 22:30 Aerobic Blood Culture - Preliminary Blood - Peripheral No growth in 1 day Anaerobic Blood Culture - Preliminary No growth in 1 day Medications: Active Medications Generic Name Dose Route Start Last Admin Trade Name Freq PRN Reason Stop Dose Admin Cefepime HCl 1,000 mg/ Sodium 100 mls @ 200 mls/hr 01/27/18 09:00 01/27/18 21 :36 Chloride IV.SIG Infused Q12H NEVIN Infusion Sodium Chloride 1,000 mls @ 100 mls/hr 01/26/18 23:30 01/28/18 06:12 Ns Inj IV.CONT 100 mls/hr .Q10H NEVIN Administration Levothyroxine Sodium 100 mcg 01/27/18 11:00 01/28/18 06:12 Synthroid PO 100 mcg DAILY@0600 NEVIN Administration Ondansetron HCl 4 mg 01/26/18 23:28 01/28/18 03:25 Zofran Inj IV.PUSH 4 mg Q6H PRN Administration NAUSEA OR VOMITING Oxycodone HCl 5 mg 01/27/18 11:36 01/28/18 03:23 Roxicodone PO 5 mg Q4H PRN Administration pain 3-10 Pantoprazole Sodium 40 mg 01/27/18 12:00 01/27/18 11:33 Protonix PO 40 mg DAILY NEVIN Administration Senna/Docusate Sodium 1 tab 01/27/18 09:00 01/27/18 20:45 Wilda-Colace PO Not Given BID [facility] Objective Remarks: GENERAL: Elderly lady, laying in bed, has alopecia of chemotherapy, not acutely distressed. Awake, alert and oriented. SKIN: Warm and dry. HEAD: Normocephalic. EYES: Conjunctivae are pale, no scleral icterus. No injection or drainage. NECK: Supple, trachea midline. No JVD or lymphadenopathy. LYMPHATIC: No adenopathy. CARDIOVASCULAR: Regular rate and rhythm without murmurs. RESPIRATORY: Good air movement of the upper and middle lung zones, decreased bibasilar breath sounds, prolonged expiratory phase, scattered rhonchi and crackles. GASTROINTESTINAL: Protuberant abdomen, soft, non-tender, nondistended. No palpable organ enlargement. EXTREMITIES: No cyanosis, or edema. MUSCULOSKELETAL: Generally decreased muscle mass and tone. NEUROLOGICAL: No obvious focal deficit. Awake, alert, and oriented x3. PSYCHIATRIC: Appropriate mood and affect; insight and judgment normal. Assessment/Plan - Plan Ms. 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 She had progressive disease on first-line palliative systemic therapy with FOLFIRINOX and was subsequently transitioned to second line therapy with Abraxane and gemcitabine in September 2017. She has remained on this treatment since then. While on this treatment interim scans indicated reduction in size of the metastatic disease burden involving the liver and stability of the primary tumor involving the tail the pancreas. The patient however has had recurrent bladder infections with the most recent episode occurring about 5 or 6 weeks ago which also required hospitalization. The patient has a recurrent urinary tract infection at this time, she is being covered with broad-spectrum antibiotics with cefepime and vancomycin. Clinically she feels improved compared to when she came into the hospital. Recommendations: 1. Recurrent urinary tract infections: Etiology is not known. I am not certain if she has some form of an entero-vesicle fistula. I was able to see her urine on her previous admission, her urine was grossly purulent in fact appeared to be colby pus. She will be scheduled to undergo CT imaging of the abdomen pelvis in the outpatient setting for restaging of her pancreatic cancer. 2. I will request CT scan of the abdomen pelvis with IV contrast. Patient may require urology evaluation as well. 3. Pancreatic carcinoma: She has been on outpatient palliative systemic therapy , the CT scan abdomen pelvis will prove to be restaging scan as well.
[2018-01-28] MEDS: Senna/Docusate Sodium 8.6/50 MG Tablet PO SCH ×2 (09:10→21:39)
[2018-01-28] MEDS ORDERED: Diatrizoate Meglum/Diatrizoate Sod Liq 9 ML UDC PO ONE (10:38)
[2018-01-28] MEDS ORDERED: Vancomycin Inj 1,250 MG in Sodium Chlor 0.9% Inj 250 ML IV.SIG ONE (11:00)
[2018-01-28] MEDS ORDERED: Vancomycin Consult Pharmacy OTHER PRN (14:10)
--- NOTE | 2018-01-28 14:16 | P.PNIM ---
Subjective Interval history: The patient was feeling a little bit better. She did not have much of an appetite but was able to drink some Ensure. She was willing to work with physical therapy. Physical Exam Vital signs: Vital Signs 01/27/18 17:11 01/27/18 17:40 01/27/18 20:00 Temperature 97.9 F 99.2 F Pulse Rate 75 78 100 H Respiratory Rate 20 20 Blood Pressure 115/68 131/86 Pulse Oximetry 100 99 01/27/18 21:32 01/28/18 00:00 01/28/18 00:05 Temperature 98.7 F Pulse Rate 96 H 84 86 Respiratory Rate 18 Blood Pressure 142/82 H Pulse Oximetry 98 01/28/18 03:17 01/28/18 04:05 01/28/18 07:54 Temperature 98.2 F Pulse Rate 95 H 88 93 H Respiratory Rate 18 18 Blood Pressure 141/86 H Pulse Oximetry 98 01/28/18 08:00 01/28/18 12:00 Temperature 97.8 F 97.3 F L Pulse Rate 96 H 93 H Respiratory Rate 18 18 Blood Pressure 124/72 153/93 H Pulse Oximetry 98 Intake & Output 01/27/18 01/28/18 01/28/18 18:59 06:59 18:59 Intake Total 600 / 600 3590 / 3590 Output Total 1025 / 1025 Balance 600 / 600 2565 / 2565 Weight 67 kg Intake: IV 200 / 200 3110 / 3110 NS Inj 1,000 ML @ 100 mls/hr IV 100 / 100 2000 / 2000 .CONT .Q10H NEVIN Rx#:[id number] Maxipime Inj 1,000 MG In NS Inj 100 / 100 110 / 110 100 ML @ 200 mls/hr IV.SIG Q12H NEVIN Rx#:[id number] NS Inj 1,000 ML @ Wide Open IV. 1000 / 1000 SIG BOLUS NEVIN Rx#:[id number] Oral 480 / 480 Intake (Blood Product) Amt 400 / 400 Rbc As-3 Leukoreduced Irrad 400 / 400 Unit [id number] Output: Urine 1025 / 1025 Other: Date of Last Bowel Movement 01/27/18 # Bowel Movements 1 1 Narrative: GENERAL: No acute distress. SKIN: Focused skin assessment warm and dry. HEENT: PERRLA, EOMI. No scleral icterus or conjunctival pallor. No lid lag or facial droop. CARDIOVASCULAR: Regular rate and rhythm. No obvious murmurs to auscultation. No chest tenderness to palpation. RESPIRATORY: No obvious rhonchi or wheezing. Clear to auscultation. Breath sounds equal bilaterally. GASTROINTESTINAL: Abdomen soft, mildly tender, nondistended. BS normal. MUSCULOSKELETAL: Extremities without clubbing, cyanosis, or edema. No obvious deformities. NEUROLOGICAL: Awake, alert and oriented x4. No focal neurologic deficits. Moving both upper and lower extremities spontaneously. PSYCHIATRIC: Appropriate mood and affect. Insight and judgment normal. Results - Labs CBC & Chem 7: 01/28/18 06:09 01/28/18 06:09 Laboratory Results - last 24 hr 01/26/18 01/26/18 01/28/18 23:00 23:00 06:09 WBC RBC Hgb Hct MCV MCH MCHC RDW Plt Count MPV Sodium 141 Potassium 4.3 Chloride 114 H Carbon Dioxide 18.2 L Anion Gap 9 BUN 30 H Creatinine 1.27 H Estimated GFR 41 L Random Glucose 88 Calcium 7.3 L* Prot Corrected Calcium 8.4 L Magnesium 1.8 Total Protein 5.1 L Urine Color Yellow Urine Clarity Turbid H Urine pH 5.0 Ur Specific [place] 1.012 Urine Protein 100 H Urine Glucose (UA) Negative Urine Ketones Negative Urine Occult Blood Moderate H Urine Nitrate Negative Urine Bilirubin Negative Urine Urobilinogen 4 or greater Ur Leukocyte Esterase Moderate H Urine WBC Urine WBC Clumps Many H Urine Bacteria Many H Urine Mucus Few H Micro UA Comment Cath-culture ind Urine Culture Comments Cath-cult indicated Random Vancomycin 13.1 MTS Gel Crossmatch See Detail 01/28/18 06:09 WBC 19.9 H RBC 3.53 L Hgb 9.7 L Hct 29.9 L MCV 84.5 MCH 27.6 MCHC 32.6 RDW 18.4 H Plt Count 196 MPV 8.9 Sodium Potassium Chloride Carbon Dioxide Anion Gap BUN Creatinine Estimated GFR Random Glucose Calcium Prot Corrected Calcium Magnesium Total Protein Urine Color Urine Clarity Urine pH Ur Specific [place] Urine Protein Urine Glucose (UA) Urine Ketones Urine Occult Blood Urine Nitrate Urine Bilirubin Urine Urobilinogen Ur Leukocyte Esterase Urine WBC Urine WBC Clumps Urine Bacteria Urine Mucus Micro UA Comment Urine Culture Comments Random Vancomycin MTS Gel Crossmatch Microbiology 01/26/18 23:00 Catheterized Urine Urine Culture - Preliminary Pseudomonas species 01/26/18 22:25 Blood - Peripheral Aerobic Blood Culture - Preliminary No growth in 2 days 01/26/18 22:25 Blood - Peripheral Anaerobic Blood Culture - Preliminary No growth in 2 days 01/26/18 22:30 Blood - Peripheral Aerobic Blood Culture - Preliminary No growth in 2 days 01/26/18 22:30 Blood - Peripheral Anaerobic Blood Culture - Preliminary No growth in 2 days Assessment and Plan - Assessment (1) Sepsis Code(s): A41.9 - Sepsis, unspecified organism Status: Acute (2) PNA (pneumonia) Code(s): J18.9 - Pneumonia, unspecified organism Status: Acute (3) UTI (urinary tract infection) Code(s): N39.0 - Urinary tract infection, site not specified Status: Acute (4) Anemia Code(s): D64.9 - Anemia, unspecified Status: Acute (5) Pancreatic cancer Code(s): C25.9 - Malignant neoplasm of pancreas, unspecified Status: Acute - Plan Sepsis/ UTI/ HCAP Temp 102.5 at home, HR 120, WBC 18.9, 15% bands. UA indicative of UTI. Urine culture growing pseudomonas. The pt was recently hospitalized for urosepsis ( pseudomonas, enterococcus). CXR with patchy opacities in the right lung. -follow blood cultures and urine culture. -continue vancomycin and Zosyn IV. -oxygen and DuoNebs prn. Acute renal failure Likely prerenal. -IVFs. Improving. -avoid nephrotoxins. -hold Lasix. Anemia Hgb 6.9, previously 8. S/p two units of red cells with adequate response. -follow CBC and transfuse as needed. -holding Eliquis. -check Hemoccult. -follow up with hematology. Hypotension Exacerbated by sepsis and anemia. -IVFs. -treatment as above. Improved. Pancreatic CA Following w/ Dr. Olson, was scheduled for chemo Sunday, however, re-scheduled for the due to hypotension. Oncology consult appreciated. -Has upcoming appt on the for repeat imaging w/ CT/MRI. -repeat CT per oncology. -PT eval. DVT Prophylaxis: SCD/Teds
[2018-01-28] MEDS: Piperacil/Tazo 4.5 GM Premix 4.5 GM/100 ML BAG IV.SIG SCH ×2 (17:37→21:38)
--- NOTE | 2018-01-28 19:51 | CT ---
EXAM DATE: 01/28/2018 6:48 PM EDT AGE/SEX: 72 years / Female INDICATIONS: Neoplasm Enterovesicle fistula upper abdomen pain CLINICAL DATA: This is the patient's initial encounter. Patient reports that signs and symptoms have been present for 1 month and indicates a pain score of 6/10. MEDICAL/SURGICAL HISTORY: Carcinoma, pancreas. Hypertension. None. ORAL CONTRAST: Prescribed oral contrast ingested. RADIATION DOSE: 15.57 CTDI (mGy) COMPARISON: [facility] [place]EL[place]AST, 11/16/2017. . TECHNIQUE: Multiple contiguous axial images were obtained through the abdomen and pelvis following b olus infusion of 75 ml Omnipaque 350 (iohexol) nonionic water-soluble contrast as a single exam dos e. Prescribed oral contrast ingested. Using automated exposure control and adjustment of the mA and/ or kV according to patient size, radiation dose was kept as low as reasonably achievable to obtain op timal diagnostic quality images. DICOM format image data is available electronically for review and comparison. FINDINGS: There has been interval increase the amount of ascites when compared to prior CT. Lower Lungs: Interval development of a small left pleural effusion. Liver: Numerous low-density masses throughout the liver, the largest, located in the dome, having inc reased in size to 3.7 cm (previously measured 2.8 cm. Low density lesions involve all segments. No ca lcified gallstones. Spleen: Homogeneous density without enlargement. Pancreas: Mass in the tail the pancreas has decreased in size, now measuring 2.9 cm (previously kristin ured 3.9 cm); central hypodense area persists. Kidneys: Multiple low density lesions throughout both kidneys and severe left-sided hydronephrosis a nd moderate right-sided hydronephrosis similar in appearance to prior examination. Both ureters are d ilated all the way down to the urinary bladder. Adrenal Glands: Unremarkable. Aorta: The aorta and proximal iliac vessels are grossly unremarkable without aneurysmal dilation. Bowel/Mesentery: No dilated loops of small or large bowel. No evidence of mesenteric adenopathy. Abdominal Wall: Intact. Retroperitoneum: No evidence of adenopathy in the retrocrural, para-aortic, or deep pelvic regions. Bladder: Smooth contours to a nondistended urinary bladder. No focal densities within the lumen. No gas within the lumen. Reproductive Organs: No abnormal masses or calcifications seen. Inguinal: The inguinal region is unremarkable without evidence of adenopathy. Bony Structures: Persistent lytic destruction of the left pedicle and base of lamina on the left carlos e at L3. The lytic lesion in the anterior right sacral ala is also stable. No new lytic lesions seen. CONCLUSION: 1. Interval increase in the amount of ascites. 2. Decrease in the size of the left pancreatic tail mass, now measuring 2.9 cm. 3. The largest lesion in the liver has increased in size. 4. Stable bilateral hydronephrosis and lytic osseous lesions. Electronically signed by: Ga Monroy MD 01/28/2018 7:49 PM EDT
[2018-01-28] MEDS: Morphine Sulfate 15 MG SR Tablet PO SCH (21:38)
[2018-01-29] MEDS: Sod Chloride 0.9% Inj 1,000 ML IV.CONT SCH ×3 (02:51→21:40)
[2018-01-29] MEDS: Piperacil/Tazo 4.5 GM Premix 4.5 GM/100 ML BAG IV.SIG SCH ×2 (02:52→10:49)
[2018-01-29] MEDS: Levothyroxine 100 MCG Tablet PO SCH (06:16)
[2018-01-29 07:06] LABS: Eos % (Auto) 2.2 % (0.0-4.0); Hematocrit 29.2 % (35.0-46.0); Hemoglobin 9.5 gm/dL (11.6-15.3); Lymph % (Auto) 3.9 % (9.0-44.0); Mean Corpuscular HGB Conc 32.6 % (32.0-36.0); Mean Corpuscular Hemoglobin 27.7 pg (27.0-34.0); Mean Corpuscular Volume 84.9 fL (80.0-100.0); Mean Platelet Volume 8.5 fL (7.0-11.0); Neut % (Auto) 82.8 % (16.0-70.0); Platelet Count 184 th/mm3 (150-450); Red Blood Count 3.44 mil/mm3 (4.00-5.30); Red Cell Distribution Width 18.8 % (11.6-17.2); White Blood Count 18.3 th/mm3 (4.0-11.0)
[2018-01-29 07:07] LABS: Baso % (Auto) 0.1 % (0.0-2.0); Eos # (Auto) 0.4 th/mm3 (0.0-0.4); Lymph # (Auto) 0.7 th/mm3 (1.0-4.8); Neut # (Auto) 15.2 th/mm3 (1.8-7.7)
[2018-01-29 07:11] LABS: Calcium 7.8 mg/dL (8.5-10.1); Carbon Dioxide 17.1 meq/L (21.0-32.0); Potassium 4.2 meq/L (3.5-5.1)
[2018-01-29 07:13] LABS: Vancomycin,Random 21.6 Comment
[2018-01-29 08:20] LABS: Eosinophils 3 % (0-4); Lymphocytes 2 % (9-44); Metamyelocytes 1 % (0-1); Monocytes 4 % (0-8); Myelocytes 2 % (0-0)
[2018-01-29 08:21] LABS: Platelet Estimate Normal (Normal); Platelet Morphology Normal (Normal)
--- NOTE | 2018-01-29 10:13 | P.PNONC ---
Subjective Interval history: Patient seen and examined this morning, vital signs, labs and imaging studies performed on 01/28/2018 were reviewed. Subjectively; patient reports feeling a little bit stronger, she tells me she has been getting up out of bed repeatedly to use the bedside commode. She tells me her urine appears to be clearer now, and there is less dysuria. She denies having had fevers or chills, she remains on broad-spectrum antibiotic coverage. Objective Vital Signs/Intake & Output: Vital Signs 01/28/18 12:00 01/28/18 14:00 01/28/18 15:58 Temperature 97.3 F L 98 F Pulse Rate 84 86 Respiratory Rate 18 18 18 Blood Pressure 153/93 H 150/95 H Pulse Oximetry 98 98 01/28/18 16:00 01/28/18 19:40 01/28/18 20:02 Temperature Pulse Rate 93 H 94 H Respiratory Rate 18 Blood Pressure Pulse Oximetry 01/28/18 20:15 01/29/18 00:07 01/29/18 00:48 Temperature 98.8 F 99.5 F Pulse Rate 92 H 95 H 101 H Respiratory Rate 16 16 Blood Pressure 160/95 H 143/88 H Pulse Oximetry 99 98 01/29/18 03:00 01/29/18 03:59 01/29/18 07:31 Temperature 98.6 F Pulse Rate 97 H 84 89 Respiratory Rate 18 18 Blood Pressure 149/91 H Pulse Oximetry 98 01/29/18 08:00 Temperature 98.2 F Pulse Rate 88 Respiratory Rate 18 Blood Pressure 110/73 Pulse Oximetry 98 Intake & Output 01/28/18 01/29/18 01/29/18 18:59 06:59 18:59 Intake Total 2192.5 / 2192.5 1460 / 1460 Output Total 650 / 650 700 / 700 Balance 1542.5 / 1542.5 760 / 760 Weight 71.5 kg Intake: IV 1472.5 / 1472.5 1220 / 1220 NS Inj 1,000 ML @ 100 mls/hr IV 1000 / 1000 1000 / 1000 .CONT .Q10H NEVIN Rx#:[id number] Maxipime Inj 1,000 MG In NS Inj 110 / 110 100 ML @ 200 mls/hr IV.SIG Q12H NEVIN Rx#:[id number] Zosyn 4.5 GM Premix 4.5 gm In 100 / 100 220 / 220 100 ml @ 200 mls/hr IV.SIG Q6H NEVIN Rx#:[id number] Vancomycin Inj 1,250 MG In NS 262.5 / 262.5 Inj 250 ML @ 250 mls/hr IV.SIG ONCE ONE Rx#:[id number] Oral 720 / 720 240 / 240 Output: Urine 650 / 650 700 / 700 Other: Date of Last Bowel Movement 01/28/18 01/28/18 # Bowel Movements 2 1 Result Diagrams: 01/29/18 05:33 01/29/18 05:33 Laboratory Results: Laboratory Results - last 24 hr 01/26/18 01/29/18 01/29/18 23:00 05:33 05:33 WBC 18.3 H RBC 3.44 L Hgb 9.5 L Hct 29.2 L MCV 84.9 MCH 27.7 MCHC 32.6 RDW 18.8 H Plt Count 184 MPV 8.5 Prelim Diff (Auto) Slide review pending Neut % (Auto) 82.8 H Lymph % (Auto) 3.9 L [place] % (Auto) 11.0 H Eos % (Auto) 2.2 Baso % (Auto) 0.1 Neut # (Auto) 15.2 H Lymph # (Auto) 0.7 L [place] # (Auto) 2.0 H Eos # (Auto) 0.4 Baso # (Auto) 0.0 WBC Differential Manual diff final Seg Neuts % (Manual) 69 Band Neuts % (Manual) 19 H Lymphocytes % (Manual) 2 L Monocytes % (Manual) 4 Eosinophils % (Manual) 3 Metamyelocytes % (Man) 1 Myelocytes % (Man) 2 H Abs Neuts (Manual) 16.7 H Differential Comment . Platelet Estimate Normal Platelet Morphology Normal Sodium 141 Potassium 4.2 Chloride 114 H Carbon Dioxide 17.1 L Anion Gap 10 BUN 24 H Creatinine 1.04 H Estimated GFR 52 L Random Glucose 70 L Calcium 7.8 L Urine Color Yellow Urine Clarity Turbid H Urine pH 5.0 Ur Specific [place] 1.012 Urine Protein 100 H Urine Glucose (UA) Negative Urine Ketones Negative Urine Occult Blood Moderate H Urine Nitrate Negative Urine Bilirubin Negative Urine Urobilinogen 4 or greater Ur Leukocyte Esterase Moderate H Urine WBC Urine WBC Clumps Many H Urine Bacteria Many H Urine Mucus Few H Micro UA Comment Cath-culture ind Urine Culture Comments Cath-cult indicated Random Vancomycin 21.6 Culture Results: Microbiology 01/26/18 23:00 Urine Culture - Preliminary Catheterized Urine Pseudomonas aeruginosa 01/28/18 19:00 Stool Occult Blood (KANNAN) - Final Stool Hemoccult negative 01/26/18 22:25 Aerobic Blood Culture - Preliminary Blood - Peripheral No growth in 2 days Anaerobic Blood Culture - Preliminary No growth in 2 days 01/26/18 22:30 Aerobic Blood Culture - Preliminary Blood - Peripheral No growth in 2 days Anaerobic Blood Culture - Preliminary No growth in 2 days Imaging Studies: Impressions Abdomen/Pelvis CT 01/28/18 00:00 CONCLUSION: 1. Interval increase in the amount of ascites. 2. Decrease in the size of the left pancreatic tail mass, now measuring 2.9 cm. 3. The largest lesion in the liver has increased in size. 4. Stable bilateral hydronephrosis and lytic osseous lesions. Medications: Active Medications Generic Name Dose Route Start Last Admin Trade Name Freq PRN Reason Stop Dose Admin Sodium Chloride 1,000 mls @ 100 mls/hr 01/26/18 23:30 01/29/18 06:16 Ns Inj IV.CONT 100 mls/hr .Q10H NEVIN Administration Piperacillin/Tazobactam/Dextrose 4.5 gm in 100 mls @ 200 mls/hr 01/28/18 15: 00 01/29/18 04:17 Zosyn 4.5 Gm Premix IV.SIG Infused Q6H NEVIN Infusion Levothyroxine Sodium 100 mcg 01/27/18 11:00 01/29/18 06:16 Synthroid PO 100 mcg DAILY@0600 NEVIN Administration Morphine Sulfate 15 mg 01/28/18 21:00 01/28/18 21:38 Oramorph Sr PO 15 mg Q12HR NEVIN Administration Ondansetron HCl 4 mg 01/26/18 23:28 01/28/18 03:25 Zofran Inj IV.PUSH 4 mg Q6H PRN Administration NAUSEA OR VOMITING Oxycodone HCl 5 mg 01/27/18 11:36 01/29/18 06:16 Roxicodone PO 5 mg Q4H PRN Administration pain 3-10 Pantoprazole Sodium 40 mg 01/27/18 12:00 01/28/18 09:10 Protonix PO 40 mg DAILY NEVIN Administration Senna/Docusate Sodium 1 tab 01/27/18 09:00 01/28/18 21:39 Wilda-Colace PO 1 tab BID NEVIN Administration Objective Remarks: GENERAL: Elderly lady, laying in bed, has alopecia of chemotherapy, not acutely distressed. Awake, alert and oriented. SKIN: Warm and dry. HEAD: Normocephalic. EYES: Conjunctivae are pale, no scleral icterus. No injection or drainage. NECK: Supple, trachea midline. No JVD or lymphadenopathy. LYMPHATIC: No adenopathy. CARDIOVASCULAR: Regular rate and rhythm without murmurs. RESPIRATORY: Good air movement of the upper and middle lung zones, decreased bibasilar breath sounds, prolonged expiratory phase, scattered rhonchi and crackles. GASTROINTESTINAL: Protuberant abdomen, soft, non-tender, nondistended. No palpable organ enlargement. EXTREMITIES: No cyanosis, or edema. MUSCULOSKELETAL: Generally decreased muscle mass and tone. NEUROLOGICAL: No obvious focal deficit. Awake, alert, and oriented x3. PSYCHIATRIC: Appropriate mood and affect; insight and judgment normal. Assessment/Plan - Plan Ms. 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 She had progressive disease on first-line palliative systemic therapy with FOLFIRINOX and was subsequently transitioned to second line therapy with Abraxane and gemcitabine in September 2017. She has remained on this treatment since then. While on this treatment interim scans indicated reduction in size of the metastatic disease burden involving the liver and stability of the primary tumor involving the tail the pancreas. The patient however has had recurrent bladder infections with the most recent episode occurring about 5 or 6 weeks ago which also required hospitalization. The patient has a recurrent urinary tract infection at this time, she is being covered with broad-spectrum antibiotics with cefepime and vancomycin. Clinically she feels improved compared to when she came into the hospital. Recommendations: 1. Recurrent urinary tract infections: Etiology is not known. CT scan of the abdomen pelvis performed on 12/29/2017 reviewed, there appears to be no evidence of an enterovesicle fistula. The bladder wall was generally thickened, and there was persistent left-sided hydroureteronephrosis. Continue broad-spectrum antibiotics with cefepime and vancomycin. 2. Pancreatic carcinoma: Results of CT abdomen pelvis reviewed, overall there appears to be's disease stability with areas of reduction in tumor burden i.e. in the pancreatic tail tumor, some of the liver lesions were also decreased in size but there were others that had increased in size. This represents a mixed response to treatment but overall represents disease stability. I did talk to the patient about these results and indicated that once she has recovered from her acute illness we will pursue Abraxane and gemcitabine going forward with dose modifications given the overall stable to slightly improvement in disease burden.
[2018-01-29] MEDS: Morphine Sulfate 15 MG SR Tablet PO SCH ×2 (10:49→21:01)
[2018-01-29] MEDS: Senna/Docusate Sodium 8.6/50 MG Tablet PO SCH ×2 (10:50→21:02)
[2018-01-29] MEDS ORDERED: Benzonatate 100 MG Capsule PO ONE (12:07)
--- NOTE | 2018-01-29 13:27 | P.PNIM ---
Subjective Interval history: The patient was resting in bed comfortably. She says she spoke with her oncologist. She said she would like some breathing treatments. She also would like a cough medication. No acute concerns at this point. Physical Exam Vital signs: Vital Signs 01/28/18 14:00 01/28/18 15:58 01/28/18 16:00 Temperature 98 F Pulse Rate 86 93 H Respiratory Rate 18 18 Blood Pressure 150/95 H Pulse Oximetry 98 01/28/18 19:40 01/28/18 20:02 01/28/18 20:15 Temperature 98.8 F Pulse Rate 94 H 92 H Respiratory Rate 18 16 Blood Pressure 160/95 H Pulse Oximetry 99 01/29/18 00:07 01/29/18 00:48 01/29/18 03:00 Temperature 99.5 F 98.6 F Pulse Rate 95 H 101 H 97 H Respiratory Rate 16 18 Blood Pressure 143/88 H 149/91 H Pulse Oximetry 98 98 01/29/18 03:59 01/29/18 07:31 01/29/18 08:00 Temperature 98.2 F Pulse Rate 84 89 88 Respiratory Rate 18 18 Blood Pressure 110/73 Pulse Oximetry 98 Intake & Output 01/28/18 01/29/18 01/29/18 18:59 06:59 18:59 Intake Total 2192.5 / 2192.5 1460 / 1460 Output Total 650 / 650 700 / 700 Balance 1542.5 / 1542.5 760 / 760 Weight 71.5 kg Intake: IV 1472.5 / 1472.5 1220 / 1220 NS Inj 1,000 ML @ 100 mls/hr IV 1000 / 1000 1000 / 1000 .CONT .Q10H NEVIN Rx#:[id number] Maxipime Inj 1,000 MG In NS Inj 110 / 110 100 ML @ 200 mls/hr IV.SIG Q12H NEVIN Rx#:[id number] Zosyn 4.5 GM Premix 4.5 gm In 100 / 100 220 / 220 100 ml @ 200 mls/hr IV.SIG Q6H NEVIN Rx#:[id number] Vancomycin Inj 1,250 MG In NS 262.5 / 262.5 Inj 250 ML @ 250 mls/hr IV.SIG ONCE ONE Rx#:[id number] Oral 720 / 720 240 / 240 Output: Urine 650 / 650 700 / 700 Other: Date of Last Bowel Movement 01/28/18 01/28/18 # Bowel Movements 2 1 Narrative: GENERAL: No acute distress. SKIN: Focused skin assessment warm and dry. HEENT: PERRLA, EOMI. No scleral icterus or conjunctival pallor. No lid lag or facial droop. CARDIOVASCULAR: Regular rate and rhythm. No obvious murmurs to auscultation. No chest tenderness to palpation. RESPIRATORY: No obvious rhonchi or wheezing. Clear to auscultation. Breath sounds equal bilaterally. GASTROINTESTINAL: Abdomen soft, mildly tender, nondistended. BS normal. MUSCULOSKELETAL: Extremities without clubbing, cyanosis, or edema. No obvious deformities. NEUROLOGICAL: Awake, alert and oriented x4. No focal neurologic deficits. Moving both upper and lower extremities spontaneously. PSYCHIATRIC: Appropriate mood and affect. Insight and judgment normal. Results - Labs CBC & Chem 7: 01/29/18 05:33 01/29/18 05:33 Laboratory Results - last 24 hr 01/26/18 01/29/18 01/29/18 23:00 05:33 05:33 WBC 18.3 H RBC 3.44 L Hgb 9.5 L Hct 29.2 L MCV 84.9 MCH 27.7 MCHC 32.6 RDW 18.8 H Plt Count 184 MPV 8.5 Prelim Diff (Auto) Slide review pending Neut % (Auto) 82.8 H Lymph % (Auto) 3.9 L [place] % (Auto) 11.0 H Eos % (Auto) 2.2 Baso % (Auto) 0.1 Neut # (Auto) 15.2 H Lymph # (Auto) 0.7 L [place] # (Auto) 2.0 H Eos # (Auto) 0.4 Baso # (Auto) 0.0 WBC Differential Manual diff final Seg Neuts % (Manual) 69 Band Neuts % (Manual) 19 H Lymphocytes % (Manual) 2 L Monocytes % (Manual) 4 Eosinophils % (Manual) 3 Metamyelocytes % (Man) 1 Myelocytes % (Man) 2 H Abs Neuts (Manual) 16.7 H Differential Comment . Platelet Estimate Normal Platelet Morphology Normal Sodium 141 Potassium 4.2 Chloride 114 H Carbon Dioxide 17.1 L Anion Gap 10 BUN 24 H Creatinine 1.04 H Estimated GFR 52 L Random Glucose 70 L Calcium 7.8 L Urine Color Yellow Urine Clarity Turbid H Urine pH 5.0 Ur Specific [place] 1.012 Urine Protein 100 H Urine Glucose (UA) Negative Urine Ketones Negative Urine Occult Blood Moderate H Urine Nitrate Negative Urine Bilirubin Negative Urine Urobilinogen 4 or greater Ur Leukocyte Esterase Moderate H Urine WBC Urine WBC Clumps Many H Urine Bacteria Many H Urine Mucus Few H Micro UA Comment Cath-culture ind Urine Culture Comments Cath-cult indicated Random Vancomycin 21.6 Microbiology 01/26/18 22:25 Blood - Peripheral Aerobic Blood Culture - Preliminary No growth in 3 days 01/26/18 22:25 Blood - Peripheral Anaerobic Blood Culture - Preliminary No growth in 3 days 01/26/18 22:30 Blood - Peripheral Aerobic Blood Culture - Preliminary No growth in 3 days 01/26/18 22:30 Blood - Peripheral Anaerobic Blood Culture - Preliminary No growth in 3 days 01/26/18 23:00 Catheterized Urine Urine Culture - Preliminary Pseudomonas aeruginosa 01/28/18 19:00 Stool Stool Occult Blood (KANNAN) - Final Hemoccult negative - Imaging Impressions Abdomen/Pelvis CT 01/28/18 00:00 CONCLUSION: 1. Interval increase in the amount of ascites. 2. Decrease in the size of the left pancreatic tail mass, now measuring 2.9 cm. 3. The largest lesion in the liver has increased in size. 4. Stable bilateral hydronephrosis and lytic osseous lesions. Assessment and Plan - Assessment (1) Sepsis Code(s): A41.9 - Sepsis, unspecified organism Status: Acute (2) PNA (pneumonia) Code(s): J18.9 - Pneumonia, unspecified organism Status: Acute (3) UTI (urinary tract infection) Code(s): N39.0 - Urinary tract infection, site not specified Status: Acute (4) Anemia Code(s): D64.9 - Anemia, unspecified Status: Acute (5) Pancreatic cancer Code(s): C25.9 - Malignant neoplasm of pancreas, unspecified Status: Acute - Plan Sepsis/ UTI/ HCAP Temp 102.5 at home, HR 120, WBC 18.9, 15% bands. UA indicative of UTI. Urine culture growing pseudomonas. The pt was recently hospitalized for urosepsis ( pseudomonas, enterococcus). CXR with patchy opacities in the right lung. -follow blood cultures and urine culture sensitivities. -continue vancomycin and Zosyn IV. -oxygen as needed. Standing Duonebs added. Tessalon Perles as needed. Acute renal failure Likely prerenal. -IVFs. Improving. -avoid nephrotoxins. -hold Lasix. Hypoglycemia Glucose remains low. -continue D5NS and monitor. -ADAT. Anemia Hgb 6.9, previously 8. S/p two units of red cells with adequate response. Hemoccult negative. -follow CBC and transfuse as needed. -holding Eliquis. -follow up with hematology. Hypotension Exacerbated by sepsis and anemia. -IVFs. -treatment as above. Improved. Pancreatic CA Following w/ Dr. Olson, was scheduled for chemo Sunday, however, re-scheduled for the due to hypotension. Oncology consult appreciated. Repeat CT abdomen: Interval increase in the amount of ascites; Decrease in the size of the left pancreatic tail mass, now measuring 2.9 cm; The largest lesion in the liver has increased in size; Stable bilateral hydronephrosis and lytic osseous lesions. -follow up with oncology. Planning for Abraxane and gemcitabine once improved from current illness. -PT eval. DVT Prophylaxis: SCD/Teds Discharge Planning: Continue IV antibiotics, follow sensitivities, PT eval, ADAT.
[2018-01-29] MEDS: Dextrose 5%/NaCl 0.9% Inj 1,000 ML IV.CONT SCH ×2 (15:34→21:41)
[2018-01-29] MEDS ORDERED: Piperacil/Tazo 3.375 GM Premix 50 ML IV.SIG SCH (17:00)
[2018-01-29] MEDS ORDERED: Vancomycin Inj 1,000 MG in Sodium Chlor 0.9% Inj 250 ML IV.SIG SCH (18:00)
[2018-01-29] MEDS ORDERED: Benzonatate 100 MG Capsule PO PRN (20:00)
[2018-01-30] MEDS: Piperacil/Tazo 3.375 GM Premix 50 ML IV.SIG SCH ×2 (04:00→09:23)
[2018-01-30] MEDS: Dextrose 5%/NaCl 0.9% Inj 1,000 ML IV.CONT SCH (04:00)
[2018-01-30 05:42] LABS: Baso % (Auto) 0.3 % (0.0-2.0); Eos # (Auto) 0.4 th/mm3 (0.0-0.4); Eos % (Auto) 2.2 % (0.0-4.0); Hematocrit 28.1 % (35.0-46.0); Hemoglobin 8.9 gm/dL (11.6-15.3); Lymph % (Auto) 5.5 % (9.0-44.0); Mean Corpuscular HGB Conc 31.8 % (32.0-36.0); Mean Corpuscular Hemoglobin 27.4 pg (27.0-34.0); Mean Corpuscular Volume 86.3 fL (80.0-100.0); Mean Platelet Volume 8.6 fL (7.0-11.0); Mono # (Auto) 1.8 th/mm3 (0.0-0.9); Mono % (Auto) 10.2 % (0.0-8.0); Neut # (Auto) 14.3 th/mm3 (1.8-7.7); Neut % (Auto) 81.8 % (16.0-70.0); Platelet Count 215 th/mm3 (150-450); Red Blood Count 3.25 mil/mm3 (4.00-5.30); White Blood Count 17.4 th/mm3 (4.0-11.0)
[2018-01-30 06:06] LABS: Calcium 7.2 mg/dL (8.5-10.1); Carbon Dioxide 20.9 meq/L (21.0-32.0)
[2018-01-30 06:19] LABS: Calcium-Albumin Corrected 8.2 mg/dL (8.5-10.1); Total Protein 5.3 g/dL (6.4-8.2)
[2018-01-30] MEDS: Levothyroxine 100 MCG Tablet PO SCH (06:43)
[2018-01-30] MEDS ORDERED: Heparin Central Flush 100 UNIT/ML 5 ML Vial IV.FLUSH PRN ×2 (08:12)
--- NOTE | 2018-01-30 08:55 | P.DCO ---
- Diagnosis (1) Sepsis due to urinary tract infection Status: Acute (2) Metastasis from pancreatic cancer Status: Chronic (3) Acute UTI Status: Acute (4) PNA (pneumonia) Status: Acute (5) UTI (urinary tract infection) Status: Acute (6) Anemia Status: Acute - Physical Therapy Order: Evaluate and treat, Improve ambulation, Strength and gait training - Home Health Nursing Order: Medical education, Signs/symptoms of disease process, Nursing assessment with vital signs - Case Management Consult Yes - Certification I have seen patient Laura Louie on 01/30/18. My clinical findings support the need for the requested home health care services because: Deconditioned with increased weakness I certify that my clinical findings support that this patient is homebound because: Unsteady gait/balance
[2018-01-30] MEDS: Morphine Sulfate 15 MG SR Tablet PO SCH ×2 (09:24→22:47)
[2018-01-30] MEDS: Senna/Docusate Sodium 8.6/50 MG Tablet PO SCH ×2 (09:27→22:48)
--- NOTE | 2018-01-30 11:28 | P.PNONC ---
Subjective Interval history: Afebrile. Patient lying in bed, her family is at the bedside. She reports she was able to walk the halls with physical therapy this morning. She states this was her first time out of bed since arrival at the hospital. She now feels nauseous. She ate breakfast. She denies any pain at this time. Denies bleeding. Objective Vital Signs/Intake & Output: Vital Signs 01/29/18 11:25 01/29/18 12:00 01/29/18 13:23 Temperature Pulse Rate 77 Respiratory Rate 18 18 18 Blood Pressure Pulse Oximetry 01/29/18 14:03 01/29/18 15:26 01/29/18 15:41 Temperature 97.8 F Pulse Rate 72 86 83 Respiratory Rate 16 18 Blood Pressure 118/81 Pulse Oximetry 98 01/29/18 16:00 01/29/18 19:25 01/29/18 20:06 Temperature Pulse Rate 79 97 H Respiratory Rate 16 18 Blood Pressure Pulse Oximetry 01/29/18 20:42 01/29/18 23:41 01/30/18 00:17 Temperature 98.1 F 96 F L Pulse Rate 99 H 89 Respiratory Rate 16 18 Blood Pressure 144/86 H 140/85 Pulse Oximetry 100 99 01/30/18 03:59 01/30/18 04:00 01/30/18 07:31 Temperature 98.9 F Pulse Rate 93 H 95 H 92 H Respiratory Rate 18 18 Blood Pressure 146/86 H Pulse Oximetry 98 01/30/18 08:08 01/30/18 09:21 Temperature 97.8 F Pulse Rate 97 H 98 H Respiratory Rate 16 Blood Pressure 125/85 Pulse Oximetry 98 Intake & Output 01/29/18 01/30/18 01/30/18 18:59 06:59 18:59 Intake Total 1610 / 1610 1615 / 1615 Output Total 900 / 900 750 / 750 Balance 710 / 710 865 / 865 Weight 73.6 kg Intake: IV 1010 / 1010 1375 / 1375 D5W/Normal Saline Inj 1,000 ML 1000 / 1000 @ 100 mls/hr IV.CONT .Q10H [facility] Rx#:[id number] NS Inj 1,000 ML @ 100 mls/hr IV 900 / 900 .CONT .Q10H [facility] Rx#:[id number] Zosyn 3.375 GM Premix 50 ML @ 110 / 110 100 mls/hr IV.SIG Q6H [facility] Rx#: [id number] Zosyn 4.5 GM Premix 4.5 gm In 110 / 110 100 ml @ 200 mls/hr IV.SIG Q6H [facility] Rx#:[id number] Vancomycin Inj 1,000 MG In NS 265 / 265 Inj 250 ML @ 250 mls/hr IV.SIG Q24H [facility] Rx#:[id number] Oral 600 / 600 240 / 240 Output: Urine 900 / 900 750 / 750 Other: Date of Last Bowel Movement 01/29/18 01/29/18 # Bowel Movements 1 Result Diagrams: 01/30/18 04:30 01/30/18 04:30 Laboratory Results: Laboratory Results - last 24 hr 01/30/18 01/30/18 04:30 04:30 WBC 17.4 H RBC 3.25 L Hgb 8.9 L Hct 28.1 L MCV 86.3 MCH 27.4 MCHC 31.8 L RDW 19.0 H Plt Count 215 MPV 8.6 Prelim Diff (Auto) Slide review pending Neut % (Auto) 81.8 H Lymph % (Auto) 5.5 L [place] % (Auto) 10.2 H Eos % (Auto) 2.2 Baso % (Auto) 0.3 Neut # (Auto) 14.3 H Lymph # (Auto) 1.0 [place] # (Auto) 1.8 H Eos # (Auto) 0.4 Baso # (Auto) 0.0 Differential Comment . Sodium 144 Potassium 4.0 Chloride 114 H Carbon Dioxide 20.9 L Anion Gap 9 BUN 18 Creatinine 1.04 H Estimated GFR 52 L Random Glucose 130 H Calcium 7.2 L* Prot Corrected Calcium 8.2 L Total Protein 5.3 L Culture Results: Microbiology 01/26/18 22:25 Aerobic Blood Culture - Preliminary Blood - Peripheral No growth in 4 days Anaerobic Blood Culture - Preliminary No growth in 4 days 01/26/18 22:30 Aerobic Blood Culture - Preliminary Blood - Peripheral No growth in 4 days Anaerobic Blood Culture - Preliminary No growth in 4 days 01/26/18 23:00 Urine Culture - Final Catheterized Urine Pseudomonas aeruginosa 01/28/18 19:00 Stool Occult Blood ([facility]ANNAN) - Final Stool Hemoccult negative Medications: Active Medications Generic Name Dose Route Start Last Admin Trade Name Freq PRN Reason Stop Dose Admin Albuterol 1 ampul 01/29/18 12:15 01/30/18 07:30 Duoneb Neb (Yana) NEB 1 ampul Q6HR WHILE AWAKE NEB YANA Administration Vancomycin HCl 1,000 mg/ 250 mls @ 250 mls/hr 01/29/18 18:00 01/29/18 20:54 Sodium Chloride IV.SIG Infused Q24H YANA Infusion Dextrose/Sodium Chloride 1,000 mls @ 100 mls/hr 01/29/18 12:00 01/30/18 04:00 D5w/Normal Saline Inj IV.CONT 100 mls/hr .Q10H YANA Administration Piperacillin/Tazobactam/Dextrose 50 mls @ 100 mls/hr 01/30/18 03:00 01/30/18 09:23 Zosyn 3.375 Gm Premix IV.SIG 100 mls/hr Q6H YANA Administration Levothyroxine Sodium 100 mcg 01/27/18 11:00 01/30/18 06:43 Synthroid PO 100 mcg DAILY@0600 YANA Administration Morphine Sulfate 15 mg 01/28/18 21:00 01/30/18 09:24 Oramorph Sr PO 15 mg Q12HR YANA Administration Ondansetron HCl 4 mg 01/26/18 23:28 01/28/18 03:25 Zofran Inj IV.PUSH 4 mg Q6H PRN Administration NAUSEA OR VOMITING Oxycodone HCl 5 mg 01/27/18 11:36 01/30/18 06:44 Roxicodone PO 5 mg Q4H PRN Administration pain 3-10 Pantoprazole Sodium 40 mg 01/27/18 12:00 01/30/18 09:23 Protonix PO 40 mg DAILY YANA Administration Senna/Docusate Sodium 1 tab 01/27/18 09:00 01/30/18 09:27 Wilda-Colace PO Not Given BID YANA Sodium Chloride 5 ml 01/30/18 08:12 01/30/18 09:27 Ns Flush IV.FLUSH 5 ml PRN PRN Administration Flush Infusaport Objective Remarks: GENERAL: Elderly female patient, lying in bed. No acute distress noted. SKIN: Warm and dry. + Alopecia. HEAD: Normocephalic. EYES: No scleral icterus. No injection or drainage. NECK: Supple, trachea midline. CARDIOVASCULAR: Regular rate and rhythm without murmurs. RESPIRATORY: Breath sounds equal bilaterally. Nonlabored at rest. GASTROINTESTINAL: Abdomen soft, non-tender, nondistended. EXTREMITIES: No cyanosis, or edema. MUSCULOSKELETAL: Decreased muscle tone. NEUROLOGICAL: No obvious focal deficit. Awake, alert, and oriented x3. PSYCHIATRIC: Appropriate mood and affect; insight and judgment normal. Assessment/Plan - Plan Ms. 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 She had progressive disease on first-line palliative systemic therapy with FOLFIRINOX and was subsequently transitioned to second line therapy with Abraxane and gemcitabine in September 2017. She has remained on this treatment since then. While on this treatment interim scans indicated reduction in size of the metastatic disease burden involving the liver and stability of the primary tumor involving the tail the pancreas. The patient however has had recurrent bladder infections with the most recent episode occurring about 5 or 6 weeks ago which also required hospitalization. The patient has a recurrent urinary tract infection at this time, she is being covered with broad-spectrum antibiotics with cefepime and vancomycin. Recommendations: 1. Recurrent urinary tract infections, urine culture positive for pseudomonas aeruginosa, sensitive to cefepime. CT scan of the abdomen pelvis performed on with no evidence of an enterovesicle fistula. Continue broad-spectrum antibiotics with cefepime and vancomycin. 2. Pancreatic carcinoma: Plans to continue treatment with Abraxane and gemcitabine, once patient has recovered from this acute illness. 3. Patient encouraged to continue to work with physical therapy to regain her strength.
[2018-01-30 11:33] LABS: Eosinophils 1 % (0-4); Lymphocytes 5 % (9-44); Metamyelocytes 1 % (0-1); Monocytes 6 % (0-8); Myelocytes 2 % (0-0); Platelet Estimate Normal (Normal); Platelet Morphology Normal (Normal); Toxic Granulation 1+
--- NOTE | 2018-01-30 13:17 | P.PNIM ---
Subjective Interval history: Patient reports she is feeling tired today. She was able to get out of bed with PT today but reports she is still feeling pretty weak. Physical Exam Vital signs: Vital Signs 01/29/18 13:23 01/29/18 14:03 01/29/18 15:26 Temperature 97.8 F Pulse Rate 72 86 Respiratory Rate 18 16 18 Blood Pressure 118/81 Pulse Oximetry 98 01/29/18 15:41 01/29/18 16:00 01/29/18 19:25 Temperature Pulse Rate 83 79 Respiratory Rate 16 18 Blood Pressure Pulse Oximetry 01/29/18 20:06 01/29/18 20:42 01/29/18 23:41 Temperature 98.1 F Pulse Rate 97 H 99 H 89 Respiratory Rate 16 Blood Pressure 144/86 H Pulse Oximetry 100 01/30/18 00:17 01/30/18 03:59 01/30/18 04:00 Temperature 96 F L 98.9 F Pulse Rate 93 H 95 H Respiratory Rate 18 18 Blood Pressure 140/85 146/86 H Pulse Oximetry 99 98 01/30/18 07:31 01/30/18 08:08 01/30/18 09:21 Temperature 97.8 F Pulse Rate 92 H 97 H 98 H Respiratory Rate 18 16 Blood Pressure 125/85 Pulse Oximetry 98 01/30/18 12:47 Temperature Pulse Rate 90 Respiratory Rate 18 Blood Pressure Pulse Oximetry Intake & Output 01/29/18 01/30/18 01/30/18 18:59 06:59 18:59 Intake Total 1610 / 1610 1615 / 1615 Output Total 900 / 900 750 / 750 Balance 710 / 710 865 / 865 Weight 73.6 kg Intake: IV 1010 / 1010 1375 / 1375 D5W/Normal Saline Inj 1,000 ML 1000 / 1000 @ 100 mls/hr IV.CONT .Q10H [facility] Rx#:[id number] NS Inj 1,000 ML @ 100 mls/hr IV 900 / 900 .CONT .Q10H [facility] Rx#:[id number] Zosyn 3.375 GM Premix 50 ML @ 110 / 110 100 mls/hr IV.SIG Q6H [facility] Rx#: [id number] Zosyn 4.5 GM Premix 4.5 gm In 110 / 110 100 ml @ 200 mls/hr IV.SIG Q6H [facility] Rx#:[id number] Vancomycin Inj 1,000 MG In NS 265 / 265 Inj 250 ML @ 250 mls/hr IV.SIG Q24H [facility] Rx#:[id number] Oral 600 / 600 240 / 240 Output: Urine 900 / 900 750 / 750 Other: Date of Last Bowel Movement 01/29/18 01/29/18 # Bowel Movements 1 Narrative: GENERAL: This is a well-nourished, well-developed patient, in no apparent distress. CARDIOVASCULAR: Normal rate and regular rhythm without murmurs, gallops, or rubs. RESPIRATORY: Good respiratory efforts. Breath sounds equal and clear to auscultation bilaterally. GASTROINTESTINAL: Abdomen soft, non-tender, non-distended. Normal active bowel sounds MUSCULOSKELETAL: 2+ bilateral lower extremity edema. Chronic per the patient. NEURO: Alert & Oriented x4 to person, place, time, situation. Moves all ext x4 PSYCH: Appropriate mood and affect. Results - Labs CBC & Chem 7: 01/30/18 04:30 01/30/18 04:30 Laboratory Results - last 24 hr 01/30/18 01/30/18 04:30 04:30 WBC 17.4 H RBC 3.25 L Hgb 8.9 L Hct 28.1 L MCV 86.3 MCH 27.4 MCHC 31.8 L RDW 19.0 H Plt Count 215 MPV 8.6 Prelim Diff (Auto) Slide review pending Neut % (Auto) 81.8 H Lymph % (Auto) 5.5 L [place] % (Auto) 10.2 H Eos % (Auto) 2.2 Baso % (Auto) 0.3 Neut # (Auto) 14.3 H Lymph # (Auto) 1.0 [place] # (Auto) 1.8 H Eos # (Auto) 0.4 Baso # (Auto) 0.0 WBC Differential Manual diff final Seg Neuts % (Manual) 76 H Band Neuts % (Manual) 9 H Lymphocytes % (Manual) 5 L Monocytes % (Manual) 6 Eosinophils % (Manual) 1 Metamyelocytes % (Man) 1 Myelocytes % (Man) 2 H Abs Neuts (Manual) 15.3 H Differential Comment . Toxic Granulation 1+ H Platelet Estimate Normal Platelet Morphology Normal Sodium 144 Potassium 4.0 Chloride 114 H Carbon Dioxide 20.9 L Anion Gap 9 BUN 18 Creatinine 1.04 H Estimated GFR 52 L Random Glucose 130 H Calcium 7.2 L* Prot Corrected Calcium 8.2 L Total Protein 5.3 L Microbiology 01/26/18 22:25 Blood - Peripheral Aerobic Blood Culture - Preliminary No growth in 4 days 01/26/18 22:25 Blood - Peripheral Anaerobic Blood Culture - Preliminary No growth in 4 days 01/26/18 22:30 Blood - Peripheral Aerobic Blood Culture - Preliminary No growth in 4 days 01/26/18 22:30 Blood - Peripheral Anaerobic Blood Culture - Preliminary No growth in 4 days 01/26/18 23:00 Catheterized Urine Urine Culture - Final Pseudomonas aeruginosa Assessment and Plan - Assessment (1) Sepsis due to urinary tract infection Code(s): A41.9 - Sepsis, unspecified organism; N39.0 - Urinary tract infection, site not specified Status: Acute (2) Metastasis from pancreatic cancer Code(s): C79.9 - Secondary malignant neoplasm of unspecified site; C25.9 - Malignant neoplasm of pancreas, unspecified Status: Chronic (3) Acute UTI Code(s): N39.0 - Urinary tract infection, site not specified Status: Acute (4) PNA (pneumonia) Code(s): J18.9 - Pneumonia, unspecified organism Status: Acute (5) UTI (urinary tract infection) Code(s): N39.0 - Urinary tract infection, site not specified Status: Acute (6) Anemia Code(s): D64.9 - Anemia, unspecified Status: Acute - Plan 72 Y/O female with: Sepsis secondary to UTI/ HCAP Temp 102.5 at home, HR 120, WBC 18.9, 15% bands. UA indicative of UTI. Urine culture growing pseudomonas. The pt was recently hospitalized for urosepsis ( pseudomonas, enterococcus). CXR with patchy opacities in the right lung. -Blood cultures so far negative. Urine cultures grew Pseudomonas, pansensitive to antibiotics tested. - Discontinue vancomycin and Zosyn. Transition to oral Levaquin -oxygen as needed. Standing Duonebs added. Tessalon Perles as needed. Acute renal failure Likely prerenal. -Improved with IV fluid -avoid nephrotoxins. -hold Lasix. Hypoglycemia -Improved. Patient is eating better. Continue to monitor. Anemia Hgb 6.9, previously 8. S/p two units of red cells with adequate response. Hemoccult negative. -follow CBC and transfuse as needed. -holding Eliquis. -follow up with hematology. Hypotension Exacerbated by sepsis and anemia. -Resolved with IV fluid. Pancreatic CA Following w/ Dr. Olson, was scheduled for chemo Sunday, however, re-scheduled for the due to hypotension. Oncology consult appreciated. Repeat CT abdomen: Interval increase in the amount of ascites; Decrease in the size of the left pancreatic tail mass, now measuring 2.9 cm; The largest lesion in the liver has increased in size; Stable bilateral hydronephrosis and lytic osseous lesions. -follow up with oncology. Planning for Abraxane and gemcitabine once improved from current illness. -PT eval. Physical deconditioning: - PT following. Plan for discharge to home with home health and PT. Out of bed as tolerated. DVT Prophylaxis: SCD/Teds Discharge Planning: Plan for discharge in a.m. with home health and physical therapy if she continues to do well and labs stable.
[2018-01-30] MEDS ORDERED: levoFLOXacin 750 MG Tablet PO SCH (14:00)
[2018-01-31 01:36] VITALS: O2SAT 98
[2018-01-31 04:20] VITALS: TEMP 97.4
[2018-01-31 04:21] VITALS: BP 150/97
[2018-01-31] MEDS: Levothyroxine 100 MCG Tablet PO SCH (05:27)
[2018-01-31 05:45] LABS: Baso # (Auto) 0.1 th/mm3 (0.0-0.2); Baso % (Auto) 0.7 % (0.0-2.0); Eos # (Auto) 0.4 th/mm3 (0.0-0.4); Eos % (Auto) 2.1 % (0.0-4.0); Hematocrit 27.9 % (35.0-46.0); Hemoglobin 9.2 gm/dL (11.6-15.3); Lymph % (Auto) 14.8 % (9.0-44.0); Mean Corpuscular HGB Conc 32.8 % (32.0-36.0); Mean Corpuscular Hemoglobin 27.7 pg (27.0-34.0); Mean Corpuscular Volume 84.6 fL (80.0-100.0); Mean Platelet Volume 8.6 fL (7.0-11.0); Mono # (Auto) 1.8 th/mm3 (0.0-0.9); Neut # (Auto) 14.7 th/mm3 (1.8-7.7); Neut % (Auto) 73.4 % (16.0-70.0); Platelet Count 250 th/mm3 (150-450); Red Cell Distribution Width 18.9 % (11.6-17.2)
[2018-01-31 06:09] LABS: Calcium 8.1 mg/dL (8.5-10.1); Carbon Dioxide 20.6 meq/L (21.0-32.0); Potassium 4.1 meq/L (3.5-5.1)
[2018-01-31] MEDS: Dextrose 5%/NaCl 0.9% Inj 1,000 ML IV.CONT SCH (07:34)
[2018-01-31 08:13] LABS: Eosinophils 1 % (0-4); Lymphocytes 2 % (9-44); Metamyelocytes 2 % (0-1); Monocytes 3 % (0-8); Myelocytes 3 % (0-0); Platelet Estimate Normal (Normal); Platelet Morphology Normal (Normal)
[2018-01-31 08:20] VITALS: PULSE 97; RESP 15
--- NOTE | 2018-01-31 09:11 | P.PNONC ---
Subjective Interval history: Afebrile. Patient reported some shortness of breath prior to her breathing treatment this a.m. She has gained 8 kg 3 days. She has pitting edema in bilateral lower extremities. She has been mildly tachycardic as well. Patient reports still remaining very weak. She is working with physical therapy , however was only able to walk to her door and back to bed. Objective Vital Signs/Intake & Output: Vital Signs 01/30/18 09:21 01/30/18 12:00 01/30/18 12:47 Temperature 97.8 F Pulse Rate 98 H 90 90 Respiratory Rate 16 18 Blood Pressure 125/85 Pulse Oximetry 98 01/30/18 13:05 01/30/18 16:00 01/30/18 16:38 Temperature 97.9 F 98.3 F Pulse Rate 101 H 93 H 91 H Respiratory Rate 16 16 Blood Pressure 139/86 146/90 H Pulse Oximetry 97 98 01/30/18 18:58 01/30/18 20:00 01/31/18 00:00 Temperature 98.1 F 98.9 F Pulse Rate 88 105 H 102 H Respiratory Rate 18 16 18 Blood Pressure 158/99 H 161/105 H Pulse Oximetry 100 98 01/31/18 04:00 01/31/18 04:17 01/31/18 04:20 Temperature 97.4 F L Pulse Rate 99 H 85 Respiratory Rate 18 Blood Pressure 158/101 H 150/97 H Pulse Oximetry 98 01/31/18 04:45 01/31/18 08:19 Temperature Pulse Rate 97 H Respiratory Rate 16 15 Blood Pressure Pulse Oximetry Intake & Output 01/30/18 01/31/18 01/31/18 18:59 06:59 18:59 Intake Total 1692 / 1692 Output Total 850 / 850 550 / 550 Balance 842 / 842 -550 / -550 Weight 75.1 kg Intake: IV 1135 / 1135 D5W/Normal Saline Inj 1,000 ML 980 / 980 @ 100 mls/hr IV.CONT .Q10H [facility] Rx#:[id number] Oral 557 / 557 Output: Urine 600 / 600 550 / 550 Emesis 250 / 250 Other: Date of Last Bowel Movement 01/30/18 01/30/18 # Bowel Movements 1 1 Result Diagrams: 01/31/18 04:25 01/31/18 04:25 Laboratory Results: Laboratory Results - last 24 hr 01/30/18 01/31/18 01/31/18 04:30 04:25 04:25 WBC 20.0 H RBC 3.30 L Hgb 9.2 L Hct 27.9 L MCV 84.6 MCH 27.7 MCHC 32.8 RDW 18.9 H Plt Count 250 MPV 8.6 Prelim Diff (Auto) Slide review pending Neut % (Auto) 73.4 H Lymph % (Auto) 14.8 [place] % (Auto) 9.0 H Eos % (Auto) 2.1 Baso % (Auto) 0.7 Neut # (Auto) 14.7 H Lymph # (Auto) 3.0 [place] # (Auto) 1.8 H Eos # (Auto) 0.4 Baso # (Auto) 0.1 WBC Differential Manual diff final Manual diff final Seg Neuts % (Manual) 76 H 78 H Band Neuts % (Manual) 9 H 11 H Lymphocytes % (Manual) 5 L 2 L Monocytes % (Manual) 6 3 Eosinophils % (Manual) 1 1 Metamyelocytes % (Man) 1 2 H Myelocytes % (Man) 2 H 3 H Abs Neuts (Manual) 15.3 H 18.8 H Differential Comment . Toxic Granulation 1+ H Platelet Estimate Normal Normal Platelet Morphology Normal Normal Sodium 140 Potassium 4.1 Chloride 111 H Carbon Dioxide 20.6 L Anion Gap 8 BUN 14 Creatinine 0.91 Estimated GFR 61 L Random Glucose 71 L Calcium 8.1 L D Culture Results: Microbiology 01/26/18 22:25 Aerobic Blood Culture - Preliminary Blood - Peripheral No growth in 4 days Anaerobic Blood Culture - Preliminary No growth in 4 days 01/26/18 22:30 Aerobic Blood Culture - Preliminary Blood - Peripheral No growth in 4 days Anaerobic Blood Culture - Preliminary No growth in 4 days 01/26/18 23:00 Urine Culture - Final Catheterized Urine Pseudomonas aeruginosa 01/28/18 19:00 Stool Occult Blood ([facility]) - Final Stool Hemoccult negative Medications: Active Medications Generic Name Dose Route Start Last Admin Trade Name Freq PRN Reason Stop Dose Admin Albuterol 1 ampul 01/29/18 12:15 01/31/18 08:18 Duoneb Neb (Yana) NEB 1 ampul Q6HR WHILE AWAKE NEB YANA Administration Levothyroxine Sodium 100 mcg 01/27/18 11:00 01/31/18 05:27 Synthroid PO 100 mcg DAILY@0600 YANA Administration Morphine Sulfate 15 mg 01/28/18 21:00 01/30/18 22:47 Oramorph Sr PO 15 mg Q12HR YANA Administration Ondansetron HCl 4 mg 01/26/18 23:28 01/30/18 16:35 Zofran Inj IV.PUSH 4 mg Q6H PRN Administration NAUSEA OR VOMITING Oxycodone HCl 5 mg 01/27/18 11:36 01/31/18 04:15 Roxicodone PO 5 mg Q4H PRN Administration pain 3-10 Pantoprazole Sodium 40 mg 01/27/18 12:00 01/30/18 09:23 Protonix PO 40 mg DAILY YANA Administration Senna/Docusate Sodium 1 tab 01/27/18 09:00 01/30/18 22:48 Wilda-Colace PO Not Given BID YANA Sodium Chloride 5 ml 01/30/18 08:12 01/30/18 09:27 Ns Flush IV.FLUSH 5 ml PRN PRN Administration Flush Infusaport Objective Remarks: GENERAL: Elderly female patient, lying in bed. No acute distress noted. SKIN: Warm and dry. + Alopecia. Port assessed to right chest wall, drsg dry/ intact. HEAD: Normocephalic. EYES: No scleral icterus. No injection or drainage. NECK: Supple, trachea midline. CARDIOVASCULAR: Regular rate and rhythm without murmurs. RESPIRATORY: Breath sounds clear, equal bilaterally. Nonlabored at rest. GASTROINTESTINAL: Abdomen soft, non-tender, nondistended. EXTREMITIES: No cyanosis. Bilateral 3+ pitting edema lower extremities. MUSCULOSKELETAL: Decreased muscle tone. NEUROLOGICAL: No obvious focal deficit. Awake, alert, and oriented x3. PSYCHIATRIC: Appropriate mood and affect; insight and judgment normal. Assessment/Plan - Plan Ms. 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 She had progressive disease on first-line palliative systemic therapy with FOLFIRINOX and was subsequently transitioned to second line therapy with Abraxane and gemcitabine in September 2017. She has remained on this treatment since then. While on this treatment interim scans indicated reduction in size of the metastatic disease burden involving the liver and stability of the primary tumor involving the tail the pancreas. The patient however has had recurrent bladder infections with the most recent episode occurring about 5 or 6 weeks ago which also required hospitalization. The patient has a recurrent urinary tract infection at this time, she is being covered with broad-spectrum antibiotics with cefepime and vancomycin. Recommendations: 1. Recurrent urinary tract infections, urine culture positive for pseudomonas aeruginosa, sensitive to cefepime. CT scan of the abdomen pelvis performed on with no evidence of an enterovesicle fistula. Continue broad-spectrum antibiotics with cefepime and vancomycin. 2. Pancreatic carcinoma: Plans to continue treatment with Abraxane and gemcitabine, once patient has recovered from this acute illness. 3. Fluid overload, patient has gained 8 kg in 3 days. She has bilateral lower extremity pitting edema. She reported dyspnea prior to her breathing treatment this a.m. Her kidney function appears to be improving. Will order a one-time dose of Lasix 40 mg IV push today. Repeat chest xray. Monitor daily weights and potassium.
--- NOTE | 2018-01-31 09:44 | P.DS ---
Date of admission: 01/27/18 00:12 Primary care physician: Abigail Kang Brief History from admission: HPI from the admitting physician: This is a 72-year-old female with a PMH of HTN, Hypothyroidism and Pancreatic CA who presented to ER with complaints of fever of 102.3, generalized weakness and cough x1 day. States she follows w/ Dr. Olson, was scheduled for Chemo this past Sunday, however her BP was too low. Today, w/ fever and worsening weakness. Denies nausea, vomiting or diarrhea. No sick contacts reported. On arrival, BP 103/54, HR 120, O2 sat 100% on RA, Temp 100.7. WBC 18.9. Hemoglobin 6.9, previously 8.0 on 01/25/2018. Bands 15%. Lactic Acid 3.4. Creatinine 1.62, previously 1.60 on 01/25/2018. U/a positive for UTI. CXR w/ mild patchy parenchymal opacities right lung. S/p Blood Cultures, Rocephin in ER. States she has upcoming appt on the for repeat imaging w/ CT/MRI and is scheduled for next round of Chemo on the . Patient update on day of discharge: Patient reports she is feeling better today. She reports she has a son at home and her boyfriend who helps takes care of her 13/11. DS: Diagnosis - Discharge Diagnosis (1) Sepsis due to urinary tract infection Status: Acute (2) Metastasis from pancreatic cancer Status: Chronic (3) Acute UTI Status: Acute (4) PNA (pneumonia) Status: Acute (5) UTI (urinary tract infection) Status: Acute (6) Anemia Status: Acute DS: Medications - Discharge Medications Prescriptions: levofloxacin 750 mg PO DAILY #5 tab DS: Summary Hospital Course: 72 Y/O female admitted and treated for the following: Sepsis secondary to UTI/ HCAP Temp 102.5 at home, HR 120, WBC 18.9, 15% bands. UA indicative of UTI. Urine culture growing pseudomonas. The pt was recently hospitalized for urosepsis ( pseudomonas, enterococcus). CXR with patchy opacities in the right lung. -Blood cultures so far negative. Urine cultures grew Pseudomonas, pansensitive to antibiotics tested. -IV antibiotics were discontinued and the patient was transitioned to oral Levaquin. Acute renal failure Likely prerenal. -Lasix was put on hold. Renal functions improved with IV fluids. Hypoglycemia -Resolved once the patient started to eat. Anemia Hgb 6.9, previously 8. S/p two units of red cells with adequate response. Hemoccult negative. Likely related to chemotherapy. -H&H stable Hypotension Exacerbated by sepsis and anemia. -Resolved with IV fluid. Pancreatic CA Following w/ Dr. Olson, was scheduled for chemo Sunday, however, re-scheduled for the due to hypotension. Oncology consult appreciated. Repeat CT abdomen: Interval increase in the amount of ascites; Decrease in the size of the left pancreatic tail mass, now measuring 2.9 cm; The largest lesion in the liver has increased in size; Stable bilateral hydronephrosis and lytic osseous lesions. -follow up with oncology. Planning for Abraxane and gemcitabine once improved from current illness. -PT followed the patient. She is discharged home with home health and physical therapy. Physical deconditioning: -PT followed the patient. She is discharged home with home health and physical therapy to continue rehabilitation efforts. - Time Spent with Patient Total time spent providing and/or coordinating discharge services: Greater than 30 minutes - Quality: VTE Deep Vein Thrombosis/Pulmonary Embolism Present on Admission: No Exam Vital signs: Vital Signs 01/30/18 12:00 01/30/18 12:47 01/30/18 13:05 Temperature 97.9 F Pulse Rate 90 90 101 H Respiratory Rate 18 16 Blood Pressure 139/86 Pulse Oximetry 97 01/30/18 16:00 01/30/18 16:38 01/30/18 18:58 Temperature 98.3 F Pulse Rate 93 H 91 H 88 Respiratory Rate 16 18 Blood Pressure 146/90 H Pulse Oximetry 98 01/30/18 20:00 01/31/18 00:00 01/31/18 04:00 Temperature 98.1 F 98.9 F Pulse Rate 105 H 102 H 99 H Respiratory Rate 16 18 Blood Pressure 158/99 H 161/105 H Pulse Oximetry 100 98 01/31/18 04:17 01/31/18 04:20 01/31/18 04:45 Temperature 97.4 F L Pulse Rate 85 Respiratory Rate 18 16 Blood Pressure 158/101 H 150/97 H Pulse Oximetry 98 01/31/18 08:19 Temperature Pulse Rate 97 H Respiratory Rate 15 Blood Pressure Pulse Oximetry Intake & Output 10/02/0701/31/18 01/31/18 18:59 06:59 18:59 Intake Total 1692 / 1692 Output Total 850 / 850 550 / 550 Balance 842 / 842 -550 / -550 Weight 75.1 kg Intake: IV 1135 / 1135 D5W/Normal Saline Inj 1,000 ML 980 / 980 @ 100 mls/hr IV.CONT .Q10H NEVIN Rx#:[id number] Oral 557 / 557 Output: Urine 600 / 600 550 / 550 Emesis 250 / 250 Other: Date of Last Bowel Movement 01/30/18 01/30/18 # Bowel Movements 1 1 Narrative: GENERAL: This is a well-nourished, well-developed patient, in no apparent distress. CARDIOVASCULAR: Normal rate and regular rhythm without murmurs, gallops, or rubs. RESPIRATORY: Good respiratory efforts. Breath sounds equal and clear to auscultation bilaterally. GASTROINTESTINAL: Abdomen soft, non-tender, non-distended. Normal active bowel sounds MUSCULOSKELETAL: 2+ bilateral lower extremity edema. Chronic per the patient. NEURO: Alert & Oriented x4 to person, place, time, situation. Moves all ext x4 PSYCH: Appropriate mood and affect. Results Procedures completed during hospitalization: None Labs on day of discharge: Labs from last 24 hours 01/31/18 01/31/18 01/30/18 04:25 04:25 04:30 WBC 20.0 H RBC 3.30 L Hgb 9.2 L Hct 27.9 L MCV 84.6 MCH 27.7 MCHC 32.8 RDW 18.9 H Plt Count 250 MPV 8.6 Prelim Diff (Auto) Slide review pending Neut % (Auto) 73.4 H Lymph % (Auto) 14.8 [place] % (Auto) 9.0 H Eos % (Auto) 2.1 Baso % (Auto) 0.7 Neut # (Auto) 14.7 H Lymph # (Auto) 3.0 [place] # (Auto) 1.8 H Eos # (Auto) 0.4 Baso # (Auto) 0.1 WBC Differential Manual diff final Manual diff final Seg Neuts % (Manual) 78 H 76 H Band Neuts % (Manual) 11 H 9 H Lymphocytes % (Manual) 2 L 5 L Monocytes % (Manual) 3 6 Eosinophils % (Manual) 1 1 Metamyelocytes % (Man) 2 H 1 Myelocytes % (Man) 3 H 2 H Abs Neuts (Manual) 18.8 H 15.3 H Differential Comment . Toxic Granulation 1+ H Platelet Estimate Normal Normal Platelet Morphology Normal Normal Sodium 140 Potassium 4.1 Chloride 111 H Carbon Dioxide 20.6 L Anion Gap 8 BUN 14 Creatinine 0.91 Estimated GFR 61 L Random Glucose 71 L Calcium 8.1 L D Preliminary micro results at discharge 01/26/18 22:25 Aerobic Blood Culture - Preliminary Blood - Peripheral No growth in 4 days Anaerobic Blood Culture - Preliminary No growth in 4 days 01/26/18 22:30 Aerobic Blood Culture - Preliminary Blood - Peripheral No growth in 4 days Anaerobic Blood Culture - Preliminary No growth in 4 days - Impressions ITS Impressions Chest X-Ray 01/26/18 22:26 CONCLUSION: Generally improved appearance. Mild patchy parenchymal opacities in the right lung Abdomen/Pelvis CT 01/28/18 00:00 CONCLUSION: 1. Interval increase in the amount of ascites. 2. Decrease in the size of the left pancreatic tail mass, now measuring 2.9 cm. 3. The largest lesion in the liver has increased in size. 4. Stable bilateral hydronephrosis and lytic osseous lesions. Discharge Plan - Discharge Disposition Patient Disposition: /Home Health Service - Discharge Condition Condition: Good - Discharge Order Discharge Orders: Discharge Order (Routine); Ordered 01/31/18 Ordered By: Frank Ordoñez - Physicians Team Attending Provider: Frank Ordoñez Other Providers: Hugo Olson MD ; [facility]
--- NOTE | 2018-01-31 09:53 | XR ---
EXAM DATE: 01/31/2018 12:00 AM EDT AGE/SEX: 72 years / Female INDICATIONS: dyspnea CLINICAL DATA: This is the patient's subsequent encounter. Patient reports that signs and symptoms h ave been present for 4 - 6 days and indicates a pain score of 0/10. MEDICAL/SURGICAL HISTORY: . Carcinoma, pancreas. Hypertension None. COMPARISON: C, CHEST 1V SINGLE AP, 01/26/2018. . FINDINGS: Stable right IJ [id number]. Linear parenchymal opacities in the right midlung zone. Minimal airspa ce disease in the left lung base. Cardiomediastinal contours are within normal limits. Bony thorax is intact. CONCLUSION: 1. Linear parenchymal scarring/atelectasis in the right midlung. 2. Minimal airspace disease at the left lung base, likely atelectasis. Electronically signed by: oJshua Henning MD 01/31/2018 9:52 AM EDT
[2018-01-31] MEDS ORDERED: Pharmacy Ordered Lab Info OTHER ONE (17:45)
[2018-02-01] MEDS ORDERED: levoFLOXacin 750 MG Tablet PO SCH (14:00)
== END 2018-01-31 11:49 | disposition home health service (06) ==
LOC: NEPE 22:11 → NEDA 01-27 00:12 → HCIN 01-27 01:24
PROVIDERS: ADMIT Family Medicine; ATTEND Family Medicine

== ENCOUNTER 2018-02-21 17:38 | Inpatient (IN) ==
--- NOTE | 2018-02-21 17:55 | ED ---
HPI General Chief Complaint: Chest Pain Stated Complaint: Medical Time Seen by Provider: 02/21/18 17:49 Source: patient and EMS Mode of arrival: EMS Limitations: no limitations History of Present Illness HPI narrative: 72-year-old female complains of chest pain. Patient states that the chest pain started a week ago and get worse since last night. Patient states the chest pain is substernal chest pressure without radiation. Patient denies palpitation nausea diaphoresis. Patient denies any cough congestion fever chills. Patient has history of pancreatic cancer on chemotherapy. 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 Patient has history of PE and on Eliquis. Patient was seen by personal physician recently and with diagnosis UTI. Patient is on antibiotic for the past 4-5 days that she does not know the name of. EMS was called. Patient was found to be hypotensive with blood pressures in the 80s. Patient was given IV fluid on the way to the ED. patient states that she had a history of abdominal ascites. Patient was offered paracentesis however refused it. Patient also has history of COPD, daily alcohol consumption, GERD, hypertension , hypothyroidism. patient is a smoker. MD complaint: Reports chest pain STEMI Alert: No Onset (ago): hour(s) Duration: constant Onset: during rest Pain location: Reports substernal Severity: moderate Severity scale (1-10): 8 Quality: Reports aching and heaviness Pain radiation: Reports none Relieving factors: nothing Exacerbating factors: nothing Context: Reports history of DVT/PE Treatments prior to arrival chest pain: Reports none and other (IV fluid) Related Data Home Medications Medication Instructions Recorded Confirmed apixaban [Eliquis] 5 mg PO BID 10/27/17 02/21/18 lactulose 10 g PO TID 10/27/17 02/21/18 levothyroxine 100 mcg PO DAILY 10/27/17 02/21/18 morphine 15 mg PO Q12H 10/27/17 02/21/18 ondansetron 4 mg PO QID PRN 10/27/17 02/21/18 oxycodone 5 mg PO Q4H 10/27/17 02/21/18 furosemide [Lasix] 20 mg PO BID 12/14/17 02/21/18 potassium chloride 20 meq PO DAILY 12/14/17 02/21/18 ferrous sulfate 325 mg PO BID 02/21/18 02/21/18 metoclopramide HCl 5 mg PO QID 02/21/18 02/21/18 metoprolol tartrate 50 mg PO BID 02/21/18 02/21/18 nitrofurantoin macrocrystal 100 mg PO DAILY 02/21/18 02/21/18 Previous Rx's Medication Instructions Recorded pantoprazole 40 mg PO DAILY #90 tab 10/29/17 fosfomycin tromethamine 1 packet PO Q3D #1 ea 12/17/17 levofloxacin 750 mg PO DAILY #5 tab 01/31/18 Allergies Allergy/AdvReac Type Severity Reaction Status Date / Time No Known Allergies Allergy Verified 01/26/18 22:22 Review of Systems ROS: all other systems reviewed are negative PMFSH Medical History Medical History Malignant neoplasm determined by biopsy of pancreas (Acute) Current tobacco use (Acute) Hypothyroidism (Acute) Pulmonary embolism (Acute) Secondary malignant neoplasm of liver (Acute) Hypertension (Acute) Pancreatic cancer (Acute) Cancer determined by pancreatic biopsy (Acute) Recurrent cellulitis of lower extremity (Acute) Surgical History Surgical History Port-A-Cath in place (Acute) Family History Family History Mother Esophageal adenocarcinoma Grandparent Cervical cancer Social History Social History Substance History: No History of Abuse Second Hand Smoke Exposure: No Smoking Status: Never smoker Tobacco Type: Cigarettes How Often Do You Have a Drink Containing Alcohol: Never Recent Travel in [facility] within the Last 8 Weeks: No Recent Out of Country Travel within the Last 8 Weeks: No Immunization History Tetanus Immunization: >5 Years Exam Narrative Exam Narrative: GENERAL: Well-nourished, well-developed patient. SKIN: Focused skin assessment warm/dry. HEAD: Normocephalic. EYES: No scleral icterus. No injection or drainage. NECK: Supple, trachea midline. No JVD or lymphadenopathy. CARDIOVASCULAR: Regular rate and rhythm without murmurs, gallops, or rubs. RESPIRATORY: Breath sounds equal bilaterally. No accessory muscle use. GASTROINTESTINAL: Abdomen soft, mildly distended. Patient has mild epigastric tenderness on palpation. No rebound tenderness. No mass. MUSCULOSKELETAL: No cyanosis, or edema. BACK: Nontender without obvious deformity. No CVA tenderness. Course Initial Documented Vital Signs Pulse Rate 89 02/21/18 17:41 Respiratory Rate 18 02/21/18 17:41 Blood Pressure 111/54 L 02/21/18 17:41 Pulse Oximetry 98 02/21/18 17:41 Last Documented Vital Signs Pulse Rate 84 02/21/18 23:00 Respiratory Rate 18 02/21/18 23:00 Blood Pressure 95/54 L 02/21/18 23:00 Pulse Oximetry 98 02/21/18 23:00 Medical Decision Making MDM Narrative Medical decision making narrative: 72-year-old female complaint of chest pain. History of PE on Eliquis. History of pancreatic cancer on chemotherapy. Patient with diagnosis of UTI on antibiotic. Patient was found to be hypotensive today. Patient was given IV fluid with improvement of blood pressure. Normal saline solution 1 L IV bolus. D50 50 mL IV given. Novolin R 10 units IV given. Calcium gluconate 1 g IV given. Cefepime 1 g IV given. Patient will be admitted to the ICU with consultation to Dr. Olson, oncologist. Patient with INR elevated 1.9. I would hold heparin for now. Medical Screen Exam Complete: Yes Emergency Medical Condition: Yes Differential Diagnosis Differential Diagnosis: Differential diagnosis including angina, [place], PE, pneumothorax, pancreatitis, GERD, esophageal spasm, ruptured esophagus. Lab Data Lab results reviewed: Yes I reviewed the patient's lab results. Result diagrams: 02/21/18 18:10 02/21/18 18:10 Lab Results 02/21/18 02/21/18 02/21/18 Range/Units 18:10 18:10 18:10 WBC 2.9 L (4.0-11.0) th/mm3 RBC 2.52 L (4.00-5.30) mil/mm3 Hgb 7.9 L (11.6-15.3) gm/dL Hct 24.3 L (35.0-46.0) % MCV 96.3 (80.0-100.0) fL MCH 31.4 (27.0-34.0) pg MCHC 32.6 (32.0-36.0) % RDW 23.5 H (11.6-17.2) % Plt Count 92 L D (150-450) th/mm3 MPV 10.8 (7.0-11.0) fL Prelim Diff (Auto) Slide review pending Neut % (Auto) 73.8 H (16.0-70.0) % Lymph % (Auto) 14.9 (9.0-44.0) % [place] % (Auto) 7.9 (0.0-8.0) % Eos % (Auto) 1.1 (0.0-4.0) % Baso % (Auto) 2.3 H (0.0-2.0) % Neut # (Auto) 2.1 (1.8-7.7) th/mm3 Lymph # (Auto) 0.4 L (1.0-4.8) th/mm3 [place] # (Auto) 0.2 (0.0-0.9) th/mm3 Eos # (Auto) 0.0 (0.0-0.4) th/mm3 Baso # (Auto) 0.1 (0.0-0.2) th/mm3 WBC Differential Manual diff final Seg Neuts % (Manual) 66 (16-70) % Band Neuts % (Manual) 10 H (0-6) % Lymphocytes % (Manual) 15 (9-44) % Monocytes % (Manual) 8 (0-8) % Eosinophils % (Manual) 1 (0-4) % Abs Neuts (Manual) 2.2 (1.8-7.7) th/mm3 Differential Comment . Toxic Granulation 1+ H (None) Platelet Estimate Low L (Normal) Platelet Morphology Enlarged H (Normal) Target Cells 1+ H (None) Ovalocytes 1+ H (None) PT (9.8-11.6) sec INR Ratio APTT (23.4-31.7) sec D-Dimer Quant (PE/DVT) (0.00-0.50) mg/L FEU Sodium 136 (136-145) meq/L Potassium 6.0 H (3.5-5.1) meq/L Chloride 102 (98-107) meq/L Carbon Dioxide 24.0 (21.0-32.0) meq/L Anion Gap 10 (5-15) meq/L BUN 63 H (7-18) mg/dL Creatinine 1.76 H (0.50-1.00) mg/dL Estimated GFR 28 L (>89) mL/min Random Glucose 134 H (74-106) mg/dL Lactic Acid (0.4-2.0) mmol/L Calcium 7.9 L (8.5-10.1) mg/dL Total Bilirubin 6.3 H (0.2-1.0) mg/dL AST 96 H (15-37) U/L ALT 66 H (10-53) U/L Alkaline Phosphatase 323 H (45-117) U/L Total Creatine Kinase (26-192) U/L CK-MB (CK-2) (0.5-3.6) ng/mL Troponin I Less than 0.02 L (0.02-0.05) ng/mL B-Natriuretic Peptide 91 (0-100) pg/mL Total Protein 6.7 D (6.4-8.2) g/dL Albumin 1.7 L (3.4-5.0) g/dL Lipase 26 L (73-393) U/L 02/21/18 02/21/18 02/21/18 Range/Units 18:10 18:10 18:10 WBC (4.0-11.0) th/mm3 RBC (4.00-5.30) mil/mm3 Hgb (11.6-15.3) gm/dL Hct (35.0-46.0) % MCV (80.0-100.0) fL MCH (27.0-34.0) pg MCHC (32.0-36.0) % RDW (11.6-17.2) % Plt Count (150-450) th/mm3 MPV (7.0-11.0) fL Prelim Diff (Auto) Neut % (Auto) (16.0-70.0) % Lymph % (Auto) (9.0-44.0) % [place] % (Auto) (0.0-8.0) % Eos % (Auto) (0.0-4.0) % Baso % (Auto) (0.0-2.0) % Neut # (Auto) (1.8-7.7) th/mm3 Lymph # (Auto) (1.0-4.8) th/mm3 [place] # (Auto) (0.0-0.9) th/mm3 Eos # (Auto) (0.0-0.4) th/mm3 Baso # (Auto) (0.0-0.2) th/mm3 WBC Differential Seg Neuts % (Manual) (16-70) % Band Neuts % (Manual) (0-6) % Lymphocytes % (Manual) (9-44) % Monocytes % (Manual) (0-8) % Eosinophils % (Manual) (0-4) % Abs Neuts (Manual) (1.8-7.7) th/mm3 Differential Comment Toxic Granulation (None) Platelet Estimate (Normal) Platelet Morphology (Normal) Target Cells (None) Ovalocytes (None) PT 18.8 H (9.8-11.6) sec INR 1.9 Ratio APTT 29.9 (23.4-31.7) sec D-Dimer Quant (PE/DVT) (0.00-0.50) mg/L FEU Sodium (136-145) meq/L Potassium (3.5-5.1) meq/L Chloride (98-107) meq/L Carbon Dioxide (21.0-32.0) meq/L Anion Gap (5-15) meq/L BUN (7-18) mg/dL Creatinine (0.50-1.00) mg/dL Estimated GFR (>89) mL/min Random Glucose (74-106) mg/dL Lactic Acid 4.2 H* (0.4-2.0) mmol/L Calcium (8.5-10.1) mg/dL Total Bilirubin (0.2-1.0) mg/dL AST (15-37) U/L ALT (10-53) U/L Alkaline Phosphatase (45-117) U/L Total Creatine Kinase 105 (26-192) U/L CK-MB (CK-2) Less than 1.0 (0.5-3.6) ng/mL Troponin I (0.02-0.05) ng/mL B-Natriuretic Peptide (0-100) pg/mL Total Protein (6.4-8.2) g/dL Albumin (3.4-5.0) g/dL Lipase (73-393) U/L 02/21/18 Range/Units 21:35 WBC (4.0-11.0) th/mm3 RBC (4.00-5.30) mil/mm3 Hgb (11.6-15.3) gm/dL Hct (35.0-46.0) % MCV (80.0-100.0) fL MCH (27.0-34.0) pg MCHC (32.0-36.0) % RDW (11.6-17.2) % Plt Count (150-450) th/mm3 MPV (7.0-11.0) fL Prelim Diff (Auto) Neut % (Auto) (16.0-70.0) % Lymph % (Auto) (9.0-44.0) % [place] % (Auto) (0.0-8.0) % Eos % (Auto) (0.0-4.0) % Baso % (Auto) (0.0-2.0) % Neut # (Auto) (1.8-7.7) th/mm3 Lymph # (Auto) (1.0-4.8) th/mm3 [place] # (Auto) (0.0-0.9) th/mm3 Eos # (Auto) (0.0-0.4) th/mm3 Baso # (Auto) (0.0-0.2) th/mm3 WBC Differential Seg Neuts % (Manual) (16-70) % Band Neuts % (Manual) (0-6) % Lymphocytes % (Manual) (9-44) % Monocytes % (Manual) (0-8) % Eosinophils % (Manual) (0-4) % Abs Neuts (Manual) (1.8-7.7) th/mm3 Differential Comment Toxic Granulation (None) Platelet Estimate (Normal) Platelet Morphology (Normal) Target Cells (None) Ovalocytes (None) PT (9.8-11.6) sec INR Ratio APTT (23.4-31.7) sec D-Dimer Quant (PE/DVT) 14.80 H (0.00-0.50) mg/L FEU Sodium (136-145) meq/L Potassium (3.5-5.1) meq/L Chloride (98-107) meq/L Carbon Dioxide (21.0-32.0) meq/L Anion Gap (5-15) meq/L BUN (7-18) mg/dL Creatinine (0.50-1.00) mg/dL Estimated GFR (>89) mL/min Random Glucose (74-106) mg/dL Lactic Acid (0.4-2.0) mmol/L Calcium (8.5-10.1) mg/dL Total Bilirubin (0.2-1.0) mg/dL AST (15-37) U/L ALT (10-53) U/L Alkaline Phosphatase (45-117) U/L Total Creatine Kinase (26-192) U/L CK-MB (CK-2) (0.5-3.6) ng/mL Troponin I (0.02-0.05) ng/mL B-Natriuretic Peptide (0-100) pg/mL Total Protein (6.4-8.2) g/dL Albumin (3.4-5.0) g/dL Lipase (73-393) U/L Imaging Data Attestation: I personally reviewed and interpreted this imaging study as follows : Radiologist's impression: Chest X-Ray 02/21/18 17:50 CONCLUSION: No acute cardiopulmonary disease. Pulmonary Perfusion Imaging 02/21/18 20:16 CONCLUSION: 1. High probability for pulmonary embolus. Discharge Plan Discharge Disposition Patient Disposition: 30 Still Patient Discharge Details Diagnosis: Pulmonary embolism, Acute kidney injury, Acute UTI, Anemia, Acute hyperkalemia , Acidosis, lactic, Thrombocytopenia Physicians Team ED Provider: Christiano Amin Other Providers: Funmi Prakash Rxs /Orders / Referrals /Forms Prescriptions: No Action levothyroxine 100 mcg Tablet 100 mcg PO DAILY RF: 0 ondansetron 4 mg Tablet,Disintegrating 4 mg PO QID PRN (Reason: Nausea And Vomiting) RF: 0 oxycodone 5 mg Tablet 5 mg PO Q4H RF: 0 lactulose 10 gram/15 mL Solution 10 g PO TID RF: 0 apixaban [Eliquis] 5 mg Tablet 5 mg PO BID RF: 0 morphine 15 mg Tablet,Oral Only,Ext.Rel.12 Hr 15 mg PO Q12H RF: 0 pantoprazole 40 mg Tablet,Delayed Release (Dr/Ec) 40 mg PO DAILY Qty: 90 RF: 0 levofloxacin 750 mg Tablet 750 mg PO DAILY Qty: 5 RF: 0 furosemide [Lasix] 20 mg Tablet 20 mg PO BID RF: 0 potassium chloride 20 mEq Packet 20 meq PO DAILY RF: 0 fosfomycin tromethamine 3 gram Packet 1 packet PO Q3D Qty: 1 RF: 0 metoclopramide HCl 5 mg Tablet 5 mg PO QID RF: 0 ferrous sulfate 325 mg (65 mg iron) Tablet 325 mg PO BID RF: 0 nitrofurantoin macrocrystal 100 mg Capsule 100 mg PO DAILY RF: 0 metoprolol tartrate 50 mg Tablet 50 mg PO BID RF: 0 Discharge Instructions Patient Printed Instructions: Chest Pain (ED) Discharge Interventions Interventions: Vital Signs Last Done: 02/21/18 23:00 Status ED Status: Admitted Patient
[2018-02-21] MEDS ORDERED: Sod Chloride 0.9% Inj 1,000 ML IV.SIG SCH (18:00)
[2018-02-21 18:28] LABS: Baso # (Auto) 0.1 th/mm3 (0.0-0.2); Baso % (Auto) 2.3 % (0.0-2.0); Eos % (Auto) 1.1 % (0.0-4.0); Hematocrit 24.3 % (35.0-46.0); Hemoglobin 7.9 gm/dL (11.6-15.3); Lymph # (Auto) 0.4 th/mm3 (1.0-4.8); Lymph % (Auto) 14.9 % (9.0-44.0); Mean Corpuscular HGB Conc 32.6 % (32.0-36.0); Mean Corpuscular Hemoglobin 31.4 pg (27.0-34.0); Mean Corpuscular Volume 96.3 fL (80.0-100.0); Mean Platelet Volume 10.8 fL (7.0-11.0); Mono # (Auto) 0.2 th/mm3 (0.0-0.9); Mono % (Auto) 7.9 % (0.0-8.0); Neut # (Auto) 2.1 th/mm3 (1.8-7.7); Neut % (Auto) 73.8 % (16.0-70.0); Platelet Count 92 th/mm3 (150-450); Red Blood Count 2.52 mil/mm3 (4.00-5.30); Red Cell Distribution Width 23.5 % (11.6-17.2); White Blood Count 2.9 th/mm3 (4.0-11.0)
[2018-02-21 18:39] LABS: Activated Partial Thrombo Time 29.9 sec (23.4-31.7); INR 1.9 Ratio; Prothrombin Time 18.8 sec (9.8-11.6)
[2018-02-21 18:57] LABS: Alanine Aminotransferase 66 U/L (10-53); Alkaline Phosphatase 323 U/L (45-117); Total Protein 6.7 g/dL (6.4-8.2)
--- NOTE | 2018-02-21 19:05 | XR ---
EXAM DATE: 02/21/2018 6:08 PM EDT AGE/SEX: 72 years / Female INDICATIONS: Chest pain for four days. CLINICAL DATA: This is the patient's initial encounter. Patient reports that signs and symptoms have been present for 4 - 6 days and indicates a pain score of 0/10. MEDICAL/SURGICAL HISTORY: . Carcinoma, pancreas. Hypertension. None. COMPARISON: [facility] [place], CHEST 1V SINGLE AP, 01/31/2018. . FINDINGS: A single AP view of the chest demonstrates the lungs to be symmetrically aerated without evidence of mass, confluence infiltrate or effusion. There is mild atelectasis in the left lung base. Mild ather osclerotic changes are present in the aorta. The cardiomediastinal contours are unremarkable. Osseou s structures are intact. The right sided implantable port catheter remains in place. CONCLUSION: No acute cardiopulmonary disease. Electronically signed by: Bubba Thacker MD 02/21/2018 7:04 PM EDT
[2018-02-21 19:22] LABS: Eosinophils 1 % (0-4); Lymphocytes 15 % (9-44); Monocytes 8 % (0-8); Ovalocytes 1+; Target Cells 1+
[2018-02-21 19:23] LABS: Toxic Granulation 1+
[2018-02-21 19:49] LABS: Albumin 1.7 g/dL (3.4-5.0); Anion Gap 10 meq/L (5-15); Aspartate Aminotransferase 96 U/L (15-37); Blood Urea Nitrogen 63 mg/dL (7-18); Calcium 7.9 mg/dL (8.5-10.1); Chloride 102 meq/L (98-107); Glomerular Filtration Rate 28 mL/min (>89); Glucose,Random 134 mg/dL (74-106); Lipase 26 U/L (73-393); Sodium 136 meq/L (136-145)
[2018-02-21 19:58] LABS: Creatine Kinase 105 U/L (26-192)
--- NOTE | 2018-02-21 22:44 | NM ---
EXAM DATE: 02/21/2018 10:33 PM EDT AGE/SEX: 72 years / Female INDICATIONS: Embolus. CLINICAL DATA: This is the patient's initial encounter. Patient reports that signs and symptoms have been present for 1 day and indicates a pain score of 0/10. MEDICAL/SURGICAL HISTORY: Hypertension. Hypothyroidism. Chronic obstructive pulmonary disease . Pancreatic cancer, secondary liver cancer, history of pulmonary embolism. . Right chest port. COMPARISON: No prior exams available for comparison. DOSE: 1.5 mCi Tc99m DTPA aerosol 8.8 mCi Tc99m MAA IV TECHNIQUE: Following five minutes of tidal breathing of DTPA aerosol, planar images of the lungs wer e performed in eight projections. The patient was then injected with MAA, and eight-view perfusion s can was performed. FINDINGS: There is a segmental perfusion defect upper right lung and 2 separate perfusion defects in the lower left lung. There is a ventilation/perfusion mismatch. CONCLUSION: 1. High probability for pulmonary embolus. Electronically signed by: Ethan Rouse MD 02/21/2018 10:43 PM EDT
[2018-02-21] MEDS ORDERED: Calcium Gluconate Inj 1 GM in Sodium Chlor 0.9% Inj 100 ML IV.SIG ONE (23:51)
[2018-02-21] MEDS ORDERED: Dextrose 50% in Water 50 ML Vial IV.PUSH ONE (23:51)
[2018-02-22] MEDS ORDERED: Potassium Chlor 20 mEq Premix 20 MEQ/100 ML PIGGYBACK IV.SIG PRN ×2
[2018-02-22] MEDS ORDERED: Magnesium Oxide 400 MG Tablet PO PRN
[2018-02-22] MEDS ORDERED: Magnesium Sulfate Inj 4 GM in Sodium Chlor 0.9% Inj 92 ML IV.SIG PRN ×2
[2018-02-22] MEDS ORDERED: Potassium Chloride 25 MEQ Effervescent Tablet PO PRN
[2018-02-22] MEDS ORDERED: Magnesium Sulfate Inj 2 GM in Sodium Chlor 0.9% Inj 96 ML IV.SIG PRN ×2
[2018-02-22] MEDS ORDERED: Dextrose 50% in Water 50 ML Vial IV.PUSH PRN
[2018-02-22] MEDS ORDERED: Potassium Phosphate Inj 30 MMOL in Sodium Chlor 0.9% Inj 250 ML IV.SIG PRN ×2
[2018-02-22] MEDS ORDERED: Potassium Phosphate 500 MG Soluble Tablet PO PRN ×2
[2018-02-22] MEDS ORDERED: Sodium Phosphate Inj 30 MMOL in Sodium Chlor 0.9% Inj 250 ML IV.SIG PRN ×2
[2018-02-22] MEDS ORDERED: Potassium Chlor 40 mEq Premix 40 MEQ/100 ML PIGGYBACK IV.SIG PRN ×2
--- NOTE | 2018-02-22 | P.HPCC ---
History of Present Illness Service: Critical Care Medicine Primary Care Physician: Abigail Kang Chief Complaint: shortness of breath History of Present Illness: 72yF with history of ovarian cancer with liver mets who also has a history of prior PE presents with worsening shortness of breath. Of note she was recently admitted last month for pseudomonas UTI. She has an MAE with Cr 1.7. VQ scan is high probability for PE with + Ddimer. BNP and Trop are negative, suggestive against a submassive PE without evidence of RV strain. INR 1.9. denies fever, chills. endorses heartburn, nausea, dry heaving. denies diarrhea, constipation, abd pain. denies chest pain. endorses sob. denies cough or sputum production. remainder ROS negative. Review of Systems All other systems reviewed negative except as stated in HPI PMFSH - History History Provided By: Patient, Medical Record - Medical History Medical History: Medical History (Last Reviewed 02/22/18 @ 00:11 by Alonzo Sebastian MD) Malignant neoplasm determined by biopsy of pancreas (Acute) Current tobacco use (Acute) Hypothyroidism (Acute) Pulmonary embolism (Acute) Secondary malignant neoplasm of liver (Acute) Hypertension (Acute) Pancreatic cancer (Acute) Cancer determined by pancreatic biopsy Recurrent cellulitis of lower extremity - Surgical History Surgical History: Surgical History (Last Reviewed 02/22/18 @ 00:12 by Alonzo Sebastian MD) Port-A-Cath in place (Acute) - Family History Family History: Family History (Last Reviewed 02/22/18 @ 00:12 by Alonzo Sebastian MD) Mother Esophageal adenocarcinoma Grandparent Cervical cancer - Social History I have reviewed the patient's Social History: Yes - Tobacco History Second Hand Smoke Exposure: No Smoking Status: Never smoker Tobacco Type: Cigarettes - Alcohol History How Often Do You Have a Drink Containing Alcohol: Never - Substance Use History Substance History: No History of Abuse - Travel History Recent Travel in the [place] Within the Last 8 Weeks: No Recent Travel Out of the Country Within the Last 8 Weeks: No - Immunization History Tetanus Immunization: >5 Years Medications and Allergies Active Medications: Active Medications Calcium Gluconate 1 gm/ Sodium (Chloride) 110 mls @ 110 mls/hr IV.SIG ONCE ONE Stop: 02/22/18 00:50 Allergies Allergy/AdvReac Type Severity Reaction Status Date / Time No Known Allergies Allergy Verified 01/26/18 22:22 Home Medications Medication Instructions Recorded Confirmed Type apixaban [Eliquis] 5 mg PO BID 10/27/17 02/21/18 History lactulose 10 g PO TID 10/27/17 02/21/18 History levothyroxine 100 mcg PO DAILY 10/27/17 02/21/18 History morphine 15 mg PO Q12H 10/27/17 02/21/18 History ondansetron 4 mg PO QID PRN 10/27/17 02/21/18 History oxycodone 5 mg PO Q4H 10/27/17 02/21/18 History furosemide [Lasix] 20 mg PO BID 12/14/17 02/21/18 History potassium chloride 20 meq PO DAILY 12/14/17 02/21/18 History ferrous sulfate 325 mg PO BID 02/21/18 02/21/18 History metoclopramide HCl 5 mg PO QID 02/21/18 02/21/18 History metoprolol tartrate 50 mg PO BID 02/21/18 02/21/18 History nitrofurantoin macrocrystal 100 mg PO DAILY 02/21/18 02/21/18 History Results - Labs CBC & Chem 7: 02/21/18 18:10 02/21/18 18:10 Labs: Short CBC 02/21/18 Range/Units 18:10 WBC 2.9 L (4.0-11.0) th/mm3 Hgb 7.9 L (11.6-15.3) gm/dL Hct 24.3 L (35.0-46.0) % Plt Count 92 L D (150-450) th/mm3 BMP 02/21/18 18:10 Sodium 136 Potassium 6.0 H Chloride 102 Carbon Dioxide 24.0 BUN 63 H Creatinine 1.76 H Calcium 7.9 L Cardiac Enzymes 02/21/18 02/21/18 Range/Units 18:10 18:10 Total Creatine Kinase 105 (26-192) U/L CK-MB (CK-2) Less than 1.0 (0.5-3.6) ng/mL Troponin I Less than 0.02 L (0.02-0.05) ng/mL Liver Function 02/21/18 Range/Units 18:10 Total Bilirubin 6.3 H (0.2-1.0) mg/dL AST 96 H (15-37) U/L ALT 66 H (10-53) U/L Alkaline Phosphatase 323 H (45-117) U/L Albumin 1.7 L (3.4-5.0) g/dL - Imaging Impressions Chest X-Ray 02/21/18 17:50 CONCLUSION: No acute cardiopulmonary disease. Pulmonary Perfusion Imaging 02/21/18 20:16 CONCLUSION: 1. High probability for pulmonary embolus. Exam Vital signs: Vital Signs 02/21/18 17:41 02/21/18 19:22 02/21/18 20:00 Pulse Rate 89 80 84 Respiratory Rate 18 18 16 Blood Pressure 111/54 L 88/51 L 90/55 L Pulse Oximetry 98 98 97 02/21/18 21:00 02/21/18 23:00 Pulse Rate 81 84 Respiratory Rate 16 18 Blood Pressure 92/51 L 95/54 L Pulse Oximetry 97 98 Intake & Output 02/21/18 02/21/18 02/22/18 06:59 18:59 06:59 Intake Total 1100 / 1100 Balance 1100 / 1100 Weight 72.575 kg Intake: IV 1100 / 1100 Maxipime Inj 1,000 MG In NS Inj 100 / 100 100 ML @ 200 mls/hr IV.SIG ONCE ONE Rx#:[id number] NS Inj 1,000 ML @ 1000 mls/hr 1000 / 1000 IV.SIG BOLUS NEVIN Rx#:[id number] Narrative: GENERAL: Frail elderly female, lying in bed. HEENT: Normocephalic. Atraumatic. Pupils equal, round, reactive, conjugate. Mucous membranes are dry NECK: Trachea is midline. There is no JVD. CHEST: equal chest rise. nc o2. unlabored. CARDIOVASCULAR: normal rate, regular rhythm. sinus. ABDOMEN: Soft, nontender, nondistended. No guarding. MUSCULOSKELETAL: Pulses 2+. No peripheral edema. adequate cap refill. NEUROLOGICAL: RASS 0. CAM-. GCS 15. follows commands. RADHA 5/5 in all 4 extremities. no focal deficits. speech and language intact. Septic Shock Reassessment Septic shock perfusion: reassessment completed Caprini VTE Risk Assessment Caprini VTE Risk Assessment: Moderate/High Risk (score >= 2) Caprini Risk Assessment Model: Point Value = 1 Point Value = 2 Point Value = 3 Point Value = 5 Age 41-60 Minor surgery BMI > 25 kg/m2 Swollen legs Varicose veins or History of unexplained or recurrent spontaneous Oral contraceptives or hormone replacement Sepsis (< 1 month) Serious lung disease, including pneumonia (< 1 month) Abnormal pulmonary function Acute myocardial infarction Congestive heart failure (< 1 month) History of inflammatory bowel disease Medical patient at bed rest Age 61-74 Arthroscopic surgery Major open surgery (> 45 min) Laparoscopic surgery (> 45 min) Malignancy Confined to bed (> 72 hours) Immobilizing plaster cast Central venous access Age >= 75 History of VTE Family history of VTE Factor V Leiden Prothrombin [id number] Lupus anticoagulant Anticardiolipin antibodies Elevated serum homocysteine Heparin-induced thrombocytopenia Other congenital or acquired thrombophilia Stroke (< 1 month) Elective arthroplasty Hip, pelvis, or leg fracture Acute spinal cord injury (< 1 month) Prophylaxis Regimen: Total Risk Factor Score Risk Level Prophylaxis Regimen 0-1 Low Early ambulation 2 Moderate Order ONE of the following: *Sequential Compression Device (SCD) *Heparin 5000 units SQ BID 3-4 Higher Order ONE of the following medications: *Heparin 5000 units SQ TID *Enoxaparin/Lovenox 40 mg SQ daily (WT < 150 kg, CrCl > 30 mL/min) *Enoxaparin/Lovenox 30 mg SQ daily (WT < 150 kg, CrCl > 10-29 mL/min) *Enoxaparin/Lovenox 30 mg SQ BID (WT < 150 kg, CrCl > 30 mL/min) AND/OR *Sequential Compression Device (SCD) 5 or more Highest Order ONE of the following medications: *Heparin 5000 units SQ TID (Preferred with Epidurals) *Enoxaparin/Lovenox 40 mg SQ daily (WT < 150 kg, CrCl > 30 mL/min) *Enoxaparin/Lovenox 30 mg SQ daily (WT < 150 kg, CrCl > 10-29 mL/min) *Enoxaparin/Lovenox 30 mg SQ BID (WT < 150 kg, CrCl > 30 mL/min) AND *Sequential Compression Device (SCD) Assessment and Plan - Assessment and Plan Plan: Assessment: 72yF with ovarian cancer and known history of PE. Unclear etiology of worsening shortness of breath. This could be worsening of her pulmonary clot burden, however without biomarker evidence of RV strain, unlikely to be hemodynamically significant PEs. She is already functionally anticoagulated with a combination of her Eliquis and elevated INR of 1.9, likely secondary to hepatic dysfunction from metastatic disease. Will admit to ICU for close monitoring overnight. Will keep on Eliquis for now and not start heparin drip: will allow hematology to guide plan and decide whether or not this is truly a failure of Eliquis therapy, vs. if these are stable PEs and less likely to be the ultimate cause of her new dyspneic symptoms. Will cover empirically with broad spectrum abx until culture data can rule out infectious etiology. Acute dyspnea Pulmonary Emboli - continue Eliquis - trend INR daily - hematology consult - will allow hematology to guide anticoagulation plan - unclear if this is failure of anticoagulation vs. known PEs - no biomarker evidence to suggest RV strain - has had prior echo. no need to re-order. - nc o2 to keep spo2 > 90% - aggressive pulmonary toilet - scd's Pancreatic Cancer - followed by Dr. Olson - consult oncology to follow along Liver Metastases Coagulopathy - trend daily INR - daily CMP - continue Eliquis Hyperkalemia - kayexalate - received d50/insulin in ER. - trend K Acute kidney injury superimposed on CKD, unknown stage - may be from dehydration - mivf - trend Cr - hold Lasix Acute protein calorie malnutrition- severe - reg diet as tolerated Leukopenia - vancomycin, cefepime - blood cultures, u/a with reflex culture, sputum culture - de-escalate abx therapy if cultures negative at 48h. Anemia, acute, likely secondary to chemotherapy - does not meet transfusion triggers - daily cbc Admit to ICU overnight for close monitoring. if K decreases appropriately and remains stable, can transfer to oncology floor in AM.
[2018-02-22] MEDS ORDERED: Sodium Polystyrene Sulfonate/Sorbitol Liq 15 GM/60 ML UDC PO ONE ×3 (00:04→11:00)
[2018-02-22] MEDS ORDERED: Vancomycin Consult Pharmacy OTHER PRN (00:08)
[2018-02-22] MEDS ORDERED: Vancomycin Inj 1,000 MG in Sodium Chlor 0.9% Inj 250 ML IV.SIG ONE (01:00)
[2018-02-22] MEDS: Morphine Sulfate 15 MG SR Tablet PO SCH ×2 (01:32→14:20)
[2018-02-22] MEDS: Insulin NovoLIN Regular Correctional Sugar Inj SQ SCH ×4 (01:41→18:15)
[2018-02-22] MEDS ORDERED: Vancomycin Inj 1 GM/200 ML PIGGYBACK IV.SIG ONE (02:00)
[2018-02-22] MEDS ORDERED: Chlorhexidine Gluconate 2% 1 Pack (2 Cloths) TOPICAL PRN (04:00)
[2018-02-22] MEDS: Levothyroxine 100 MCG Tablet PO SCH (05:21)
[2018-02-22] MEDS: Chlorhexidine Gluconate 2% 1 Pack (2 Cloths) TOPICAL SCH (05:22)
[2018-02-22 05:52] LABS: Bilirubin,Urine Small (Negative); Clarity,Urine Hazy (Clear); Color,Urine Amber (Yellw/Straw); Glucose,Urine (UA) Negative (Negative); Hyaline Casts,Urine 1 /lpf (0-3); Leukocyte Esterase,Urine Negative (Negative); Mucus,Urine Few /lpf (Occasional); Nitrite,Urine Negative (Negative); Specific Gravity,Urine 1.016 (1.002-1.035); Squamous Epithelial Cell,Urine 4 /hpf (0-5)
[2018-02-22 05:53] LABS: Ictotest,Urine Positive (Negative)
[2018-02-22] MEDS: Famotidine 20 MG Tablet PO SCH ×2 (08:03→20:56)
[2018-02-22] MEDS: Metoclopramide 10 MG Tablet PO SCH ×4 (08:03→20:57)
[2018-02-22] MEDS: Ferrous Sulfate 325 MG Tablet PO SCH ×2 (08:03→20:56)
[2018-02-22] MEDS: Senna/Docusate Sodium 8.6/50 MG Tablet PO SCH ×2 (08:03→20:57)
[2018-02-22] MEDS: Polyethylene Glycol 3350 17 GM Packet PO SCH ×2 (08:04→20:56)
[2018-02-22 09:13] LABS: INR 1.7 Ratio; Prothrombin Time 17.4 sec (9.8-11.6)
[2018-02-22 09:20] LABS: Carbon Dioxide 20.8 meq/L (21.0-32.0); Magnesium 2.1 mg/dL (1.5-2.5); Phosphorus 3.4 mg/dL (2.5-4.9)
[2018-02-22 09:49] LABS: Mean Corpuscular HGB Conc 32.6 % (32.0-36.0); Mean Corpuscular Hemoglobin 32.5 pg (27.0-34.0); Mean Corpuscular Volume 99.7 fL (80.0-100.0); Mean Platelet Volume 9.6 fL (7.0-11.0); Platelet Count 39 th/mm3 (150-450); Red Blood Count 2.04 mil/mm3 (4.00-5.30); Red Cell Distribution Width 23.5 % (11.6-17.2); White Blood Count 2.1 th/mm3 (4.0-11.0)
[2018-02-22 09:55] LABS: Hematocrit 20.3 % (35.0-46.0); Hemoglobin 6.6 gm/dL (11.6-15.3)
[2018-02-22 10:12] LABS: Eosinophils 14 % (0-4); Lymphocytes 25 % (9-44); Monocytes 7 % (0-8); Myelocytes 1 % (0-0); Platelet Morphology Normal (Normal); Tallied Nucleated RBC 2 (0-0)
[2018-02-22] MEDS ORDERED: Dextrose 50% in Water 50 ML Vial IV.PUSH ONE ×2 (10:50→13:54)
[2018-02-22] MEDS ORDERED: Sodium Chlor 0.9% Inj 250 ML IV.SIG SCH (11:00)
[2018-02-22] MEDS: Sod Chloride 0.9% Inj 1,000 ML IV.SIG SCH ×2 (11:26→12:00)
[2018-02-22] MEDS ORDERED: Vancomycin Inj 500 MG in Sodium Chlor 0.9% Inj 100 ML IV.SIG ONE (12:00)
[2018-02-22] MEDS: Dextrose 5%/NaCl 0.9% Inj 1,000 ML IV.CONT SCH (14:19)
--- NOTE | 2018-02-22 14:25 | P.PNCC ---
Subjective Subjective Remarks/Hospital Course: 72yF with history of ovarian cancer with liver mets who also has a history of prior PE presents with worsening shortness of breath. Of note she was recently admitted last month for pseudomonas UTI. She has an MAE with Cr 1.7. VQ scan is high probability for PE with + Ddimer. BNP and Trop are negative, suggestive against a submassive PE without evidence of RV strain. INR 1.9. denies fever, chills. endorses heartburn, nausea, dry heaving. denies diarrhea, constipation, abd pain. denies chest pain. endorses sob. denies cough or sputum production. remainder ROS negative. Reconsult: Patient was hypotensive given 2L NS boluses Hgb 6.6, hyperkalemia with K 6.0 and lactic acid 4.0. She is on 2L oxygen. c/o abdominal pain Objective Vital Signs / I&O: Vital Signs 02/21/18 17:41 02/21/18 19:22 02/21/18 20:00 Temperature Pulse Rate 89 80 84 Respiratory Rate 18 18 16 Blood Pressure 111/54 L 88/51 L 90/55 L Pulse Oximetry 98 98 98 02/21/18 21:00 02/21/18 23:00 02/22/18 01:09 Temperature Pulse Rate 81 84 Respiratory Rate 16 18 31 H Blood Pressure 92/51 L 95/54 L Pulse Oximetry 97 98 02/22/18 01:13 02/22/18 02:00 02/22/18 02:33 Temperature Pulse Rate 87 85 Respiratory Rate 20 18 17 Blood Pressure 94/53 L 86/50 L Pulse Oximetry 96 100 02/22/18 03:00 02/22/18 04:00 02/22/18 05:00 Temperature 98.3 F Pulse Rate 81 83 81 Respiratory Rate 18 24 23 Blood Pressure 84/50 L 92/45 L 73/47 L Pulse Oximetry 100 100 100 02/22/18 05:02 02/22/18 06:00 02/22/18 07:00 Temperature Pulse Rate 82 84 86 Respiratory Rate 22 19 17 Blood Pressure 101/55 L 83/52 L 83/50 L Pulse Oximetry 100 100 100 02/22/18 08:00 02/22/18 08:04 02/22/18 09:00 Temperature 97.6 F Pulse Rate 86 88 91 H Respiratory Rate 17 20 26 H Blood Pressure 80/49 L 90/54 L Pulse Oximetry 99 99 99 02/22/18 09:01 02/22/18 09:40 02/22/18 10:00 Temperature Pulse Rate 91 H 94 H 94 H Respiratory Rate 28 H 21 19 Blood Pressure 103/51 L 95/48 L 85/48 L Pulse Oximetry 95 99 99 02/22/18 10:35 02/22/18 10:36 02/22/18 11:00 Temperature Pulse Rate 95 H 98 H 93 H Respiratory Rate 31 H 20 20 Blood Pressure 60/23 L 94/54 L 80/51 L Pulse Oximetry 98 100 97 02/22/18 11:01 02/22/18 11:06 02/22/18 11:07 Temperature Pulse Rate 93 H 93 H 95 H Respiratory Rate 20 19 21 Blood Pressure 84/46 L 80/49 L 87/51 L Pulse Oximetry 98 99 97 02/22/18 11:46 02/22/18 11:52 02/22/18 12:00 Temperature 96.6 F L Pulse Rate 93 H 94 H 93 H Respiratory Rate 20 24 27 H Blood Pressure 80/42 L 93/55 L 94/51 L Pulse Oximetry 85 L 99 100 02/22/18 14:00 Temperature 98.6 F Pulse Rate 94 H Respiratory Rate 26 H Blood Pressure 110/59 L Pulse Oximetry Intake & Output 02/21/18 02/22/18 02/22/18 18:59 06:59 18:59 Intake Total 1460 / 1460 1100 / 1100 Balance 1460 / 1460 1100 / 1100 Weight 72.575 kg 67.7 kg Intake: IV 1460 / 1460 1000 / 1000 LR 1000 mL Inj 1,000 ML @ 100 1000 / 1000 mls/hr IV.CONT .Q10H [facility] Rx#: [id number] Calcium Gluconate Inj 1 GM In 110 / 110 NS Inj 100 ML @ 110 mls/hr IV. SIG ONCE ONE Rx#:[id number] Maxipime Inj 1,000 MG In NS Inj 100 / 100 100 ML @ 200 mls/hr IV.SIG ONCE ONE Rx#:[id number] NS Inj 1,000 ML @ 1000 mls/hr 1000 / 1000 IV.SIG BOLUS NEVIN Rx#:[id number] Vancomycin Inj 1,000 MG In NS 250 / 250 Inj 250 ML @ 250 mls/hr IV.SIG ONCE ONE Rx#:[id number] Oral 100 / 100 Other: # Incontinent Voids 1 Date of Last Bowel Movement 02/22/18 02/22/18 Weight On Admission 67.7 kg Result Diagrams: 02/22/18 14:10 02/22/18 08:15 Other Results: Laboratory Results - last 12 hr 02/22/18 02/22/18 02/22/18 01:15 01:20 01:41 WBC RBC Hgb Hct MCV MCH MCHC RDW Plt Count MPV Prelim Diff (Auto) WBC Differential Seg Neuts % (Manual) Band Neuts % (Manual) Lymphocytes % (Manual) Monocytes % (Manual) Eosinophils % (Manual) Myelocytes % (Man) Abs Neuts (Manual) Nucleated RBCs/100 WBC Differential Comment Platelet Estimate Platelet Morphology PT INR Sodium Potassium Chloride Carbon Dioxide Anion Gap BUN Creatinine Estimated GFR POC Glucose 136 H Random Glucose Calcium Phosphorus Magnesium Urine Color [place] Urine Clarity Hazy H Urine pH 5.0 Ur Specific [place] 1.016 Urine Protein Negative Urine Glucose (UA) Negative Urine Ketones Negative Urine Occult Blood Negative Urine Nitrate Negative Urine Bilirubin Small H Urine Ictotest Positive H Urine Urobilinogen 2.0 H Ur Leukocyte Esterase Negative Urine RBC 2 Urine WBC 4 Ur Squamous Epith Cells 4 Hyaline Casts 1 WBC Casts 4 Urine Mucus Few H Micro UA Comment Culture not ind Ur Microscopic Review Not Reportable Urine Culture Comments Culture not ind Nasal Screen MRSA (PCR) Not detected Blood Type Antibody Screen MTS Gel Crossmatch 02/22/18 02/22/18 02/22/18 05:21 08:15 08:15 WBC RBC Hgb Hct MCV MCH MCHC RDW Plt Count MPV Prelim Diff (Auto) WBC Differential Seg Neuts % (Manual) Band Neuts % (Manual) Lymphocytes % (Manual) Monocytes % (Manual) Eosinophils % (Manual) Myelocytes % (Man) Abs Neuts (Manual) Nucleated RBCs/100 WBC Differential Comment Platelet Estimate Platelet Morphology PT 17.4 H INR 1.7 Sodium 140 Potassium 6.0 H Chloride 109 H Carbon Dioxide 20.8 L Anion Gap 10 BUN 64 H Creatinine 1.43 H Estimated GFR 36 L POC Glucose 101 Random Glucose 79 Calcium 8.0 L Phosphorus 3.4 Magnesium 2.1 Urine Color Urine Clarity Urine pH Ur Specific [place] Urine Protein Urine Glucose (UA) Urine Ketones Urine Occult Blood Urine Nitrate Urine Bilirubin Urine Ictotest Urine Urobilinogen Ur Leukocyte Esterase Urine RBC Urine WBC Ur Squamous Epith Cells Hyaline Casts WBC Casts Urine Mucus Micro UA Comment Ur Microscopic Review Urine Culture Comments Nasal Screen MRSA (PCR) Blood Type Antibody Screen MTS Gel Crossmatch 02/22/18 02/22/18 02/22/18 09:32 12:06 12:23 WBC 2.1 L RBC 2.04 L Hgb 6.6 L* Hct 20.3 L* MCV 99.7 MCH 32.5 MCHC 32.6 RDW 23.5 H Plt Count 39 L D MPV 9.6 Prelim Diff (Auto) Manual diff required WBC Differential Manual diff final Seg Neuts % (Manual) 47 Band Neuts % (Manual) 6 Lymphocytes % (Manual) 25 Monocytes % (Manual) 7 Eosinophils % (Manual) 14 H Myelocytes % (Man) 1 H Abs Neuts (Manual) 1.1 L Nucleated RBCs/100 WBC 2 H Differential Comment . Platelet Estimate Low L Platelet Morphology Normal PT INR Sodium Potassium Chloride Carbon Dioxide Anion Gap BUN Creatinine Estimated GFR POC Glucose 142 H Random Glucose Calcium Phosphorus Magnesium Urine Color Urine Clarity Urine pH Ur Specific [place] Urine Protein Urine Glucose (UA) Urine Ketones Urine Occult Blood Urine Nitrate Urine Bilirubin Urine Ictotest Urine Urobilinogen Ur Leukocyte Esterase Urine RBC Urine WBC Ur Squamous Epith Cells Hyaline Casts WBC Casts Urine Mucus Micro UA Comment Ur Microscopic Review Urine Culture Comments Nasal Screen MRSA (PCR) Blood Type B Positive Antibody Screen Negative MTS Gel Crossmatch See Detail Imaging: Chest X-Ray 02/21/18 17:50 CONCLUSION: No acute cardiopulmonary disease. Pulmonary Perfusion Imaging 02/21/18 20:16 CONCLUSION: 1. High probability for pulmonary embolus. Objective Remarks: GENERAL: Patient is 72 yo critically ill hypotensive. SKIN: Warm and dry. HEAD: Normocephalic. EYES: No scleral icterus. No injection or drainage. NECK: Supple, trachea midline. No JVD or lymphadenopathy. CARDIOVASCULAR: Regular rate and rhythm without murmurs, gallops, or rubs. RESPIRATORY: Breath sounds equal bilaterally. No accessory muscle use. GASTROINTESTINAL: Abdomen soft, non-tender, nondistended. MUSCULOSKELETAL: No cyanosis, or edema. Neuro: Awake and alert. Assessment and Plan - Assessment and Plan Plan: 1) Resp Insuff 2)PE 3)Pancreatic ca with liver mets 4)Hyperkalemia 5)MAE 6)Pancytopenia 7)Lactic acidemia Plan Neuro Awake and alert avoid sedatives Pain control Pulm: Continue with oxygen keep sats >92% Bronchodilators V/Q scan showed high prob PE. Check Doppler US LE Will hold Eliquis in setting of severe anemia with Hgb < 7 and possible retroperitoneal bleed Hematology consult might need IVC filter placement. Discussed with Dr. Olson/ Fuad CXR no acute disease CV: Monitor HR and BP keep MAP>65mmHg Serial lactic acid monitoring till clear s/p 2LNS boluses , place on D5NS@75ml/hr Check trop and 2D echo r/o RV strain : Monitor renal function, I/O's, avoid nephrotoxins Treat hyperkalemia with IV insulin, D50, Bicarb and calcium Follow up repeat BMP Continue with IVF GI: Pancreatic Cancer Elevated LFT/Liver mets - followed by Dr. Olson - consult Heme oncology -On PO diet. Monitor LFT's -Check CT abdomen/pelvis r/o RP bleed Heme: Monitor CBC, coags, fibrinogen level- Transfuse 2uPRBC heme consulted Acute protein calorie malnutrition- severe -keep NPO ID Continue abx- vancomycin, cefepime -Follow up on blood cultures 02/21 - de-escalate abx therapy if cultures negative at 48h. Endo SSI for glycemic control GI prophylacis- On Pepcid, DVT prophylacis- hold Eliquis ins etting of severe anemia Hgb 6.1 Consult palliative care to asses with goals of care Patient is critically ill hypotensive with MAE, hyperkalemia, lactic acidemia, PE and possible retroperitoneal bleed. CCT 35 mins.
[2018-02-22 14:35] LABS: Baso % (Auto) 0.7 % (0.0-2.0); Eos # (Auto) 0.3 th/mm3 (0.0-0.4); Eos % (Auto) 13.1 % (0.0-4.0); Lymph # (Auto) 0.6 th/mm3 (1.0-4.8); Lymph % (Auto) 29.7 % (9.0-44.0); Mean Corpuscular HGB Conc 32.9 % (32.0-36.0); Mean Corpuscular Hemoglobin 32.7 pg (27.0-34.0); Mean Corpuscular Volume 99.5 fL (80.0-100.0); Mean Platelet Volume 10.1 fL (7.0-11.0); Mono # (Auto) 0.3 th/mm3 (0.0-0.9); Neut # (Auto) 0.8 th/mm3 (1.8-7.7); Neut % (Auto) 40.5 % (16.0-70.0); Platelet Count 45 th/mm3 (150-450); Red Blood Count 1.86 mil/mm3 (4.00-5.30); Red Cell Distribution Width 23.2 % (11.6-17.2); White Blood Count 2.1 th/mm3 (4.0-11.0)
[2018-02-22 14:38] LABS: Hematocrit 18.5 % (35.0-46.0); Hemoglobin 6.1 gm/dL (11.6-15.3)
[2018-02-22 14:44] LABS: INR 1.7 Ratio; Prothrombin Time 17.3 sec (9.8-11.6)
[2018-02-22] MEDS ORDERED: Calcium Gluconate Inj 1 GM in Sodium Chlor 0.9% Inj 100 ML IV.SIG ONE (15:00)
[2018-02-22 15:06] LABS: Alanine Aminotransferase 57 U/L (10-53); Albumin 1.4 g/dL (3.4-5.0); Alkaline Phosphatase 299 U/L (45-117); Anion Gap 8 meq/L (5-15); Aspartate Aminotransferase 81 U/L (15-37); Blood Urea Nitrogen 56 mg/dL (7-18); Calcium 7.2 mg/dL (8.5-10.1); Carbon Dioxide 22.2 meq/L (21.0-32.0); Chloride 111 meq/L (98-107); Glomerular Filtration Rate 42 mL/min (>89); Glucose,Random 73 mg/dL (74-106); Magnesium 1.8 mg/dL (1.5-2.5); Phosphorus 2.7 mg/dL (2.5-4.9); Potassium 4.3 meq/L (3.5-5.1); Sodium 141 meq/L (136-145)
[2018-02-22 15:11] LABS: Eosinophils 5 % (0-4); Lymphocytes 33 % (9-44); Monocytes 2 % (0-8); Tallied Nucleated RBC 1 (0-0)
--- NOTE | 2018-02-22 15:41 | P.CONPAL ---
Consult Service: Palliative Care Requesting Physician: Deanna Martin Reason for Consult: a. To assist with evaluation and management of symptoms including: pain, dyspnea, debility b. To assist medical decision maker(s) with: better understanding of current medical conditions; weighing benefits/burdens of medical treatment options; making medical treatment decisions. Primary Care Provider: Abigail Kang History of Present Illness History of Present Illness: Ms. Louie is a 72-year-old female who presented to the emergency room via EMS on 02/21/18 with complaints of chest pain. Is a past medical history of pancreatic cancer with metastases to the liver. Other past medical history includes hypothyroidism, hypertension, COPD, GERD, and recurrent cellulitis. She states that the chest pain started approximately 1 week ago and got progressively worse. She states that night it got so bad she decided to come to the emergency room. She denies any fever or chills. She complains of nausea but denies vomiting. Patient also states she has had a productive cough with white phlegm for the past few months. She was recently diagnosed with UTI by her primary care physician and started on antibiotics though she cannot remember the name. She found to be hypotensive with blood pressure in the 80s and given a liter of IV fluid. Given her complex medical history and presentation the decision was made to admit the patient for further evaluation and treatment. Initial emergency room evaluation revealed: * Pulse 89, respiratory rate 18, BP 111/54, pulse ox 98% * WBC 2.9, RBC 2.52, Hgb 7.9, HCT 24.3, RDW 23.5, platelets 92, neutrophils 73.8 * NA 136, K+ 6.0, CL 102, CO2 24, BUN 63, creatinine 1.76, estimated GFR 28, glucose 134 * CA 7.9, total bili 6.3, AST 96, ALT 66, alk phos 323, total protein 6.7, albumin 1.7, BNP 91, lactic acid 4.2 * PT 18.8, INR 1.9, APTT to 29.9 * CXR: No acute cardiopulmonary disease * Pulmonary perfusion imaging: High probability for pulmonary embolus Patient was transferred to the MICU for further evaluation and treatment. Given the uncertain etiology of her PE she was not immediately started on anticoagulation. It was unclear at the time if this was truly Eliquis therapy failure or sequelae from her progressive cancer diagnosis. Upon further evaluation the patient was again hypotensive requiring 2 L normal saline bolus. Her hemoglobin was found to be 6.6 and was hypokalemic with a K level 6.0. She was requiring 2 L nasal cannula and complaining of abdominal pain. This of course was concerning for possible retroperitoneal bleed which required carpenter to withhold anticoagulation at this time. Hematology was consulted with suggestion of possible IVC filter placement. Bilateral lower extremity venous Doppler pending. Concerning her cancer progression, she recently has not been able to receive chemotherapy due to her poor clinical status. She has been suffering with recurrent UTI infections, 1 of which required hospitalization back in October. Per patient she was due to have chemotherapy today. Of note she does have stage IV pancreatic tail cancer and all chemotherapy lines have been palliative in nature as it is felt to be incurable at this time. She does follow with Dr. Olson as an outpatient and he has been consulted on this case. Palliative care was consulted to assist with symptom management and to help assess goals of care. This patient is known to our service from her October visit. At that time she indicated her wishes to be DNR. She also appointed her daughter Diana as her healthcare surrogate with her alternate being her boyfriend Marilynn Hernández. Today the patient states that she would like to be a full code and would want resuscitation should the need arise. Upon examination the patient is frail and critically ill appearing. She is able to assess the gravity of her current medical situation. I believe she has good insight and judgment concerning her healthcare decisions. She does have increased work of breathing and is currently on 2 L nasal cannula. She is receiving 1 out of 2 units of blood. She states that normally her pain is located in her abdomen but right now her pain is mostly in her chest and rates it a 6 out of 10. Describes it as stabbing and aching. She replies that her long-acting morphine does not appear to be helping her pain at this time. Further discussion regarding wishes, goals of care, etc. to follow Function/Cognitive Trajectory: Prior to this admission the patient was independent of ambulation and all ADLs. She was living at home with her boyfriend, and states that her energy levels have been poor and declining in the recent months. She spends a good majority of her time either sitting in a chair or lying in bed. Review of Systems Constitutional: Reports fatigue, Reports weakness Respiratory: Reports cough, Reports pain on inspiration, Reports shortness of breath Gastrointestinal: Reports abdominal pain, Reports nausea PMFSH - History History Provided By: Patient, Medical Record - Medical History Medical History: Medical History (Last Updated 02/22/18 @ 15:53 by DONA Hollis) Malignant neoplasm determined by biopsy of pancreas (Acute) Hypothyroidism (Acute) Pulmonary embolism (Acute) Secondary malignant neoplasm of liver (Acute) Hypertension (Acute) Pancreatic cancer (Acute) History of smoking Cancer determined by pancreatic biopsy Recurrent cellulitis of lower extremity - Surgical History Surgical History: Surgical History (Last Reviewed 02/22/18 @ 15:53 by DONA Hollis) Port-A-Cath in place (Acute) - Family History Family History: Family History (Last Reviewed 02/22/18 @ 15:54 by DONA Hollis) Mother Esophageal adenocarcinoma Grandparent Cervical cancer - Social History I have reviewed the patient's Social History: Yes - Tobacco History Second Hand Smoke Exposure: No Tobacco Use In Past 30 Days: No Smoking Status: Former smoker Tobacco Type: Cigarettes Number of Pack Years (if former smoker): 20 - Alcohol History How Often Do You Have a Drink Containing Alcohol: Never (previously would drink 2-4 times a month) - Substance Use History Substance History: No History of Abuse - Travel History History of Recent Travel: No Recent Travel in the [place] Within the Last 8 Weeks: No Recent Travel Out of the Country Within the Last 8 Weeks: No - Immunization History Tetanus Immunization: >5 Years Hx Influenza Vaccine This Season: No Medications and Allergies Active Medications: Active Medications Albuterol (Duoneb Neb (Prn)) 1 ampul NEB Q2HR NEB PRN PRN Reason: WHEEZING Albuterol (Duoneb Neb (Prn)) 1 ampul NEB Q2HR NEB PRN PRN Reason: DYSPNEA Albuterol (Duoneb Neb (Yana)) 1 ampul NEB Q4HR NEB YANA Last Admin: 02/22/18 15:22 Dose: 1 ampul Chlorhexidine Gluconate (Chlorhexidine 2% Cloth) 3 pack TOPICAL DAILY@0400 YANA Stop: 02/27/18 03:59 Last Admin: 02/22/18 05:22 Dose: 3 pack Chlorhexidine Gluconate (Chlorhexidine 2% Cloth) 3 pack TOPICAL DAILY@0400 PRN PRN Reason: Extra cloth needed Stop: 02/27/18 03:59 Dextrose (D50w Vial) 50 ml IV.PUSH UNSCH PRN PRN Reason: PER HYPOGLYCEMIA PROTOCOL Famotidine (Pepcid) 10 mg PO BID [facility] Last Admin: 02/22/18 08:03 Dose: 10 mg Ferrous Sulfate (Ferosul) 325 mg PO BID [facility] Last Admin: 02/22/18 08:03 Dose: 325 mg Glucagon (Glucagon Inj) 1 mg OTHER PRN PRN PRN Reason: for Hypoglycemia Protocol Magnesium Sulfate 4 gm/ Sodium (Chloride) 100 mls @ 50 mls/hr IV.SIG UNSCH PRN PRN Reason: For Magnesium 0.9 - 1.1 mg/dL Magnesium Sulfate 2 gm/ Sodium (Chloride) 100 mls @ 50 mls/hr IV.SIG UNSCH PRN PRN Reason: For Magnesium 1.2 - 1.6 mg/dL Potassium Chloride (Kcl 40 Meq Premix Inj) 40 meq in 100 mls @ 25 mls/hr IV.SIG Q2H PRN PRN Reason: For Potassium 2.8 - 3.2 mEq/L Potassium Chloride (Kcl 20 Meq Premix Inj) 20 meq in 100 mls @ 50 mls/hr IV.SIG Q2H PRN PRN Reason: For Potassium 3.3 - 3.5 mEq/L Potassium Chloride (Kcl 40 Meq Premix Inj) 40 meq in 100 mls @ 25 mls/hr IV.SIG UNSCH PRN PRN Reason: For Potassium 3.3 - 3.5 mEq/L Potassium Chloride (Kcl 20 Meq Premix Inj) 20 meq in 100 mls @ 50 mls/hr IV.SIG Q2H PRN PRN Reason: For Potassium 2.8 - 3.2 mEq/L Potassium Phosphate 30 mmol/ (Sodium Chloride) 260 mls @ 42 mls/hr IV.SIG UNSCH PRN PRN Reason: SEE LABEL COMMENTS Sodium Phosphate 30 mmol/ (Sodium Chloride) 260 mls @ 42 mls/hr IV.SIG UNSCH PRN PRN Reason: For Phosphorus < 2.5 mg/dL Cefepime HCl 1,000 mg/ Sodium (Chloride) 100 mls @ 200 mls/hr IV.SIG Q12H [facility] Last Admin: 02/22/18 10:36 Dose: 200 mls/hr Sodium Chloride (Ns Inj) 250 mls @ 15 mls/hr IV.SIG ONCE [facility] Stop: 02/23/18 03:39 Last Admin: 02/22/18 13:42 Dose: 15 mls/hr Dextrose/Sodium Chloride (D5w/Normal Saline Inj) 1,000 mls @ 75 mls/hr IV.CONT .[id number] [facility] Last Admin: 02/22/18 14:19 Dose: 75 mls/hr Insulin Human Regular (Novolin R Correctional Sugar Inj) 0 units SQ Q6HR [facility]; Protocol Last Admin: 02/22/18 12:25 Dose: Not Given Lactulose (Lactulose Liq) 30 ml PO BID [facility] Last Admin: 02/22/18 08:03 Dose: 30 ml Levothyroxine Sodium (Synthroid) 100 mcg PO DAILY@0600 [facility] Last Admin: 02/22/18 05:21 Dose: 100 mcg Magnesium Oxide (Mag-Ox) 800 mg PO UNSCH PRN PRN Reason: For Magnesium 1.2 - 1.6 mg/dL Metoclopramide HCl (Reglan) 5 mg PO QID [facility] Last Admin: 02/22/18 14:18 Dose: 5 mg Morphine Sulfate (Oramorph Sr) 15 mg PO Q12H [facility] Last Admin: 02/22/18 14:20 Dose: 15 mg Ondansetron HCl (Zofran Inj) 4 mg IV.PUSH Q6H PRN PRN Reason: NAUSEA OR VOMITING Pharmacy Profile Note (Vancomycin Consult Pharmacy) 1 each OTHER UNSCH PRN PRN Reason: Pharmacy to dose Polyethylene Glycol (Miralax) 17 gm PO BID [facility] Last Admin: 02/22/18 08:04 Dose: 17 gm Potassium Bicarb/Potassium Chloride (K-Lyte Cl Eff) 50 meq PO UNSCH PRN PRN Reason: For Potassium 3.3 - 3.5 mEq/L Potassium Phosphate (K-Phos Original) 2,000 mg PO UNSCH PRN PRN Reason: SEE LABEL COMMENTS Potassium Phosphate (K-Phos Original) 2,000 mg PO Q4H PRN PRN Reason: Phosphorus Less Than 2.5 mg/dL Senna/Docusate Sodium (Wilda-Colace) 1 tab PO BID [facility] Last Admin: 02/22/18 08:03 Dose: 1 tab Sodium Chloride (Ns Flush) 2 ml IV.FLUSH UNSCH PRN PRN Reason: FLUSH AFTER USING IV ACCESS Allergies Allergy/AdvReac Type Severity Reaction Status Date / Time No Known Allergies Allergy Verified 01/26/18 22:22 Home Medications Medication Instructions Recorded Confirmed Type apixaban [Eliquis] 5 mg PO BID 10/27/17 02/21/18 History lactulose 10 g PO TID 10/27/17 02/21/18 History levothyroxine 100 mcg PO DAILY 10/27/17 02/21/18 History morphine 15 mg PO Q12H 10/27/17 02/21/18 History ondansetron 4 mg PO QID PRN 10/27/17 02/21/18 History oxycodone 5 mg PO Q4H 10/27/17 02/21/18 History furosemide [Lasix] 20 mg PO BID 12/14/17 02/21/18 History potassium chloride 20 meq PO DAILY 12/14/17 02/21/18 History ferrous sulfate 325 mg PO BID 02/21/18 02/21/18 History metoclopramide HCl 5 mg PO QID 02/21/18 02/21/18 History metoprolol tartrate 50 mg PO BID 02/21/18 02/21/18 History nitrofurantoin macrocrystal 100 mg PO DAILY 02/21/18 02/21/18 History Advance Directives Living Will: Yes (copy signed in EMR from October 2017) Healthcare Surrogate: Yes Health Care Surrogate Name and Number: Cleve Hernández [phone] and Karmen Louie [phone] Documented care wishes: Past admission October 2017 the patient had signed a community DNR as well as a living will stating she would not want prolonged or invasive procedures if her condition was terminal, end-stage, or she were in a persistent vegetative state. At that time she named her daughter Diana Louie and her boyfriend Cleve Hernández as being co-healthcare surrogates, with the understanding that we would call her daughter first. Today she verbalized that she would like us to contact her significant other first and then her daughter as her daughter is in [place]. The patient verbalizes that she would like to rescind her DNR and states she would want resuscitation should the need arise. Today's verbally stated goals: Patient rescinded DNR and wishes to remain a FULL CODE. She verbalizes that she would like to keep her living will intact and would like her boyfriend and daughter to remain as her healthcare surrogates. She also verbalizes that she would like her living well to remain intact. We did discuss, in detail how this may be a natural progression of her disease process. We also discussed the increased possibility of her requiring intubation and cardiopulmonary resuscitation. We discussed the risks and benefits surrounding resuscitation and given her frailty, I would most not likely end in a favorable outcome for her. She verbalized her understanding and wishes to proceed with FULL CODE. The patient also verbalized her desire to continue aggressive care including IV antibiotics, blood products, and chemotherapy when cleared by Dr. Olson. Family/friends goals: Update was given to her daughter, Diana via telephone. Current medical trajectory was explained as well as her mother's wishes to rescind previous DNR. Process of cardiopulmonary resuscitation and intubation was explained to the daughter as well as should her mother declined to this point it would most likely not and with a favorable outcome if she even survive the original insult. Her daughter verbalized understanding and supports her mother's wishes. Ethical and Legal Issues: The patient has previously appointed her daughter Diana and her boyfriend to me as her healthcare surrogates. Daughter being primary, boyfriend brain secondary patient states today she would like her boyfriend to be primary as he is local and her daughter is located in [place]. The patient has rescinded her previous community DNR and wishes to remain FULL CODE. Physical Exam Vital Signs: Vital Signs - 24 hr 02/21/18 17:41 02/21/18 19:22 02/21/18 20:00 Temperature Pulse Rate 89 80 84 Respiratory Rate 18 18 16 Blood Pressure 111/54 L 88/51 L 90/55 L Pulse Oximetry 98 98 98 02/21/18 21:00 02/21/18 23:00 02/22/18 00:04 Temperature Pulse Rate 81 84 Respiratory Rate 16 18 Blood Pressure 92/51 L 95/54 L Pulse Oximetry 97 98 98 02/22/18 01:09 02/22/18 01:13 02/22/18 02:00 Temperature Pulse Rate 87 85 Respiratory Rate 31 H 20 18 Blood Pressure 94/53 L 86/50 L Pulse Oximetry 96 100 02/22/18 02:33 02/22/18 03:00 02/22/18 04:00 Temperature 98.3 F Pulse Rate 81 83 Respiratory Rate 17 18 24 Blood Pressure 84/50 L 92/45 L Pulse Oximetry 100 100 02/22/18 05:00 02/22/18 05:02 02/22/18 06:00 Temperature Pulse Rate 81 82 84 Respiratory Rate 23 22 19 Blood Pressure 73/47 L 101/55 L 83/52 L Pulse Oximetry 100 100 100 02/22/18 07:00 02/22/18 08:00 02/22/18 08:04 Temperature 97.6 F Pulse Rate 86 86 88 Respiratory Rate 17 17 20 Blood Pressure 83/50 L 80/49 L 90/54 L Pulse Oximetry 100 99 99 02/22/18 09:00 02/22/18 09:01 02/22/18 09:40 Temperature Pulse Rate 91 H 91 H 94 H Respiratory Rate 26 H 28 H 21 Blood Pressure 103/51 L 95/48 L Pulse Oximetry 99 95 99 02/22/18 10:00 02/22/18 10:35 02/22/18 10:36 Temperature Pulse Rate 94 H 95 H 98 H Respiratory Rate 19 31 H 20 Blood Pressure 85/48 L 60/23 L 94/54 L Pulse Oximetry 99 98 100 02/22/18 11:00 02/22/18 11:01 02/22/18 11:06 Temperature Pulse Rate 93 H 93 H 93 H Respiratory Rate 20 20 19 Blood Pressure 80/51 L 84/46 L 80/49 L Pulse Oximetry 97 98 99 02/22/18 11:07 02/22/18 11:46 02/22/18 11:52 Temperature Pulse Rate 95 H 93 H 94 H Respiratory Rate 21 20 24 Blood Pressure 87/51 L 80/42 L 93/55 L Pulse Oximetry 97 85 L 99 02/22/18 12:00 02/22/18 14:00 02/22/18 14:17 Temperature 96.6 F L 98.6 F 98.6 F Pulse Rate 93 H 94 H 95 H Respiratory Rate 27 H 26 H 15 Blood Pressure 94/51 L 110/59 L 115/61 Pulse Oximetry 100 02/22/18 15:22 Temperature Pulse Rate 95 H Respiratory Rate 24 Blood Pressure Pulse Oximetry I&O: Intake & Output 1002/21/18 02/22/18 02/23/18 06:59 06:59 06:59 06:59 Intake Total 1460 / 1460 2099 Balance 1460 / 1460 2099 Weight 67.7 kg Physical Exam: CONSTITUTIONAL/GENERAL: Appears frail and critically ill. Working hard to breathe. TUBES/LINES/DRAINS: Right chest wall port SKIN: Mildly jaundice. No rashes or lesions visualized. No wounds seen anteriorly. Skin temperature appropriate. Not diaphoretic. HEAD: Atraumatic. Normocephalic. EYES: Pupils equal and round and reactive. Extraocular motions intact. Mild scleral icterus. No injection or drainage. Fundi not examined. ENT: Hearing grossly normal. Nose without bleeding or purulent drainage. Throat without visible erythema, exudates, masses, or lesions. Oral mucosa dry NECK: Trachea midline. Supple, nontender. No palpable thyroid enlargement or nodularity. CARDIOVASCULAR: Regular rate and rhythm without murmurs, gallops, or rubs. No JVD. Peripheral pulses symmetric. RESPIRATORY/CHEST: Increased work of breathing. Breath sounds diminished at the bases, cannot auscultate much air movement. Scattered rhonchi more so right upper middle lobe. Patient has a wet sounding cough GASTROINTESTINAL: Abdomen firm, tender to palpation, and distended. Bowel sounds intermittent. GENITOURINARY: Without palpable bladder distension. MUSCULOSKELETAL: Extremities without clubbing, cyanosis, or edema. No joint tenderness or effusion noted. No calf tenderness. No mottling or clubbing. LYMPHATICS: No palpable cervical or supraclavicular adenopathy. NEUROLOGICAL: Awake and alert. Motor and sensory grossly within normal limits. Follows commands. Cognitively sharp. Moves all extremities. PSYCHIATRIC: No obvious anxiety/depression. no apparent hallucinations or other psychotic thought process. Diagnostic Tests Laboratory: Laboratory Results - last 72 hr 02/21/18 02/21/18 02/21/18 18:10 18:10 18:10 WBC 2.9 L RBC 2.52 L Hgb 7.9 L Hct 24.3 L MCV 96.3 MCH 31.4 MCHC 32.6 RDW 23.5 H Plt Count 92 L D MPV 10.8 Prelim Diff (Auto) Slide review pending Neut % (Auto) 73.8 H Lymph % (Auto) 14.9 [place] % (Auto) 7.9 Eos % (Auto) 1.1 Baso % (Auto) 2.3 H Neut # (Auto) 2.1 Lymph # (Auto) 0.4 L [place] # (Auto) 0.2 Eos # (Auto) 0.0 Baso # (Auto) 0.1 WBC Differential Manual diff final Seg Neuts % (Manual) 66 Band Neuts % (Manual) 10 H Lymphocytes % (Manual) 15 Monocytes % (Manual) 8 Eosinophils % (Manual) 1 Myelocytes % (Man) Abs Neuts (Manual) 2.2 Nucleated RBCs/100 WBC Differential Comment . Toxic Granulation 1+ H Platelet Estimate Low L Platelet Morphology Enlarged H Target Cells 1+ H Ovalocytes 1+ H PT INR APTT Fibrinogen D-Dimer Quant (PE/DVT) Sodium 136 Potassium 6.0 H Chloride 102 Carbon Dioxide 24.0 Anion Gap 10 BUN 63 H Creatinine 1.76 H Estimated GFR 28 L POC Glucose Random Glucose 134 H Lactic Acid Calcium 7.9 L Prot Corrected Calcium Phosphorus Magnesium Total Bilirubin 6.3 H AST 96 H ALT 66 H Alkaline Phosphatase 323 H Total Creatine Kinase CK-MB (CK-2) Troponin I Less than 0.02 L B-Natriuretic Peptide 91 Total Protein 6.7 D Albumin 1.7 L Lipase 26 L Urine Color Urine Clarity Urine pH Ur Specific [place] Urine Protein Urine Glucose (UA) Urine Ketones Urine Occult Blood Urine Nitrate Urine Bilirubin Urine Ictotest Urine Urobilinogen Ur Leukocyte Esterase Urine RBC Urine WBC Ur Squamous Epith Cells Hyaline Casts WBC Casts Urine Mucus Micro UA Comment Ur Microscopic Review Urine Culture Comments Nasal Screen MRSA (PCR) Blood Type Antibody Screen MTS Gel Crossmatch 02/21/18 02/21/18 02/21/18 18:10 18:10 18:10 WBC RBC Hgb Hct MCV MCH MCHC RDW Plt Count MPV Prelim Diff (Auto) Neut % (Auto) Lymph % (Auto) [place] % (Auto) Eos % (Auto) Baso % (Auto) Neut # (Auto) Lymph # (Auto) [place] # (Auto) Eos # (Auto) Baso # (Auto) WBC Differential Seg Neuts % (Manual) Band Neuts % (Manual) Lymphocytes % (Manual) Monocytes % (Manual) Eosinophils % (Manual) Myelocytes % (Man) Abs Neuts (Manual) Nucleated RBCs/100 WBC Differential Comment Toxic Granulation Platelet Estimate Platelet Morphology Target Cells Ovalocytes PT 18.8 H INR 1.9 APTT 29.9 Fibrinogen D-Dimer Quant (PE/DVT) Sodium Potassium Chloride Carbon Dioxide Anion Gap BUN Creatinine Estimated GFR POC Glucose Random Glucose Lactic Acid 4.2 H* Calcium Prot Corrected Calcium Phosphorus Magnesium Total Bilirubin AST ALT Alkaline Phosphatase Total Creatine Kinase 105 CK-MB (CK-2) Less than 1.0 Troponin I B-Natriuretic Peptide Total Protein Albumin Lipase Urine Color Urine Clarity Urine pH Ur Specific [place] Urine Protein Urine Glucose (UA) Urine Ketones Urine Occult Blood Urine Nitrate Urine Bilirubin Urine Ictotest Urine Urobilinogen Ur Leukocyte Esterase Urine RBC Urine WBC Ur Squamous Epith Cells Hyaline Casts WBC Casts Urine Mucus Micro UA Comment Ur Microscopic Review Urine Culture Comments Nasal Screen MRSA (PCR) Blood Type Antibody Screen MTS Gel Crossmatch 02/21/18 02/22/18 02/22/18 21:35 01:15 01:20 WBC RBC Hgb Hct MCV MCH MCHC RDW Plt Count MPV Prelim Diff (Auto) Neut % (Auto) Lymph % (Auto) [place] % (Auto) Eos % (Auto) Baso % (Auto) Neut # (Auto) Lymph # (Auto) [place] # (Auto) Eos # (Auto) Baso # (Auto) WBC Differential Seg Neuts % (Manual) Band Neuts % (Manual) Lymphocytes % (Manual) Monocytes % (Manual) Eosinophils % (Manual) Myelocytes % (Man) Abs Neuts (Manual) Nucleated RBCs/100 WBC Differential Comment Toxic Granulation Platelet Estimate Platelet Morphology Target Cells Ovalocytes PT INR APTT Fibrinogen D-Dimer Quant (PE/DVT) 14.80 H Sodium Potassium Chloride Carbon Dioxide Anion Gap BUN Creatinine Estimated GFR POC Glucose Random Glucose Lactic Acid Calcium Prot Corrected Calcium Phosphorus Magnesium Total Bilirubin AST ALT Alkaline Phosphatase Total Creatine Kinase CK-MB (CK-2) Troponin I B-Natriuretic Peptide Total Protein Albumin Lipase Urine Color [place] Urine Clarity Hazy H Urine pH 5.0 Ur Specific [place] 1.016 Urine Protein Negative Urine Glucose (UA) Negative Urine Ketones Negative Urine Occult Blood Negative Urine Nitrate Negative Urine Bilirubin Small H Urine Ictotest Positive H Urine Urobilinogen 2.0 H Ur Leukocyte Esterase Negative Urine RBC 2 Urine WBC 4 Ur Squamous Epith Cells 4 Hyaline Casts 1 WBC Casts 4 Urine Mucus Few H Micro UA Comment Culture not ind Ur Microscopic Review Not Reportable Urine Culture Comments Culture not ind Nasal Screen MRSA (PCR) Not detected Blood Type Antibody Screen MTS Gel Crossmatch 02/22/18 02/22/18 02/22/18 01:41 05:21 08:15 WBC RBC Hgb Hct MCV MCH MCHC RDW Plt Count MPV Prelim Diff (Auto) Neut % (Auto) Lymph % (Auto) [place] % (Auto) Eos % (Auto) Baso % (Auto) Neut # (Auto) Lymph # (Auto) [place] # (Auto) Eos # (Auto) Baso # (Auto) WBC Differential Seg Neuts % (Manual) Band Neuts % (Manual) Lymphocytes % (Manual) Monocytes % (Manual) Eosinophils % (Manual) Myelocytes % (Man) Abs Neuts (Manual) Nucleated RBCs/100 WBC Differential Comment Toxic Granulation Platelet Estimate Platelet Morphology Target Cells Ovalocytes PT 17.4 H INR 1.7 APTT Fibrinogen D-Dimer Quant (PE/DVT) Sodium Potassium Chloride Carbon Dioxide Anion Gap BUN Creatinine Estimated GFR POC Glucose 136 H 101 Random Glucose Lactic Acid Calcium Prot Corrected Calcium Phosphorus Magnesium Total Bilirubin AST ALT Alkaline Phosphatase Total Creatine Kinase CK-MB (CK-2) Troponin I B-Natriuretic Peptide Total Protein Albumin Lipase Urine Color Urine Clarity Urine pH Ur Specific [place] Urine Protein Urine Glucose (UA) Urine Ketones Urine Occult Blood Urine Nitrate Urine Bilirubin Urine Ictotest Urine Urobilinogen Ur Leukocyte Esterase Urine RBC Urine WBC Ur Squamous Epith Cells Hyaline Casts WBC Casts Urine Mucus Micro UA Comment Ur Microscopic Review Urine Culture Comments Nasal Screen MRSA (PCR) Blood Type Antibody Screen MTS Gel Crossmatch 02/22/18 02/22/18 02/22/18 08:15 09:32 12:06 WBC 2.1 L RBC 2.04 L Hgb 6.6 L* Hct 20.3 L* MCV 99.7 MCH 32.5 MCHC 32.6 RDW 23.5 H Plt Count 39 L D MPV 9.6 Prelim Diff (Auto) Manual diff required Neut % (Auto) Lymph % (Auto) [place] % (Auto) Eos % (Auto) Baso % (Auto) Neut # (Auto) Lymph # (Auto) [place] # (Auto) Eos # (Auto) Baso # (Auto) WBC Differential Manual diff final Seg Neuts % (Manual) 47 Band Neuts % (Manual) 6 Lymphocytes % (Manual) 25 Monocytes % (Manual) 7 Eosinophils % (Manual) 14 H Myelocytes % (Man) 1 H Abs Neuts (Manual) 1.1 L Nucleated RBCs/100 WBC 2 H Differential Comment . Toxic Granulation Platelet Estimate Low L Platelet Morphology Normal Target Cells Ovalocytes PT INR APTT Fibrinogen D-Dimer Quant (PE/DVT) Sodium 140 Potassium 6.0 H Chloride 109 H Carbon Dioxide 20.8 L Anion Gap 10 BUN 64 H Creatinine 1.43 H Estimated GFR 36 L POC Glucose Random Glucose 79 Lactic Acid Calcium 8.0 L Prot Corrected Calcium Phosphorus 3.4 Magnesium 2.1 Total Bilirubin AST ALT Alkaline Phosphatase Total Creatine Kinase CK-MB (CK-2) Troponin I B-Natriuretic Peptide Total Protein Albumin Lipase Urine Color Urine Clarity Urine pH Ur Specific [place] Urine Protein Urine Glucose (UA) Urine Ketones Urine Occult Blood Urine Nitrate Urine Bilirubin Urine Ictotest Urine Urobilinogen Ur Leukocyte Esterase Urine RBC Urine WBC Ur Squamous Epith Cells Hyaline Casts WBC Casts Urine Mucus Micro UA Comment Ur Microscopic Review Urine Culture Comments Nasal Screen MRSA (PCR) Blood Type B Positive Antibody Screen Negative MTS Gel Crossmatch See Detail 02/22/18 02/22/18 02/22/18 12:23 14:10 14:10 WBC 2.1 L RBC 1.86 L Hgb 6.1 L* Hct 18.5 L* MCV 99.5 MCH 32.7 MCHC 32.9 RDW 23.2 H Plt Count 45 L MPV 10.1 Prelim Diff (Auto) Slide review pending Neut % (Auto) 40.5 Lymph % (Auto) 29.7 [place] % (Auto) 16.0 H Eos % (Auto) 13.1 H Baso % (Auto) 0.7 Neut # (Auto) 0.8 L Lymph # (Auto) 0.6 L [place] # (Auto) 0.3 Eos # (Auto) 0.3 Baso # (Auto) 0.0 WBC Differential Manual diff final Seg Neuts % (Manual) 59 Band Neuts % (Manual) 1 Lymphocytes % (Manual) 33 Monocytes % (Manual) 2 Eosinophils % (Manual) 5 H Myelocytes % (Man) Abs Neuts (Manual) 1.3 L Nucleated RBCs/100 WBC 1 H Differential Comment . Toxic Granulation Platelet Estimate Platelet Morphology Target Cells Ovalocytes PT INR APTT Fibrinogen D-Dimer Quant (PE/DVT) Sodium Potassium Chloride Carbon Dioxide Anion Gap BUN Creatinine Estimated GFR POC Glucose 142 H Random Glucose Lactic Acid 2.5 H Calcium Prot Corrected Calcium Phosphorus Magnesium Total Bilirubin AST ALT Alkaline Phosphatase Total Creatine Kinase CK-MB (CK-2) Troponin I B-Natriuretic Peptide Total Protein Albumin Lipase Urine Color Urine Clarity Urine pH Ur Specific [place] Urine Protein Urine Glucose (UA) Urine Ketones Urine Occult Blood Urine Nitrate Urine Bilirubin Urine Ictotest Urine Urobilinogen Ur Leukocyte Esterase Urine RBC Urine WBC Ur Squamous Epith Cells Hyaline Casts WBC Casts Urine Mucus Micro UA Comment Ur Microscopic Review Urine Culture Comments Nasal Screen MRSA (PCR) Blood Type Antibody Screen MTS Gel Crossmatch 02/22/18 02/22/18 02/22/18 14:10 14:10 14:10 WBC RBC Hgb Hct MCV MCH MCHC RDW Plt Count MPV Prelim Diff (Auto) Neut % (Auto) Lymph % (Auto) [place] % (Auto) Eos % (Auto) Baso % (Auto) Neut # (Auto) Lymph # (Auto) [place] # (Auto) Eos # (Auto) Baso # (Auto) WBC Differential Seg Neuts % (Manual) Band Neuts % (Manual) Lymphocytes % (Manual) Monocytes % (Manual) Eosinophils % (Manual) Myelocytes % (Man) Abs Neuts (Manual) Nucleated RBCs/100 WBC Differential Comment Toxic Granulation Platelet Estimate Platelet Morphology Target Cells Ovalocytes PT 17.3 H INR 1.7 APTT Fibrinogen 259 D-Dimer Quant (PE/DVT) Sodium 141 Potassium 4.3 D Chloride 111 H Carbon Dioxide 22.2 Anion Gap 8 BUN 56 H Creatinine 1.25 H Estimated GFR 42 L POC Glucose Random Glucose 73 L Lactic Acid Calcium 7.2 L* D Prot Corrected Calcium 8.3 L Phosphorus 2.7 Magnesium 1.8 Total Bilirubin 4.9 H AST 81 H ALT 57 H Alkaline Phosphatase 299 H Total Creatine Kinase CK-MB (CK-2) Troponin I Less than 0.02 L B-Natriuretic Peptide Total Protein 5.0 L D Albumin 1.4 L Lipase Urine Color Urine Clarity Urine pH Ur Specific [place] Urine Protein Urine Glucose (UA) Urine Ketones Urine Occult Blood Urine Nitrate Urine Bilirubin Urine Ictotest Urine Urobilinogen Ur Leukocyte Esterase Urine RBC Urine WBC Ur Squamous Epith Cells Hyaline Casts WBC Casts Urine Mucus Micro UA Comment Ur Microscopic Review Urine Culture Comments Nasal Screen MRSA (PCR) Blood Type Antibody Screen MTS Gel Crossmatch Result Diagrams: 02/22/18 14:10 02/22/18 14:10 Microbiology: Microbiology 02/21/18 18:10 Aerobic Blood Culture - Preliminary Blood - Peripheral No growth in 1 day Anaerobic Blood Culture - Preliminary No growth in 1 day 02/21/18 18:15 Aerobic Blood Culture - Preliminary Blood - Peripheral No growth in 1 day Anaerobic Blood Culture - Preliminary No growth in 1 day Imaging: Impressions Chest X-Ray 02/21/18 17:50 CONCLUSION: No acute cardiopulmonary disease. Pulmonary Perfusion Imaging 02/21/18 20:16 CONCLUSION: 1. High probability for pulmonary embolus. Patient/Family Conference Present at Family Conference: Patient at bedside, daughter was updated at a later time via telephone Family Conference Location: Bedside Issues Discussed: * Palliative care role, purpose, approach * Additional medical, psychosocial, and spiritual history * Patients general health, functional status, and cognitive changes in the months leading up to the current hospitalization * Patient/family understanding of the current medical problems * Patient/family understanding of prognosis * Patients goals of care as best understood from advance directives and/or conversations and/or values * Current medical treatment options and benefits/burdens of those options * Likely scenarios comparing ongoing aggressive care with a transition to comfort measures only * Questions answered to the best of my ability * Palliative care contact information provided The patient is currently able to participate in her health healthcare decision making. Should she become incapacitated any time she has named her significant other and daughter Tanmay healthcare surrogates. The patient currently has, what I believe is good insight into her current medical conditions including the risk and burdens of aggressive treatment. She has rescinded her DNR and wishes for FULL CODE. We discussed at length given her current debilitated status and progressive cancer nature should she would require cardiopulmonary resuscitation this would most likely not and in a favorable outcome for her. Patient was able to verbalize understanding and wishes to continue with aggressive treatment at this time. Her goal is to eventually continue with palliative chemotherapy once cleared by Dr. Olson. She does understand that her disease progression may be of such that she would no longer be a candidate for chemo. Assessment and Plan - Disease Oriented Problem List (1) Metastasis from pancreatic cancer (2) Pulmonary emboli - Symptom Scale (1) Debility 0-10 Scale: Unable to quantify Comment: Has had decreasing functional status over that past few months (2) Pain 0-10 Scale: 6 Comment: Usually complains of abdominal pain, though biggest pain today is chest with inspiration and expiration. (3) Dyspnea 0-10 Scale: 8 Pertinent Non-Medical Issues: Psychosocial: The patient is and currently lives with her boyfriend to [place]. 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 She has 3 sons and 1 daughter. Spiritual: Gnosticism Legal: The patient is currently incapacitated to make her her own healthcare decisions. She has designated her boyfriend Marilynn Hernández and her daughter Diana Louie as her healthcare proxy should she become incapacitated any time. Copy of this is located in the electronic medical record. Ethical issues impacting care: No known ethical issues impacting care at this time. Important Contacts: Rohit Hernández, significant other/co-HCS [phone] or [phone] Diana Louie, daughter/co-HCS [phone] Prognosis: This patient has metastatic pancreatic cancer with liver involvement. She has been receiving palliative chemotherapy under the direction of Dr. Olson. It appears she has no longer been tolerating treatment. Given her current medical trajectory she is at high risk for further decompensation, repeat infection, bleeding and clotting risks. Should she declined to pursue additional chemotherapy she would be hospice appropriate. Code Status: Full Code Plan: * LEGAL DECISION MAKER -the patient is currently able to participate in her own healthcare needs. Should she become incapacitated any time she has named her significant other Cleve Hernández and her daughter Diana Louie as co- healthcare surrogates. * GOALS - The patient currently has, what I believe is good insight into her current medical conditions including the risk and burdens of aggressive treatment. She has rescinded her DNR and wishes for FULL CODE. We discussed at length given her current debilitated status and progressive cancer nature should she would require cardiopulmonary resuscitation this would most likely not and in a favorable outcome for her. Patient was able to verbalize understanding and wishes to continue with aggressive treatment at this time. Her goal is to eventually continue with palliative chemotherapy once cleared by Dr. Olson. She does understand that her disease progression may be of such that she would no longer be a candidate for chemo. * CODE STATUS -FULL CODE * SYMPTOMS Pain - multifactorial including progressive disease process bedbound status, blood draws, invasive lines, tubes, procedures, etc. patient normally complains of abdominal pain though on this admission states her pain is located mostly in her chest particularly with inspiration and expiration. She rates the pain a 6 out of 10 and describes it as sharp and aching. She does use Oramorph 15 mg SR p.o. every 12 hours which has been continued in the hospital. Would continue to monitor renal function. The patient also uses oxycodone 5 mg p.o. every 4 hours as needed for breakthrough pain. Would suggest restarting this and using judiciously as this works for the patient home. We did defer to critical care Dyspnea related to acute pulmonary embolus though advancing disease process cannot be entirely ruled out. Continue with good pulmonary toilet, nebulizer treatments, etc. Patient currently not a candidate for anticoagulation therapy due to decreasing hemoglobin and platelets. May require IVC filter placement, hematology consulted and appreciate input. Debility -prior to this admission the patient was independent of ambulation and all ADLs though she admits that she had with decreasing energy levels and spent a good deal of her day either in bed or in a chair. She reports her appetite is been good except for the last week. I suspect that even though her diet may be adequate she still may be experiencing some level of malnutrition due to metabolic activity of her cancer. Would suggest possible dietary consult to ensure proper protein calorie intake and physical therapy when patient able to participate. Palliative care will continue to follow during hospital course as condition evolves, to assist patient/decision maker with understanding of medical conditions, weighing benefits/burdens of treatment options, for clarification of goals of treatment. Additionally will assist with any symptoms of palliative concern. Appreciation Thank you for the opportunity to participate in the care of Laura Louie. Attestation Attestation: To help prompt me to consider important information that might be impacting today's encounter and assessment, information from prior notes written by myself or my colleagues may have been "brought forward" into today's note. My signature on this note, however, is an attestation that I personally performed the exam, history, and/or decision-making noted today, and, unless otherwise indicated, the interactions with patient, family, and staff as well as the review of records all occurred today. I also attest that the listed assessment and stated plan reflect my best clinical judgment today based on the combination of historical information, prior notes, and today's exam/ interactions. When time spent is documented, it refers only to time spent today by the signer, or if indicated, combined time spent today by collaborating physician/nurse practitioner.
--- NOTE | 2018-02-22 16:44 | CT ---
EXAM DATE: 02/22/2018 4:28 PM EDT AGE/SEX: 72 years / Female INDICATIONS: Abdominal pain, rule out retroperitoneal bleed CLINICAL DATA: This is the patient's initial encounter. Patient reports that signs and symptoms have been present for 1 day and indicates a pain score of 10/10. MEDICAL/SURGICAL HISTORY: Carcinoma, pancreas. Hypothyroidism. Acute Kidney Injury None. RADIATION DOSE: 9.38 CTDI (mGy) COMPARISON: [facility] [place], CT ABDOMEN & PELVIS W CONTRAST, 01/28/2018. . TECHNIQUE: Multiple contiguous axial images were obtained through the abdomen. Images were obtained using multiple row detector helical technique. Using automated exposure control and adjustment of the mA and/or kV according to patient size, radiation dose was kept as low as reasonably achievable to o btain optimal diagnostic quality images. DICOM format image data is available electronically for rev iew and comparison. FINDINGS: Lower chest: No acute abnormality is identified. There is coronary calcification. Central line is loc ated within the right atrium. Low-density of the cardiac blood pool suggesting anemia. There is trace right pleural fluid. Hepatobiliary: There is a low-density mass in the liver dome measuring 6.2 x 5.8 cm compared to 4.5 x 4.1 cm previously. There are multiple additional low-density lesions throughout the liver. The remai samy lesions are too numerous to count and not well delineated without contrast administration. Gallb ladder is distended. No high density stones are visualized. No bile duct dilatation is appreciated. Kidneys: No hydronephrosis, stone, or mass. There is a 4.5 cm low-density lesion in the left mid kidn ey with density measurements characteristic of a cyst. The other lesions documented on prior CT perfo rmed with contrast are not visualized adequately on this examination. Adrenal Glands: Within normal limits. Spleen: Normal size. Pancreas: There is a hyperdense ovoid lesion in the region of the pancreatic tail measuring 3.2 x 2.0 cm similar to the prior study. Pancreatic body and head otherwise appear mostly fatty replaced. No d uct dilatation is present. Vascular: The aorta is nonaneurysmal. There is moderate to severe atherosclerotic disease. Bowel/Mesentery: The stomach and small bowel demonstrate no acute abnormality. Colon demonstrates no acute finding. There is moderate volume of free fluid throughout the abdomen and pelvis, increased in volume from the prior study. The fluid has simple fluid Hounsfield unit measurements. There is no fr ee intraperitoneal air. Abdominal Wall: There is mild diffuse subcutaneous edema. Retroperitoneum: There are multiple enlarged lymph nodes in the retroperitoneum with the largest bein g a right retrocaval lymph node measuring approximately 5.6 x 2.1 cm compared to 3.7 x 1.3 cm previou sly. Many of the other lymph nodes have increased in size. There is also gastrohepatic lymphadenopath y that appears new. Bladder: No wall thickening or mass. Reproductive: Within normal limits. Inguinal: No lymphadenopathy or hernia. Musculoskeletal: There is lumbar scoliosis with multilevel degenerative change. There are persistent lytic lesions within the right C7 vertebral body, left L3 posterior elements, right sacrum anteriorly , and left femoral head. The left femoral head lytic lesion has increased in size and currently measu res 10 mm. CONCLUSION: 1. There are no findings to indicate retroperitoneal bleed. 2. Findings indicate interval progression of disease with enlargement of the largest liver mass that is thought to represent a metastatic lesion. It currently measures 6.2 x 5.8 cm compared to 4.5 x 4. 1 cm previously. Additionally, there is increased ascites and increased retroperitoneal lymphadenopat hy. 3. The masslike structure in the region of the tail the pancreas has not significantly changed. 4. The lytic bone lesions are similar to the prior study with mild enlargement of the left femoral h ead. Electronically signed by: Chin Bentley MD 02/22/2018 4:43 PM EDT
--- NOTE | 2018-02-22 18:04 | P.CON ---
History of Present Illness Service: Hematology/oncology. Consult date: 02/22/18 Requesting Physician: Deanna Martin Reason for Consult: Metastatic pancreas cancer. Primary Care Provider: Abigail Kang Chief Complaint: Abdominal pain, epigastric pain. History of Present Illness: Ms. Louie is a 72-year-old female who is well-known to me, she was diagnosed in June of this year with metastatic pancreatic carcinoma, she had extensive liver metastases at the time of diagnosis. The patient received first -line palliative systemic therapy with FOLFIRINOX for a total of 4 cycles, restaging imaging indicated disease progression after her first 4 cycles of treatment. She subsequently was initiated on palliative systemic therapy with second line gemcitabine and Abraxane in September 2017. Unfortunately, her disease is now progressing on this as evidenced by serial CT scans of the abdomen and pelvis performed over the past 6 weeks. The most recent scan performed on 2017 (today) indicates interval disease progression between January and February 2018. The patient presented to the hospital because she developed severe burning epigastric pain, she felt she was having reflux. She recently received her most recent cycle of Abraxane and gemcitabine. She tried to control her symptoms at home with Maalox and Pepto-Bismol but her symptoms worsened and she came into the emergency department. In the emergency department and subsequent critical care unit admission she was noted to be hypotensive, progressively anemic and hyperkalemic. CT imaging of the abdomen pelvis was performed, she was noted to have progressive ascites, progressive retroperitoneal lymphadenopathy and an enlarging liver mass when compared to scans performed in January 2018. Over the course of the past 24 hours the patient has had a drop in her hemoglobin and hematocrit and this is despite her having received red cell transfusions. She does have a history of pulmonary emboli and had been on therapeutic anticoagulation with Eliquis. A nuclear medicine ventilation/perfusion scan performed in the emergency department indicated findings concerning for pulmonary emboli. Presently, the patient is on broad-spectrum antibiotic coverage and is receiving aggressive blood product transfusion. The palliative care team has also been asked to see her to discuss goals of care. Review of Systems Constitutional: Reports anorexia, Reports fatigue, Reports malaise, Reports weight loss, Denies daytime sleepiness Eyes: Denies change in vision Ears, Nose, Mouth, and Throat: Reports dizziness, Reports headache(s), Denies abnormal hearing, Denies change in voice Cardiovascular: Reports chest pain (Epigastric pain and epigastric burning.), Reports irregular heart rhythm, Reports shortness of breath, Denies lightheadedness Respiratory: Reports cough, Reports shortness of breath with activity, Denies change in phlegm color, Denies wheezing Gastrointestinal: Reports abdominal pain, Reports black, tarry stools, Reports bloating, Reports feeling full early, Reports heartburn, Denies bright, red blood in stools, Denies pain with swallowing, Denies vomiting, Denies vomiting blood Genitourinary: Reports absent period Musculoskeletal: Reports abnormal walking, Reports back pain, Reports decreased muscle mass, Reports muscle weakness, Denies body aches, Denies stiffness Skin/Breast: Denies change in skin color, Denies yellowing of the skin Neurologic: Denies abnormal hearing Psychiatric: Reports anxiety, Denies abnormal sleep pattern Endocrine: Reports cold intolerance Hematologic/Lymphatic: Denies easy bleeding PMFSH - History History Provided By: Patient, Medical Record - Medical History Medical History: Medical History (Last Reviewed 02/22/18 @ 17:55 by Hugo Olson MD) Malignant neoplasm determined by biopsy of pancreas (Acute) Hypothyroidism (Acute) Pulmonary embolism (Acute) Secondary malignant neoplasm of liver (Acute) Hypertension (Acute) Pancreatic cancer (Acute) History of smoking Cancer determined by pancreatic biopsy Recurrent cellulitis of lower extremity - Surgical History Surgical History: Surgical History (Last Reviewed 02/22/18 @ 17:55 by Hugo Olson MD) Port-A-Cath in place (Acute) - Family History Family History: Family History (Last Reviewed 02/22/18 @ 17:55 by Hugo Olson MD) Mother Esophageal adenocarcinoma Grandparent Cervical cancer - Social History I have reviewed the patient's Social History: Yes - Tobacco History Second Hand Smoke Exposure: No Tobacco Use In Past 30 Days: No Smoking Status: Former smoker Tobacco Type: Cigarettes Number of Pack Years (if former smoker): 20 - Alcohol History How Often Do You Have a Drink Containing Alcohol: Never (previously would drink 2-4 times a month) - Substance Use History Substance History: No History of Abuse - Travel History History of Recent Travel: No Recent Travel in the [place] Within the Last 8 Weeks: No Recent Travel Out of the Country Within the Last 8 Weeks: No - Immunization History Tetanus Immunization: >5 Years Hx Influenza Vaccine This Season: No Medications and Allergies Active Medications: Active Medications Albuterol (Duoneb Neb (Prn)) 1 ampul NEB Q2HR NEB PRN PRN Reason: WHEEZING Albuterol (Duoneb Neb (Prn)) 1 ampul NEB Q2HR NEB PRN PRN Reason: DYSPNEA Albuterol (Duoneb Neb (Yana)) 1 ampul NEB Q4HR NEB YANA Last Admin: 02/22/18 15:22 Dose: 1 ampul Chlorhexidine Gluconate (Chlorhexidine 2% Cloth) 3 pack TOPICAL DAILY@0400 YANA Stop: 02/27/18 03:59 Last Admin: 02/22/18 05:22 Dose: 3 pack Chlorhexidine Gluconate (Chlorhexidine 2% Cloth) 3 pack TOPICAL DAILY@0400 PRN PRN Reason: Extra cloth needed Stop: 02/27/18 03:59 Dextrose (D50w Vial) 50 ml IV.PUSH UNSCH PRN PRN Reason: PER HYPOGLYCEMIA PROTOCOL Famotidine (Pepcid) 10 mg PO BID [facility] Last Admin: 02/22/18 08:03 Dose: 10 mg Ferrous Sulfate (Ferosul) 325 mg PO BID [facility] Last Admin: 02/22/18 08:03 Dose: 325 mg Glucagon (Glucagon Inj) 1 mg OTHER PRN PRN PRN Reason: for Hypoglycemia Protocol Magnesium Sulfate 4 gm/ Sodium (Chloride) 100 mls @ 50 mls/hr IV.SIG UNSCH PRN PRN Reason: For Magnesium 0.9 - 1.1 mg/dL Magnesium Sulfate 2 gm/ Sodium (Chloride) 100 mls @ 50 mls/hr IV.SIG UNSCH PRN PRN Reason: For Magnesium 1.2 - 1.6 mg/dL Potassium Chloride (Kcl 40 Meq Premix Inj) 40 meq in 100 mls @ 25 mls/hr IV.SIG Q2H PRN PRN Reason: For Potassium 2.8 - 3.2 mEq/L Potassium Chloride (Kcl 20 Meq Premix Inj) 20 meq in 100 mls @ 50 mls/hr IV.SIG Q2H PRN PRN Reason: For Potassium 3.3 - 3.5 mEq/L Potassium Chloride (Kcl 40 Meq Premix Inj) 40 meq in 100 mls @ 25 mls/hr IV.SIG UNSCH PRN PRN Reason: For Potassium 3.3 - 3.5 mEq/L Potassium Chloride (Kcl 20 Meq Premix Inj) 20 meq in 100 mls @ 50 mls/hr IV.SIG Q2H PRN PRN Reason: For Potassium 2.8 - 3.2 mEq/L Potassium Phosphate 30 mmol/ (Sodium Chloride) 260 mls @ 42 mls/hr IV.SIG UNSCH PRN PRN Reason: SEE LABEL COMMENTS Sodium Phosphate 30 mmol/ (Sodium Chloride) 260 mls @ 42 mls/hr IV.SIG UNSCH PRN PRN Reason: For Phosphorus < 2.5 mg/dL Cefepime HCl 1,000 mg/ Sodium (Chloride) 100 mls @ 200 mls/hr IV.SIG Q12H [facility] Last Admin: 02/22/18 10:36 Dose: 200 mls/hr Sodium Chloride (Ns Inj) 250 mls @ 15 mls/hr IV.SIG ONCE [facility] Stop: 02/23/18 03:39 Last Admin: 02/22/18 13:42 Dose: 15 mls/hr Dextrose/Sodium Chloride (D5w/Normal Saline Inj) 1,000 mls @ 75 mls/hr IV.CONT .[id number] [facility] Last Admin: 02/22/18 14:19 Dose: 75 mls/hr Insulin Human Regular (Novolin R Correctional Sugar Inj) 0 units SQ Q6HR [facility]; Protocol Last Admin: 02/22/18 12:25 Dose: Not Given Lactulose (Lactulose Liq) 30 ml PO BID [facility] Last Admin: 02/22/18 08:03 Dose: 30 ml Levothyroxine Sodium (Synthroid) 100 mcg PO DAILY@0600 [facility] Last Admin: 02/22/18 05:21 Dose: 100 mcg Magnesium Oxide (Mag-Ox) 800 mg PO UNSCH PRN PRN Reason: For Magnesium 1.2 - 1.6 mg/dL Metoclopramide HCl (Reglan) 5 mg PO QID [facility] Last Admin: 02/22/18 14:18 Dose: 5 mg Morphine Sulfate (Oramorph Sr) 15 mg PO Q12H [facility] Last Admin: 02/22/18 14:20 Dose: 15 mg Morphine Sulfate (Morphine Inj) 2 mg IV.PUSH Q4H PRN PRN Reason: ACUTE PAIN 1-10 Ondansetron HCl (Zofran Inj) 4 mg IV.PUSH Q6H PRN PRN Reason: NAUSEA OR VOMITING Pharmacy Profile Note (Vancomycin Consult Pharmacy) 1 each OTHER UNSCH PRN PRN Reason: Pharmacy to dose Polyethylene Glycol (Miralax) 17 gm PO BID [facility] Last Admin: 02/22/18 08:04 Dose: 17 gm Potassium Bicarb/Potassium Chloride (K-Lyte Cl Eff) 50 meq PO UNSCH PRN PRN Reason: For Potassium 3.3 - 3.5 mEq/L Potassium Phosphate (K-Phos Original) 2,000 mg PO UNSCH PRN PRN Reason: SEE LABEL COMMENTS Potassium Phosphate (K-Phos Original) 2,000 mg PO Q4H PRN PRN Reason: Phosphorus Less Than 2.5 mg/dL Senna/Docusate Sodium (Wilda-Colace) 1 tab PO BID [facility] Last Admin: 02/22/18 08:03 Dose: 1 tab Sodium Chloride (Ns Flush) 2 ml IV.FLUSH UNSCH PRN PRN Reason: FLUSH AFTER USING IV ACCESS Allergies Allergy/AdvReac Type Severity Reaction Status Date / Time No Known Allergies Allergy Verified 01/26/18 22:22 Home Medications Medication Instructions Recorded Confirmed Type apixaban [Eliquis] 5 mg PO BID 10/27/17 02/21/18 History lactulose 10 g PO TID 10/27/17 02/21/18 History levothyroxine 100 mcg PO DAILY 10/27/17 02/21/18 History morphine 15 mg PO Q12H 10/27/17 02/21/18 History ondansetron 4 mg PO QID PRN 10/27/17 02/21/18 History oxycodone 5 mg PO Q4H 10/27/17 02/21/18 History furosemide [Lasix] 20 mg PO BID 12/14/17 02/21/18 History potassium chloride 20 meq PO DAILY 12/14/17 02/21/18 History ferrous sulfate 325 mg PO BID 02/21/18 02/21/18 History metoclopramide HCl 5 mg PO QID 02/21/18 02/21/18 History metoprolol tartrate 50 mg PO BID 02/21/18 02/21/18 History nitrofurantoin macrocrystal 100 mg PO DAILY 02/21/18 02/21/18 History Physical Exam Vital signs: Vital Signs 02/21/18 19:22 02/21/18 20:00 11/01/18 21:00 Temperature Pulse Rate 80 84 81 Respiratory Rate 18 16 16 Blood Pressure 88/51 L 90/55 L 92/51 L Pulse Oximetry 98 98 97 02/21/18 23:00 02/22/18 00:04 02/22/18 01:09 Temperature Pulse Rate 84 Respiratory Rate 18 31 H Blood Pressure 95/54 L Pulse Oximetry 98 98 02/22/18 01:13 02/22/18 02:00 02/22/18 02:33 Temperature Pulse Rate 87 85 Respiratory Rate 20 18 17 Blood Pressure 94/53 L 86/50 L Pulse Oximetry 96 100 02/22/18 03:00 02/22/18 04:00 02/22/18 05:00 Temperature 98.3 F Pulse Rate 81 83 81 Respiratory Rate 18 24 23 Blood Pressure 84/50 L 92/45 L 73/47 L Pulse Oximetry 100 100 100 02/22/18 05:02 02/22/18 06:00 02/22/18 07:00 Temperature Pulse Rate 82 84 86 Respiratory Rate 22 19 17 Blood Pressure 101/55 L 83/52 L 83/50 L Pulse Oximetry 100 100 100 02/22/18 08:00 02/22/18 08:04 02/22/18 09:00 Temperature 97.6 F Pulse Rate 86 88 91 H Respiratory Rate 17 20 26 H Blood Pressure 80/49 L 90/54 L Pulse Oximetry 99 99 99 02/22/18 09:01 02/22/18 09:40 02/22/18 10:00 Temperature Pulse Rate 91 H 94 H 94 H Respiratory Rate 28 H 21 19 Blood Pressure 103/51 L 95/48 L 85/48 L Pulse Oximetry 95 99 99 02/22/18 10:35 02/22/18 10:36 02/22/18 11:00 Temperature Pulse Rate 95 H 98 H 93 H Respiratory Rate 31 H 20 20 Blood Pressure 60/23 L 94/54 L 80/51 L Pulse Oximetry 98 100 97 02/22/18 11:01 02/22/18 11:06 02/22/18 11:07 Temperature Pulse Rate 93 H 93 H 95 H Respiratory Rate 20 19 21 Blood Pressure 84/46 L 80/49 L 87/51 L Pulse Oximetry 98 99 97 02/22/18 11:46 02/22/18 11:52 02/22/18 12:00 Temperature 96.6 F L Pulse Rate 93 H 94 H 93 H Respiratory Rate 20 24 27 H Blood Pressure 80/42 L 93/55 L 94/51 L Pulse Oximetry 85 L 99 100 02/22/18 12:15 02/22/18 12:19 02/22/18 12:21 Temperature Pulse Rate 94 H 95 H 99 H Respiratory Rate 24 26 H 21 Blood Pressure 81/44 L 76/41 L 104/51 L Pulse Oximetry 96 95 100 02/22/18 12:30 02/22/18 13:00 02/22/18 13:07 Temperature Pulse Rate 95 H 91 H 93 H Respiratory Rate 27 H 38 H 19 Blood Pressure 98/51 L 86/48 L Pulse Oximetry 87 L 02/22/18 13:31 02/22/18 14:00 02/22/18 14:17 Temperature 98.6 F 98.6 F Pulse Rate 93 H 94 H 95 H Respiratory Rate 24 22 15 Blood Pressure 110/59 L 109/66 115/61 Pulse Oximetry 84 L 90 L 02/22/18 14:30 02/22/18 15:00 02/22/18 15:22 Temperature Pulse Rate 93 H 99 H 95 H Respiratory Rate 18 24 24 Blood Pressure 115/61 111/58 L Pulse Oximetry 99 93 L 02/22/18 15:30 02/22/18 16:00 02/22/18 16:09 Temperature 98.1 F Pulse Rate 101 H 101 H 104 H Respiratory Rate 20 20 26 H Blood Pressure 114/68 99/68 L 99/68 L Pulse Oximetry 88 L 100 92 L 02/22/18 16:26 02/22/18 16:30 02/22/18 16:31 Temperature 97.9 F Pulse Rate 103 H 100 H 104 H Respiratory Rate 13 18 19 Blood Pressure 104/57 L 85/60 L 85/60 L Pulse Oximetry 100 100 02/22/18 16:52 02/22/18 17:00 Temperature 97.9 F Pulse Rate 101 H 101 H Respiratory Rate 19 17 Blood Pressure 85/60 L 94/60 L Pulse Oximetry 100 Intake & Output 02/21/18 02/22/18 02/22/18 18:59 06:59 18:59 Intake Total 1460 / 1460 2099 Balance 1460 / 1460 2099 Weight 72.575 kg 67.7 kg Intake: IV 1460 / 1460 1999 LR 1000 mL Inj 1,000 ML @ 100 1000 / 1000 mls/hr IV.CONT .Q10H [facility] Rx#: [id number] Calcium Gluconate Inj 1 GM In 110 / 110 NS Inj 100 ML @ 110 mls/hr IV. SIG ONCE ONE Rx#:[id number] Maxipime Inj 1,000 MG In NS Inj 100 / 100 100 ML @ 200 mls/hr IV.SIG ONCE ONE Rx#:[id number] NS Inj 1,000 ML @ 2000 mls/hr 1000 / 1000 1000 / 1000 IV.SIG Q30M [facility] Rx#:[id number] Vancomycin Inj 1,000 MG In NS 250 / 250 Inj 250 ML @ 250 mls/hr IV.SIG ONCE ONE Rx#:[id number] Oral 100 / 100 Intake (Blood Product) Amt 0 / 0 Rbc As-3 Leukoreduced Irrad 0 / 0 Unit [id number] Rbc As-3 Leukoreduced Irrad 0 / 0 Unit [id number] Other: # Incontinent Voids 1 Date of Last Bowel Movement 02/22/18 02/22/18 Weight On Admission 67.7 kg Narrative: Elderly lady, laying in bed, critically ill. Has alopecia of chemotherapy. She is awake and alert and responsive. She is currently receiving a unit of packed red blood cells. - Constitutional chronically ill appearing - Routine HEENT Exam Head: Present: normocephalic Eye: Present: EOMI, PERRL, conjunctival icterus. Absent: conjunctivae pink ENT: Present: mucous membranes moist - Routine Neck Exam Present: supple. Absent: lymphadenopathy, thyromegaly, swelling, tracheal deviation - Routine Respiratory Exam Present: accessory muscle use, CTA bilaterally. Absent: rales, respiratory distress, rhonchi, stridor, wheezes, distant breath sounds - Routine Cardiovascular Exam Present: S1, S2, tachycardia - Routine Abdominal Exam Present: tenderness, distended, firm. Absent: rebound, guarding, mass - Routine Extremities Exam Absent: cyanosis, tenderness, pallor - Routine Skin Exam Present: intact, dry - Routine Neurological Exam Present: alert, oriented X3, CN II-XII intact. Absent: sensory deficit, motor deficit - Detailed Neurological Exam: Coma Scale Eye Opening: Spontaneous Verbal Response: Oriented Motor Response: Obey commands Lasha Coma Scale Total: 15 - Routine Psychiatric Exam Present: normal affect Assessment and Plan - Plan Ms. Louie is a very pleasant 72-year-old female whom I have known since she was initially diagnosed with metastatic pancreatic carcinoma arising from the tail the pancreas in June 2017. Her treatment history is consistent with first-line palliative systemic therapy with FOLFIRINOX followed by palliative second line systemic therapy consisting of gemcitabine and Abraxane. Unfortunately, restaging imaging scans performed over the past 6 weeks indicate clear progression of intrahepatic metastases and intra-abdominal jethro metastases. Her ECOG performance status is at best 3 at baseline, at present her ECOG performance status is 4. She presents the hospital with complaints of epigastric burning pain, abdominal distention and black tarry stools. She is noted to be hypotensive, anemic and hypoxic. She is currently being transfused aggressively for what appears to be anemia related to acute blood loss. She does have a history of lower extremity venous thromboses and pulmonary emboli which are chronic and were initially diagnosed in September of this year. She had been on therapeutic anticoagulation with Eliquis. In addition to being on IV antibiotic therapy and red cell transfusions she is also receiving IV fluid hydration for resuscitation. Hematology service is been asked to see her to help reconcile the competing issues i.e. ongoing bleeding with resultant anemia in the setting of a patient who has had a history of recent pulmonary emboli and lower extremity deep venous thromboses. Anticoagulation in the setting is contraindicated due to the ongoing bleeding and hypotension. Recommendations: 1. Metastatic pancreas adenocarcinoma: Her disease is clearly progressing based on her most recent scans. Her most recent CA 19-9 serum tumor marker had increased exponentially over the past 6 weeks from a level of 6000 up to over 50 ,000. She is now progressed on 2 separate lines of palliative systemic chemotherapy. Given her baseline ECOG performance status which had been declining over the past several months I do not think this patient is a good candidate for aggressive disease directed therapeutic interventions. I in fact talk to her about hospice level of care going forward and comfort oriented care. The patient is agreeable to hospice level of care. At today's visit we discussed CODE STATUS, she agreed to be a DNR as well. I did talk to the patient's significant other Mr. Hernández (with whom the patient has cohabitant since 2004) and I also spoke to the patient's daughter Diana who lives in [place]. Though Diana and Mr. Hernández do not have a good relationship with each other, they both agree that hospice and comfort oriented care would be most appropriate for Ms. Louie. 2. Anemia: Likely related to blood losses: I agree with red cell transfusions. Monitor for stability. 3. History of pulmonary emboli and DVTs: Anticoagulation on hold. I do not recommend putting in an IVC filter in a patient to will likely be transitioning to hospice in the upcoming days. 4. Hypotension: IV fluid hydration for volume resuscitation and broad-spectrum antibiotics for management of sepsis. 5. Pain control: Continue long-acting morphine sulfate, I have added on IV morphine to MG every 4 hours as needed for breakthrough pain. Disposition: Continue supportive care for now, I do not think the patient is ready for withdrawal of all supportive measures at this time. I would however advise transitioning her to comfort care and inpatient palliative care over the upcoming 24-48 hours as her overall condition stabilizes. CODE STATUS has been changed to DNR to reflect my conversation with the patient and her desire to be DNR. Case extensively discussed with the patient, her significant other and her daughter. Patient's nurse was at bedside as well. Oncology will follow along with you.
--- NOTE | 2018-02-22 19:23 | ECG ---
Date Performed: 02/21/2018 Time Performed: 17:48:40 PTAGE: 72 years EKG: Sinus rhythm WITH SHORT AL INTERVAL Since the previous tracing, no significant change noted BORDERLINE ECG NO PREVIOUS TRACING DOCTOR: Celso Corrales Interpretating Date/Time 02/22/2018 19:22:36
[2018-02-22 21:32] LABS: Hematocrit 30.8 % (35.0-46.0); Hemoglobin 10.4 gm/dL (11.6-15.3); Mean Corpuscular HGB Conc 33.6 % (32.0-36.0); Mean Corpuscular Hemoglobin 31.8 pg (27.0-34.0); Mean Corpuscular Volume 94.5 fL (80.0-100.0); Mean Platelet Volume 11.1 fL (7.0-11.0); Platelet Count 50 th/mm3 (150-450); Red Blood Count 3.26 mil/mm3 (4.00-5.30); Red Cell Distribution Width 18.1 % (11.6-17.2); White Blood Count 1.6 th/mm3 (4.0-11.0)
[2018-02-22 21:55] LABS: Albumin 1.6 g/dL (3.4-5.0); Calcium 7.4 mg/dL (8.5-10.1); Carbon Dioxide 21.1 meq/L (21.0-32.0); Magnesium 1.7 mg/dL (1.5-2.5); Phosphorus 3.1 mg/dL (2.5-4.9); Potassium 4.2 meq/L (3.5-5.1); Total Protein 5.4 g/dL (6.4-8.2)
[2018-02-23] MEDS: Insulin NovoLIN Regular Correctional Sugar Inj SQ SCH ×4 (00:08→18:21)
[2018-02-23] MEDS: Morphine Sulfate 15 MG SR Tablet PO SCH ×2 (03:10→14:31)
[2018-02-23] MEDS: Dextrose 5%/NaCl 0.9% Inj 1,000 ML IV.CONT SCH ×2 (03:10→21:16)
[2018-02-23] MEDS: Chlorhexidine Gluconate 2% 1 Pack (2 Cloths) TOPICAL SCH (03:11)
[2018-02-23] MEDS: Levothyroxine 100 MCG Tablet PO SCH (05:41)
[2018-02-23] MEDS: Morphine Sulfate Inj 2 MG/ML Vial IV.PUSH PRN ×3 (05:54→19:37)
--- NOTE | 2018-02-23 07:01 | P.PNCC ---
Subjective Subjective Remarks/Hospital Course: 72yF with history of ovarian cancer with liver mets who also has a history of prior PE presents with worsening shortness of breath. Of note she was recently admitted last month for pseudomonas UTI. She has an MAE with Cr 1.7. VQ scan is high probability for PE with + Ddimer. BNP and Trop are negative, suggestive against a submassive PE without evidence of RV strain. INR 1.9. denies fever, chills. endorses heartburn, nausea, dry heaving. denies diarrhea, constipation, abd pain. denies chest pain. endorses sob. denies cough or sputum production. remainder ROS negative. Reconsult: Patient was hypotensive given 2L NS boluses Hgb 6.6, hyperkalemia with K 6.0 and lactic acid 4.0. She is on 2L oxygen. c/o abdominal pain 02/23: Patient s/p transfusion 2u PRBC yesterday Hgb 10.4 this morning from 6.1, CT abd/pelvis showed no retroperitoneal bleed. Objective Vital Signs / I&O: Vital Signs 02/22/18 07:00 02/22/18 08:00 02/22/18 08:04 Temperature 97.6 F Pulse Rate 86 86 88 Respiratory Rate 17 17 20 Blood Pressure 83/50 L 80/49 L 90/54 L Pulse Oximetry 100 99 99 02/22/18 09:00 02/22/18 09:01 02/22/18 09:40 Temperature Pulse Rate 91 H 91 H 94 H Respiratory Rate 26 H 28 H 21 Blood Pressure 103/51 L 95/48 L Pulse Oximetry 99 95 99 02/22/18 10:00 02/22/18 10:35 02/22/18 10:36 Temperature Pulse Rate 94 H 95 H 98 H Respiratory Rate 19 31 H 20 Blood Pressure 85/48 L 60/23 L 94/54 L Pulse Oximetry 99 98 100 02/22/18 11:00 02/22/18 11:01 02/22/18 11:06 Temperature Pulse Rate 93 H 93 H 93 H Respiratory Rate 20 20 19 Blood Pressure 80/51 L 84/46 L 80/49 L Pulse Oximetry 97 98 99 02/22/18 11:07 02/22/18 11:46 02/22/18 11:52 Temperature Pulse Rate 95 H 93 H 94 H Respiratory Rate 21 20 24 Blood Pressure 87/51 L 80/42 L 93/55 L Pulse Oximetry 97 85 L 99 02/22/18 12:00 02/22/18 12:15 02/22/18 12:19 Temperature 96.6 F L Pulse Rate 93 H 94 H 95 H Respiratory Rate 27 H 24 26 H Blood Pressure 94/51 L 81/44 L 76/41 L Pulse Oximetry 100 96 95 02/22/18 12:21 02/22/18 12:30 02/22/18 13:00 Temperature Pulse Rate 99 H 95 H 91 H Respiratory Rate 21 27 H 38 H Blood Pressure 104/51 L 98/51 L Pulse Oximetry 100 87 L 02/22/18 13:07 02/22/18 13:31 02/22/18 14:00 Temperature 98.6 F Pulse Rate 93 H 93 H 94 H Respiratory Rate 19 24 22 Blood Pressure 86/48 L 110/59 L 109/66 Pulse Oximetry 84 L 90 L 02/22/18 14:17 02/22/18 14:30 02/22/18 15:00 Temperature 98.6 F Pulse Rate 95 H 93 H 99 H Respiratory Rate 15 18 24 Blood Pressure 115/61 115/61 111/58 L Pulse Oximetry 99 93 L 02/22/18 15:22 02/22/18 15:30 02/22/18 16:00 Temperature 98.1 F Pulse Rate 95 H 101 H 101 H Respiratory Rate 24 20 20 Blood Pressure 114/68 99/68 L Pulse Oximetry 88 L 100 02/22/18 16:09 02/22/18 16:26 02/22/18 16:30 Temperature 97.9 F Pulse Rate 104 H 103 H 100 H Respiratory Rate 26 H 13 18 Blood Pressure 99/68 L 104/57 L 85/60 L Pulse Oximetry 92 L 100 02/22/18 16:31 02/22/18 16:52 02/22/18 17:00 Temperature 97.9 F Pulse Rate 104 H 101 H 101 H Respiratory Rate 19 19 17 Blood Pressure 85/60 L 85/60 L 94/60 L Pulse Oximetry 100 100 02/22/18 18:00 02/22/18 20:00 02/22/18 22:00 Temperature 98 F Pulse Rate 103 H 100 H 115 H Respiratory Rate 21 Blood Pressure 122/62 Pulse Oximetry 100 02/22/18 22:26 02/23/18 00:00 02/23/18 02:00 Temperature 98.3 F Pulse Rate 107 H 113 H 105 H Respiratory Rate 16 19 Blood Pressure 102/63 Pulse Oximetry 100 99 02/23/18 04:00 02/23/18 04:14 02/23/18 06:00 Temperature 98.3 F Pulse Rate 110 H 109 H Respiratory Rate 22 22 Blood Pressure 123/76 Pulse Oximetry 100 Intake & Output 02/22/18 02/22/18 02/23/18 06:59 18:59 06:59 Intake Total 1460 / 1460 3822 / 3822 1755 / 1755 Output Total 300 / 300 400 / 400 Balance 1460 / 1460 3522 / 3522 1355 / 1355 Weight 67.7 kg 73.5 kg Intake: IV 1460 / 1460 3242 / 3242 1115 / 1115 D5W/Normal Saline Inj 1,000 ML 1000 / 1000 @ 75 mls/hr IV.CONT .[id number] [facility] Rx#:[id number] LR 1000 mL Inj 1,000 ML @ 100 1042 / 1042 mls/hr IV.CONT .Q10H [facility] Rx#: [id number] Calcium Gluconate Inj 1 GM In 110 / 110 NS Inj 100 ML @ 110 mls/hr IV. SIG ONCE ONE Rx#:[id number] Maxipime Inj 1,000 MG In NS Inj 100 / 100 100 / 100 100 / 100 100 ML @ 200 mls/hr IV.SIG Q12H [facility] Rx#:[id number] NS Inj 1,000 ML @ 2000 mls/hr 1000 / 1000 2000 / 2000 IV.SIG Q30M [facility] Rx#:[id number] NS Inj 250 ML @ 15 mls/hr IV. 15 / 15 SIG ONCE [facility] Rx#:[id number] Vancomycin Inj 1,000 MG In NS 250 / 250 Inj 250 ML @ 250 mls/hr IV.SIG ONCE ONE Rx#:[id number] Vancomycin Inj 500 MG In NS Inj 100 / 100 100 ML @ 200 mls/hr IV.SIG ONCE ONE Rx#:[id number] Oral 580 / 580 240 / 240 Intake (Blood Product) Amt 0 / 0 400 / 400 Rbc As-3 Leukoreduced Irrad 0 / 0 400 / 400 Unit [id number] Rbc As-3 Leukoreduced Irrad 0 / 0 Unit [id number] Output: Urine 300 / 300 400 / 400 Other: # Incontinent Voids 1 Date of Last Bowel Movement 02/22/18 02/22/18 02/22/18 # Bowel Movements 1 Weight On Admission 67.7 kg Result Diagrams: 02/23/18 05:48 02/23/18 05:48 Other Results: Laboratory Results - last 12 hr 02/22/18 02/22/18 02/22/18 12:06 21:07 21:07 WBC 1.6 L RBC 3.26 L Hgb 10.4 L D Hct 30.8 L MCV 94.5 D MCH 31.8 MCHC 33.6 RDW 18.1 H D Plt Count 50 L MPV 11.1 H Sodium 141 Potassium 4.2 Chloride 109 H Carbon Dioxide 21.1 Anion Gap 11 BUN 51 H Creatinine 1.32 H Estimated GFR 39 L POC Glucose Random Glucose 142 H Lactic Acid Calcium 7.4 L* Prot Corrected Calcium 8.3 L Phosphorus 3.1 Magnesium 1.7 Total Bilirubin 8.2 H AST 86 H ALT 64 H Alkaline Phosphatase 358 H Total Protein 5.4 L Albumin 1.6 L MTS Gel Crossmatch See Detail 02/22/18 02/23/18 21:07 05:46 WBC RBC Hgb Hct MCV MCH MCHC RDW Plt Count MPV Sodium Potassium Chloride Carbon Dioxide Anion Gap BUN Creatinine Estimated GFR POC Glucose 129 H Random Glucose Lactic Acid 3.7 H Calcium Prot Corrected Calcium Phosphorus Magnesium Total Bilirubin AST ALT Alkaline Phosphatase Total Protein Albumin MTS Gel Crossmatch Objective Remarks: GENERAL: Patient is 72 yo critically ill hypotensive. SKIN: Warm and dry. HEAD: Normocephalic. EYES: No scleral icterus. No injection or drainage. NECK: Supple, trachea midline. No JVD or lymphadenopathy. CARDIOVASCULAR: Tachycardic without murmurs, gallops, or rubs. RESPIRATORY: Breath sounds equal bilaterally. No accessory muscle use. GASTROINTESTINAL: Abdomen soft, non-tender, nondistended. MUSCULOSKELETAL: No cyanosis, or edema. Neuro: Awake and alert. Assessment and Plan - Assessment and Plan Plan: 1) Resp Insuff 2)PE 3)Pancreatic ca with liver mets 4)Hyperkalemia 5)MAE 6)Pancytopenia 7)Lactic acidemia Plan Neuro Awake and alert avoid sedatives Pain control Pulm: Continue with oxygen keep sats >92% Bronchodilators V/Q scan showed high prob PE. Follow up on Doppler US LE Hematology is following CXR no acute disease CV: Monitor HR and BP keep MAP>65mmHg Serial lactic acid monitoring till clear s/p 2LNS boluses , on D5NS@40ml/hr : Monitor renal function, I/O's, avoid nephrotoxins Electrolytes replacement as needed. Diurese with Lasix 40mg x1 GI: Pancreatic Cancer Elevated LFT/Liver mets - followed by Dr. Olson - consult Heme oncology -On PO diet. Monitor LFT's -CT abdomen/pelvis showed no retroperitoneal bleed, liver/bone mets Heme: Monitor CBC, coags, fibrinogen level-257 s/p Transfusion 2uPRBC heme is following Acute protein calorie malnutrition- severe -On PO diet ID Continue abx- vancomycin, cefepime -Follow up on blood cultures 02/21 - de-escalate abx therapy if cultures negative at 48h. Endo SSI for glycemic control GI prophylaxis- On Pepcid, DVT prophylaxis-Eliquis held for severe anemia requiring blood transfusion and thrombocytopenia PLT <50 Palliative care is following. Patient was made no code DNR Discussed with patient about her condition and she is requesting hospice eval Level 3.
[2018-02-23 07:48] LABS: Activated Partial Thrombo Time 31.5 sec (23.4-31.7); INR 1.5 Ratio; Prothrombin Time 15.3 sec (9.8-11.6)
[2018-02-23 07:55] LABS: Albumin 1.5 g/dL (3.4-5.0); Anion Gap 10 meq/L (5-15); Aspartate Aminotransferase 79 U/L (15-37); Blood Urea Nitrogen 47 mg/dL (7-18); Calcium 7.5 mg/dL (8.5-10.1); Carbon Dioxide 20.7 meq/L (21.0-32.0); Chloride 112 meq/L (98-107); Glomerular Filtration Rate 41 mL/min (>89); Glucose,Random 113 mg/dL (74-106); Potassium 3.9 meq/L (3.5-5.1); Sodium 143 meq/L (136-145)
[2018-02-23 07:59] LABS: Hematocrit 29.4 % (35.0-46.0); Hemoglobin 10.4 gm/dL (11.6-15.3); Mean Corpuscular HGB Conc 35.3 % (32.0-36.0); Mean Corpuscular Volume 93.5 fL (80.0-100.0); Mean Platelet Volume 10.3 fL (7.0-11.0); Platelet Count 44 th/mm3 (150-450); Red Blood Count 3.14 mil/mm3 (4.00-5.30); Red Cell Distribution Width 18.8 % (11.6-17.2); White Blood Count 1.9 th/mm3 (4.0-11.0)
[2018-02-23 08:09] LABS: Alanine Aminotransferase 64 U/L (10-53); Alkaline Phosphatase 352 U/L (45-117); Total Protein 5.2 g/dL (6.4-8.2); Vancomycin,Random 11.8 Comment
[2018-02-23] MEDS: Ferrous Sulfate 325 MG Tablet PO SCH ×2 (08:18→20:23)
[2018-02-23] MEDS: Metoclopramide 10 MG Tablet PO SCH ×4 (08:18→20:23)
[2018-02-23] MEDS: Famotidine 20 MG Tablet PO SCH ×2 (08:20→20:23)
[2018-02-23] MEDS: Senna/Docusate Sodium 8.6/50 MG Tablet PO SCH ×2 (08:21→20:23)
[2018-02-23] MEDS: Polyethylene Glycol 3350 17 GM Packet PO SCH ×2 (08:22→20:24)
[2018-02-23 10:46] LABS: Eosinophils 11 % (0-4); Lymphocytes 10 % (9-44); Metamyelocytes 1 % (0-1); Monocytes 15 % (0-8); Myelocytes 8 % (0-0); Polychromasia 2.5 % (0.0-1.9); Promyelocyte 1 % (0-0); Tallied Nucleated RBC 69 (0-0)
[2018-02-23 10:47] LABS: Acanthocytes Occ; Howell-Jolly Bodies Present; Target Cells 1+
--- NOTE | 2018-02-23 10:55 | ECHRPT ---
Indication: Shortness of Breath CONCLUSIONS Limited echo Normal left ventricular size. Wall thickness is normal. The left ventricular systolic function is normal with an estimated ejection fraction in the range of 60-65%. Very technically difficult, but no more than a trivial pericardial effusion seen. BP: 104 / 64 HR: Rhythm: MEASUREMENTS (Male / Female) Normal Values Technical Quality:Very technically difficult study 2D ECHO LV Diastolic Diameter PLAX 3.7 cm 4.2 - 5.9 / 3.9 - 5.3 cm LV Systolic Diameter PLAX 2.3 cm IVS Diastolic Thickness 0.9 cm 0.6 - 1.0 / 0.6 - 0.9 cm LVPW Diastolic Thickness 1.0 cm 0.6 - 1.0 / 0.6 - 0.9 cm LV Relative Wall Thickness 0.5 RV Internal Dim ED PLAX 2.7 cm Aortic Root Diameter 2.6 cm LA Systolic Diameter LX 2.4 cm 3.0 - 4.0 / 2.7 - 3.8 cm FINDINGS LEFT VENTRICLE Normal left ventricular size. Wall thickness is normal. The left ventricular systolic function is normal with an estimated ejection fraction in the range of 60-65%. PERICARDIUM Trivial pericardial effusion A prominent epicardial fat pad is present. Alejandro Cotter MD (Electronically Signed) Final Date:23 February 2018 10:54
[2018-02-23] MEDS ORDERED: Vancomycin Inj 1,000 MG in Sodium Chlor 0.9% Inj 250 ML IV.SIG SCH (12:00)
--- NOTE | 2018-02-25 08:53 | US ---
EXAM DATE: 02/22/2018 9:42 PM EDT AGE/SEX: 72 years / Female INDICATIONS: Bilateral leg swelling. CLINICAL DATA: This is the patient's subsequent encounter. Patient reports that signs and symptoms h ave been present for 1 day and indicates a pain score of 1/10. MEDICAL/SURGICAL HISTORY: . Hypertension. Liver cancer. Pancreatic cancer. Pulmonary embolism. . Chemotherapy. COMPARISON: [facility] [place], US VENOUS DOPPLER LEG BI, 11/11/2017. . TECHNIQUE: Venous ultrasound of both lower extremities was performed from the inguinal ligament to t he proximal calf. Real-time, color Doppler and spectral tracing, compression and augmentation techni ques were used. FINDINGS: Right Leg: Normal compression of the deep venous system from the inguinal region to the proximal susan f. No echogenic clot is seen. Normal response of the venous system to augmentation and respiration. Left Leg: Normal compression of the deep venous system from the inguinal region to the proximal calf . No echogenic clot is seen. Normal response of the venous system to augmentation and respiration. Other: None. CONCLUSION: 1. The study is negative for bilateral lower extremity deep venous thrombosis. Electronically signed by: Andres Raman MD 02/25/2018 8:52 AM EST
[2018-02-25] MEDS ORDERED: Pharmacy Ordered Lab Info OTHER ONE (11:45)
== END 2018-02-23 21:15 | disposition hospice, inpatient (51) ==
LOC: NEPE 17:38 → NEDA 02-22 00:02 → HIMC 02-22 01:00
PROVIDERS: ADMIT Internal Medicine Critical Care Medicine; ATTEND Internal Medicine Critical Care Medicine